=== PATIENT | female | born 1960 | race Caucasian/White ===

== ENCOUNTER 2024-07-01 14:09 | Outpatient (OUT) | payer MEDICARE, SELFPAY ==
--- NOTE | 2024-07-01 14:28 | ECG_ITS ---
[facility] Test Date: 2024-07-01 Pat Name: PRASANNA MA Department: Room: - Gender: Female Implementation Advisor: : 1960 Requested By: [id number] Order Number: [id number] Reading MD: SANJANA GONZALEZ Measurements Intervals [place] Rate: 58 P: 69 WY: 133 QRS: 62 QRSD: 90 T: 30 QT: 439 QTc: 432 Interpretive Statements SINUS BRADYCARDIA Compared to ECG 04/22/2021 14:17:21 Sinus rhythm no longer present Electronically Signed On 07-01-2024 22:31:47 EDT by SANJANA GONZALEZ
== END 2024-07-01 14:10 | disposition home or self-care (01) ==
DX: F31.0 Bipolar disorder, current episode hypomanic (principal); F41.1 Generalized anxiety disorder
CPT/HCPCS: 93005

== ENCOUNTER 2024-07-04 09:19 | Outpatient (OUT) | payer MEDICARE, SELFPAY ==
[2024-07-04 09:40] LABS: Basophils Absolute Auto 0.1 10^3/uL (0.0-0.1); Basophils Percent Auto 0.9 % (0.2-2.0); Eosinophils Absolute Auto 0.5 10^3/uL (0.0-0.7); Eosinophils Percent Auto 5.8 % (0.9-7.0); Hematocrit 37.7 % (36.0-48.0); Hemoglobin 12.7 g/dL (12.0-16.0); Immature Granulocytes Abs Auto 0.02 10^3/uL (0.00-0.03); Immature Granulocytes Pct Auto 0.3 % (0.0-0.5); Lymphocytes Absolute Auto 2.6 10^3/uL (1.2-3.8); Lymphocytes Percent Auto 32.5 % (20.5-60.0); Mean Corpuscular HGB Conc 33.7 g/dL (29.9-35.2); Mean Corpuscular Hemoglobin 30.3 pg (26.7-34.0); Mean Platelet Volume 10.8 fL (9.5-13.5); Monocytes Absolute Auto 0.7 10^3/uL (0.3-0.8); Monocytes Percent Auto 8.9 % (1.7-12.0); Neutrophils Absolute Auto 4.1 10^3/uL (1.4-6.5); Neutrophils Percent Auto 51.6 % (43.0-75.0); Platelet Count 237 10^3/uL (150-450); Red Blood Count 4.19 10^6/uL (4.20-5.40); Red Cell Distribution Width 13.1 % (11.0-15.0); White Blood Count 7.9 10^3/uL (4.0-11.0)
[2024-07-04 11:46] LABS: Alanine Aminotransferase 20 U/L (14-59); Albumin Level 3.6 g/dL (3.4-5.0); Alkaline Phosphatase 115 U/L (46-116); Aspartate Amino Transferase 17 U/L (15-37); BUN Creatinine Ratio 14.3; Bilirubin Direct 0.1 mg/dL (0.0-0.2); Bilirubin Total 0.4 mg/dL (0.2-1.0); Calcium 9.5 mg/dL (8.5-10.1); Carbon Dioxide 28.7 mmol/L (21.0-32.0); Chloride 97 mmol/L (98-107); Chol HDL Ratio 4.6; Cholesterol 165 mg/dL (<=200); Estimated GFR (African America >60 (>=60); Estimated GFR (Non-African Ame 53 (>=60); Globulin 3.5 g/dL; Glucose 124 mg/dL (74-106); HDL Cholesterol 36 mg/dL (40-60); Potassium 3.7 mmol/L (3.5-5.1); Sodium 132 mmol/L (136-145); Thyroid Stimulating Hormone 1.777 uIU/mL (0.358-3.740); Total Protein 7.1 g/dL (6.4-8.2); Triglycerides 532 mg/dL (<=150); VLDL CHOLESTEROL 106.4 mg/dL
[2024-07-04 15:29] LABS: LDL Cholesterol Direct 57 mg/dL
[2024-07-05 04:08] LABS: Prolactin 14.3 ng/mL (3.6-25.2); Triiodothyronine (T3) 116 ng/dL (71-180); Vitamin B12 411 pg/mL (232-1245)
[2024-07-10 16:11] LABS: Summary Report (Summary) FINAL (.)
== END 2024-07-04 09:20 | disposition home or self-care (01) ==
LOC: LAB 09:19
DX: F31.0 Bipolar disorder, current episode hypomanic (principal); F41.1 Generalized anxiety disorder
CPT/HCPCS: 36415; 80053; 80061; 80076; 80326; 80331; 80334; 80337; 80338; 80341; 80344; 80347; 80348; 80353; 80354; 80355; 80357; 80358; 80359; 80360; 80361; 80364; 80365; 80366; 80367; 80368; 80370; 80371; 80372; 80373; 80377; 82306; 82570; 82607; 82746; 83540; 83721; 83992; 84146; 84436; 84443; 84480; 85025

== ENCOUNTER 2025-04-30 10:54 | Outpatient (OUT) | payer MEDICARE, MEDICAID, SELFPAY ==
--- OUTSIDE RECORDS SUMMARY | 2025-04-16 11:36 | XMS_ITS ---
Author Organization [facility] in [place] Address [address] [place] [address] Care Team Providers Care Cosmetics Presser Name Role Phone Madhavi Culp Primary Care Provider [phone] REASON FOR VISIT refill Medications Medication SIG (Take, Route, Fr equency, Duration) Notes Start Date End Date Status Nitroglycerin 0.4 MG 1 tablet under the tongue and allow to dissolve as needed. Take every 5 minutes up to 3 times if chest pain persists Sublingual prn for 30 days 12/09/2024 Activ e Encounters Encounter Location Date Provider Diagnosis [facility] [address] [place] [address] 04/16/2025 Madhavi Culp Plan Of Treatment Medication Medication Name Sig Start Date Stop Date Notes Nitroglycerin 0.4 MG 1 tablet under the tongue and allow to dissolve as needed. Take every 5 minutes up to 3 times if chest pain persists Sublingual prn for 30 days 12/09/2024 Progress Notes * Susanna MADOB:1960 (64 yo F)Acc No.[id number]:04/16/2025 Patient: Susanna ENRIQUE :1960 A ge:64 Y S ex:Female Address:[facility] [place], [address] * Refills Refill Nitroglycerin Tablet Sublingual, 0.4 MG, Sublingual, 90, 1 tablet under the tongue and allow to dissolve as needed. Take every 5 minutes up to 3 times if chest pain persists, prn, 30 days, Refills=1 * true * Date: Generated for Judd valle/Tonny/Estelaitting on: 0 04/30/2025 11:01 AM EDT
--- OUTSIDE RECORDS SUMMARY | 2025-04-16 11:48 | XMS_ITS ---
Author Organization [facility] in [place] Address [address] [place] [address] Care Team Providers Care Rate Engineer Name Role Phone Madhavi Culp Primary Care Provider [phone] REASON FOR VISIT MRI pancrease Encounters Encounter Location Date Provider Diagnosis [address] [place] [address] 04/16/2025 Madhavi Culp Plan Of Treatment No Information Progress Notes * Susanna MADOB:1960 (64 yo F)Acc No.[id number]:04/16/2025 Patient: Susanna ENRIQUE :1960 A ge:64 Y S ex:Female [address] [place], [address] * true * Date: Generated for Judd valle/Tonny/eTransmitting on: 0 04/30/2025 11:01 AM EDT
--- OUTSIDE RECORDS SUMMARY | 2025-04-21 04:54 | XMS_ITS ---
Author Organization [facility] in [place] Address [address] [place] [address] Care Team Providers Care Cutter Finisher Name Role Phone Madhavi Culp Primary Care Provider Reason For Referral Diagnosis 1 Heart failure, unspe cified (I50.9) Referral Organization [facility] Referring Provider First Name Madhavi Referring Provider Last Name Robbi Referring Provider [facility] ann marie Referred Provider [facility] Referred Provider Specialty Cardiology Referral Priority Routine Diagnosis 1 Type 2 diabetes john itus with diabetic cataract (E11.36) Diagnosis 2 Hyperthyroidism (E05 .90) Referral Organization [facility] Referring Provider First Name Madhavi Referring Provider Last Name Robbi Referring Provider [facility] ann marie Referred Provider [facility] Tavarez Referred Provider Specialty Endocrinolog y Referral Priority Routine REASON FOR VISIT referrals Encounters Encounter Location Date Provider Diagnosis [facility] [address] [facility] [place] [address] 04/21/2025 Madhavi Culp Heart failure, unspecified I50.9 ; Diabetes E11.9 ; Type 2 diabetes mellitus with diabetic cataract E11.36 and Hyperthyroidism E05.90 Assessments Encounter Date Diagnosis (ICD Code) Assessment Notes Treatment Notes Treatment Clinical Notes Section Notes 04/21/2025 Heart failure, unspecified (ICD-10 - I50.9) 04/21/2025 Diabetes (ICD-10 - E11.9) 04/21/2025 Type 2 diabetes mellitus with diabetic cataract (ICD-10 - E11.36) 04/21/2025 Hyperthyroidism (ICD-10 - E05.90) Plan Of Treatment Referrals Referral Date Details 04/21/2025 04/21/2025, Specialt y Clinic [facility] Cardiology 04/21/2025 04/21/2025, Carlos Velázquez bbagh Progress Notes * Susanna MADOB:1960 (64 yo F)Acc No.[id number]:04/21/2025 Patient: Susanna ENRIQUE :1960 A ge:64 Y S ex:Female Address:[address] [place] [address] [place], [address] Subjective: * Chief Complaints: * R eferrals * Medical History: * Surgical History: * Hospitalization/Major Diagno stic Procedure: * Medications: Objective: * Vitals: * Physical Examination: Assessment: * Assessment: 1. H eart failure, unspecified - I50.9 (Primary) 2 . D iabetes - E11.9 3 . T ype 2 diabetes mellitus with diabetic cataract - E11.36 4 .�Hyperthyroidism - E05.90 Plan: * Treatment: 2. T ype 2 diabetes mellitus with diabetic cataract Referral To:[facility] Reason: 3. H yperthyroidism Referral To:[facility] Reason: * Procedure Codes: * true * Date: Generated for Judd valle/Tonny/eTransmitting on: 0 04/30/2025 11:02 AM EDT Consultation Request Notes Referral Date Referring Provider Referred Provider Not es 04/21/[address] [facility] Cardiology, Specialty Clinic 04/21/2025 Madhavi Culp Ahmad
--- OUTSIDE RECORDS SUMMARY | 2025-04-30 11:01 | XMS_ITS | Patient Health Record ---
Author Organization [facility] Address [address] [place] [address] [place] [address] Care Team Providers Care Terrazzo Worker Name Role Phone JENNIFER KD Unavailable [phone] Reason For Referral No Information Social History Sex Assigned At : Social History Observation Description Sex Assigned At Female Plan Of Treatment No Information Insurance Providers Payer Name Payer Address Payer Phone Subscriber Number Group Number Insured Name Patient Relationship to Insured Coverage Start Date Coverage End Date [employer] [address] [address] [place] [address] [id number] PRASANNA MA Self - patient is the insured 2 [employer] [address] [address] [place] [address] [id number] PRASANNA MA Self - patient is the insured 2
--- OUTSIDE RECORDS SUMMARY | 2025-04-30 11:02 | XMS_ITS | Patient Health Record ---
Author Organization [facility] in [place] Address [address] [place] [address] Care Team Providers Care Job Setter Honing Name Role Phone Madhavi Culp Primary Care Provider Allergies Allergen (clinical drug ingredient) Drug/Non Drug Allergy documented on EMR Reaction Allergy Type Onset Date Status Vaccine product containing Streptococcus pneumoniae antigen (medicinal product) pneumonia vaccine (uncoded) hives Allergy Active Vitamin B Complex hives Drug Allergy Active Reason For Referral Reason hyperthyroid on meth imazole Diagnosis 1 Hyperthyroidism (E05 .90) Referral Organization [facility] Referring Provider First Name Madhavi Referring Provider Last Name Robbi Referring Provider [facility] ann marie Referred Provider Carlos Tavarez Referred Provider Specialty Endocrinolog y Referral Priority Routine Reason HTN Diagnosis 1 HTN (hypertension) ( I10) Referral Organization [facility] Referring Provider First Name Madhavi Referring Provider Last Name Robbi Referring Provider [facility] ann marie Referred Provider Chivo Estrada Referred Provider Specialty Cardiology Referral Priority Routine Diagnosis 1 Heart failure, unspe cified (I50.9) Referral Organization [facility] Referring Provider First Name Madhavi Referring Provider Last Name Robbi Referring Provider [facility] ann marie Referred Provider [facility]erred Provider Specialty Cardiology Referral Priority Routine Diagnosis 1 Type 2 diabetes john itus with diabetic cataract (E11.36) Diagnosis 2 Hyperthyroidism (E05 .90) Referral Organization [facility] Referring Provider First Name Madhavi Referring Provider Last Name Robbi Referring Provider [facility] ann marie Referred Provider Carlos Tavarez Referred Provider Specialty Endocrinolog y Referral Priority Routine Medications Medication SIG (Take, Route, Frequency, Duration) Notes Start Date End Date Status Metoprolol Tartrate 50 MG TAKE 1 TABLET BY MOUTH TWICE A DAY Oral for 90 days Active methIMAzole 5 MG TAKE 1 TABLET SUNDAY THROUGH SUNDAY, NONE ON SUNDAYS Oral for 90 days Active metFORMIN HCl 1000 MG 1 tablet with a me al Oral twice a day for 90 days Active Isosorbide Mononitrate ER 30 MG TAKE 1 TABLET BY MOUTH EVERY DAY EVERY AFTERNOON Oral for 90 Days Active Ferrous Sulfate 325 (65 Fe) MG 1 tablet Orally daily for 90 days 12/09/2024 Not-Taking Nitroglycerin 0.4 MG 1 tablet under the tongue and allow to dissolve as needed. Take every 5 minutes up to 3 times if chest pain persists Sublingual prn for 30 days 12/09/2024 Active DULoxetine HCl 30 MG 1 capsule Orally On ce a day for 90 days 12/09/2024 Active Valsartan-hydroCHLOROthiaz rosemarie 80-12.5 MG TAKE 1 TABLET BY MOUTH EVERY DAY Oral for 90 days Active Atorvastatin Calcium 40 MG 1 tablet Oral Once a day for 90 days Active traZODone HCl 100 MG 1 tablet at bedtime Oral Once a day for 90 days Active Aspirin 81 81 MG 1 tablet Orally Once a day for 90 days 12/09/2024 Active Tradjenta 5 MG TAKE 1 TABLET BY DON TH EVERY DAY Oral for 90 days Active Albuterol Sulfate HFA 108 (90 Base) MCG/ACT 1 puff as needed Inhalation every 4 hrs for 17 days Active Desvenlafaxine Succinate ER 100 MG TAKE 1 TABLET BY MOUTH EVERY DAY FOR 30 DAYS for 90 days Active Breo Ellipta 200-25 MCG/ACT 1 puff Inhalation Once a day 12/09/2024 Not-Taking glipiZIDE 10 MG TAKE 1 TABLET BY DON TH TWICE A DAY BEFORE MEALS Oral for 90 days Active Breo Ellipta 100-25 MCG/ACT 1 puff Inhalation Once a day 04/16/2025 Active Famotidine 20 MG 1 tablet at bedtime as needed Oral Once a day for 90 days Active Amphetamine-Dextroamphetam ine 20 MG 1 tablet Oral Twice a day for 90 days Not-Taking DULoxetine HCl 60 MG 1 capsule Orally On ce a day Active ALPRAZolam 1 MG 1 tablet Oral four times a day for 30 days Not-Taking Social History Tobacco Use: Social History Observation Description Date Details (start date - stop date) Current Smoker 11/15/1970 - NA Tobacco Control (Standard) Question Answer Notes Tobacco use: Current smoker When did you start smoking? 11/15/1970 How often do you smoke cigarettes? Every day How many cigarettes a day do you smoke? 11-20 How soon after you wake up do you smoke your fir st cigarette? 31-60 minutes Are you interested in quitting? Not ready to christal t AUDIT-C (Standard) Question Answer Notes Did you have a drink containing alcohol in the p ast year? 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) Active confirmed Problem Heart failure (51255323) Heart failure, unspecified (I50.9) Active confirmed Problem Ankylosing spondylitis (0684171) Ankylosing spondylitis of unspecified sites in spine (M45.9) Active confirmed Problem Hypertension (73818992) HTN (hypertension) (I10) Active confirmed Problem Smoker (94156070) Smoker (F17.200) Active confi rmed Problem Hyperthyroidism (08350548) Hyperthyroidism (E05.90) Active confirmed Problem Mental health disorder (22334051) Mental health disorder (F99) Active confirmed Problem Type II diabetes mellitus without complication (115080630) Diabetes (E11.9) Active confirmed Vital Signs Blood pressure diastolic 62 mm Hg 04/16/2025 Height 64 in 04/16/2025 Blood pressure systolic 108 mm Hg 04/16/2025 Weight 107.6 lbs 04/16/2025 BMI 18.47 kg/m2 04/16/2025 Encounters Encounter Location Date Provider Diagnosis [address] [address] 12/09/2024 Madhavi Culp HTN (hypertension) I 10 ; Hyperthyroidism E05.90 ; Mental health disorder F99 and Pancreatic cyst K86.[address] [address] 02/24/2025 Madhavi Culp Diabetes E11.9 ; Cer umen impaction H61.20 and Bilateral impacted cerumen H61.[address] [address] 04/16/2025 Madhavi Culp Ankylosing spondylit is of unspecified sites in spine M45.9 ; Type 2 diabetes mellitus with diabetic cataract E11.36 ; Heart failure, unspecified I50.9 and Smoker F17.200 [facility] [address] [place] [facility] [place] [address] 12/11/2024 Madhavi Culp [facility] [address] [place] [address] 02/16/2025 Madhavi Culp [facility] [address] [place] [address] 03/04/2025 Madhavi Culp [facility] [address] [place] [facility] [place] [address] 03/19/2025 Madhavi Culp [facility] [address] [place] [address] 03/31/2025 Madhavi Culp HTN (hypertension) I 10 and Diabetes E11.9 [facility] [address] [place] [facility] [place] [address] 04/01/2025 Madhavi Culp [facility] [address] [place] [facility] [place] [address] 04/02/2025 Madhavi Culp [facility] [address] [place] [facility] [place] [address] 04/07/2025 Madhavi Culp [facility] [address] [place] [address] 04/16/2025 Madhavi Culp [facility] [address] [place] [facility] [place] [address] 04/16/2025 Madhavi Culp [facility] [address] [place] [facility] [place] [address] 04/21/2025 Madhavi Culp Heart failure, unspecified I50.9 ; Diabetes E11.9 ; Type 2 diabetes mellitus with diabetic cataract E11.36 and Hyperthyroidism E05.90 Assessments Encounter Date Diagnosis (ICD Code) Assessment Notes Treatment Notes Treatment Clinical Notes Section Notes 12/09/2024 HTN (hypertension) (ICD-10 - I10) requesting cardiac referral 12/09/2024 Hyperthyroidism (ICD-10 - E05.90) requesting endocrine referral on methimazole 04/16/2025 Ankylosing spondylitis of unspecified sites in spine (ICD-10 - M45.9) otc nsaids 04/16/2025 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 Reviewed Hypoglycemia / Hyperglycemia action plan: Instructed to call office if blood sugar above 350 or below 65 consecutively. Reviewed with patient the residential effects of Diabetes Mellitus on the body and organs. Instructed patient to check feet daily, wear socks daily, wear proper fitting shoes, lotion feet at night with no lotion between toes, powder between toes. Follow-up with podiatry Q6M and PRN. No toenail clipping except by Podiatry. Please bring glucase meter and record to each appointment, Please feel free to call if you have questions or concerns about management or condition. Please call 1 week before medications are depleted for refills. If you are instructed to be fasting for procedure or testing, please call for dosing instructions. 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) 03/31/2025 Diabetes (ICD-10 - E11.9) 02/24/2025 Bilateral impacted cerumen (ICD-10 - H61.23) 04/16/2025 Heart failure, unspecified (ICD-10 - I50.9) requesting nitro refill, hers is needs referral new conference organizer 12/09/2024 Mental health disorder (ICD-10 - F99) needs to fu with psych for meds, management thinks bipolar dx 12/09/2024 Pancreatic cyst (ICD-10 - K86.2) 04/16/2025 Smoker (ICD-10 - F17.200) 04/21/2025 Hyperthyroidism (ICD-10 - E05.90) Plan Of Treatment Pending Test Test Name Order Date HEMOGLOBIN A1C (GLYCO) 04/16/2025 IRON, TOTAL 04/16/2025 LIPID PANEL (CHOL/TRIG/HDL/LDL) 04/16/20 25 VITAMIN D, 25 LEVEL (TOTAL) 04/16/2025 Insulin Level 04/16/2025 MRI Pancreas w/ + w/o contrast THYROID PANEL (T4/TSH/FREE T3) CMP (COMP MET [place]) w/eGFR CKD-EPI 2024 CBC WITH DIFF 04/16/2025 Insurance Providers Payer Name Payer Address Payer Phone Subscriber Number Group Number Insured Name Patient Relationship to Insured Coverage Start Date Coverage End Date [employer] MEDICARE ADV PLAN [address] [address] [place] [address] [id number] Susanna Banerjee Self - patient is the insured MEDICAID [place] [address] [facility] [address] [facility] [address] [place], [place] [id number] Susanna Banerjee Self - patient is the insured Medical (General) History Surgical History Surgery Date(Month/Year) right foot eye surgery bilateral knee surgery Nose
[2025-04-30 11:44] LABS: Hematocrit 38.0 % (36.0-48.0); Hemoglobin 12.4 g/dL (12.0-16.0); Immature Granulocytes Abs Auto 0.02 10^3/uL (0.00-0.03); Immature Granulocytes Pct Auto 0.2 % (0.0-0.5); Lymphocytes Absolute Auto 2.7 10^3/uL (1.2-3.8); Mean Corpuscular HGB Conc 32.6 g/dL (29.9-35.2); Mean Corpuscular Hemoglobin 26.6 pg (26.7-34.0); Mean Corpuscular Volume 81.4 fL (81.0-99.0); Platelet Count 269 10^3/uL (150-450); Red Blood Count 4.67 10^6/uL (4.20-5.40); White Blood Count 8.8 10^3/uL (4.0-11.0)
[2025-04-30 12:21] LABS: Iron 66.0 ug/dL (50.0-170.0)
[2025-04-30 12:33] LABS: Alanine Aminotransferase 32 U/L (14-59); Albumin Globulin Ratio 0.8; Albumin Level 3.2 g/dL (3.4-5.0); Alkaline Phosphatase 169 U/L (46-116); Anion Gap 10.1; Aspartate Amino Transferase 21 U/L (15-37); Blood Urea Nitrogen 14.0 mg/dL (7.0-18.0); Calcium 9.8 mg/dL (8.5-10.1); Carbon Dioxide 28.5 mmol/L (21.0-32.0); Chloride 98 mmol/L (98-107); Cholesterol 139 mg/dL (<=200); Estimated GFR (African America >60 (>=60 mL/min/1.73m^2); Estimated GFR (Non-African Ame >60 (>=60 mL/min/1.73m^2); Free T3 5.21 pg/mL (2.18-3.98); Globulin 4.1 g/dL; Glucose 291 mg/dL (74-106); HDL Cholesterol 58 mg/dL (40-60); Potassium 3.6 mmol/L (3.5-5.1); Sodium 133 mmol/L (136-145); Thyroid Stimulating Hormone <0.007 uIU/mL (0.358-3.740); Total Protein 7.3 g/dL (6.4-8.2); Triglycerides 117 mg/dL (<=150); VLDL CHOLESTEROL 23.4 mg/dL
== END 2025-04-30 10:55 | disposition home or self-care (01) ==
LOC: LAB 10:59
PROVIDERS: PCP Nurse Practitioner Family; Visit Provider Nurse Practitioner Family
DX: E11.36 Type 2 diabetes mellitus with diabetic cataract (principal)
CPT/HCPCS: 36415; 80053; 80061; 82306; 83036; 83525; 83540; 84436; 84443; 84481; 85025

== ENCOUNTER 2025-07-02 10:57 | Outpatient (OUT) | payer MEDICARE, MEDICAID, SELFPAY ==
--- OUTSIDE RECORDS SUMMARY | 2017-02-12 10:45 | XMS_ITS | Continuity of Care Document ---
Author Organization [facility] Address [address] [place] [address] [place] [address] Phone Care Team Providers Care Scoop Machine Operator Name Role Phone SHY JARRETT, DENTON Unavailable Unavailable Allergies, Adverse Reactions, Alerts Substance Reaction Status Criticality pneumococcal vaccine hiveshives Active No Info rmation VITAMIN B COMPLEX NO.12 rash Active No I nformation Medications Medication Instructions Dosage Effective Dates (start - stop) Status Comments Cymbalta 20 mg capsule,delayed release take 1 capsule by oral route 2 times every day 20 MG - Active Ambien 10 mg tablet take 1 tablet by ora l route every day at bedtime 10 MG - Active aspirin 81 mg tablet,delayed release take 1 tablet by oral route every day 81 MG - Active isosorbide mononitrate ER 30 mg tablet,extended release 24 hr take 1 tablet by oral route every day in the morning 30 MG - Active Spiriva with HandiHaler 18 mcg and inhalation capsules inhale 1 capsule by inhalation route every day using 2 inhalations via handihaler - Active metoprolol tartrate 50 mg tablet take 1 tablet by oral route 2 times every day with meals 50 MG - Active diclofenac sodium 75 mg tablet,delayed release take 1 tablet by oral route 3 times every day 75 MG - Active levothyroxine 25 mcg tablet take 1 tablet by oral route every day 25 MCG - Active losartan 25 mg tablet take 1 tablet by o ral route every day 25 MG - Active citalopram 20 mg tablet take 1 tablet by oral route every day 20 MG - Active bupropion HCl SR 150 mg tablet,sustained-rele ase take 1 tablet by oral route every day 150 MG - Active glipizide 10 mg tablet take 1 tablet by oral route 2 times every day before a meal 10 MG - Active metformin ER 1,000 mg tablet,extended release 24hr take 1 tablet by oral route 2 times every day with the evening meal 1000 MG - Active Adderall 30 mg tablet take 1 tablet by o ral route 2 times every day before breakfast 30 MG - Active Plavix 75 mg tablet take 1 tablet by ora l route every day 75 MG - Active Advair Diskus 250 mcg-50 mcg/dose powder for inhalation inhale 1 puff by inhalation route 2 times every day in the morning and evening approximately 12 hours apart 1.00 puff - Active iron ER 325 mg (65 mg iron) capsule,extended release - Active pravastatin 80 mg tablet take 1 tablet by oral route every day 80 MG - Active Zantac 300 mg tablet take 1 tablet by or al route every day at bedtime - Active nitroglycerin 0.2 mg/hr transdermal 24 hour patch apply 1 patch by transdermal route every day remove at night for 10-12 hours 1.00 patch - Active Procedures Procedure Date Offic/outpt E&m [facility] 2 17 Arthrocentesis/aspir/inj; [facility] 17 Betamethasone Acetate-na Phos/ 17 Arthrocentesis/aspir/inj; Jonna 17 Euflexxa Euflexxa Arthrocentesis/aspir/inj; Jonna 17 Euflexxa Euflexxa Arthrocentesis/aspir/inj; Jonna 17 Euflexxa Euflexxa Offic[facility]outpt [facility] Offic/outpt E&m New Mod Sever 7 Rad Exam Spine Cerv; Ap & Lat 7 Offic/outpt E&m Estab Lowmod 6 Rad Exam Knee; Complt 4/more V 16 Rad Exam Knee; Complt 4/more V 16 Arthrocentesis/aspir/inj; Jonna 16 Betamethasone Acetate-na Phos/ 16 Advance Directives Directive Yes / No Effective Date File Name No Information Encounters Encounter Description Practice Location Reason(s) For Visit Diagnoses Date Provider Providers Copied on Encounter [facility], [address] [place] [address], [address] [place] [address], tel:[phone] [facility] No Information 7 SHY CHAWLA. [address] [place] [address], [address] [place] [address], . tel:[phone] Offic/outpt E&m Estab Mod-hi 2 [facility], [address] [place] [address], [address] [place] [address], tel:[phone] [facility] Pes anserine bursitis Dec- 7 ABREU SUSAN. [address] [place] [address], [address] [place] [address], [place]. tel:[phone] [facility], [address] [place] [address], [address] [place] [address], tel:[phone] [facility] Primary osteoarthritis of left kneePrimary osteoarthritis of right knee Fe- 7 ABREU SUSAN. [address] [place] [address], [address] [place] [address], [place]. tel:[phone] [facility], [address] [place] [address], [address] [place] [address], tel:[phone] [facility] Primary osteoarthritis of left kneePrimary osteoarthritis of right knee Oct- 7 ABREU SUSAN. [address] [place] [address], [address] [place] [address], . tel:[phone] [facility], [address] [place] [address], [address] [place] [address], tel:[phone] [facility] Primary osteoarthritis of left kneePrimary osteoarthritis of right knee 7 ABREU SUSAN. [address] [place] [address], [address] [place] [address], [place]. tel:[phone] Offic/outpt E&m Estab Low-mod [facility], [address] [place] [address], [address] [place] [address], [place] tel:[phone] [facility] Body mass index (BMI) 25.0-25.9, adultPrimary osteoarthritis of left kneePrimary osteoarthritis of right knee 0 7 ABREUKRYSTYNA DAVIS. [address] [place] [address], [address] [place] [address], . tel:[phone] Offic/outpt E&m [facility], [address] [place] [address], [address] [place] [address], tel:[phone] [facility] Body mass index (BMI) 25.0-25.9, adultCervical pain (neck)Degenerat kirk disc disease, cervical 7 RYAN NOREENCHANDANMICA . [address] [place] [address], [address] [place] [address], [place]. tel:[phone] Offic/outpt E&m [facility] [place] [facility], [address] [place] [address], [address] [place] [address], tel:[phone] [facility] Body mass index (BMI) 25.0-25.9, adultPrimary osteoarthritis of left kneePrimary osteoarthritis of right knee 6 ABREUKRYSTYNA DAVIS. [address] [place] [address], [address] [place] [address], . tel:[phone] Family History Family Member Type Diagnosis Age At Onset No Information Immunizations Vaccine Date Status Comments Flu (split) (3 yrs or older) administered Source: Other Provider Payers Payer name Insurance type Covered constitution party ID Authoriza tion(s) Medicare Part B [id number] Medicaid [facility] [id number] Social History Type Description Quantity Date Captured Comments Sex Female Smoking Status No Information Chief Complaint And Reason For Visit No Information Reason For Referral Reason For Referral No Information Plan Of Treatment Date Type Action Status Goal Dietary manageme nt education, guidance, and counseling completed Goal Tobacco cessation counseling completed Goal Tobacco cessation counseling completed Goal Dietary manageme nt education, guidance, and counseling completed Goal Tobacco cessation counseling completed Goal Tobacco cessation counseling completed Goal Dietary manageme nt education, guidance, and counseling completed Future Order: Lab Order C Spine 2VW ([id number]), Sent on: Sent Future Order: Lab Order Knee 4 V W Arthritis vw Left ([id number]), Sent on: Sent Future Order: Lab Order Knee 4 V W Arthritis vw Right ([id number]), Sent on: Sent History Of Present Illness Encounter Date Complaint History Of Prese nt Illness No Information Functional Status Date Functional Assessmen t No Information Instructions Date Instruction Additional Infor mation Dietary management e ducation, guidance, and counseling Related to Body mass index (BMI) 25.0-25.9, adult Dietary management e ducation, guidance, and counseling Related to Body mass index (BMI) 25.0-25.9, adult Dietary management e ducation, guidance, and counseling Related to Body mass index (BMI) 25.0-25.9, adult Assessments Type Assessment Date No Information Patient Care Teams Name Effective Dates (start - stop) Status Members No Information
--- OUTSIDE RECORDS SUMMARY | 2025-07-02 10:59 | XMS_ITS | Clinical Summary ---
Author Organization [facility] Address [address] 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
--- OUTSIDE RECORDS SUMMARY | 2025-07-02 10:59 | XMS_ITS | Clinical Summary ---
Author Organization [facility] Address [address] [place] [address] Care Team Providers Care Art Coordinator Name Role Phone Madhavi Culp NAVIN Primary Care Provider [phone] Allergies Active Allergy Reactions Criticality Noted Date Comments Cyanocobalamin (Vitamin B12) GI intolerance,Hives High 08/18/2013 Patient got dizzy, lightheaded, nauseated. Cyanocobalamin-Cobamamid e GI intolerance High 08/18/2013 Patient got dizzy, lightheaded, nauseated. Pneumococcal 23-Keshia Ps Vaccine Hives High 08/18/2013 Patient got hives, Pneumococcal Vaccine Hives,Unknown High 08/18/2013 Patient got hives, Vitamin B Complex Hives 07/02/2025 Active Problems Problem Noted Date Diagnosed Date ADHD (attention deficit hyperactivity disorder) 07/02/2025 Asthma 07/02/2025 Overview (07/02/2025): no hospitalization Coronary artery disease 07/02/2025 Overview (07/02/2025): [address] Heredia Depression 07/02/2025 Overview (07/02/2025): with anxiety Hyperlipidemia 07/02/2025 Hypertension 07/02/2025 Hyperthyroidism 07/02/2025 OA (osteoarthritis) 07/02/2025 Overview (07/02/2025): knees, hips RAY (obstructive sleep apnea) 07/02/2025 Overview (07/02/2025): not tolerating cpap Type 2 diabetes mellitus wit h hyperglycemia, without long-term current use of insulin 07/02/2025 Vitamin D deficiency 07/02/2025 Ankylosing spondylitis 07/02/2025 Mental health disorder 07/02/2025 Smoker 07/02/2025 Type 2 diabetes mellitus with diabetic cataract 07/02/2025 Type 2 diabetes mellitus without complications 0 07/02/2025 Age-related nuclear cataract of both eyes 2024 Macular dystrophy 12/23/2024 Macular scar of both eyes 12/23/2024 Osteoarthritis of spine at multiple levels 06/20 Congestive heart failure 02/13/2023 Pancreatic cyst 09/27/2022 Chronic midline low back pain 02/01/2022 Stenosis of right vertebral artery 02/01/2022 Overview (07/02/2025): Evaluated by Dr. [facility], no surgical intervention Multiple thyroid nodules 04/23/2021 Overview (07/02/2025): Thyroid ultrasound done in 03/2021 showed right thyroid nodule at 1.9 cm, TR4; left upper pole nodule at 1.1 cm, TR4. COPD (chronic obstructive pulmonary disease) Migraine 12/16/2013 Social History Tobacco Use Types Packs/Day Years Used Date Smoking Tobacco: Never Assessed Comments Unknown Sex and Gender Information Value Date Recorded Sex Assigned at Female 06/09/2025 2:23 PM EDT Legal Sex Female 3:39 PM EST Gender Identity Female 06/09/2025 2:23 PM EDT Sexual Orientation Heterosexual or Straight 05/16 2:23 PM EDT Plan of Treatment Upcoming Encounters Date Type Department Care Team (Late st Contact Info) Description 07/03/2025 3:00 PM EDT Office Visit [facility] [address] [place] [address] Jesus Pham MD [address] [place] [address] Health Maintenance Due Date Last Done Comments CT Colonography 1960 Diabetes: Hemoglobin A1C 1960 FIT-DNA 1960 FIT 1960 Medicare Annual Wellness (AWV) 1960 Sigmoidoscopy 1960 Diabetes: Retinopathy Screening 1968 Depression Screening 1970 Zoster Vaccines (1 of 2) 2008 Pneumococcal Vaccine: 50+ Years (2 of 2 - PCV) 10/12/2010 10/12/2009 FOBT 01/08/2023 01/08/2022 Fall Risk Screening 2023 Mammogram 01/13/2024 01/12/2022 Diabetes: Urine Protein Screening 07/04/2024 07/04/2023 COVID-19 Vaccine ( season) 2025 Influenza Vaccine (#1) 2025 , 06/30/2022, 07/29/2021, Additional history exists Colonoscopy 05/17/2026 05/17/2016 Colorectal Cancer Screening 05/17/2026 Adult Tetanus 07/07/2028 07/07/2018 HIB Vaccines Aged Out No longer eligi ble based on patient's age to complete this topic HPV Vaccines Aged Out No longer eligi ble based on patient's age to complete this topic IPV Vaccines Aged Out No longer eligi ble based on patient's age to complete this topic Meningococcal B Vaccine Aged Out No l onger eligible based on patient's age to complete this topic Meningococcal Vaccine Aged Out No lesa nadia eligible based on patient's age to complete this topic Rotavirus Vaccines Aged Out No longer eligible based on patient's age to complete this topic Insurance [facility] MEDICARE ADVANTAGE [place]ICAID [place] Care Teams Art Coordinator Relationship Specialty Start Date End Date Madhavi Culp CNP [address] [place] [address] [place] [address] PCP - General Family Medicine 05/12/25
--- OUTSIDE RECORDS SUMMARY | 2025-07-02 10:59 | XMS_ITS | Clinical Summary ---
Author Organization [facility] Address [address] [place] [address] Care Team Providers Care Sleep Tech Name Role Phone Unavailable Primary Care Provider Unavailabl e Allergies Active Allergy Reactions Criticality Noted Date Comments Pneumococcal Vaccine Unknown,Hives High 08/18/2013 Patient got hives, Vitamin B12 Hives,GI intolerance High 08/18/2013 Patient got dizzy, lightheaded, nauseated. Medications albuterol HFA 90 mcg/act inhaler Inhale 2 puffs every 4 (four) hours if needed 4 Active ALPRAZolam (Xanax) 1 MG tablet Take 1 mg by mouth in the morning and 1 mg at noon and 1 mg in the evening and 1 mg before bedtime. 4 Active amphetamine-dex troamphetamine (Adderall) 20 MG tablet Take 1 tablet by mouth in the morning and 1 tablet before bedtime. 4 Active aspirin 81 MG chewable tablet Chew 81 mg in the morning. Active atorvastatin (Lipitor) 40 MG tablet Take 40 mg by mouth Daily Active desvenlafaxine (Pristiq) 100 MG 24 hr tablet Take 1 tablet by mouth Daily Active DULoxetine (Cymbalta) [address] capsule Take 1 capsule by mouth Active famotidine (Pepcid) 20 MG tablet Take 20 mg by mouth every 12 (twelve) hours 5 Active ferrous sulfate 325 (65 Fe) MG tablet Take 1 tablet by mouth in the morning and 1 tablet at noon and 1 tablet in the evening. Take with meals. Active Fluticasone-James meterol 100-50 MCG/ACT aerosol powder INHALE 1 PUFF INSTRUCTED TWO TIMES A DAY. 5 Active glipiZIDE (Glucotrol) 10 MG tablet Take 1 tablet by mouth in the morning and 1 tablet in the evening. Take before meals. 5 Active isosorbide mononitrate ER (Imdur) 30 MG 24 hr tablet Take 1 tablet by mouth Daily In the afternoon 4 Active Tradjenta 5 MG tablet Take 5 mg by mouth Daily Active metFORMIN (Glucophage) 1000 MG tablet Take 1 tablet by mouth in the morning and 1 tablet in the evening. Take with meals. 4 Active metoprolol tartrate (Lopressor) 50 MG tablet Take 50 mg by mouth every 12 (twelve) hours 4 Active nitroglycerin (Nitrostat) 0.4 MG SL tablet as directed Sublingual Active traZODone (Desyrel) 100 MG tablet Take 100 mg by mouth at bedtime Active Prednisolon-Mox iflox-Bromfenac 1-0.5-0.075 % solutionIndicat ions:Age-relate d nuclear cataract of both eyes Administer 1 drop into affected eye(s) in the morning and 1 drop at noon and 1 drop in the evening and 1 drop before bedtime. 10 mL 1 5 Active Prednisolon-Mox iflox-Bromfenac 1-0.5-0.075 % solutionIndicat ions:Age-relate d nuclear cataract of both eyes Administer 1 drop into affected eye(s) in the morning and 1 drop at noon and 1 drop in the evening and 1 drop before bedtime. 10 mL 1 5 Active methIMAzole (Tapazole) 5 MG tabletIndicatio ns:Type 2 diabetes mellitus with hyperglycemia, without long-term current use of insulin (HCC) Take 1 tablet (5 mg) by mouth Daily Sunday through Sunday - NONE on Sunday tablet 1 5 12/05/19 26 Active methIMAzole (Tapazole) 5 MG tablet Take 1 tablet by mouth Daily Sunday through Sunday - NONE on Sunday06/03/20 25 Discontin ued(Reord er) methIMAzole (Tapazole) 5 MG tabletIndicatio ns:Type 2 diabetes mellitus with hyperglycemia, without long-term current use of insulin (HCC) Take 1 tablet (5 mg) by mouth Daily Sunday through Sunday - NONE on Sunday tablet 1 5 06/08/20 25 Discontin ued(Reord er) Active Problems Problem Noted Date Diagnosed Date Age-related nuclear cataract of both eyes 2024 Macular dystrophy 12/23/2024 Macular scar of both eyes 12/23/2024 Encounters Date Type Department Care Team Description 06/08/2025 Telephone [facility] [address] [place] [address] Carlos Tavarez MD Med Refill 06/03/2025 1:10 PM EDT Office Visit [facility] [place] [facility] [address] [place] [address] Carlos Tavarez MD Type 2 diabetes mellitus with hyperglycemia, without long-term current use of insulin (HCC) (Primary Dx); Primary hypertension ; Hyperlipemia, mixed ; Encounter for dietary consultation; Hyperthyroidism 06/03/2025 Bamboo flowsheet [facility] [address] [place] [address] Carlos Tavarez MD from Last 3 Months Immunizations Immunization Administration Dates Next Due Influenza Whole 10/22/2015 Influenza, injectable, MDCK, preservative free, quadrivalent 06/01/2023,07/29/2021 Influenza, injectable, quadrivalent 07/14/2020,1 10/25/2018 Influenza, injectable, quadrivalent, preservativ e free 06/30/2022,07/29/2018 Influenza, seasonal, injectable 07/17/2017 Pneumococcal Polysaccharide PPSV23 10/12/2009 Tdap 07/07/2018 Family History Medical History Relation Name Comments Diabetes Brother Relation Name Status Comments Brother Alive Father Mother Social History Tobacco Use Types Packs/Day Years Used Date Smoking Tobacco: Every Day Cigarettes Tobacco Cessation:Ready to Q uit: Not Asked; Counseling Given: Not Answered Comments Unknown Sex and Gender Information Value Date Recorded Sex Assigned at Not on file Legal Sex Female 11:15 PM EDT Gender Identity Not on file Sexual Orientation Not on file Last Filed Vital Signs Vital Sign Reading Time Taken Comments Blood Pressure 124/60 06/03/2025 1:04 PM EDT Pulse 74 06/03/2025 1:04 PM EDT Temperature - - Respiratory Rate 16 06/03/2025 1:04 PM EDT Oxygen Saturation 96% 06/03/2025 1:04 PM EDT Inhaled Oxygen Concentration - - Weight 48.5 kg (107 lb) 06/03/2025 1:04 PM EDT Height 162.6 cm (5' 4 ) 06/03/2025 1:04 PM EDT Body Mass Index 18.37 06/03/2025 1:04 PM EDT Plan of Treatment Upcoming Encounters Date Type Department Care Team (Late st Contact Info) Description 09/07/2025 2:10 PM EST Office Visit [facility] [place] [facility] [address] [place] [address] Carlos Tavarez MD [address], [address] [place] [address] Procedures Procedure Name Priority Date/Time Associated Diagnosis Comments POCT GLYCOSYLATED HEMOGLOBIN (HGB A1C) Routine 06/03/2025 1:07 PM EDT Type 2 diabetes mellitus with hyperglycemia, without long-term current use of insulin (HCC) POCT GLUCOSE Routine 06/03/2025 1:07 PM EDT Type 2 diabetes mellitus with hyperglycemia, without long-term current use of insulin (HCC) from Last 3 Months Results * POCT glycosylated hemoglobin (Hb A1C) docked device (06/03/2025 1:07 PM EDT) Hemoglobin A1C 7.2 Blood Venous blood specimen / Unknown 06/03/2025 1:07 PM EDT Carlos Tavarez MD POINT OF CARE TEST ENTER/EDIT ORDERABLES Final Result * POCT glucose manually resulted (06/03/2025 1:07 PM EDT) Glucose Blood, POC 305 mg/dL Blood Capillary blood specimen / Unknown 06/03/2025 1:07 PM EDT Carlos Tavarez MD POINT OF CARE TEST ENTER/EDIT ORDERABLES Final Result from Last 3 Months Insurance [employer] MEDICARE ADVANTAGE MEDICAID [place]
--- NOTE | 2025-07-02 11:00 | MR_ITS ---
The [address] [address] Patient Name: PRASANNA MA MRN: [id number] date: 1960 Sex: F Assigned Patient Location: MRI Current Patient Location: Accession/Order Number: [id number] Exam Date: 07/02/2025 11:15 Report Date: 07/06/2025 16:10 At the request of: NEIDA OBRIEN Procedure: MR abdomen wo/w con MRI OF THE ABDOMEN WITH AND WITHOUT CONTRAST: CLINICAL HISTORY: Pancreatic Cyst COMPARISON: None TECHNIQUE: Multisequence, multiplanar imaging of the abdomen was obtained before and after the use of IV contrast. FINDINGS: The liver appears normal in contour without evidence of steatosis or intraventricular dilatation. No enhancing liver lesion is seen. Hepatic and portal veins appear patent. Gallbladder appears unremarkable. No CBD dilatation. Spleen appears unremarkable. Adrenal glands appear unremarkable. Cystic changes involving the kidneys. Aorta appears normal in caliber. No bulky lymphadenopathy or ascites. No pleural effusion. Pancreas appears atrophic with cystic changes noted largest involving the pancreatic body measuring 12 mm. No enhancing mass is noted. MR/MR abdomen wo/w con IMPRESSION: CYSTIC CHANGES INVOLVING THE PANCREAS LARGEST MEASURING 12 MM INVOLVING THE PANCREATIC BODY. REPEAT MRI IN 2 YEARS IS SUGGESTED.. Impression dictated by: Elias Hartley Jr., D.O. 07/06/2025 4:10 PM Dictation Location: [place] [address] Electronically authenticated by: [id number] Date: 07/06/2025 16:10
--- OUTSIDE RECORDS SUMMARY | 2025-07-02 11:14 | XMS_ITS | CCD ---
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 Nevaeh Lindsay Primary Care Provider Dr. Nevaeh Lindsay Referring Provider Dr. Fredi Heredia Attending Provider Amish Worthy DO, Chivo Cajetan Unavailable KRISTOPHER BRADY Admitting Unavailable KRISTOPHER BRADY Attending Unavailable MISC, DR TRIANA Primary Care Unavailable MISC, DR TRIANA Consulting Unavailable DAVID, DR KATHY Mirza Admitting Unavailable DAVID, DR KATHY Mirza Attending Unavailable MISC, DR TRIANA Primary Care Unavailable MISC, DR TRIANA Consulting Unavailable BRINA SLAUGHTER Consulting Unavailable VINEET, DR STUART Admitting Unavailable VINEET, DR STUART Attending Unavailable STEPAKHIL, DR ALICEA Primary Care Unavailable STEPANIC, DR ALICEA Consulting Unavailable DAVID, DR KATHY Mirza Admitting Unavailable HERNANDEZ, DR KATHY Mirza Attending Unavailable MISC, DR TRIANA Primary Care Unavailable [place], DR Sorensen Consulting Unavailable DAVID, DR KATHY Mirza Consulting Unavailable Fredi Heredia Unavailable Amish Worthy, DO, Chivo Cajetan Unavailable [employer] 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.Derrick HOLDEN Primary Care Provider Fredi Heredia Unavailable Amish Worthy DO, George Cajetan Unavailable Fredi Heredia MD Unavailable Tr[employer] YEAST DISTILLER.Derrick HOLDEN Primary Care Provider Fredi Heredia MD Unavailable [phone] Amish Worthy DO, George Cajetan Unavailable Fredi Heredia MD Unavailable [phone] Fredi Heredia MD Unavailable Madhavi Obrien CNP Primary Care Provider Unavailable Primary Care Provider Unavailazul Wellington Jr., DO, George Cajemohit Unavailable DAV GAXIOLA Attending Unavailable RAUDEL NUGENT Referring Unavailable CARLOS TAVAREZ Attending Unavailable MADHAVI OBRIEN Referring Unavailable Allergies Allergy Classification Reported Allergen(s) Allergy Type Date of Onset Reaction(s) Facility Pneumococcal vaccine (1 source) Pneumococcal vaccine Drug Allergy [address] [facility] Streptococcus pneumoniae type 1 capsular polysaccharide antigen / Streptococcus pneumoniae type 10A capsular polysaccharide antigen / Streptococcus pneumoniae type 11A capsular polysaccharide antigen / Streptococcus pneumoniae type 12F capsular polysaccharide antigen / Streptococcus pneumoniae type 14 capsular polysaccharide antigen / Streptococcus pneumoniae type 15B capsular polysaccharide antigen / Streptococcus pneumoniae type 17F capsular polysaccharide antigen / Streptococcus pneumoniae type 18C capsular polysaccharide antigen / Streptococcus pneumoniae type 19A capsular polysaccharide antigen / Streptococcus pneumoniae type 19F capsular polysaccharide antigen / Streptococcus pneumoniae type 2 capsular polysaccharide antigen / Streptococcus pneumoniae type 20 capsular polysaccharide antigen / Streptococcus pneumoniae type 22F capsular polysaccharide antigen / Streptococcus pneumoniae type 23F capsular polysaccharide antigen / Streptococcus pneumoniae type 3 capsular polysaccharide antigen / Streptococcus pneumoniae type 33F capsular polysaccharide antigen / Streptococcus pneumoniae type 4 capsular polysaccharide antigen / Streptococcus pneumoniae type 5 capsular polysaccharide antigen / Streptococcus pneumoniae type 6B capsular polysaccharide antigen / Streptococcus pneumoniae type 7F capsular polysaccharide antigen / Streptococcus pneumoniae type 8 capsular polysaccharide antigen / Streptococcus pneumoniae type 9N capsular polysaccharide antigen / Streptococcus pneumoniae type 9V capsular polysaccharide antigen (1 source) Streptococcus pneumoniae type 1 capsular polysaccharide antigen / Streptococcus pneumoniae type 10A capsular polysaccharide antigen / Streptococcus pneumoniae type 11A capsular polysaccharide antigen / Streptococcus pneumoniae type 12F capsular polysaccharide antigen / Streptococcus pneumoniae type 14 capsular polysaccharide antigen / Streptococcus pneumoniae type 15B capsular polysaccharide antigen / Streptococcus pneumoniae type 17F capsular polysaccharide antigen / Streptococcus pneumoniae type 18C capsular polysaccharide antigen / Streptococcus pneumoniae type 19A capsular polysaccharide antigen / Streptococcus pneumoniae type 19F capsular polysaccharide antigen / Streptococcus pneumoniae type 2 capsular polysaccharide antigen / Streptococcus pneumoniae type 20 capsular polysaccharide antigen / Streptococcus pneumoniae type 22F capsular polysaccharide antigen / Streptococcus pneumoniae type 23F capsular polysaccharide antigen / Streptococcus pneumoniae type 3 capsular polysaccharide antigen / Streptococcus pneumoniae type 33F capsular polysaccharide antigen / Streptococcus pneumoniae type 4 capsular polysaccharide antigen / Streptococcus pneumoniae type 5 capsular polysaccharide antigen / Streptococcus pneumoniae type 6B capsular polysaccharide antigen / Streptococcus pneumoniae type 7F capsular polysaccharide antigen / Streptococcus pneumoniae type 8 capsular polysaccharide antigen / Streptococcus pneumoniae type 9N capsular polysaccharide antigen / Streptococcus pneumoniae type 9V capsular polysaccharide antigen Drug Allergy 3 [facility] (20 sources) Streptococcus pneumoniae type 1 capsular polysaccharide antigen / Streptococcus pneumoniae type 10A capsular polysaccharide antigen / Streptococcus pneumoniae type 11A capsular polysaccharide antigen / Streptococcus pneumoniae type 12F capsular polysaccharide antigen / Streptococcus pneumoniae type 14 capsular polysaccharide antigen / Streptococcus pneumoniae type 15B capsular polysaccharide antigen / Streptococcus pneumoniae type 17F capsular polysaccharide antigen / Streptococcus pneumoniae type 18C capsular polysaccharide antigen / Streptococcus pneumoniae type 19A capsular polysaccharide antigen / Streptococcus pneumoniae type 19F capsular polysaccharide antigen / Streptococcus pneumoniae type 2 capsular polysaccharide antigen / Streptococcus pneumoniae type 20 capsular polysaccharide antigen / Streptococcus pneumoniae type 22F capsular polysaccharide antigen / Streptococcus pneumoniae type 23F capsular polysaccharide antigen / Streptococcus pneumoniae type 3 capsular polysaccharide antigen / Streptococcus pneumoniae type 33F capsular polysaccharide antigen / Streptococcus pneumoniae type 4 capsular polysaccharide antigen / Streptococcus pneumoniae type 5 capsular polysaccharide antigen / Streptococcus pneumoniae type 6B capsular polysaccharide antigen / Streptococcus pneumoniae type 7F capsular polysaccharide antigen / Streptococcus pneumoniae type 8 capsular polysaccharide antigen / Streptococcus pneumoniae type 9N capsular polysaccharide antigen / Streptococcus pneumoniae type 9V capsular polysaccharide antigen Drug Allergy [address] [facility] (20 sources) Cyanocobalamin-Cob amamide Drug Allergy [address] [facility] (2 sources) Lisinopril Drug Allergy 2 cough [facility] Work Phone: (20 sources) Pneumococcal vaccine Drug Allergy 3 Unknown, [facility] (9 sources) vitamin B12 Drug Allergy 3 Hives, GI intolerance [facility] Work Phone: (1 source) Amino Acids Drug Allergy 1 [facility] (1 source) Pneumococcal vaccine Drug Allergy 1 [facility] (1 source) Vitamin B-1 Drug allergy (disorder) 1 [facility] (1 source) Lisinopril Drug Allergy 2 [facility] (1 source) Pneumococcal vaccine Drug Allergy 2 [facility] (1 source) vitamin B12 Drug Allergy 2 [facility] Medications Current Medications Medication Drug Class(es) Dates Sig (Normalized) Sig (Original) [id number] actuat albuterol 0.09 mg/actuat metered dose inhaler (20 sources) beta2-Adrenergic Agonist Start: 09-15-2024 take 2 puff(s) by inhalation every four hours as needed for wheezing albuterol HFA (VENTOLIN HFA) 90 mcg/actuation inhaler Inhale 2 Puffs as instructed every 4 hours as needed for wheezing/shortnes s of breath. 1 Each 09/15/2024 Active Start: 07-31-2024 take 2 puff(s) by in halation every four hours albuterol HFA 90 mcg/act inhaler Inhale 2 puffs every 4 (four) hours if needed 07/31/2024 Active Start: 04-18-2023 End: 07-31-2024 take 2 puff(s) by mouth every four hours as needed albuterol HFA (PROVENTIL HFA, VENTOLIN HFA) 90 mcg/actuation inhaler take 2 puffs by mouth every 4 hours as needed 8.5 Each 1 07/31/2024 Active Start: 05-25-2022 End: 04-18-2023 take 2 puff(s) by mouth every four hours as needed albuterol HFA (VENTOLIN HFA) 90 mcg/actuation inhaler TAKE 2 PUFFS BY MOUTH EVERY 4 HOURS NEEDED 18 g 2 09/11/2022 04/18/2023 Discontinued Start: 11-16-2021 End: 05-25-2022 take 2 puff(s) by mouth every four hours as needed albuterol HFA (VENTOLIN HFA) 90 mcg/actuation inhaler TAKE 2 PUFFS BY MOUTH EVERY 4 HOURS NEEDED 18 Each 2 11/16/2021 05/25/2022 Discontinued Start: 03-02-2021 take 2.5 mg by inhal ation every six hours Albuterol Sulfate Active 2.5 MG INHALATION EVERY 6 HOURS March 01, 2021 11:00pm Start: 03-02-2021 take 1 puff(s) by in halation every four hours Albuterol Sulfate (Ventolin Hfa) 90 mcg/actuation HFA aerosol inhaler Active 2 PUFF INHALATION Q4H March 01, 2021 11:00pm Start: 03-27-2019 take 2.5 mg by inhal ation every six hours as needed albuterol (PROVENTIL) 2.5 mg/0.5 mL nebulizer solution Use 0.5 mL via nebulizer every 6 hours as needed. DX J45.909 20 Vial 1 03/27/2019 Active Start: 11-21-2017 End: 03-02-2021 take 1 puff(s) by inhalation every six hours Albuterol Sulfate (Proair Hfa) 90 mcg/actuation HFA aerosol inhaler Discontinued 2 PUFF INHALATION EVERY 6 HOURS November 21, 2017 12:00am March 02, 2021 4:52pm Start: 10-27-2013 End: 11-21-2017 take 1 puff(s) by inhalation every six hours as needed Albuterol Sulfate Discontinued 2 PUFF INHALATION EVERY 6 HOURS NEEDED October 27, 2013 12:00am November 21, 2017 9:03am Start: 10-27-2013 End: 11-21-2017 take 1 puff(s) by inhalation every six hours as needed Albuterol Sulfate Discontinued 2 PUFF INHALATION EVERY 6 HOURS NEEDED October 27, 2013 1:00am November 21, 2017 10:03am Comment on above: Use 0.5 mL via nebul izer every 6 hours as needed. DX J45.909 TAKE 2 PUFFS BY MOUT H EVERY 4 HOURS NEEDED INHALE 2 PUFFS BY MO UTH EVERY 4 HOURS NEEDED ALPRAZolam 1 mg oral tablet (20 sources) Benzodiazepine Start: 2 take 1 tablet by mouth four times daily ALPRAZolam (XANAX) 1 mg tablet Take 1 mg by mouth four times daily. 01/02/2022 Active Start: 01-02-2022 take 1 tablet by don th three times daily ALPRAZolam (XANAX) 1 mg tablet Take 1 mg by mouth three times daily. 0 01/02/2022 Active Start: 06-21-2018 End: 04-27-2022 take 0.5 mg by mouth twice daily Alprazolam Discontinued 0.5 MG PO TWICE A DAY April 13, 2021 11:00pm April 27, 2022 3:22pm Start: 02-21-2018 End: 04-14-2021 take 0.25 mg by mouth twice daily Alprazolam Discontinued 0.25 MG PO TWICE A DAY February 20, 2018 11:00pm April 14, 2021 2:42pm Start: 10-27-2013 End: 02-21-2018 take 1 mg by mouth once daily Alprazolam Discontinued 1 MG PO DAILY October 27, 2013 12:00am February 21, 2018 1:09pm Comment on above: Take 0.5 mg by mouth twice daily. And two at bedtime Take 1 mg by mouth t hree times daily. Take 1 mg by mouth f our times daily. amphetamine aspartate 5 mg / amphetamine sulfate 5 mg / dextroamphetamine saccharate 5 mg / dextroamphetamine sulfate 5 mg oral tablet (20 sources) Central Nervous System Stimulant Start: 01-23-20 18 take 1 tablet by mouth in the morning amphetamine-dext roamphetamine (Adderall) 20 MG tablet Take 1 tablet by mouth in the morning and 1 tablet before bedtime. 05/15/2024 Active Comment on above: Take 1 tablet by don th twice daily for 30 days. Earliest Fill Date: 01/22/18 aspirin 81 mg delayed release oral tablet (20 sources) Platelet Aggregation Inhibitor, Nonsteroidal Anti-inflammatory Drug Start: 11-21-19 take 81 mg by mouth once daily Aspirin Active 81 MG PO daily November 21, 2017 12:00am Start: 10-27-2013 End: 11-21-2017 take 325 mg by mouth once daily Aspirin Discontinued 3 25 MG PO DAILY@0800 October 27, 2013 12:00am November 21, 2017 9:03am take 1 tablet by don th once daily aspirin 81 mg chewable tablet Take 81 mg by mouth once daily. Active Comment on above: Take 81 mg by mouth once daily. atorvastatin 40 mg oral tablet (20 sources) HMG-CoA Reductase Inhibitor Start: 3 End: 4 take 1 tablet by mouth once daily atorvastatin (LIPITOR) 40 mg tablet take 1 tablet by mouth every day 90 tablet 1 07/14/2024 Active Start: 11-21-2017 End: 05-06-2023 take 1 tablet by mouth once daily atorvastatin (LIPITOR) 40 mg tablet TAKE 1 TABLET BY MOUTH EVERY DAY 90 tablet 0 05/06/2023 Active Comment on above: TAKE 1 TABLET BY DON TH EVERY DAY Take 1 tablet by don th once daily. Blood-Glucose Meter (ONETOUCH VERIO IQ METER[place] [facility] [place] Start: 10-23-2017 Blood-Glucose Meter (ONETOUCH VERIO IQ METER[place] [facility] [place] 3 times daily DX E11.65 1 Each 10/23/2017 Active Start: 10-23-2017 Blood-Glucose Meter (ONETOUCH VERIO IQ METER) [facility] [place] tests 3 times daily DX E11.65 1 Each 0 10/23/2017 Active Comment on above: Patient tests 3 time s daily DX E11.65 Blood-Glucose Meter (TRUE METRIX AIR GLUCOSE METER) monitoring kit (1 source) Start: End: Blood-Glucose Meter (TRUE METRIX AIR GLUCOSE METER) monitoring kit 1 Each as needed for up to 1 day. 1 Kit 0 08/25/2022 08/26/2022 Active Comment on above: 1 Each as needed for up to 1 day. Blood-Glucose Meter monitoring kit (20 sources) Start: 017 Blood-Glucose Meter monitoring kit 1 Each as needed. Feel with insurance preference 1 Each 1 10/11/2017 Active Comment on above: 1 Each as needed. Fe el with insurance preference 24 hr desvenlafaxine succinate 100 mg extended release oral tablet (20 sources) Serotonin and Norepinephrine Reuptake Inhibitor Start: 020 take 1 tablet by mouth once daily, then take 1 tablet by mouth every twenty-four hours desvenlafaxine ER (PRISTIQ) 100 mg 24 hr tablet Take 100 mg by mouth once daily. 08/23/2020 Active Comment on above: Take 100 mg by mouth once daily. DULoxetine 60 mg delayed release oral capsule (20 sources) Serotonin and Norepinephrine Reuptake Inhibitor Start: 023 take 1 capsule by mouth once DULoxetine (CYMBALTA) 60 mg capsule Take 1 capsule by mouth every afternoon. 06/18/2023 Active Start: 12-31-2020 take 1 capsule by [facility] once daily DULoxetine (CYMBALTA) 30 mg capsule Take 30 mg by mouth once daily. 12/31/2020 Active Comment on above: Take 30 mg by mouth once daily. Take 1 capsule by [facility] every afternoon. famotidine 20 mg oral tablet (20 sources) Histamine-2 Receptor Antagonist Start: 10-18-2024 take 1 tablet by mouth every twelve hours famotidine (Pepcid) 20 MG tablet Take 20 mg by mouth every 12 (twelve) hours 10/18/2024 Active Start: 03-02-2021 End: 10-18-2024 take 1 tablet by mouth every twelve hours for gastroesophageal reflux disease and gastroesophageal reflux disease famotidine (PEPCID) 20 mg tablet Indications: Gastroesophageal reflux disease, unspecified whether esophagitis present TAKE 1 TABLET BY MOUTH TWICE A DAY 180 tablet 1 10/18/2024 Active Comment on above: Take 1 tablet by don twice daily. TAKE 1 TABLET BY DON TWICE A DAY ferrous sulfate 325 mg oral tablet (20 sources) Start: 03-02-2021 take 325 mg by mouth three times daily Ferrous Sulfate Active 325 MG PO THREE TIMES A DAY May 18th, 2021 11:00pm Start: 01-24-2021 End: 09-27-2022 take 1 tablet by mouth three times daily at mealtime ferrous sulfate 325 mg (65 mg iron) tablet Take 1 tablet by mouth three times daily with meals. 270 tablet 1 09/27/2022 Active Comment on above: TAKE 1 TABLET BY DON TH THREE TIMES DAILY WITH MEALS. fluticasone / salmeterol (20 sources) Corticosteroid, beta2-Adrenergic Agonist Start: take 1 puff(s) by inhalation twice daily Fluticasone-[place] rol 100-50 MCG/ACT aerosol powder INHALE 1 PUFF INSTRUCTED TWO TIMES A DAY. 11/18/2024 Active Start: 11-18-2024 take 1 puff(s) by in halation twice daily fluticasone-salmeterol (ADVAIR DISKUS) 100-50 mcg/dose inhaler INHALE 1 PUFF INSTRUCTED TWO TIMES A DAY. 60 Each 11/18/2024 Active Start: 10-18-2024 End: 11-18-2024 take 1 puff(s) by inhalation twice daily fluticasone-salmeterol (ADVAIR DISKUS) 100-50 mcg/dose inhaler INHALE 1 PUFF INSTRUCTED TWO TIMES A DAY. 60 Each 10/18/2024 11/18/2024 Discontinued Start: 10-18-2024 take 1 puff(s) by in halation twice daily fluticasone-salmeterol (ADVAIR DISKUS) 100-50 mcg/dose inhaler INHALE 1 PUFF INSTRUCTED TWO TIMES A DAY. 60 Each 10/18/2024 Active Start: 08-19-2024 End: 10-18-2024 take 1 puff(s) by inhalation twice daily fluticasone-salmeterol (WIXELA INHUB) 100-50 mcg/dose inhaler INHALE 1 PUFF INSTRUCTED TWO TIMES A DAY. 60 Each 08/19/2024 10/18/2024 Discontinued Start: 09-25-2023 End: 08-19-2024 take 1 puff(s) by inhalation twice daily fluticasone-salmeterol (ADVAIR DISKUS) 100-50 mcg/dose inhaler Inhale 1 Puff as instructed two times a day. 60 Each 09/25/2023 08/19/2024 Discontinued Start: 09-25-2023 End: 09-24-2024 take 1 puff(s) by inhalation twice daily fluticasone-salmeterol (ADVAIR DISKUS) 100-50 mcg/dose inhaler Inhale 1 Puff as instructed two times a day. 60 Each 09/25/2023 09/24/2024 Active Start: 11-21-2017 End: 02-21-2018 Fluticasone Propion-Salmeter ol (Advair Diskus) 250-50 mcg/dose blister with device Discontinued 1 INH INHALATION Q12H November 21, 2017 12:00am February 21, 2018 1:12pm Start: 11-21-2017 End: 02-21-2018 Fluticasone Propion-Salmeter ol (Advair Diskus) 250-50 mcg/dose blister with device Discontinued 1 INH INHALATION Q12H November 21, 2017 1:00am February 21, 2018 2:12pm Comment on above: Inhale 1 Puff as ins tructed two times a day. glipiZIDE 10 mg oral tablet (20 sources) Sulfonylurea Start: End: take 1 tablet by mouth twice daily before mealtime glipiZIDE (GLUCOTROL) 10 mg tablet Indications: Encounter for issue of repeat prescription TAKE 1 TABLET BY MOUTH TWICE A DAY BEFORE MEALS 180 tablet 10/18/2024 Active Start: 04-27-2022 take 10 mg by mouth twice alice y Glipizide Active 10 MG PO TWICE A DAY April 27, 2022 3:23pm Start: 12-30-2021 End: 08-06-2023 take 1 tablet by mouth twice daily before mealtime glipiZIDE (GLUCOTROL) 10 mg tablet Indications: Encounter for issue of repeat prescription take 1 tablet by mouth twice a day before meals 180 tablet 0 08/06/2023 Active Start: 02-21-2018 End: 04-27-2022 take 5 mg by mouth twice daily Glipizide Discontinued 5 MG PO TWICE A DAY February 21, 2018 1:12pm April 27, 2022 3:25pm Start: 11-10-2014 End: 02-21-2018 take 10 mg by mouth twice daily Glipizide Discontinued 10 MG PO TWICE A DAY November 10, 2014 12:00am February 21, 2018 1:13pm Comment on above: TAKE 1 TABLET BY DON TH TWICE A DAY BEFORE MEALS hydroCHLOROthiazide 12.5 mg / valsartan 80 mg oral tablet (20 sources) Thiazide Diuretic, Angiotensin 2 Receptor Sanju Start: End: take 1 tablet by mouth once daily Valsartan-hydroCHLO ROthiazide 80-12.5 mg per tablet Indications: Medication refill , Essential hypertension TAKE 1 TABLET BY MOUTH EVERY DAY 90 tablet 08/15/2024 Active Start: 01-27-2022 take 1 tablet by don th once daily Valsartan-hydroCHLOROthiazide 80-12.5 mg per tablet Indications: Medication refill , Essential hypertension TAKE 1 TABLET BY MOUTH EVERY DAY 90 tablet 0 01/27/2022 Active Start: 11-16-2021 take 1 tablet by don th once daily Valsartan-hydroCHLOROthiazide 80-12.5 mg per tablet Indications: Medication refill , Essential hypertension TAKE 1 TABLET BY MOUTH EVERY DAY 90 tablet 0 11/16/2021 Active Start: 02-21-2018 take 1 tablet by don th once daily Valsartan-Hydrochlorothiazide Active 1 T ABLET PO daily February 20, 2018 11:00pm Comment on above: TAKE 1 TABLET BY DON TH EVERY DAY 24 hr isosorbide mononitrate 30 mg extended release oral tablet (20 sources) Nitrate Vasodilator Start: End: take 1 tablet by mouth once isosorbide mononitrate ER (IMDUR) 30 mg 24 hr tablet Indications: Coronary artery disease involving [place] heart without angina pectoris, unspecified vessel or lesion type Take 1 tablet by mouth every afternoon. 90 tablet 1 05/26/2024 Active Start: 11-11-2014 End: 11-21-2017 take 60 mg by mouth once daily Isosorbide Mononitrate Discontinued 60 MG PO DAILY November 11, 2014 12:00am November 21, 2017 9:04am Comment on above: TAKE 1 TABLET BY DON TH EVERY DAY Take 1 tablet by don th once daily. iv contrast (will be provided with radiology test) (2 sources) Start: 07-27-2023 End: 07-28-2023 iv contrast (will be provided with radiology test) MRI PANC/MOHSEN Inject, intravenously, once for 1 dose. No IV access, insert saline lock prior to the beginning of sedation, infusion, injection of imaging exam. Discontinue saline lock post exam. If Pt. has a central line or IVAD, may access for administration according to line specific nursing protocol. Once exam is complete flush line and de-access according to line specific nursing protocol in the MR contrast administration guidelines link. 1 Each 0 07/27/2023 07/28/2023 Active Start: 07-05-2022 End: 07-06-2022 iv contrast (will be provide d with radiology test) Indications: Pancreas cyst MRI PANC/MOHSEN Inject, intravenously, once for 1 dose. No IV access, insert saline lock prior to the beginning of sedation, infusion, injection of imaging exam. Discontinue saline lock post exam. If Pt. has a central line or IVAD, may access for administration according to line specific nursing protocol. Once exam is complete flush line and de-access according to line specific nursing protocol in the MR contrast administration guidelines link. 1 Each 0 07/05/2022 07/06/2022 Active Comment on above: MRI PANC/MOHSEN Inject, intravenously, once for 1 dose. No IV access, insert saline lock prior to the beginning of sedation, infusion, injection of imaging exam. Discontinue saline lock post exam. If Pt. has a central line or IVAD, may access for administration according to line specific nursing protocol. Once exam is complete flush line and de-access according to line specific nursing protocol in the MR contrast administration guidelines link. lidocaine 0.04 mg/mg medicated patch (2 sources) Antiarrhythmic, Amide Local Anesthetic Start: 01-09-20 End: 01-29-20 apply 1 dose transdermal route once daily, then apply 1 dose transdermal route every twelve hours lidocaine (SALONPAS) 4 % patch Apply 1 Patch as directed once daily for 20 days. Remove patch after 12 hours 20 Patch 0 01/08/2022 01/28/2022 Active Comment on above: Apply 1 Patch as dir ected once daily for 20 days. Remove patch after 12 hours linagliptin 5 mg oral tablet (20 sources) Dipeptidyl Peptidase 4 Inhibitor Start: 05-16-20 24 End: 07-14-20 take 1 tablet by mouth once daily linaGLIPtin (TRADJENTA) 5 mg tab Indications: Medication refill take 1 tablet by mouth every day 90 tablet 1 07/14/2024 Active Start: 02-21-2018 End: 11-21-2023 take 1 tablet by mouth once daily TRADJENTA 5 mg tab Indications: Medication refill take 1 tablet by mouth every day 30 tablet 6 11/21/2023 Active Comment on above: TAKE 1 TABLET BY DON TH EVERY DAY 3 ml liraglutide 6 mg/ml pen injector (13 sources) GLP-1 Receptor Agonist Start: 11-16-2021 End: 08-12-2022 Liraglutide Active 0.6 MG SC DAILY April 27, 2022 3:24pm Start: 03-02-2021 End: 04-27-2022 Liraglutide Discontinued 1.2 MG SC DAILY March 01, 2021 11:00pm April 27, 2022 3:25pm Comment on above: Inject 0.6 mg subcut aneously once daily. metFORMIN hydrochloride 1000 mg oral tablet (20 sources) Biguanide Start: 02-22-20 18 End: 08-19-20 take 1 tablet by mouth twice daily at mealtime metFORMIN (GLUCOPHAGE) 1,000 mg tablet TAKE 1 TABLET BY MOUTH TWICE A DAY WITH FOOD 180 tablet 08/19/2024 Active Start: 10-27-2013 End: 02-21-2018 take 1000 mg by mouth twice daily Metformin Discontinued 1000 MG PO TWICE A DAY October 27, 2013 12:00am February 21, 2018 1:11pm Comment on above: TAKE 1 TABLET BY DON TH TWICE A DAY WITH MEALS Take 1 tablet by don th twice daily with meals. take 1 tablet by don th twice a day with food methIMAzole 5 mg oral tablet (20 sources) Thyroid Hormone Synthesis Inhibitor Start: 2 End: 6 methIMAzole (TAPAZOLE) 5 mg tablet Indications: Hyperthyroidism TAKE 1 TABLET SUNDAY THROUGH SUNDAY, NONE ON SUNDAYS 30 tablet 2 12/31/2023 Active Comment on above: TAKE 1 TABLET BY DON TH EVERY DAY Take 1 tablet by don th once daily. 5 mg one tablet from Sunday to Sunday and none on Sunday and Sundays. 5 mg one tablet from Sunday to Sunday and none on Sundays. TAKE 1 TABLET SUNDAY THROUGH SUNDAY, NONE ON SUNDAYS metoprolol tartrate 50 mg oral tablet (20 sources) beta-Adrenergic Sanju Start: take 1 tablet by mouth every twelve hours metoprolol tartrate (Lopressor) 50 MG tablet Take 50 mg by mouth every 12 (twelve) hours 07/09/2024 Active Start: 02-21-2018 End: 07-09-2024 take 1 tablet by mouth twice daily metoprolol tartrate, short acting, (LOPRESSOR) 50 mg tablet Indications: Coronary artery disease involving [place] coronary artery of [place] heart without angina pectoris take 1 tablet by mouth twice a day 180 tablet 07/09/2024 Active Start: 10-27-2013 End: 02-21-2018 take 25 mg by mouth twice daily Metoprolol Tartrate Di scontinued 25 MG PO TWICE A DAY October 27, 2013 12:00am February 21, 2018 1:11pm Comment on above: TAKE 1 TABLET BY DON TH TWICE A DAY Take 1 tablet by don th two times a day. nitroglycerin 0.4 mg sublingual tablet (20 sources) Nitrate Vasodilator Start: 10-27-2013 nitroglycerin sublingual (NITROQUICK) 0.4 mg SL tablet DISSOLVE 1 TABLET UNDER THE TONGUE EVERY 5 MINUTES NEEDED. 450 tablet 11/23/2021 Active nitroglycerin (N itrostat) 0.4 MG SL tablet as directed Sublingual Active Comment on above: DISSOLVE 1 TABLET UN PATRICIO THE TONGUE EVERY 5 MINUTES NEEDED. ondansetron 4 mg disintegrating oral tablet (20 sources) Serotonin-3 Receptor Antagonist Start: 07-04-20 End: 05-15-20 24 take 1 tablet by mouth every eight hours as needed ondansetron orally disintegrating (ZOFRAN ODT) 4 mg disintegrating tablet Take 1 tablet by mouth every 8 hours as needed for nausea/vomiting. 9 tablet 05/15/2024 Active Start: 09-11-2022 End: 09-14-2022 take 1 tablet by mouth every eight hours as needed ondansetron orally disintegrating (ZOFRAN ODT) 4 mg disintegrating tablet Take 1 tablet by mouth every 8 hours as needed for nausea/vomiting for up to 3 days. 9 tablet 0 09/11/2022 09/14/2022 Active Comment on above: Take 1 tablet by don th every 8 hours as needed for nausea/vomiting for up to 3 days. Take 1 tablet by don th every 8 hours as needed for nausea/vomiting. 12 hr orphenadrine citrate 100 mg extended release oral tablet (2 sources) Muscle Relaxant Start: 07-04-20 End: 07-09-20 take 1 tablet by mouth every twelve hours as needed orphenadrine ER (NORFLEX) 100 mg tablet Take 1 tablet by mouth twice daily as needed for up to 5 days. 10 tablet 0 07/04/2022 07/09/2022 Active Comment on above: Take 1 tablet by don th twice daily as needed for up to 5 days. Prednisolon-Moxiflox -Bromfenac 1-0.5-0.075 % solution (12 sources) Start: 01-08-20 Prednisolon-Moxiflox -Bromfenac 1-0.5-0.075 % solution Indications: Age-related nuclear cataract of both eyes Administer 1 drop into affected eye(s) in the morning and 1 drop at noon and 1 drop in the evening and 1 drop before bedtime. 10 mL 1 01/07/2025 Active Start: 01-05-2025 Prednisolon-Mo xiflox-Bromfenac 1-0.5-0.075 % solution Indications: Age-related nuclear cataract of both eyes Administer 1 drop into affected eye(s) in the morning and 1 drop at noon and 1 drop in the evening and 1 drop before bedtime. 10 mL 1 01/05/2025 Active Start: 12-23-2024 End: 01-07-2025 Sjzlstcpmxw-Yvdcuwyr-Cqaymhm ac 1-0.5-0.075 % solution Indications: Age-related nuclear cataract of both eyes Administer 1 drop into affected eye(s) in the morning and 1 drop at noon and 1 drop in the evening and 1 drop before bedtime. 10 mL 1 12/23/2024 01/07/2025 Discontinued (Reorder) Start: 12-23-2024 Prednisolon-Mo xiflox-Bromfenac 1-0.5-0.075 % solution Indications: Age-related nuclear cataract of both eyes Administer 1 drop into affected eye(s) in the morning and 1 drop at noon and 1 drop in the evening and 1 drop before bedtime. 10 mL 1 12/23/2024 Active tiotropium 0.018 mg inhalation powder (20 sources) Anticholinergic Start: 11-21-2017 take 1 capsule by inhalation once daily tiotropium (SPIRIVA WITH HANDIHALER) 18 mcg inhalation capsule Indications: Chronic obstructive pulmonary disease, unspecified COPD type (HCC) , Medication refill INHALE CONTENTS OF 1 CAPSULE INSTRUCTED WITH HANDIHALER ONCE DAILY. 30 capsule 10/18/2021 Active Start: 10-27-2013 End: 11-21-2017 take 1 puff(s) by inhalation once daily Tiotropium Cement Discontinued 1 PUFF INHALATION DAILY October 27, 2013 12:00am November 21, 2017 9:02am Comment on above: INHALE CONTENTS OF 1 CAPSULE INSTRUCTED WITH HANDIHALER ONCE DAILY. traZODone hydrochloride 100 mg oral tablet (20 sources) Serotonin Reuptake Inhibitor Start: take 1 tablet by mouth once daily traZODone (DESYREL) 100 mg tablet TAKE 1 TABLET BY MOUTH EVERY DAY AT NIGHT 12/31/2020 Active Comment on above: TAKE 1 TABLET BY DON TH EVERY DAY AT NIGHT Completed/Discontinued Medications Medication Drug Class(es) Dates Sig (Normalized) Sig (Original) acetaminophen 325 mg / oxyCODONE hydrochloride 10 mg oral tablet (4 sources) Opioid Agonist Start: 11-21-2017 End: 02-21-2018 take 1 tablet by mouth every six hours Oxycodone-Acetamino phen (Percocet) 10-325 mg tablet Discontinued 1 TABLET PO EVERY 6 HOURS November 21, 2017 12:00am February 21, 2018 1:13pm Start: 10-27-2013 End: 11-21-2017 take 1 tablet by mouth every six hours as needed Oxycodone-Acetaminophen Discontinued 1 TABLET PO EVERY 6 HOURS NEEDED October 27, 2013 12:00am November 21, 2017 8:59am Start: 10-27-2013 End: 11-21-2017 take 1 tablet by mouth every six hours as needed Oxycodone-Acetaminophen Discontinued 1 TABLET PO EVERY 6 HOURS NEEDED October 27, 2013 1:00am November 21, 2017 9:59am clopidogrel 75 mg oral tablet (20 sources) [id number] Platelet Inhibitor Start: 10-27-2013 End: 09-27-2022 take 1 tablet by mouth once daily clopidogrel (PLAVIX) 75 mg tablet Indications: Coronary artery disease involving [place] heart without angina pectoris, unspecified vessel or lesion type , Coronary artery disease involving [place] coronary artery of [place] heart without angina pectoris Take 1 tablet by mouth once daily. 90 tablet 1 02/01/2022 09/27/2022 Discontinued Comment on above: TAKE 1 TABLET BY DON TH EVERY DAY Take 1 tablet by don th once daily. escitalopram 20 mg oral tablet (2 sources) Serotonin Reuptake Inhibitor Start: 02-21-2018 End: 03-02-2021 take 1 tablet by mouth once daily Escitalopram Oxalate (Lexapro) 20 mg tablet Discontinued 20 MG PO daily February 20, 2018 11:00pm March 02, 2021 4:58pm 60 actuat exenatide 0.01 mg/actuat pen injector (2 sources) GLP-1 Receptor Agonist Start: 11-10-2014 End: 02-21-2018 Exenatide Discontinued 10 MCG SC TWICE DAILY BEFORE MEALS November 10, 2014 12:00am February 21, 2018 1:12pm ferrous fumarate 324 mg oral tablet (2 sources) Start: 11-10-2014 End: 02-21-2018 take 325 mg by mouth three times daily Ferrous Fumarate Discontinued 325 MG PO THREE TIMES A DAY November 10, 2014 12:00am February 21, 2018 1:12pm 30 actuat fluticasone furoate 0.2 mg/actuat / vilanterol 0.025 mg/actuat dry powder inhaler (20 sources) Corticosteroid, beta2-Adrenergic Agonist Start: 09-25-2023 End: 09-25-2023 fluticasone-vilante rol (BREO ELLIPTA) 200-25 mcg/dose inhaler Inhale 1 Inhalation as instructed once daily. 60 Each 2 09/25/2023 09/25/2023 Discontinued Start: 11-16-2021 take 1 dose by inhal ation once daily BREO ELLIPTA 200-25 mcg/dose inhaler INHALE 1 INHALATION INSTRUCTED ONCE DAILY. 60 Each 2 11/16/2021 Active Start: 02-21-2018 Fluticasone Fu roate-Vilanterol (Breo Ellipta) 200-25 mcg/dose blister with device Active 1 INH INHALATION daily February 20, 2018 11:00pm Start: 02-21-2018 Fluticasone Fu roate-Vilanterol (Breo Ellipta) 200-25 mcg/dose blister with device Active 1 INH INHALATION daily February 21, 2018 12:00am Comment on above: INHALE 1 INHALATION INSTRUCTED ONCE DAILY. folic acid 1 mg oral tablet (2 sources) Start: 5 End: 8 take 1 mg by mouth once daily Folic Acid Discontinued 1 MG PO DAILY@0800 November 10, 2014 12:00am February 21, 2018 1:13pm levothyroxine sodium 0.025 mg oral tablet (2 sources) l-Thyroxine Start: 5 End: 1 take 25 ug by mouth once daily Levothyroxine Discontinued 25 MCG PO DAILY November 11, 2014 12:00am March 02, 2021 4:59pm lisinopril 2.5 mg oral tablet (2 sources) Angiotensin Converting Enzyme Inhibitor Start: 5 End: 8 take 2.5 mg by mouth once daily Lisinopril Discontinued 2.5 MG PO DAILY November 11, 2014 12:00am November 21, 2017 8:58am losartan potassium 25 mg oral tablet (2 sources) Angiotensin 2 Receptor Sanju Start: 8 End: 8 take 25 mg by mouth once daily Losartan Discontinued 25 MG PO daily November 21, 2017 12:00am February 21, 2018 1:13pm methotrexate 2.5 mg oral tablet (4 sources) Folate Analog Metabolic Inhibitor Start: 8 End: 8 take 10 mg by mouth every week Methotrexate Sodium Discontinued 10 MG PO EVERY WEEK November 21, 2017 9:00am February 21, 2018 1:13pm Start: 11-11-2014 End: 11-21-2017 take 2.5 mg by mouth every twelve hours Methotrexate Sodium Discontinued 2.5 MG PO Q12H November 11, 2014 12:00am November 21, 2017 9:04am raNITIdine 300 mg oral capsule (2 sources) Histamine-2 Receptor Antagonist Start: 11-11-2014 End: 03-02-2021 take 300 mg by mouth twice daily Ranitidine Hcl Discontinued 300 MG PO TWICE A DAY November 11, 2014 12:00am March 02, 2021 4:54pm simvastatin 40 mg oral tablet (2 sources) HMG-CoA Reductase Inhibitor Start: 10-27-2013 End: 11-21-2017 take 40 mg by mouth at bedtime Simvastatin Discontinued 40 MG PO AT BEDTIME October 27, 2013 12:00am November 21, 2017 8:56am 24 hr venlafaxine 75 mg extended release oral capsule (2 sources) Serotonin and Norepinephrine Reuptake Inhibitor Start: 10-27-2013 End: 02-21-2018 take 75 mg by mouth three times daily Venlafaxine Discontinued 75 MG PO THREE TIMES A DAY October 27, 2013 12:00am February 21, 2018 1:13pm zolpidem tartrate 10 mg oral tablet (2 sources) gamma-Aminobutyric Acid-ergic Agonist Start: 02-21-2018 End: 03-02-2021 take 10 mg by mouth at bedtime Zolpidem Discontinued 10 MG PO AT BEDTIME February 20, 2018 11:00pm March 02, 2021 4:59pm Problems Active Problems Problem Classification Problem Date Documented Da te Episodic/Chronic Administrative/social admission (20 sources) Repeated prescription; Translations: [Encounter for issue of repeat prescription] Episodic Asthma (20 sources) Asthma; Translations: [Unspecified asthma, uncomplicated] 10-10-2021 Chronic Attention-deficit, conduct, and disruptive behavior disorders (20 sources) Attention deficit hyperactivity disorder; Translations: [Attention-deficit hyperactivity disorder, unspecified type] 10-12-2014 Chronic Cardiac dysrhythmias (2 sources) Palpitations; Translations: [Palpitations] Episodic Cataract (9 sources) Bilateral age-related nuclear cataracts; Translations: [Age-related nuclear cataract, bilateral] Onset: 5 12-23-2024 Chronic Chronic obstructive pulmonary disease and bronchiectasis (20 sources) Chronic obstructive lung disease; Translations: [Chronic obstructive pulmonary disease, unspecified] Onset: 0 07-30-2020 Chronic Congestive heart failure; nonhypertensive (20 sources) Congestive heart failure; Translations: [Heart failure, unspecified] Onset: 3 Chronic Coronary atherosclerosis and other heart disease (20 sources) Coronary arteriosclerosis; Translations: [Atherosclerotic heart disease of [place] coronary artery without angina pectoris] Onset: 2 10-10-2021 Chronic Coronary atherosclerosis and other heart disease (4 sources) Stented coronary artery; Translations: [Presence of coronary angioplasty implant and graft] Onset: 5 Episodic Deficiency and other anemia (1 source) Iron deficiency anemia; Translations: [Iron deficiency anemia, unspecified] Episodic Diabetes mellitus with complications (20 sources) Type 2 diabetes mellitus; Translations: [Type 2 diabetes mellitus with hyperglycemia] 04-06-2021 Chronic Disorders of lipid metabolism (20 sources) Hyperlipidemia; Translations: [Hyperlipidemia, unspecified] Onset: 2 10-12-2014 Chronic E Codes: Fall (1 source) Fall in home; Translations: [Unspecified fall, subsequent encounter] 07-04-2023 Episodic Esophageal disorders (5 sources) Gastroesophageal reflux disease; Translations: [Gastro-esophageal reflux disease without esophagitis] 07-07-2024 Chronic Essential hypertension (20 sources) Hypertensive disorder; Translations: [Essential (primary) hypertension] Onset: 2 10-12-2014 Chronic Fluid and electrolyte disorders (1 source) Hyponatremia; Translations: [Hypo-osmolality and hyponatremia] 07-04-2023 Episodic Headache; including migraine (20 sources) Migraine; Translations: [Migraine, unspecified, not intractable, without status migrainosus] Onset: 4 12-16-2013 Chronic Mood disorders (20 sources) Depressive disorder; Translations: [Depression] 10-10-2021 Chronic Nonspecific chest pain (2 sources) Chest pain; Translations: [Chest pain, unspecified] Episodic Occlusion or stenosis of precerebral arteries (20 sources) Stenosis of right vertebral artery; Translations: [Occlusion and stenosis of right vertebral artery] Onset: 2 02-01-2022 Chronic Osteoarthritis (20 sources) Osteoarthritis; Translations: [Unspecified osteoarthritis, unspecified site] 10-10-2021 Chronic Other aftercare (2 sources) H/O: high risk medication; Translations: [Other nursing home (current) drug therapy] Episodic Other circulatory disease (2 sources) Abdominal bruit; Translations: [Other specified symptoms and signs involving the circulatory and respiratory systems] Episodic Other circulatory disease (2 sources) Carotid bruit; Translations: [Other specified symptoms and signs involving the circulatory and respiratory systems] Episodic Other circulatory disease (2 sources) Other specified symptoms and signs involving the circulatory and respiratory systems; Translations: [Other symptoms involving cardiovascular system] Onset: 2 Episodic Other eye disorders (7 sources) Scarred macula of bilateral eyes; Translations: [Macula scars of posterior pole (postinflammatory) (post-traumatic), bilateral] Onset: 5 12-23-2024 Chronic Other gastrointestinal disorders (2 sources) Finding of pulsation of abdomen; Translations: [Other specified symptoms and signs involving the digestive system and abdomen] Episodic Other lower respiratory disease (2 sources) Dyspnea; Translations: [Dyspnea, unspecified] Episodic Other screening for suspected conditions (not mental disorders or infectious disease) (5 sources) Patient encounter status; Translations: [Encounter for screening mammogram for malignant neoplasm of breast] Episodic Residual codes; unclassified (20 sources) Obstructive sleep apnea syndrome; Translations: [Obstructive sleep apnea (adult) (pediatric)] 10-10-2021 Chronic Residual codes; unclassified (1 source) Postmenopausal state; Translations: [Asymptomatic menopausal state] 07-04-2023 Episodic Retinal detachments; defects; vascular occlusion; and retinopathy (7 sources) Hereditary macular dystrophy; Translations: [Unspecified hereditary retinal dystrophy] Onset: 5 12-23-2024 Chronic Rheumatoid arthritis and related disease (2 sources) Rheumatoid arthritis; Translations: [Ankylosing spondylitis of unspecified sites in spine] Chronic Spondylosis; intervertebral disc disorders; other back problems (20 sources) Spondylosis without myelopathy or radiculopathy, lumbar region; Translations: [Other intervertebral disc degeneration, lumbar region] Onset: 2 06-20-2023 Chronic Thyroid disorders (20 sources) Hyperthyroidism; Translations: [Thyrotoxicosis, 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 thyrotoxic crisis or storm] Onset: 1 04-06-2021 Chronic Unclassified (1 source) LOW BACK PAIN, UNSPECIFIED; Translations: [LOW BACK PAIN, UNSPECIFIED] Onset: 2 Unclassified (1 source) CONTACT W/AND (SUSP) EXPOS COVID-19; Translations: [CONTACT W/AND (SUSP) EXPOS COVID-19] Onset: 1 Past or Other Problems Problem Classification Problem Date Documented Da te Episodic/Chronic Pancreatic disorders (not diabetes) (20 sources) Cyst of pancreas; Translations: [Cyst of pancreas] Onset: 09-27-2022 Episodic Spondylosis; intervertebral disc disorders; other back problems (20 sources) Chronic low back pain; Translations: [Chronic midline low back pain] Onset: 02-01-2022 02-01-2022 Episodic Unclassified (20 sources) NO SHOW Onset: 02-26-2013 Resolved: 10-12-2014 10-12-2014 Results Test Name Value Interpretation Reference Range Facility Glucose (Bld) [Mass/Vol]Orde red By: Jesusita Kim on 06-03-2025 Glucose Blood, POC 305 mg/dL [facility] - Hematology and Cell countson 06-03-2025 HbA1c (Bld) [Mass fraction] 7.2 % [facility] No Panel InformationOrdered By: Jesusita Kim on 06-03-2025 [facility] HbA1c (Bld)on 04-30-2025 HbA1c (Bld) [Mass fraction] 7 % Abnormal 4.0 - 6.0 % [facility] Interpretation and review of laboratory results Abnormal [facility] Optical coherence tomography study reporton 12-25-2024 [facility] Panel Informationon 12-23 Radiology Study observation (narrative) [facility] US Eye+Orbit - bilateralon 0 12-23-2024 Diagnosis: Cataract both eyes (OU) Testing Indication: Performed for preop measurements in the determination of an intraocular lens (IOL) for both eyes (OU) Test Reliability: Good quality both eyes (OU) Interpretation: Good measurements for intraocular lens (IOL) calculation purposes. Calculation made for both eyes (OU). [facility] CNCOon 10-02-2024 CNCO Letter Text Normal [facility] CNPMary Jane 10-02-2024 NAVINN Telephone (AGFAMPLE) PRASANNA MA ([id number]) 1960 F Date Time Provider Department 10/02/24 RACHEL DANIELLE During your visit today, we recorded the following information about you: Gloria Boswell 10/02/2024 1:15 PM Signed No Show Documentation Prasanna Ma no showed for an appointment on 10/02/24 with Rachel Danielle APRN.BULLARD OPERATOR at 11;20 am. She was scheduled for medication refill. I called and was unable to speak with the patient regarding her missed appointment. Prasanna did not state the reason that she missed her appointment was because she did not answer phone call . Resources discussed/offered to patient: left message No show determined to be fault of patient: Yes This is the patients second no show in the last 12 months. Patient was rescheduled for NA. Letter mailed : Yes Is this the Third or Fourth No Show ? No February Anny Boswell October 02, 2024 1:11 PM Allergies As of Date: 10/02/2024 Noted Allergy Reaction B12 (CYANOCOBALAMIN-RITIKA MAMIDE) 08/18/2013 8 - GI Upset Comments: Patient got dizzy, lightheaded, nauseated. PNEUMOCOCCAL 23-ROSE PS VACCINE 08/18/2013 4 - Hives Comments: Patient got hives, PNEUMOCOCCAL VACCINE 04/27/2022 16 - Unknown Date Reviewed: 07/04/2023 Reviewed by: Derrick Thorpe APRN.BULLARD OPERATOR - Fully Assessed Reason for Visit: No Show [4108] Cmt: Pt no showed for appt on 10/02/24 Prescriptions as of 10/02/2024 - albuterol HFA (VENTOLIN HFA) 90 mcg/actuation inhaler Inhale 2 Puffs as instructed every 4 hours as needed for wheezing/shortness of breath. - fluticasone-salmeter ol (WIXELA INHUB) 100-50 mcg/dose inhaler INHALE 1 PUFF INSTRUCTED TWO TIMES A DAY. - metFORMIN (GLUCOPHAGE) 1,000 mg tablet TAKE 1 TABLET BY MOUTH TWICE A DAY WITH FOOD - Valsartan-hydroCHLOR Othiazide 80-12.5 mg per tablet TAKE 1 TABLET BY MOUTH EVERY DAY - albuterol HFA (PROVENTIL HFA, VENTOLIN HFA) 90 mcg/actuation inhaler take 2 puffs by mouth every 4 hours as needed - atorvastatin (LIPITOR) 40 mg tablet take 1 tablet by mouth every day - linaGLIPtin (TRADJENTA) 5 mg tab take 1 tablet by mouth every day - glipiZIDE (GLUCOTROL) 10 mg tablet take 1 tablet by mouth twice a day before meals - metoprolol tartrate, short acting, (LOPRESSOR) 50 mg tablet take 1 tablet by mouth twice a day - famotidine (PEPCID) 20 mg tablet take 1 tablet by mouth twice a day - isosorbide mononitrate ER (IMDUR) 30 mg 24 hr tablet Take 1 tablet by mouth every afternoon. - ondansetron orally disintegrating (ZOFRAN ODT) 4 mg disintegrating tablet Take 1 tablet by mouth every 8 hours as needed for nausea/vomiting. - methIMAzole (TAPAZOLE) 5 mg tablet TAKE 1 TABLET SUNDAY THROUGH SUNDAY, NONE ON SUNDAYS - DULoxetine (CYMBALTA) 60 mg capsule Take 1 capsule by mouth every afternoon. - ferrous sulfate 325 mg (65 mg iron) tablet Take 1 tablet by mouth three times daily with meals. - lancets (TRUEPLUS LANCETS) 30 gauge Inject 1 Each subcutaneously once daily. - ALPRAZolam (XANAX) 1 mg tablet Take 1 mg by mouth four times daily. - BD ULTRAFINE III MINI PEN 31 gauge x 3/16 USE DIRECTED WITH INSULIN - nitroglycerin sublingual (NITROQUICK) 0.4 mg SL tablet DISSOLVE 1 TABLET UNDER THE TONGUE EVERY 5 MINUTES NEEDED. - tiotropium (SPIRIVA WITH HANDIHALER) 18 mcg inhalation capsule INHALE CONTENTS OF 1 CAPSULE INSTRUCTED WITH HANDIHALER ONCE DAILY. - traZODone (DESYREL) 100 mg tablet TAKE 1 TABLET BY MOUTH EVERY DAY AT NIGHT - DULoxetine (CYMBALTA) 30 mg capsule Take 30 mg by mouth once daily. - desvenlafaxine ER (PRISTIQ) 100 mg 24 hr tablet Take 100 mg by mouth once daily. - aspirin 81 mg chewable tablet Take 81 mg by mouth once daily. - albuterol (PROVENTIL) 2.5 mg/0.5 mL nebulizer solution Use 0.5 mL via nebulizer every 6 hours as needed. DX J45.909 - ONETOUCH ULTRA BLUE TEST STRIP test strip PATIENT TESTS TWICE DAILY DX E1.65 - Lancets (IdentiaUCH ULTRASOFT LANCETS) lancets Check Blood sugar before breakfast and before dinner daily. Dx. E11.65 - dextroamphetamine-am phetamine (ADDERALL) 20 mg tablet Take 1 tablet by mouth twice daily for 30 days. Earliest Fill Date: 01/22/18 - Blood-Glucose Meter (ONETOUCH VERIO IQ METER) [facility] [place] 3 times daily DX E11.65 - Blood-Glucose Meter monitoring kit 1 Each as needed. Feel with insurance preference Problem List As Of Date 10/02/2024 Noted Resolved NO SHOW [] 02/26/2013 10/12/2014 Migraine [G43.909] 12/16/2013 Hyperlipidemia [E78.5] Hyperthyroidism [E05.90] Depression [F32.A] Type 2 diabetes mellitus with hyperglycemia, wi* Hypertension [I10] Asthma [J45.909] Coronary artery disease [I25.10] ADHD (attention deficit hyperactivity disorder)* OA (osteoarthritis) [M19.90] RAY (obstructive sleep apnea) [G47.33] COPD (chronic obstructive pulmonary disease) (H*07/30/2020 Multiple (more content not included)... Normal [facility] CNPNon 09-15-2024 NEL Telephone (AGFAMPLE) PRASANNA MA ([id number]) 1960 F Date Time Provider Department 09/15/24 DERRICK THORPE During your visit today, we recorded the following information about you: Derrick Thorpe APRN.CNP 09/15/2024 1:53 PM Signed Received notification from [facility] stating Ventolin HFA is preferred. New rx sent. Derrick Thorpe APRN.CNP Allergies As of Date: 09/15/2024 Noted Allergy Reaction B12 (CYANOCOBALAMIN-RITIKA MAMIDE) 08/18/2013 8 - GI Upset Comments: Patient got dizzy, lightheaded, nauseated. PNEUMOCOCCAL 23-ROSE PS VACCINE 08/18/2013 4 - Hives Comments: Patient got hives, PNEUMOCOCCAL VACCINE 04/27/2022 16 - Unknown Date Reviewed: 07/04/2023 Reviewed by: Trill, Derrick C, YEAST DISTILLER.BULLARD OPERATOR - Fully Assessed Order(s):albuterol HFA (VENTOLIN HFA) 90 mcg/actuation inhalerInhale 2 Puffs as instructed every 4 hours as needed for wheezing/shortness of breath.Disp: 1 EachRfl: 11 Prescriptions as of 09/15/2024 - albuterol HFA (VENTOLIN HFA) 90 mcg/actuation inhaler Inhale 2 Puffs as instructed every 4 hours as needed for wheezing/shortness of breath. - fluticasone-salmeter ol (WIXELA INHUB) 100-50 mcg/dose inhaler INHALE 1 PUFF INSTRUCTED TWO TIMES A DAY. - metFORMIN (GLUCOPHAGE) 1,000 mg tablet TAKE 1 TABLET BY MOUTH TWICE A DAY WITH FOOD - Valsartan-hydroCHLOR Othiazide 80-12.5 mg per tablet TAKE 1 TABLET BY MOUTH EVERY DAY - albuterol HFA (PROVENTIL HFA, VENTOLIN HFA) 90 mcg/actuation inhaler take 2 puffs by mouth every 4 hours as needed - atorvastatin (LIPITOR) 40 mg tablet take 1 tablet by mouth every day - linaGLIPtin (TRADJENTA) 5 mg tab take 1 tablet by mouth every day - glipiZIDE (GLUCOTROL) 10 mg tablet take 1 tablet by mouth twice a day before meals - metoprolol tartrate, short acting, (LOPRESSOR) 50 mg tablet take 1 tablet by mouth twice a day - famotidine (PEPCID) 20 mg tablet take 1 tablet by mouth twice a day - isosorbide mononitrate ER (IMDUR) 30 mg 24 hr tablet Take 1 tablet by mouth every afternoon. - ondansetron orally disintegrating (ZOFRAN ODT) 4 mg disintegrating tablet Take 1 tablet by mouth every 8 hours as needed for nausea/vomiting. - methIMAzole (TAPAZOLE) 5 mg tablet TAKE 1 TABLET SUNDAY THROUGH SUNDAY, NONE ON SUNDAYS - DULoxetine (CYMBALTA) 60 mg capsule Take 1 capsule by mouth every afternoon. - ferrous sulfate 325 mg (65 mg iron) tablet Take 1 tablet by mouth three times daily with meals. - lancets (TRUEPLUS LANCETS) 30 gauge Inject 1 Each subcutaneously once daily. - ALPRAZolam (XANAX) 1 mg tablet Take 1 mg by mouth four times daily. - BD ULTRAFINE III MINI PEN 31 gauge x 3/16 USE DIRECTED WITH INSULIN - nitroglycerin sublingual (NITROQUICK) 0.4 mg SL tablet DISSOLVE 1 TABLET UNDER THE TONGUE EVERY 5 MINUTES NEEDED. - tiotropium (SPIRIVA WITH HANDIHALER) 18 mcg inhalation capsule INHALE CONTENTS OF 1 CAPSULE INSTRUCTED WITH HANDIHALER ONCE DAILY. - traZODone (DESYREL) 100 mg tablet TAKE 1 TABLET BY MOUTH EVERY DAY AT NIGHT - DULoxetine (CYMBALTA) 30 mg capsule Take 30 mg by mouth once daily. - desvenlafaxine ER (PRISTIQ) 100 mg 24 hr tablet Take 100 mg by mouth once daily. - aspirin 81 mg chewable tablet Take 81 mg by mouth once daily. - albuterol (PROVENTIL) 2.5 mg/0.5 mL nebulizer solution Use 0.5 mL via nebulizer every 6 hours as needed. DX J45.909 - ONETOUCH ULTRA BLUE TEST STRIP test strip PATIENT TESTS TWICE DAILY DX E1.65 - Lancets (ONETOUCH ULTRASOFT LANCETS) lancets Check Blood sugar before breakfast and before dinner daily. Dx. E11.65 - dextroamphetamine-am phetamine (ADDERALL) 20 mg tablet Take 1 tablet by mouth twice daily for 30 days. Earliest Fill Date: 01/22/18 - Blood-Glucose Meter (ONETOUCH VERIO IQ METER) [facility] [place] 3 times daily DX E11.65 - Blood-Glucose Meter monitoring kit 1 Each as needed. Feel with insurance preference Problem List As Of Date 09/15/2024 Noted Resolved NO SHOW [341281] 02/26/2013 10/12/2014 Migraine [G43.909] 12/16/2013 Hyperlipidemia [E78.5] Hyperthyroidism [E05.90] Depression [F32.A] Type 2 diabetes mellitus with hyperglycemia, wi* Hypertension [I10] Asthma [J45.909] Coronary artery disease [I25.10] ADHD (attention deficit hyperactivity disorder)* OA (osteoarthritis) [M19.90] RAY (obstructive sleep apnea) [G47.33] COPD (chronic obstructive pulmonary disease) (H*07/30/2020 Multiple thyroid nodules [E04.2] 04/23/2021 Stenosis of right vertebral artery [I65.01] 02/01/2022 Chronic midline low back pain [M54.50, G89.29] 02/01/2022 Pancreatic cyst [K86.2] 09/27/2022 Congestive heart failure, unspecified HF chroni*02/13/2023 Osteoarthritis of spine at multiple levels [M47*06/20/2023 Prescriptions ordered this encounter Disp Refills Start End ALBUTEROL SULFATE HFA 90 MCG/ACTUATI* 1 Ea* 11 09/15/2024 Cmt: Generic or brand: dispense (more content not included)... Normal [facility] Nate 08-15-2024 NEL Telephone (MICHAELFAMPXIAO) PRASANNA MA ([id number]) 1960 F Date Time Provider Department 08/15/24 DERRICK THROPE During your visit today, we recorded the following information about you: Mare Ryan 08/15/2024 4:34 PM Signed No Show Documentation Prasanna Ma no showed for an appointment on 09/04/24 with Derrick Thorpe APRN.NAVIN. She was scheduled for 09/05/24. I called and spoke with the patient regarding her missed appointment. Prasanna stated the reason that she missed her appointment was because did not have a ride. Resources discussed/offered to patient: No show determined to be fault of patient: Yes This is the patients first no show in the last 12 months. Patient was rescheduled for . Letter mailed : N/A Is this the Third or Fourth No Show ? Lena Ryan August 15, 2024 4:30 PM Allergies As of Date: 08/15/2024 Noted Allergy Reaction B12 (CYANOCOBALAMIN-RITIKA MAMIDE) 08/18/2013 8 - GI Upset Comments: Patient got dizzy, lightheaded, nauseated. PNEUMOCOCCAL 23-ROSE PS VACCINE 08/18/2013 4 - Hives Comments: Patient got hives, PNEUMOCOCCAL VACCINE 04/27/2022 16 - Unknown Date Reviewed: 07/04/2023 Reviewed by: Derrick Thorpe APRN.BULLARD OPERATOR - Fully Assessed Prescriptions as of 08/15/2024 - Valsartan-hydroCHLOR Othiazide 80-12.5 mg per tablet TAKE 1 TABLET BY MOUTH EVERY DAY - albuterol HFA (PROVENTIL HFA, VENTOLIN HFA) 90 mcg/actuation inhaler take 2 puffs by mouth every 4 hours as needed - atorvastatin (LIPITOR) 40 mg tablet take 1 tablet by mouth every day - linaGLIPtin (TRADJENTA) 5 mg tab take 1 tablet by mouth every day - metFORMIN (GLUCOPHAGE) 1,000 mg tablet take 1 tablet by mouth twice a day with food - glipiZIDE (GLUCOTROL) 10 mg tablet take 1 tablet by mouth twice a day before meals - metoprolol tartrate, short acting, (LOPRESSOR) 50 mg tablet take 1 tablet by mouth twice a day - famotidine (PEPCID) 20 mg tablet take 1 tablet by mouth twice a day - isosorbide mononitrate ER (IMDUR) 30 mg 24 hr tablet Take 1 tablet by mouth every afternoon. - ondansetron orally disintegrating (ZOFRAN ODT) 4 mg disintegrating tablet Take 1 tablet by mouth every 8 hours as needed for nausea/vomiting. - methIMAzole (TAPAZOLE) 5 mg tablet TAKE 1 TABLET SUNDAY THROUGH SUNDAY, NONE ON SUNDAYS - fluticasone-salmeter ol (ADVAIR DISKUS) 100-50 mcg/dose inhaler Inhale 1 Puff as instructed two times a day. - DULoxetine (CYMBALTA) 60 mg capsule Take 1 capsule by mouth every afternoon. - ferrous sulfate 325 mg (65 mg iron) tablet Take 1 tablet by mouth three times daily with meals. - lancets (TRUEPLUS LANCETS) 30 gauge Inject 1 Each subcutaneously once daily. - ALPRAZolam (XANAX) 1 mg tablet Take 1 mg by mouth four times daily. - BD ULTRAFINE III MINI PEN 31 gauge x /16 USE DIRECTED WITH INSULIN - nitroglycerin sublingual (NITROQUICK) 0.4 mg SL tablet DISSOLVE 1 TABLET UNDER THE TONGUE EVERY 5 MINUTES NEEDED. - tiotropium (SPIRIVA WITH HANDIHALER) 18 mcg inhalation capsule INHALE CONTENTS OF 1 CAPSULE INSTRUCTED WITH HANDIHALER ONCE DAILY. - traZODone (DESYREL) 100 mg tablet TAKE 1 TABLET BY MOUTH EVERY DAY AT NIGHT - DULoxetine (CYMBALTA) 30 mg capsule Take 30 mg by mouth once daily. - desvenlafaxine ER (PRISTIQ) 100 mg 24 hr tablet Take 100 mg by mouth once daily. - aspirin 81 mg chewable tablet Take 81 mg by mouth once daily. - albuterol (PROVENTIL) 2.5 mg/0.5 mL nebulizer solution Use 0.5 mL via nebulizer every 6 hours as needed. DX J45.909 - ONETOUCH ULTRA BLUE TEST STRIP test strip PATIENT TESTS TWICE DAILY DX E1.65 - Lancets (IngogoTOUCH ULTRASOFT LANCETS) lancets Check Blood sugar before breakfast and before dinner daily. Dx. E11.65 - dextroamphetamine-am phetamine (ADDERALL) 20 mg tablet Take 1 tablet by mouth twice daily for 30 days. Earliest Fill Date: 01/22/18 - Blood-Glucose Meter (ONETOUCH VERIO IQ METER) [facility] [place] tests 3 times daily DX E11.65 - Blood-Glucose Meter monitoring kit 1 Each as needed. Feel with insurance preference Problem List As Of Date 08/15/2024 Noted Resolved NO SHOW [[id number]] 02/26/2013 10/12/2014 Migraine [G43.909] 12/16/2013 Hyperlipidemia [E78.5] Hyperthyroidism [E05.90] Depression [F32.A] Type 2 diabetes mellitus with hyperglycemia, wi* Hypertension [I10] Asthma [J45.909] Coronary artery disease [I25.10] ADHD (attention deficit hyperactivity disorder)* OA (osteoarthritis) [M19.90] RAY (obstructive sleep apnea) [G47.33] COPD (chronic obstructive pulmonary disease) (H*07/30/2020 Multiple thyroid nodules [E04.2] 04/23/2021 Stenosis of right vertebral artery [I65.01] 02/01/2022 Chronic midline low back pain [M54.50, G89.29] 02/01/2022 Pancreatic cyst [K86.2] 09/27/2022 Congestive heart failure, unspecified HF chroni*02/13/2023 Osteoarthritis of spine at multiple levels [M47 (more content not included)... Normal [facility] CNPNon 07-15-2024 NEL Telephone (AGNBAMPXIAO) PRASANNA MA ([id number]) 1960 F Date Time Provider Department 07/15/24 DERRICK THORPE During your visit today, we recorded the following information about you: CassQuinten chapmnaie 07/15/2024 12:29 PM Signed The patient has a scheduled appointment on 08/15/24 at 1:00 pm-first available pm appointment. She is in [place] taking care of her mother. She would like her medication refills sent to [facility] there for 30 days, until her appointment. Please contact the patient as she has been waiting for awhile on her thyroid medication. She can be reached at [phone]. Derrick Wilcox APRN.CNP 07/15/2024 12:52 PM Signed The thyroid medication is prescribed by the contact center rep If she schedules with the contact center rep I would be willing to send in Rx to get her to that appointment with the specialist. DUSTIN Flores Janie, MA 07/15/2024 2:00 PM Signed Patient informed and states she will call her contact center rep today but that it has been coming from Derrick and she is not sure if she will be able to get in with endo and will just stop taking it if she has to. States she has been taking care of her mother in [place] and does not drive. SHAE Mcduffie Kristin C, APRN.CNP 07/15/2024 4:04 PM Signed Thank you noted. Derrick Thorpe APRN.CNP Allergies As of Date: 07/15/2024 Noted Allergy Reaction B12 (CYANOCOBALAMIN-RITIKA MAMIDE) 08/18/2013 8 - GI Upset Comments: Patient got dizzy, lightheaded, nauseated. PNEUMOCOCCAL 23-ROSE PS VACCINE 08/18/2013 4 - Hives Comments: Patient got hives, PNEUMOCOCCAL VACCINE 04/27/2022 16 - Unknown Date Reviewed: 07/04/2023 Reviewed by: Derrick Thorpe APRN.CNP - Fully Assessed Reason for Visit: Medication Request [138] Prescriptions as of 07/15/2024 - atorvastatin (LIPITOR) 40 mg tablet take 1 tablet by mouth every day - linaGLIPtin (TRADJENTA) 5 mg tab take 1 tablet by mouth every day - metFORMIN (GLUCOPHAGE) 1,000 mg tablet take 1 tablet by mouth twice a day with food - glipiZIDE (GLUCOTROL) 10 mg tablet take 1 tablet by mouth twice a day before meals - metoprolol tartrate, short acting, (LOPRESSOR) 50 mg tablet take 1 tablet by mouth twice a day - famotidine (PEPCID) 20 mg tablet take 1 tablet by mouth twice a day - isosorbide mononitrate ER (IMDUR) 30 mg 24 hr tablet Take 1 tablet by mouth every afternoon. - ondansetron orally disintegrating (ZOFRAN ODT) 4 mg disintegrating tablet Take 1 tablet by mouth every 8 hours as needed for nausea/vomiting. - albuterol HFA (PROVENTIL HFA, VENTOLIN HFA) 90 mcg/actuation inhaler take 2 puffs by mouth every 4 hours as needed - methIMAzole (TAPAZOLE) 5 mg tablet TAKE 1 TABLET SUNDAY THROUGH SUNDAY, NONE ON SUNDAYS - fluticasone-salmeter ol (ADVAIR DISKUS) 100-50 mcg/dose inhaler Inhale 1 Puff as instructed two times a day. - Valsartan-hydroCHLOR Othiazide 80-12.5 mg per tablet take 1 tablet by mouth every day - DULoxetine (CYMBALTA) 60 mg capsule Take 1 capsule by mouth every afternoon. - ferrous sulfate 325 mg (65 mg iron) tablet Take 1 tablet by mouth three times daily with meals. - lancets (TRUEPLUS LANCETS) 30 gauge Inject 1 Each subcutaneously once daily. - ALPRAZolam (XANAX) 1 mg tablet Take 1 mg by mouth four times daily. - BD ULTRAFINE III MINI PEN 31 gauge x /16 USE DIRECTED WITH INSULIN - nitroglycerin sublingual (NITROQUICK) 0.4 mg SL tablet DISSOLVE 1 TABLET UNDER THE TONGUE EVERY 5 MINUTES NEEDED. - tiotropium (SPIRIVA WITH HANDIHALER) 18 mcg inhalation capsule INHALE CONTENTS OF 1 CAPSULE INSTRUCTED WITH HANDIHALER ONCE DAILY. - traZODone (DESYREL) 100 mg tablet TAKE 1 TABLET BY MOUTH EVERY DAY AT NIGHT - DULoxetine (CYMBALTA) 30 mg capsule Take 30 mg by mouth once daily. - desvenlafaxine ER (PRISTIQ) 100 mg 24 hr tablet Take 100 mg by mouth once daily. - aspirin 81 mg chewable tablet Take 81 mg by mouth once daily. - albuterol (PROVENTIL) 2.5 mg/0.5 mL nebulizer solution Use 0.5 mL via nebulizer every 6 hours as needed. DX J45.909 - ONETOUCH ULTRA BLUE TEST STRIP test strip PATIENT TESTS TWICE DAILY DX E1.65 - Lancets (ONETOUCH ULTRASOFT LANCETS) lancets Check Blood sugar before breakfast and before dinner daily. Dx. E11.65 - dextroamphetamine-am phetamine (ADDERALL) 20 mg tablet Take 1 tablet by mouth twice daily for 30 days. Earliest Fill Date: 01/22/18 - Blood-Glucose Meter (ONETOUCH VERIO IQ METER) [facility] [place] Patient tests 3 times daily DX E11.65 - Blood-Glucose Meter monitoring kit 1 Each as needed. Feel with insurance preference Problem List As Of Date 07/15/2024 Noted Resolved NO SHOW [] 02/26/2013 10/12/2014 Migraine [G43.909] 12/16/2013 Hyperlipidemia [E78.5] Hyperthyroidism [E05.90] Depression [F32.A] Type 2 diabetes mellitus with hyperglycemia, wi* Hyperte (more content not included)... Normal [facility] ALBUMIN/CREAT RATIO RND URon 07-05-2023 Albumin Unsp time DL <= 20 mg/L (U) [Mass/Time] [facility] Albumin/Creatinine (U) [Mass ratio] <30 mg/g [facility] Creatinine (U) [Mass/Vol] 96.3 mg/dL 42.2 - 237.9 mg/dL [facility] T4 FREE/FREE THYROXon 2022 Free T4 [Mass/Vol] 1.1 ng/dL 0.9 - 1.7 ng/dL [facility] Basic metabolic 2000 panelon 07-04-2023 Anion gap [Moles/Vol] 10 mmol/L 9 - 18 mmol/L [facility] Calcium [Mass/Vol] 9.5 mg/dL 8.5 - 10. 2 mg/dL [facility] Chloride [Moles/Vol] 102 mmol/L 97 - 10 5 mmol/L [facility] CO2 [Moles/Vol] 24 mmol/L 22 - 30 mmol/L [facility] Creatinine [Mass/Vol] 0.94 mg/dL 0.58 - 0.96 mg/dL [facility] Estimated Glomerular Filtration Rate 68 mL/min/1.73m >=60 mL/min/1.73m [facility] Glucose [Mass/Vol] 88 mg/dL 74 - 99 mg/dL [facility] Potassium [Moles/Vol] 4.4 mmol/L 3.7 - 5.1 mmol/L [facility] Sodium [Moles/Vol] 136 mmol/L 136 - 144 mmol/L [facility] Urea nitrogen [Mass/Vol] 15 mg/dL 7 - 21 mg/dL [facility] HEMOGLOBIN A1C (POC)on 07-04 HbA1c (Bld) [Mass fraction] 7.3 % Abnormal 4.2 - 5.6 % [facility] TSH BLDon 07-04-2023 TSH Qn 2.580 m[IU]/L 0.270 - 4.200 mIU/L [facility] HEMOGLOBIN A1C (POC)on 02-13 HbA1c (Bld) [Mass fraction] 7.9 % Abnormal 4.2 - 5.6 % [facility] HEMOGLOBIN A1C (POC)on 09-27 HbA1c (Bld) [Mass fraction] 7.5 % Abnormal 4.2 - 5.6 % [facility] Carotid Duplex Ultrasoundon 08-18-2022 Carotid Duplex Ultrasound [facility] [address] [place] [address] Carotid Duplex Ultrasound 08/18/22 1148 MR#: [id number] Acct: [id number] Name: PRASANNA MA Rep #: [id number] : 1960 61 From: Jcarlos Taylor MD Attending Dr: Dr. Fredi Heredia MD Status: G [facility] Ordering Dr: Fredi Heredia MD Date: 08/18/22 Location: [facility] Sex: F C Admitted: Reason For Study: Bruit Rt. Velocities/BP Lt. Velocities/BP Prox CCA 99.8/13.9 cm/sec. Prox CCA 90.6/13.9 cm/sec. Mid CCA 94.2/13.9 cm/sec. Mid CCA 77.8/15.7 cm/sec. Dist CCA 63.2/12.1 cm/sec. Dist CCA 66.8/13.9 cm/sec. Prox ICA 56.4/11.9 cm/sec. Prox ICA 168.1/38.6 cm/sec. Mid ICA 69.4/18.0 cm/sec. Mid ICA 186.3/24.6 cm/sec. Dist ICA 65.0/15.5 cm/sec. Dist ICA 127.1/19.4 cm/sec. Rt. ICA/CCA = 0.7. Lt. ICA/CCA = 2.4. Prox ECA 87.5/6.2 cm/sec. Prox ECA 135.2/18.9 cm/sec. Rt. Vert. 19.9/4.2 cm/sec. Lt. Vert. 37.4/11.9 cm/sec. Right Extracranial There is heterogeneous, smooth atherosclerotic plaque noted in the right common carotid artery. There is heterogeneous, irregular atherosclerotic plaque noted in the right internal carotid artery. There is heterogeneous, irregular atherosclerotic plaque noted in the right external carotid artery. Antegrade flow is noted in the right vertebral artery. Left Extracranial There is heterogeneous, smooth atherosclerotic plaque noted in the left common carotid artery. There is heterogeneous, irregular atherosclerotic plaque noted in the left internal carotid artery. There is heterogeneous, irregular atherosclerotic plaque noted in the left external carotid artery. Antegrade flow is noted in the left vertebral artery. Procedure Carotid Duplex [id number]. This is a Carotid Duplex examination using B-mode, color flow and specral Doppler. The exam was diagnostic. Exam performed in department. VL/Carotid Duplex Ultrasound Interpretation Summary Irregular heterogenous plaque at the proximal right internal carotid artery with less than 50% stenosis Less than 50% stenosis right external carotid artery Irregular plaque at the proximal left internal carotid artery with 50 to 69% stenosis Less than 50% stenosis left external carotid artery Patent antegrade flow bilateral vertebrals Ordering Physician: Fredi Heredia Referring Physician: Fredi Heredia Performed By: Filipe Camarillo T 08/18/22 1436 Date Jcarlos Taylor MD CC: RESIDENTIAL SUPPORT WORKER-C Derrick Thorpe; Dr. Fredi Heredia MD Date Dictated: 08/18/22 1148 Date Transcribed: 08/18/22 143 Mercerizer: [facility] 12 Lead EKG performed by [facility] on 04-27-2022 12 Lead EKG performed by [facility] [address] [place] [address] 12 Lead EKG performed by [facility] 04/27/22 1618 MR#: [id number] Acct: [id number] Name: PRASANNA MA Rep #: [id number] : 1960 61 From: Fredi Heredia MD Attending Dr: Dr. Fredi Heredia MD Status: RE G AMB Ordering Dr: Fredi Heredia MD Date: 04/27/22 Location: [facility] Sex: F C Admitted: [facility]/12 Lead EKG performed by [facility] ECG Report Interpretation ------Sinus Bradycardia Electronically signed on 04/27/2022 at 19:06 by Fredi Heredia Software Version [id number] 04/27/22 1910 Date Fredi Heredia MD CC: Dr. Nevaeh Lindsay MD Date Dictated: 04/27/221617 Date Transcribed: 04/27/221617 Mercerizer: PM Signed Normal [facility] Cardiology Visit Reporton Cardiology Visit Report [facility] [address] [place] [address] OFFICE VISIT Date of Service: 04/27/22 MR#: [id number] Acct: [id number] Name: PRASANNA MA Rep #: [id number] : 1960 Provider: Dr. Fredi bonilla MD Age/Sex: 61/F Location: [facility] Status: Signed HPI HPI History of Present Illness Details: This is a 61-year-old white female who presents today for outpatient cardiovascular follow up with a history of underlying CAD, PCI, hyperlipidemia, hypertension, in need of upcoming back injections . Her last outpatient cardiovascular visit was on 04/14/2021. The patient denies symptoms considered classic for angina pectoris, CHF / pulmonary edema (with respect to orthopnea / PND), ongoing palpitations, or near syncope / syncope. The patient denies ongoing peripheral pitting edema. The patient denies the use of sublingual nitroglycerin use. She had an ECG in the office today that demonstrated sinus rhythm. She had no acute ECG changes. She underwent a transthoracic echocardiogram on 04-26-2021. The results are noted below. She underwent a pharmacologic stress nuclear imaging study on 04-29-2021. The results are noted below. She also had an abdominal ultrasound performed on 04-26-2021 with the results noted below. The aforementioned studies have been reviewed with her. She has not required any additional invasive cardiovascular studies and/or interventions. Intake Vital Signs 04/27/22 16:18 04/27/22 16:21 Height 5 ft 4 in 5 ft 4 in Weight: 137 lb 1 oz BMI 23.5 BP 100/52 L Blood Pressure Location Lt brachial Position Sitting Respiration 16 Pulse 68 Pulse Source Auscultation Intake Visit Reasons: cardiac clearance Clinical Genetics Laboratory Chief Required: No Accompanied by: Self Allergies pneumococcal vaccine [Pneumococcal Vaccine] Allergy (Verified 07/14/22 16:22) Hives lisinopril Adverse Reaction (Severe, Verified 04/27/22 16:22) cough cyanocobalamin (vitamin B12) [cyanocobalamin] Adverse Reaction (Verified 04/27/22 16:22) Upset Stomach Medications nitroglycerin 0.4 mg sublingual tablet 0.4 mg sublingual Q5M PRN Chest Pain 10/27/13 [History Confirmed 04/27/22] aspirin 81 mg tablet,delayed release 81 mg PO QDAY 11/21/17 [History Confirmed 04/27/22] atorvastatin 40 mg tablet 40 mg PO QDAY 11/21/17 [History Confirmed 04/27/22] isosorbide mononitrate 30 mg tablet,extended release 24 hr 30 mg PO QDAY 11/21/17 [History Confirmed 04/27/22] tiotropium bromide 18 mcg capsule with inhalation device (Spiriva with HandiHaler) 18 mcg inhalation QDAY 11/21/17 [History Confirmed 04/27/22] dextroamphetamine-am phetamine 20 mg tablet (Adderall) 20 mg PO BID 02/21/18 [History Confirmed 04/27/22] fluticasone furoate 200 mcg-vilanterol 25 mcg/dose inhalation powder (Breo Ellipta) 1 inh inhalation QDAY 02/21/18 [History Confirmed 04/27/22] linagliptin 5 mg tablet (Tradjenta) 5 mg PO QDAY 02/21/18 [History Confirmed 04/27/22] metformin 1,000 mg tablet 1,000 mg PO BID 02/21/18 [History Confirmed 04/27/22] metoprolol tartrate 50 mg tablet 50 mg PO BID 02/21/18 [History Confirmed 04/27/22] valsartan 80 mg-hydrochlorothiazi de 12.5 mg tablet 1 tab PO QDAY 02/21/18 [History Confirmed 04/27/22] albuterol sulfate 2.5 mg/3 mL (0.083 %) solution for nebulization 2.5 mg inhalation Q6H PRN 03/02/21 [History Confirmed 04/27/22] albuterol sulfate 90 mcg/actuation aerosol inhaler (Ventolin HFA) 2 puff inhalation Q4H PRN 03/02/21 [History Confirmed 04/27/22] desvenlafaxine succinate 100 mg tablet,extended release 24 hr (Pristiq) 100 mg PO DAILY #1 TAB 03/02/21 [Rx Confirmed 04/27/22] duloxetine 30 mg capsule,delayed release 30 mg PO DAILY 03/02/21 [History Confirmed 04/27/22] famotidine 20 mg tablet 20 mg PO BID 03/02/21 [History Confirmed 04/27/22] ferrous sulfate 325 mg (65 mg iron) tablet 325 mg PO TID 03/02/21 [History Confirmed 04/27/22] trazodone 100 mg tablet 100 mg PO QHS PRN 03/02/21 [History Confirmed 04/27/22] alprazolam 1 mg tablet 1 mg PO TID PRN 04/27/22 [History Confirmed 04/27/22] glipizide 10 mg tablet, extended release 24 hr 10 mg PO BID 04/27/22 [History Confirmed 04/27/22] liraglutide 0.6 mg/0.1 mL (18 mg/3 mL) subcutaneous pen injector 0.6 mg subcut DAILY 04/27/22 [History Confirmed 04/27/22] methimazole 5 mg tablet 5 mg PO DAILY 04/27/22 [History Confirmed 04/27/22] [facility] Medical History Abdominal bruit Anemia Angina pectoris Anxiety Asthma Atherosclerotic heart disease of [place] coronary artery without angina pectoris Chest pain Congestive heart failure (CHF) COPD (chronic obstructive pulmonary disease) Degenerative joint disease Dyspnea Essential hypertension Family history of hypertension GERD (gastroesophageal reflux disease) Hyperlipidemia Hypothyroid (more content not included)... Normal [facility] XR CSPINE MIN 4 VIEWSon 03-16 XR CSPINE MIN 4 VIEWS EXAMINATION: XR LSPINE MIN 4 VIEWS, XR TSPINE 2 VIEWS, XR CSPINE MIN 4 VIEWS HISTORY: Spondylosis without myelopathy COMPARISON: No relevant comparison available. FINDINGS: BONES: Normal alignment of the cervical, thoracic and lumbar spine on the lateral projections. Minimal rotatory dextrocurvature of the lumbar spine centered at L3. Mild to moderate degenerative spondylosis and facet osteoarthropathy throughout the spine DISC SPACES: Multilevel disc space narrowing most significant C5-C6 and L5-S1 PARASPINOUS: Negative. No paraspinous abnormality is seen. OTHER: Diffuse atherosclerosis IMPRESSION: Moderate diffuse degenerative changes of the cervical, thoracic and lumbar spine Electronically authenticated by: EMIR RUSH Date: 2022-04-04 21:43 Normal [facility] AMY SCREENINGon 01-12-2022 [facility] Covid-19 PCR (CVDTB)on 09-14 SARS-CoV-2 (COVID-19) RNA KIKI+probe Ql (Unsp spec) Not detected Normal NOT DETECTED [facility] Comment on above: Result Comment: This test is not yet approved or cleared by the [place] FDA. When there are no FDA-approved or cleared tests available, and other criteria are met, FDA can make tests available under an emergency access mechanism called an Emergency Use Authorization (EUA). The EUA for this test is supported by the [employer] Driver of Health and Human Service's (HHS's) declaration that circumstances exist to justify the emergency use of in vitro diagnostics for the detection and/or diagnosis of the virus that causes COVID-19. This EUA will remain in effect (meaning this test can be used) for the duration of the COVID-19 declaration justifying emergency of IVDs, unless it is terminated or revoked by FDA (after which the test may no longer be used). When diagnostic testing is negative, the possibility of a false negative should be considered in the context of a patient's recent exposures and the presence of clinical signs and symptoms consistent with SARS-CoV-2. Performed By: #### C VDTBH #### [facility] [address] [address] [address] Mary Leyva T3 BLDon 07-07-2021 T3 [Mass/Vol] 111 ng/dL Normal 60-180 [facility] Comment on above: Order Comment: Speci men Type: BLOOD SPECIMEN Performed By: #### F T4, T3 #### [facility] CLIA [id number] [address] OF [facility] T4 FREE/FREE THYROXon 2020 Free T4 [Mass/Vol] 1.5 ng/dL Normal 0.9-1.7 [facility] Comment on above: Order Comment: Speci men Type: BLOOD SPECIMEN Performed By: #### F T4, T3 #### [facility] CLIA [id number] [address] [place] TSH SerPl-aCncon 07-07-2021 TSH Qn m[IU]/L Low 0.270-4.200 [facility] Comment on above: Order Comment: Speci men Type: BLOOD SPECIMEN Performed By: #### 3 016-3 #### [facility] CLIA [id number] [address] [place], [place] [id number] [facility] NM THY UPTAKE AND SCANon NM THY UPTAKE AND SCAN * * *Final Report * * * DATE OF EXAM: Jun 07 2021 11:37AM FERNANDO 0040 - NM THY UPTAKE AND SCAN / PROCEDURE REASON: multiple diagnoses * * * * Physician Interpretation * * * * I-123 THYROID UPTAKE AND SCAN CLINICAL HISTORY: Hyperthyroidism. TECHNIQUE: 208.7 uCi Iodine-123 sodium orally for thyroid uptake. Static images in the anterior and oblique view were obtained. FINDINGS: The I-123 uptake at 5 hours is 11.5%, and 24 hours uptake of 29.5%. (normal range is 5.5-25%). The thyroid scan demonstrates homogenous tracer uptake in both thyroid lobe. IMPRESSION: 1. 29.5% I-123 UPTAKE AT 24 HOURS. 2. NO SCAN EVIDENCE OF COLD OR HOT NODULE. THE FINDING IS COMPATIBLE WITH GRAVE'S DISEASE. Mercerizer: GLADIS Transcribe Date/Time: Jun 07 2021 12:08P Dictated by : MARIA TERESA CHRISTY MD This examination was interpreted and the report reviewed and electronically signed by: MARIA TERESA CHRISTY MD on Jun 07 2021 12:17PM EST [id number] Normal [facility] Nate 04-23-2021 NAVINN Telephone (SHAWNA) PRASANNA [place] ([id number]) 1960 F Date Time Provider Department 04/23/21 WERNER AMATO During your visit today, we recorded the following information about you: Werner Amato MD 04/23/2021 10:04 AM Signed ----- Message from Nevaeh Lindsay MD sent at 04/19/2021 11:44 AM EDT ----- Patient's TSH continues to worsen. Will attach Dr. Amato to this result. I know she doesn't see him until July, but will see if he wants to see her sooner. Thanks. Werner Amato MD 04/23/2021 10:11 AM Signed Please tell patient to get additional blood test done (thyroid hormone levels) and schedule thyroid scan and uptake here at [facility] (order in Epic). Thanks Will see if needs to move up July appt based on these results. Pierre Cheng Ma 04/26/2021 10:03 AM Signed Called and spoke with patient. Expressed understanding. Gave central scheduling number to get scheduled. Has an appointment in May to see Dr. Saunders. Encounter closed. Allergies As of Date: 04/23/2021 Noted Allergy Reaction B12 (CYANOCOBALAMIN-RITIKA MAMIDE) 08/18/2013 8 - GI Upset Comments: Patient got dizzy, lightheaded, nauseated. PNEUMOCOCCAL 23-ROSE PS VACCINE 08/18/2013 4 - Hives Comments: Patient got hives, Date Reviewed: 04/07/2021 Reviewed by: Nevaeh Lindsay MD - Fully Assessed Reason for Visit: Thyroid Uptake [Other] Primary Visit Diagnosis:Hyperthyro idism [E05.90] Other Visit Diagnosis:Multiple thyroid nodules [E04.2] Order(s):T4 FREE/FREE THYROX [SQFT4] Order #: [id number] FUTURE T3 FREE BLD [SQFREET3] Order #: [id number] FUTURE NM THY UPTAKE AND SCAN [[id number]] Order #: [id number]: 1 FUTURE Prescriptions as of 04/26/2021 - BD ULTRAFINE III MINI PEN 31 gauge x /16 USE DIRECTED WITH INSULIN - clopidogrel (PLAVIX) 75 mg tablet TAKE 1 TABLET BY MOUTH EVERY DAY - tiotropium (SPIRIVA WITH HANDIHALER) 18 mcg inhalation capsule INHALE CONTENTS OF 1 CAPSULE INSTRUCTED WITH HANDIHALER ONCE DAILY. - famotidine (PEPCID) 20 mg tablet TAKE 1 TABLET BY MOUTH TWICE A DAY - liraglutide (VICTOZA) 0.6 mg/ 0.1 ml subcutaneous pen injector Inject 1.2 mg subcutaneously once daily. - glipiZIDE (GLUCOTROL) 10 mg tablet Take 1 tablet by mouth twice daily before meals. - ferrous sulfate 325 mg (65 mg iron) tablet TAKE 1 TABLET BY MOUTH THREE TIMES DAILY WITH MEALS. - traZODone (DESYREL) 100 mg tablet TAKE 1 TABLET BY MOUTH EVERY DAY AT NIGHT - DULoxetine (CYMBALTA) 30 mg capsule Take 30 mg by mouth once daily. - metoprolol tartrate, short acting, (LOPRESSOR) 50 mg tablet TAKE 1 TABLET BY MOUTH TWICE A DAY - albuterol HFA (PROVENTIL HFA, VENTOLIN HFA) 90 mcg/actuation inhaler INHALE 2 PUFFS BY MOUTH EVERY 4 HOURS NEEDED - TRADJENTA 5 mg tab TAKE 1 TABLET BY MOUTH EVERY DAY - isosorbide mononitrate ER (IMDUR) 30 mg 24 hr tablet TAKE 1 TABLET BY MOUTH EVERY DAY - desvenlafaxine ER (PRISTIQ) 100 mg 24 hr tablet Take 100 mg by mouth once daily. - nitroglycerin sublingual (NITROQUICK) 0.4 mg SL tablet Dissolve 1 tablet under the tongue every 5 minutes as needed. - metFORMIN (GLUCOPHAGE) 1,000 mg tablet TAKE 1 TABLET BY MOUTH TWICE A DAY WITH MEALS - atorvastatin (LIPITOR) 40 mg tablet TAKE 1 TABLET BY MOUTH EVERY DAY - Valsartan-Hydrochlor othiazide 80-12.5 mg per tablet Take 1 tablet by mouth once daily. - aspirin 81 mg chewable tablet Take 81 mg by mouth once daily. - albuterol (PROVENTIL) 2.5 mg/0.5 mL nebulizer solution Use 0.5 mL via nebulizer every 6 hours as needed. DX J45.909 - BREO ELLIPTA 200-25 mcg/dose inhaler INHALE 1 INHALATION INSTRUCTED ONCE DAILY. - IngogoTOUCH ULTRA BLUE TEST STRIP test strip PATIENT TESTS TWICE DAILY DX E1.65 - ALPRAZolam (XANAX) 0.5 mg tablet Take 0.5 mg by mouth twice daily. And two at bedtime - Lancets (IdentiaUCH ULTRASOFT LANCETS) lancets Check Blood sugar before breakfast and before dinner daily. Dx. E11.65 - dextroamphetamine-am phetamine (ADDERALL) 20 mg tablet Take 1 tablet by mouth twice daily for 30 days. Earliest Fill Date: 01/22/18 - Blood-Glucose Meter (ONETOUCH VERIO IQ METER) [facility] [place] tests 3 times daily DX E11.65 - Blood-Glucose Meter monitoring kit 1 Each as needed. Feel with insurance preference Problem List As Of Date 04/23/2021 Noted Resolved NO SHOW [[id number]] 02/26/2013 10/12/2014 Migraine [G43.909] 12/16/2013 Hyperlipidemia [E78.5] Hyperthyroidism [E05.90] Depression [F32.9] Type 2 diabetes mellitus with hyperglycemia, wi* Hypertension [I10] Asthma [J45.909] Coronary artery disease [I25.10] ADHD (attention deficit hyperactivity disorder)* OA (osteoarthritis) [M19.90] RAY (obstructive sleep apnea) [G47.33] COPD (chronic obstructive pulmonary disease) (H*07/30/2020 Multiple thyroid nodules [E04.2] 04/23/2021 Encounter Status:Close (more content not included)... Normal [facility] SCREENINGon 11-25-2020 [facility] SCREENING Final Report DATE OF EXAM: Nov 25 2020 3:09PM LDW 0581 - [facility] SCREENING / PROCEDURE REASON: Screening for breast cancer Physician Interpretation #[id number] - [facility] SCREENING BILATERAL DIGITAL SCREENING MAMMOGRAM WITH CAD: 11/25/2020 HISTORY: / Screening Mammogram-patient reports the following symptoms: tenderness under the rt breast times 2 months. RESULT: TECHNIQUE: The study was acquired using full field digital technology and interpreted from soft copy. Current study was also evaluated with a Computer Aided Detection (CAD). Comparison is made to exams dated: 04/01/2019 mammogram and 11/27/2017 mammogram - [facility]. There are scattered fibroglandular elements in both breasts. No significant masses, calcifications, or other findings are seen in either breast. There has been no significant interval change. IMPRESSION: NEGATIVE There is no abnormality seen in the right breast to correspond with the pain, however, clinical followup is recommended. If the patient has focal or persistent pain, ultrasound could be considered. There is no mammographic evidence of malignancy. A 1 year screening mammogram is recommended. Maximino oro/gonzalo:11/26/2020 08:44:09 Card Tape Converter Operator(s): Nirali Alcantara)(Bharath), [facility] letter sent: Normal over 40 Mammogram BI-RADS: 1 Negative Multiple national specialty organizations have released breast cancer screening guidelines for women at average risk for developing breast cancer - guidelines that are based on both evidence and opinion, yet differ on when to start and how often to screen for breast cancer. With representation from Breast Imaging, Internal Medicine, Women's Health, Family Medicine, and Medical/Surgical Oncology, the [facility] has carefully reviewed the data and reached the following consensus: 1) All women should engage in shared decision-making with their providers to decide when to start and how often to screen; 2) All women should have the opportunity to start screening mammography at age 40; 3) For women ages 45-55, we recommend annual screening mammograms; 4) For women ages 55 and over, we support both the transition from an annual to a biennial interval if this aligns more with patient's values and preferences, or continuation with annual screening; 5) All women should discuss with their providers when to stop screening mammograms. Mercerizer: Gonzalo Transcribe Date/Time: Nov 25 2020 2:53P Dictated by : MAXIMINO CONTRERAS MD This examination was interpreted and the report reviewed and electronically signed by: MAXIMINO CONTRERAS MD on Nov 26 2020 8:44AM EST Normal [facility] XR FOOT 3V AP/LAT/OBL RTon 1 11-03-2019 XR FOOT 3V AP/LAT/OBL RT Final Report DATE OF EXAM: Sep 03 2020 12:50PM LDX 5337 - XR FOOT 3V AP/LAT/OBL RT / PROCEDURE REASON: Bone pain, foot Physician Interpretation EXAM TITLE: XR FOOT 3V AP/LAT/OBL RT DATE: 09/03/2020 12:58 PM INDICATION: Right foot pain secondary to a fall COMPARISON: None. FINDINGS: There is a fracture involving the neck of the fifth metatarsal with nondisplaced fragments. No additional fractures or dislocations are identified. Soft tissues appear normal. IMPRESSION: Fifth metatarsal fracture. Mercerizer: GLADIS Transcribe Date/Time: Sep 03 2020 12:58P Dictated by : MARY FUCHS MD This examination was interpreted and the report reviewed and electronically signed by: MARY FUCHS MD on Sep 03 2020 12:59PM EST Normal [facility] TSHon 07-14-2020 TSH Qn 0.020 uIU/mL Low 0.270-4.200 [facility] Comment on above: Result Comment: Preg orlin: 1st trimester:(9-12 weeks):0.180-2.900 uIU/mL 2nd trimester: 0.110-3.980 uIU/mL 3rd trimester: 0.480-4.710 uIU/mL Patients taking a biotin dose of up to 5 mg/day should refrain from taking biotin for 4 hours prior to sample collection. Patients taking a biotin dose of 5 to 10 mg/day should refrain from taking biotin for 8 hours prior to sample collection. Patients taking a biotin dose > 10 mg/day should consult with their physician or the laboratory prior to having a sample taken. Clinicians should consider biotin interference as a source of error, when clinically suspicious of the laboratory result. Performed By: #### L TSH #### [facility] [address] [address] Basic Panelon 07-09-2020 Anion gap [Moles/Vol] 11 mmol/L Normal 9-18 [facility] Comment on above: Performed By: #### M ALCR #### [address] [address] Calcium [Mass/Vol] 10.3 mg/dL High 8.5-10.2 [facility] Comment on above: Performed By: #### M ALCR #### [facility] [address] [place], [place] [address] Chloride [Moles/Vol] 102 mmol/L Normal 97-105 [facility] Comment on above: Performed By: #### M ALCR #### [facility] [address] [place], [place] [address] CO2 Blood 24 mmol/L Normal 22-30 [facility] Comment on above: Performed By: #### M ALCR #### [address] [place], [place] [address] Creatinine [Mass/Vol] 0.75 mg/dL Normal 0.58-0.96 [facility] Comment on above: Performed By: #### M ALCR #### [facility] [address] [place], [place] [address] Glucose [Mass/Vol] 265 mg/dL High 74-99 [facility] Comment on above: Result Comment: The [place] Diabetes Association (ADA) provides guidance for cutoff values for fasting glucose and random glucose. The ADA defines fasting as no caloric intake for at least 8 hours.Fasting plasma glucose results between 100 to 125 mg/dL indicate increased risk for diabetes (prediabetes). Fasting plasma glucose results greater than or equal to 126 mg/dL meet the criteria for diagnosis of diabetes. In the absence of unequivocal hyperglycemia, results should be confirmed by repeat testing. In a patient with classic symptoms of hyperglycemia or hyperglycemic crisis, random plasma glucose results greater than or equal to 200 mg/dL meet the criteria for diagnosis of diabetes. Reference: Standards of Medical Care in Diabetes 2016; [place] Diabetes Association. Diabetes Care. 2016;39(Suppl 1). Performed By: #### M ALCR #### [address] [address] Potassium [Moles/Vol] 4.2 mmol/L Normal 3.7-5.1 [facility] Comment on above: Performed By: #### M ALCR #### [address] [address] Sodium [Moles/Vol] 137 mmol/L Normal 136-144 [facility] Comment on above: Performed By: #### M ALCR #### [facility] [address] [place], [place] [address] Urea nitrogen [Mass/Vol] 15 mg/dL Normal 7-21 [facility] Comment on above: Performed By: #### M ALCR #### [facility] [address] [place], [place] [address] CT BRAIN WO IVCONon 07-09-20 CT BRAIN WO IVCON Final Report DATE OF EXAM: Jul 09 2020 3:05PM [facility] 0504 - CT BRAIN WO IVCON / PROCEDURE REASON: Headache, acute, normal neuro exam Physician Interpretation EXAMINATION: CT BRAIN WO IVCON CLINICAL HISTORY: Left sided headache, continuous for multiple days. TECHNIQUE: Serial axial images without IV contrast were obtained from the vertex to the foramen magnum. MQ: CTBWO_3 CT Dose-Length Product (DLP): 772.[address] Dose Reduction Employed: No dose reduction COMPARISON: CT brain 12/16/2012 RESULT: Sugar Trucker (topogram) images: Unremarkable. Post-operative change: None. Acute change: No evidence of an acute infarct or other acute parenchymal process. Hemorrhage: No evidence of acute intracranial hemorrhage. ECASS hemorrhagic transformation score: Not Applicable Mass Lesion / Mass Effect: There is no evidence of an intracranial mass or extraaxial fluid collection. No significant mass effect. Chronic change: Scattered patchy foci of low attenuation are present within supratentorial white matter which is a nonspecific finding but likely represents mild microvascular ischemia. Multiple hyperdense foci in bilateral cerebral hemispheres are stable from 2012, which may represent dystrophic calcifications. Parenchyma: There is mild generalized volume loss. The brain parenchyma is otherwise within normal limits for age. Ventricles: The lateral and third ventricles are enlarged but the configuration suggests central white matter volume loss. Paranasal sinuses and skull base: The visualized paranasal sinuses are grossly clear. The skull base and imaged soft tissues are unremarkable. IMPRESSION: No acute intracranial findings. Chronic changes as described. Mercerizer: [facility]ITAL[facility]adette Transcribe Date/Time: Jul 09 2020 3:10P Dictated by : TAWANA CHRISTY MD This examination was interpreted and the report reviewed and electronically signed by: TAWANA CHRISTY MD on Jul 09 2020 3:15PM EST Normal [facility] CTA HEAD W IVCONon 0 CTA HEAD W IVCON Final Report DATE OF EXAM: Jul 09 2020 3:50PM [facility] 0022 - CTA HEAD W IVCON / PROCEDURE REASON: Headache, acute, normal neuro exam Physician Interpretation EXAMINATION: CTA NECK W IVCON, CTA HEAD W IVCON CLINICAL HISTORY: Headache, normal neuro exam. Generalized hepatic for 1 weeks. Worsening. Numbness in technique. TECHNIQUE: Spiral high resolution axial images were obtained through the head, neck and superior mediastinum following bolus administration of intravenous contrast for CT angiography. 3D maximum intensity projection images were created, reviewed and archived . MQ: CTAHN_4 Contrast: 100 mL Omnipaque 350 IV Dose-Length Product (DLP): 1979.[address] Dose Reduction Employed: No dose reduction techniques were required COMPARISON: None. RESULT: BRAIN: Evaluation of the individual slices of the CTA demonstrates no evidence of an acute stroke. ASPECT Score = 10 Hemorrhage: No evidence of acute intracranial hemorrhage. ECASS hemorrhagic transformation score: Not Applicable Spot Sign Presence: Not Applicable Spot Sign Number: Not Applicable NECK: Sugar Trucker (topogram) images: No additional findings. Soft tissues: No acute soft tissue abnormalities. Ectopic thyroid tissue within the midline. Spine: Alignment is normal. Mild degenerative changes are present. Lung apices: The visualized lung apices are clear. CT ARTERIOGRAM: Extracranial Circulation: Aortic Arch: There is no significant stenosis in the proximal brachiocephalic vessels. Carotid Stenosis: Right Common: No significant stenosis. Right Internal Carotid Plaque: Mild arthrosclerotic disease. Right Internal Carotid Stenosis (% by NASCET Criteria): No significant stenosis. Left Common: No significant stenosis. Left Internal Carotid Plaque: Atherosclerotic disease at the bifurcation. Left Internal Carotid Stenosis (% by NASCET Criteria): Approximately 25% stenosis. Cervical Vertebral Arteries: Patency: The right vertebral artery is diffusely smaller compared to the left. The right vertebral artery terminates into a branch vessel. Severe stenosis at origin of right vertebral artery arising from the subclavian artery. No significant stenosis at origin of the left vertebral artery. Dominance: Left Intracranial Circulation: Anterior Circulation: Atherosclerotic disease involving intracranial segments of internal carotid arteries, without evidence of flow-limiting stenosis. Fenestrated supraclinoid segment of the right internal carotid artery. No high-grade stenosis or focal occlusion involving anterior cerebral arteries or middle cerebral arteries. No evidence of aneurysm. Vertebrobasilar Circulation: The smaller right vertebral artery terminates into branch vessel. The left vertebral artery appears unremarkable. The basilar artery and bilateral posterior cerebral arteries are unremarkable. No evidence of aneurysm. Sugar Trucker (topogram) images: No additional findings. IMPRESSION: CTA HEAD: No high-grade stenosis or focal occlusion involving the intracranial vasculature. No evidence of aneurysm. CTA NECK: Severe stenosis at origin of right vertebral artery arising from right subclavian artery. Diffusely small right vertebral artery throughout its cervical course. The right vertebral artery terminates into a branch vessel. The left vertebral artery is dominant, without significant focal stenosis. Atherosclerotic disease at bilateral carotid bifurcation, right greater than left. No flow-limiting stenosis by NASCET criteria. 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 Mercerizer: PSCBernadette Transcribe Date/Time: Jul 09 2020 3:58P Dictated by : MARCO THAKKAR MD This examination was interpreted and the report reviewed and electronically signed by: MARCO THAKKAR MD on Jul 09 2020 4:24PM EST Normal [facility] CTA NECK W IVCONon 0 CTA NECK W IVCON Final Report DATE OF EXAM: Jul 09 2020 3:50PM [facility] 0024 - CTA NECK W IVCON / PROCEDURE REASON: Aneurysm, neck vessel(s) Physician Interpretation EXAMINATION: CTA NECK W IVCON, CTA HEAD W IVCON CLINICAL HISTORY: Headache, normal neuro exam. Generalized hepatic for 1 weeks. Worsening. Numbness in technique. TECHNIQUE: Spiral high resolution axial images were obtained through the head, neck and superior mediastinum following bolus administration of intravenous contrast for CT angiography. 3D maximum intensity projection images were created, reviewed and archived . MQ: CTAHN_4 Contrast: 100 mL Omnipaque 350 IV Dose-Length Product (DLP): 1979.[address] Dose Reduction Employed: No dose reduction techniques were required COMPARISON: None. RESULT: BRAIN: Evaluation of the individual slices of the CTA demonstrates no evidence of an acute stroke. ASPECT Score = 10 Hemorrhage: No evidence of acute intracranial hemorrhage. ECASS hemorrhagic transformation score: Not Applicable Spot Sign Presence: Not Applicable Spot Sign Number: Not Applicable NECK: Sugar Trucker (topogram) images: No additional findings. Soft tissues: No acute soft tissue abnormalities. Ectopic thyroid tissue within the midline. Spine: Alignment is normal. Mild degenerative changes are present. Lung apices: The visualized lung apices are clear. CT ARTERIOGRAM: Extracranial Circulation: Aortic Arch: There is no significant stenosis in the proximal brachiocephalic vessels. Carotid Stenosis: Right Common: No significant stenosis. Right Internal Carotid Plaque: Mild arthrosclerotic disease. Right Internal Carotid Stenosis (% by NASCET Criteria): No significant stenosis. Left Common: No significant stenosis. Left Internal Carotid Plaque: Atherosclerotic disease at the bifurcation. Left Internal Carotid Stenosis (% by NASCET Criteria): Approximately 25% stenosis. Cervical Vertebral Arteries: Patency: The right vertebral artery is diffusely smaller compared to the left. The right vertebral artery terminates into a branch vessel. Severe stenosis at origin of right vertebral artery arising from the subclavian artery. No significant stenosis at origin of the left vertebral artery. Dominance: Left Intracranial Circulation: Anterior Circulation: Atherosclerotic disease involving intracranial segments of internal carotid arteries, without evidence of flow-limiting stenosis. Fenestrated supraclinoid segment of the right internal carotid artery. No high-grade stenosis or focal occlusion involving anterior cerebral arteries or middle cerebral arteries. No evidence of aneurysm. Vertebrobasilar Circulation: The smaller right vertebral artery terminates into branch vessel. The left vertebral artery appears unremarkable. The basilar artery and bilateral posterior cerebral arteries are unremarkable. No evidence of aneurysm. [employer] (topogram) images: No additional findings. IMPRESSION: CTA HEAD: No high-grade stenosis or focal occlusion involving the intracranial vasculature. No evidence of aneurysm. CTA NECK: Severe stenosis at origin of right vertebral artery arising from right subclavian artery. Diffusely small right vertebral artery throughout its cervical course. The right vertebral artery terminates into a branch vessel. The left vertebral artery is dominant, without significant focal stenosis. Atherosclerotic disease at bilateral carotid bifurcation, right greater than left. No flow-limiting stenosis by NASCET criteria. 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 Mercerizer: GLADIS Transcribe Date/Time: Jul 09 2020 3:58P Dictated by : MARCO THAKKAR MD This examination was interpreted and the report reviewed and electronically signed by: MARCO THAKKAR MD on Jul 09 2020 4:24PM EST Normal [facility] MDRD eGFRon 07-09-2020 GFR/1.73 sq M predicted among non-blacks MDRD (S/P/Bld) [Vol rate/Area] mL/min/{1.73_m2} Normal >60mL/min/1.73 m2 [facility] Comment on above: Result Comment: If t he patient is , multiply the result by 1.210. Performed By: #### M ALCR #### [place] [address] MRI ABDOMEN WO/W IVCONon MRI ABDOMEN WO/W IVCON Final Report DATE OF EXAM: May 19 2020 6:15PM LDM 0689 - MRI ABDOMEN WO/W IVCON / PROCEDURE REASON: Pancreatic lesion Physician Interpretation MRI OF THE ABDOMEN WITHOUT AND WITH CONTRAST:05/19/2020 CLINICAL HISTORY: Pancreatic lesion COMPARISON: CT of the abdomen and pelvis 04/03/2020 and prior TECHNIQUE: Multiplanar, multisequence images through the abdomen with and without contrast. MRCP images were also obtained. 3D post-processing was performed on an independent workstation and reviewed and supervised by the interpreting physician. Contrast: IV: 12 ml of Dotarem Oral Contrast: None RESULT: Pancreas: Pancreas divisum. The pancreas demonstrates homogeneous signal. Pancreatic duct is normal in size. Subcentimeter cystic lesions as follows: Several 0.2 to 0.5 cm cystic lesions in the pancreatic body and tail, some with suggestion of communication with the main pancreatic duct likely representing dilated side branches or small sidebranch IPMNs, some of these lesions were already suggested on the images of the CT of 09/2014. A 0.6 cm cystic lesion in the posterior pancreatic body corresponds to the hypoattenuating lesion seen on CT. A 0.7 cm cystic lesion in the pancreatic head demonstrates suggestion of communication with the main pancreatic duct and no suspicious nodularity or enhancement. Biliary: There is no intrahepatic biliary dilatation. Mild prominence of the pancreatic duct that measures up to 0.9 cm in transverse diameter with smooth proximal and distal tapering as noted on 09/2014.. No filling defects are identified within the common bile duct. Liver: A 0.6 cm cyst is present in the inferior segment 3, stable since 2013. The liver is normal in appearance on precontrast images, enhances homogeneously and is without solid lesion. No iron or fat deposition. Spleen: There is no splenomegaly. A 1.1 cm T2 hyperintense lesion in the inferior splenic pole demonstrates delayed filling representing a hemangioma. A 0.9 cm accessory spleen is present. Adrenals: No mass. Kidneys: A 1.2 cm cyst is present in the superior right renal pole, 1.3 cm cyst in the interpolar region and a 0.9 cm cyst in the inferior pole. A 0.4 cm parapelvic cyst is present in the left interpolar region. No significant mass. No hydronephrosis. Visualized portions of the GI tract: No dilation or wall thickening. Colonic diverticulosis without signs of acute inflammation. Lymphadenopathy: Absent. Mesentery/Peritoneum : No adenopathy. No ascites. Vasculature: The celiac axis and SMA are patent. Moderate atherosclerotic plaque of the distal aorta. The portal vein and branches, splenic vein, and SMV are patent. The hepatic veins are patent. Bones: No acute osseous abnormalities.. Visualized portions of the Lower thorax: No significant finding. IMPRESSION: 1. Pancreas divisum. 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 No suspicious nodularity or enhancement. Yearly follow-up MRI x 2 is recommended to assess for stability. 2. A 1.1 cm likely hemangioma is present in the inferior splenic pole. 3. Top normal size of the CBD that measures up to 0.9 cm smooth distal tapering, as noted on 2013. Other chronic findings, as above. Mercerizer: GLADIS Transcribe Date/Time: May 21 2020 10:54A Dictated by : BARTOLO BELL MD This examination was interpreted and the report reviewed and electronically signed by: BARTOLO BELL MD on May 21 2020 11:10AM EST Normal [facility] HIV Screenon 05-17-2020 HIV Screen Nonreactive Normal Nonreactive [facility] Comment on above: Result Comment: Khushi ents taking a biotin dose of up to 5 mg/day should refrain from taking biotin for 4 hours prior to sample collection. Patients taking a biotin dose of 5 to 10 mg/day should refrain from taking biotin for 8 hours prior to sample collection. Patients taking a biotin dose > 10 mg/day should consult with their physician or the laboratory prior to having a sample taken. Clinicians should consider biotin interference as a source of error, when clinically suspicious of the laboratory result. Performed By: #### L LA #### [place] [address] Comprehensive Panelon 2019 Albumin [Mass/Vol] 4.6 g/dL Normal 3.9-4.9 [facility] Comment on above: Performed By: #### L [id number] #### [facility] [address] [place] [address] ALP [Catalytic activity/Vol] 100 U/L Normal 34-123 [facility] Comment on above: Performed By: #### L LP14 #### [facility] [address] [place] [address] ALT-SGPT Blood 10 U/L Normal 7-38 [facility] Comment on above: Performed By: #### L LP14 #### [facility] [address] [place] [address] Anion gap [Moles/Vol] 12 mmol/L Normal 9-18 [facility] Comment on above: Performed By: #### L LP14 #### [facility] [address] [place] [address] AST-SGOT Blood 14 U/L Normal 13-35 [facility] Comment on above: Performed By: #### L LP14 #### [facility] [address] [place] [address] Bilirubin Ql (U) 0.2 mg/dL Normal 0.2-1.3 [facility] Comment on above: Performed By: #### L LP14 #### [facility] [address] [place] [address] Calcium [Mass/Vol] 9.8 mg/dL Normal 8.5-10.2 [facility] Comment on above: Performed By: #### L LP14 #### [facility] [address] [place] [address] Chloride [Moles/Vol] 107 mmol/L High 97-105 [facility] Comment on above: Performed By: #### L LP14 #### [facility] [address] [place] [address] CO2 Blood 23 mmol/L Normal 22-30 [facility] Comment on above: Performed By: #### L LP14 #### [facility] [address] [place] [address] Creatinine [Mass/Vol] 0.75 mg/dL Normal 0.58-0.96 [facility] Comment on above: Performed By: #### L LP14 #### [facility] [address] [place] [address] Glucose [Mass/Vol] 133 mg/dL High 74-99 [facility] Comment on above: Result Comment: The [place] Diabetes Association (ADA) provides guidance for cutoff values for fasting glucose and random glucose. The ADA defines fasting as no caloric intake for at least 8 hours.Fasting plasma glucose results between 100 to 125 mg/dL indicate increased risk for diabetes (prediabetes). Fasting plasma glucose results greater than or equal to 126 mg/dL meet the criteria for diagnosis of diabetes. In the absence of unequivocal hyperglycemia, results should be confirmed by repeat testing. In a patient with classic symptoms of hyperglycemia or hyperglycemic crisis, random plasma glucose results greater than or equal to 200 mg/dL meet the criteria for diagnosis of diabetes. Reference: Standards of Medical Care in Diabetes 2016; [place] Diabetes Association. Diabetes Care. 2016;39(Suppl 1). Performed By: #### L LP14 #### [facility] [address] [place], [place] [address] Potassium [Moles/Vol] 3.9 mmol/L Normal 3.7-5.1 [facility] Comment on above: Performed By: #### L LP14 #### [place] [address] Protein [Mass/Vol] 7.2 g/dL Normal 6.3-8.0 [facility] Comment on above: Performed By: #### L LP14 #### [place] [address] Sodium [Moles/Vol] 142 mmol/L Normal 136-144 [facility] Comment on above: Performed By: #### L LP14 #### [place] [address] Urea nitrogen [Mass/Vol] 14 mg/dL Normal 7-21 [facility] Comment on above: Performed By: #### L LP14 #### [place] [address] Hemogramon 05-14-2020 Erythrocyte distribution width (RBC) [Ratio] 15.0 % Normal 11.5-15.9 [facility] Comment on above: Performed By: #### L CBC #### [facility] [address] [place], [place] [address] Hematocrit (Bld) [Volume fraction] 35.9 % Low 37.0-47.0 [facility] Comment on above: Performed By: #### L CBC #### [address] [address] Hemoglobin (Bld) [Mass/Vol] 10.8 g/dL Low 12.0-16.0 [facility] Comment on above: Performed By: #### L CBC #### [facility] [address] [place], [place] [address] MCH (RBC) [Entitic mass] 24.7 pg Low 27.0-31.0 [facility] Comment on above: Performed By: #### L CBC #### [facility] [address] [place], [place] [address] MCHC (RBC) [Mass/Vol] 30.1 % Low 32.0-36.0 [facility] Comment on above: Performed By: #### L CBC #### [facility] [address] [place] [address] MCV (RBC) [Entitic vol] 82.0 fL Normal 81.0-99.0 [facility] Comment on above: Performed By: #### L CBC #### [facility] [address] [place] [address] Platelet mean volume (Bld) [Entitic vol] 12.2 fL High 7.1-10.5 [facility] Comment on above: Performed By: #### L CBC #### [address] [address] Platelets (Bld) [#/Vol] 357 thou/cmm Normal 150-400 [facility] Comment on above: Performed By: #### L CBC #### [address] [address] RBC (Bld) [#/Vol] 4.38 mil/cmm Normal 4.20-5.40 [facility] Comment on above: Performed By: #### L CBC #### [facility] [address] [place], [place] [address] WBC (Bld) [#/Vol] 7.9 thou/cmm Normal 4.8-10.5 [facility] Comment on above: Performed By: #### L CBC #### [facility] [address] [place], [place] [address] Hgb A1con 05-14-2020 HbA1c (Bld) [Mass fraction] 306 mg/dL Normal [facility] Comment on above: Performed By: #### H A1C #### [facility] [address] [place] [address] HbA1c (Bld) [Mass fraction] 12.3 % High 4.0-5.6 [facility] Comment on above: Result Comment: [facility] Diabetes Association guidelines indicate that the patients with HgA1c in the range 5.7 ? 6.4% are at increased risk for development of diabetes, and intervention by lifestyle modification may be beneficial. HgA1c greater or equal to 6.5% is considered diagnostic of diabetes. Performed By: #### H A1C #### [facility] [address] [place] [address] Lipid Profile, [facility] 05-14 FASTING TIME 10 Hrs Normal [facility] Comment on above: Performed By: #### L LA #### [place] [address] Cholesterol [Mass/Vol] 210 mg/dL High 0-199 [facility] Comment on above: Result Comment: Tota l Cholesterol < 200 mg/dL, Desirable Total Cholesterol 200 to 239 mg/dL, Borderline high Total Cholesterol > 239 mg/dL, High Performed By: #### L LA #### [place] [address] Cholesterol in HDL [Mass/Vol] 45 mg/dL Normal [facility] Comment on above: Result Comment: Refe rence Range: HDL Cholesterol 40- 59 mg/dL, Acceptable HDL Cholesterol >59 mg/dL, High; Negative risk factor for coronary heart disease HDL Cholesterol <40 mg/dL, Low; Positive risk factor for coronary heart disease Performed By: #### L LA #### [place] [address] Cholesterol in LDL [Mass/Vol] 136 mg/dL High 0-99 [facility] Comment on above: Result Comment: LDL Cholesterol < 100 mg/dL, Optimal LDL Cholesterol 100 to 129 mg/dL, Near optimal/above optimal LDL Cholesterol 130 to 159 mg/dL, Borderline high LDL Cholesterol 160 to 189 mg/dL, High LDL Cholesterol > 189 mg/dL, Very high Secondary prevention optimal LDL Cholesterol levels are recommended to be < 70 mg/dL Performed By: #### L LA #### [facility] [address] [place] [address] Cholesterol in LDL/Cholesterol in HDL [Mass ratio] 3.02 High 0.00-2.53 [facility] Comment on above: Performed By: #### L LA #### [facility] [address] [place] [address] Cholesterol.total/Chol esterol in HDL [Mass ratio] 4.67 {ratio} Normal 0.00-5.09 [facility] Comment on above: Performed By: #### L LA #### [facility] [address] [place] [address] Non-HDL Cholesterol 165 mg/dL High 0-129 [facility] Comment on above: Result Comment: Non HDL Cholesterol < 130 mg/dL, Optimal Non HDL Cholesterol 130 to 159 mg/dL, Near optimal/above optimal Non HDL Cholesterol 160 to 189 mg/dL, Borderline high Non HDL Cholesterol 190 to 219 mg/dL, High Non HDL Cholesterol > 219 mg/dL, Very high Secondary prevention optimal non HDL Cholesterol levels are recommended to be < 100 mg/dL Performed By: #### L LA #### [place] [address] Triglyceride Blood 145 mg/dL Normal 0-149 [facility] Comment on above: Result Comment: Trig lycerides < 150 mg/dL, Normal Triglycerides 150 to 199 mg/dL, Borderline high Triglycerides 200 to 499 mg/dL, High Triglycerides > 499 mg/dL, Very high Performed By: #### L LA #### [place] [address] VLDL Cholesterol 29 mg/dL Normal 0-29 [facility] Comment on above: Performed By: #### L LA #### [place] [address] MDRD eGFRon 05-14-2020 GFR/1.73 sq M predicted among non-blacks MDRD (S/P/Bld) [Vol rate/Area] mL/min/{1.73_m2} Normal >60mL/min/1.73 m2 [facility] Comment on above: Result Comment: If t he patient is , multiply the result by 1.210. Performed By: #### M ALCR #### [facility] [address] [place], [place] [address] Microalb/Creat, Randomon Albumin DL <= 20 mg/L (U) [Mass/Vol] 18.2 mg/L Normal [facility] Comment on above: Performed By: #### M ALCR #### [facility] [address] [place], [place] [address] Creatinine, Urine 212.1 mg/dL Normal 42.2-237.9 [facility] Comment on above: Performed By: #### M ALCR #### [facility] [address] [place], [place] [address] MA/Creat Ratio 8.6 mg/g Normal 0.0-29.9 [facility] Comment on above: Result Comment: Adul t male and female nephrotic criteria: <30 mg/g is considered normal to mildly increased 30-300 mg/g is considered moderately increased >300 mg/g is considered severely increased Reference: KDIGO. (2013). KDIGO 2012 Clinical Practice Guideline for Evaluation and Management of Chronic Kidney Disease. Official Journal of the International Society of Nephrology, 3 (1), 1-150). Performed By: #### M ALCR #### [facility] [address] [place], [place] [address] TSHon 05-14-2020 TSH Qn 0.236 uIU/mL Low 0.270-4.200 [facility] Comment on above: Result Comment: Preg orlin: 1st trimester:(9-12 weeks):0.180-2.900 uIU/mL 2nd trimester: 0.110-3.980 uIU/mL 3rd trimester: 0.480-4.710 uIU/mL Patients taking a biotin dose of up to 5 mg/day should refrain from taking biotin for 4 hours prior to sample collection. Patients taking a biotin dose of 5 to 10 mg/day should refrain from taking biotin for 8 hours prior to sample collection. Patients taking a biotin dose > 10 mg/day should consult with their physician or the laboratory prior to having a sample taken. Clinicians should consider biotin interference as a source of error, when clinically suspicious of the laboratory result. Performed By: #### L TSH #### [facility] [address] [place] [id number] ABD/PEL W IVCONon 020 CT ABD/PEL W IVCON * * *Final Report* * * DATE OF EXAM: Apr 03 2020 5:20PM [facility] 0530 - CT ABD/PEL W IVCON / PROCEDURE REASON: Abd pain, diverticulitis suspected * * * * Physician Interpretation * * * * EXAMINATION: CT ABDOMEN AND PELVIS WITH IV CONTRAST CLINICAL HISTORY: 59-year-old female with history of multiple chronic medical problems who presents with abdominal pain, vomiting and diarrhea. TECHNIQUE: CT of the abdomen and pelvis is performed using standard technique, scanning from just above the dome of the diaphragm to the symphysis pubis. MQ: CTAP_3 Contrast: IV: 130 ml of Omnipaque 300 Oral: None CT Radiation dose: Integrated Dose-length product (DLP) for this visit = 630.14 mGy*cm. CT Dose Reduction Employed: Automated exposure control COMPARISON: CT abdomen pelvis 09/20/2014. RESULT: No focal hepatic abnormality. Partially contracted gallbladder without radiopaque gallstones. Mild extrahepatic bile duct dilatation with the suprapancreatic common duct measuring 7-8 mm in diameter. The common bile duct mildly tapers in diameter proximal to the ampulla. 12 mm anterior subcapsular splenic hypodensity. 4-5 mm hypodensity posterior body of the pancreas. Possible pancreas divisum. No peripancreatic inflammatory changes. No adrenal mass. Bilateral renal cortical hypodensities. One of the larger cortical hypodensities on the right measures 14 mm lateral lower pole. The other hypodensities measure 10 mm and less in size. No renal calculus. No hydronephrosis. No ureteral calculus or hydroureter. Diffuse moderate atherosclerotic changes of the abdominal aorta and aortic bifurcation. Nonaneurysmal abdominal aorta. Patent celiac and superior mesenteric arteries with atherosclerotic changes at the origins of both vessels. There is moderate atherosclerotic narrowing of the proximal SMA. Patent SMV, splenic, portal branches and hepatic veins. Retroaortic left renal vein. No pathologically enlarged abdominal or pelvic lymphadenopathy. No abdominopelvic ascites. Normal caliber appendix. Diffuse colonic diverticulosis. Extensive diverticulosis of the descending colon. Under distended descending and sigmoid colon limiting evaluation for mild wall thickening. No pericolic inflammatory changes. No bladder calculus. Absent uterus. No acute osseous abnormality. Coronary artery calcification. IMPRESSION: Mild extrahepatic bile duct dilatation. Indeterminate 4-5 mm hypodensity posterior body of the pancreas. Correlate with liver enzymes. Both findings may be further evaluated with follow-up elective MR imaging as indicated. Splenic and bilateral renal cortical hypodensities, probable cysts. Colonic diverticulosis. Mercerizer: [facility] Transcribe Date/Time: Apr 03 2020 6:24P Dictated by : ANGY YU MD This examination was interpreted and the report reviewed and electronically signed by: ANGY YU MD on Apr 03 2020 6:42PM EST Normal [facility] Comprehensive Panelon 2019 Albumin [Mass/Vol] 4.6 g/dL Normal 3.9-4.9 [facility] Comment on above: Performed By: #### L LP14 #### [place] [address] ALP [Catalytic activity/Vol] 152 U/L High 34-123 [facility] Comment on above: Performed By: #### L LP14 #### [facility] [address] [place], [place] [address] ALT-SGPT Blood 20 U/L Normal 7-38 [facility] Comment on above: Performed By: #### L LP14 #### [address] [address] Anion gap [Moles/Vol] 15 mmol/L Normal 9-18 [facility] Comment on above: Performed By: #### L LP14 #### [address] [address] AST-SGOT Blood 27 U/L Normal 13-35 [facility] Comment on above: Performed By: #### L LP14 #### [facility] [address] [place], [place] [address] Bilirubin Ql (U) 0.3 mg/dL Normal 0.2-1.3 [facility] Comment on above: Performed By: #### L LP14 #### [address] [address] Calcium [Mass/Vol] 9.7 mg/dL Normal 8.5-10.2 [facility] Comment on above: Performed By: #### L LP14 #### [facility] [address] [place], [place] [address] Chloride [Moles/Vol] 93 mmol/L Low 97-105 [facility] Comment on above: Performed By: #### L LP14 #### [facility] [address] [place], [place] [address] CO2 Blood 20 mmol/L Low 22-30 [facility] Comment on above: Performed By: #### L LP14 #### [facility] [address] [place], [place] [address] Creatinine [Mass/Vol] 0.74 mg/dL Normal 0.58-0.96 [facility] Comment on above: Performed By: #### L LP14 #### [facility] [address] [place], [place] [address] Glucose [Mass/Vol] 477 mg/dL Critically high 74-99 [facility] Comment on above: Result Comment: The [place] Diabetes Association (ADA) provides guidance for cutoff values for fasting glucose and random glucose. The ADA defines fasting as no caloric intake for at least 8 hours.Fasting plasma glucose results between 100 to 125 mg/dL indicate increased risk for diabetes (prediabetes). Fasting plasma glucose results greater than or equal to 126 mg/dL meet the criteria for diagnosis of diabetes. In the absence of unequivocal hyperglycemia, results should be confirmed by repeat testing. In a patient with classic symptoms of hyperglycemia or hyperglycemic crisis, random plasma glucose results greater than or equal to 200 mg/dL meet the criteria for diagnosis of diabetes. Reference: Standards of Medical Care in Diabetes 2016; [place] Diabetes Association. Diabetes Care. 2016;39(Suppl 1). Performed By: #### L LP14 #### [facility] [address] [place], [place] [address] Potassium [Moles/Vol] 3.8 mmol/L Normal 3.7-5.1 [facility] Comment on above: Performed By: #### L LP14 #### [facility] [address] [place], [place] [address] Protein [Mass/Vol] 7.9 g/dL Normal 6.3-8.0 [facility] Comment on above: Performed By: #### L LP14 #### [facility] [address] [place] [address] Sodium [Moles/Vol] 128 mmol/L Low 136-144 [facility] Comment on above: Performed By: #### L LP14 #### [facility] [address] [place] [address] Urea nitrogen [Mass/Vol] 10 mg/dL Normal 7-21 [facility] Comment on above: Performed By: #### L LP14 #### [facility] [address] [place] [address] Hemogram/Diffon 04-03-2020 Abs. Baso 0.03 thou/cmm Normal 0.00-0.08 [facility] Comment on above: Performed By: #### L CBCD #### [place] [address] Abs. Wy[place] 0.55 thou/cmm Normal 0.20-1.00 [facility] Comment on above: Performed By: #### L CBCD #### [place] [address] Abs. Neut (ANC) 5.60 thou/cmm Normal 3.00-5.67 [facility] Comment on above: Performed By: #### L CBCD #### [address] [address] Basophils/100 WBC (Bld) 0.4 % Normal [facility] Comment on above: Performed By: #### L CBCD #### [facility] [address] [place], [place] [address] Eosinophils (Bld) [#/Vol] 0.56 thou/cmm High 0.00-0.41 [facility] Comment on above: Performed By: #### L CBCD #### [address] [address] Eosinophils/100 WBC (Bld) 6.7 % Normal [facility] Comment on above: Performed By: #### L CBCD #### [facility] [address] [place], [place] [address] Erythrocyte distribution width (RBC) [Ratio] 14.5 % Normal 11.5-15.9 [facility] Comment on above: Performed By: #### L CBCD #### [facility] [address] [place], [place] [address] Hematocrit (Bld) [Volume fraction] 39.5 % Normal 37.0-47.0 [facility] Comment on above: Performed By: #### L CBCD #### [place] [address] Hemoglobin (Bld) [Mass/Vol] 12.4 g/dL Normal 12.0-16.0 [facility] Comment on above: Performed By: #### L CBCD #### [place] [address] Lymphocytes (Bld) [#/Vol] 1.66 thou/cmm Normal 1.50-3.65 [facility] Comment on above: Performed By: #### L CBCD #### [address] [address] Lymphocytes/100 WBC (Bld) 19.8 % Normal [facility] Comment on above: Performed By: #### L CBCD #### [address] [address] MCH (RBC) [Entitic mass] 25.7 pg Low 27.0-31.0 [facility] Comment on above: Performed By: #### L CBCD #### [address] [address] [address] MCHC (RBC) [Mass/Vol] 31.4 % Low 32.0-36.0 [facility] Comment on above: Performed By: #### L CBCD #### [address] [address] MCV (RBC) [Entitic vol] 82.0 fL Normal 81.0-99.0 [facility] Comment on above: Performed By: #### L CBCD #### [address] [address] Monocytes/100 WBC (Bld) 6.6 % Normal [facility] Comment on above: Performed By: #### L CBCD #### [facility] [address] [place] [address] Platelet mean volume (Bld) [Entitic vol] 12.2 fL High 7.1-10.5 [facility] Comment on above: Performed By: #### L CBCD #### [facility] [address] [address] Platelets (Bld) [#/Vol] 348 thou/cmm Normal 150-400 [facility] Comment on above: Performed By: #### L CBCD #### [facility] [address] [address] RBC (Bld) [#/Vol] 4.82 mil/cmm Normal 4.20-5.40 [facility] Comment on above: Performed By: #### L CBCD #### [place] [address] Seg Neutrophil 66.5 % Normal [facility] Comment on above: Performed By: #### L CBCD #### [facility] [address] [place] [address] WBC (Bld) [#/Vol] 8.4 thou/cmm Normal 4.8-10.5 [facility] Comment on above: Performed By: #### L CBCD #### [place] [address] Lactic acidon 04-03-2020 Lactate [Moles/Vol] 1.1 mmol/L Normal 0.5-2.2 [facility] Comment on above: Performed By: #### L LA #### [facility] [address] [address] Lipase Bloodon 04-03-2020 Lipase Blood 31 U/L Normal 16-61 [facility] Comment on above: Performed By: #### M ALCR #### [facility] [address] [place] [address] MDRD eGFRon 04-03-2020 GFR/1.73 sq M predicted among non-blacks MDRD (S/P/Bld) [Vol rate/Area] mL/min/{1.73_m2} Normal >60mL/min/1.73 m2 [facility] Comment on above: Result Comment: If t he patient is , multiply the result by 1.210. Performed By: #### L LA #### [facility] [address] [place] [address] Macroscopic Urinalysison Appearance (U) CLEAR Normal [facility] Comment on above: Performed By: #### L MACU #### [place] [address] Bilirubin Urine Negative Normal Negative [facility] Comment on above: Performed By: #### L MACU #### [place] [address] Color (U) YELLOW Normal [facility] Comment on above: Performed By: #### L MACU #### [place] [address] Glucose Ql (U) 2+ Abnormal Negative [facility] Comment on above: Performed By: #### L MACU #### [place] [address] Hemoglobin,Urine Negative Normal Negative [facility] Comment on above: Performed By: #### L MACU #### [place] [address] Ketone Urine TRACE Abnormal Negative [facility] Comment on above: Performed By: #### L MACU #### [place] [address] Leukocytes Esterase Negative Normal Negative [facility] Comment on above: Performed By: #### L MACU #### [place] [address] Nitrites Urine Negative Normal Negative [facility] Comment on above: Performed By: #### L MACU #### [place] [address] pH (U) 6.0 [pH] Normal 5.0-8.0 [facility] Comment on above: Performed By: #### L MACU #### [facility] [address] [place], [place] [address] Protein (U) [Mass/Vol] Negative Normal Negative [facility] Comment on above: Performed By: #### L MACU #### [facility] [address] [place], [place] [address] Specific [place], Ur 1.010 Normal 1.005-1.030 [facility] Comment on above: Performed By: #### L MACU #### [facility] [address] [place], [place] [address] Urobilinogen,Ur 0.2 EU/dL Normal 0.2-1.0 [facility] Comment on above: Performed By: #### L MACU #### [facility] [address] [place], [place] [address] XR CHEST 2V FRONTAL/LATon XR CHEST 2V FRONTAL/LAT * * *Final Report* * * DATE OF EXAM: Apr 03 2020 5:09PM [id number] [id number] - XR CHEST 2V FRONTAL/LAT / PROCEDURE REASON: Abd pain, gastroenteritis or colitis suspected * * * * Physician Interpretation * * * * EXAMINATION: CHEST RADIOGRAPH (2 VIEW FRONTAL & LATERAL) CLINICAL HISTORY: Abd pain, gastroenteritis or colitis suspected MQ: [id number] EXAM DATE/TIME: 04/03/2020 5:09 PM COMPARISON: CT abdomen and pelvis study 03/26/2020 and chest radiographs 08/14/2019 and 11/15/2013. RESULT: Lines, tubes, and devices: None. Lungs and pleura: No parenchymal consolidation. No pleural effusion. Cardiomediastinal silhouette: Stable cardiomediastinal silhouette with prominent right epicardial fat pad. Right coronary artery calcification and/or possible stent. Bones and soft tissues: Unremarkable. IMPRESSION: No acute radiographic abnormality. Mercerizer: PSCB Transcribe Date/Time: Apr 03 2020 6:21P Dictated by : ANGY YU MD This examination was interpreted and the report reviewed and electronically signed by: ANGY YU MD on Apr 03 2020 6:24PM EST Normal [facility] Vital Signs Date Time Vital Sign Value Performing Clinician Facility 06-03-2025 13:04-0400 Body height 162.6 cm Carlos Tavarez MD Work Phone: [facility] 06-03-2025 13:04-0400 Body mass index (BMI) [Ratio] 18.37 kg/m2 Carlos Tavarez MD Work Phone: [facility] 06-03-2025 13:04-0400 Body weight 48.53 kg Carlos Tavarez MD Work Phone: [facility] 06-03-2025 13:04-0400 Diastolic blood pressure 60 mm[Hg] Carlos Tavarez MD Work Phone: [facility] 06-03-2025 13:04-0400 Heart rate 74 /min Carlos Tavarez MD Work Phone: [facility] 06-03-2025 13:04-0400 Respiratory rate 16 /min Carlos Tavarez MD Work Phone: [facility] 06-03-2025 13:04-0400 SaO2% (BldA) [Mass fraction] 96 % Carlos Tavarez MD Work Phone: [facility] 06-03-2025 13:04-0400 Systolic blood pressure 124 mm[Hg] Carlos Tavarez MD Work Phone: [facility] 07-04-2023 14:00-0400 Body height 162.6 cm Derrick Thorpe YEAST DISTILLER.BULLARD OPERATOR Work Phone: [facility] 07-04-2023 14:00-0400 Body temperature 98.2 [degF] Derrick Trishawanda YEAST DISTILLER.BULLARD OPERATOR Work Phone: [facility] 07-04-2023 14:00-0400 Body weight 61.69 kg Derrick Trishawanda YEAST DISTILLER.BULLARD OPERATOR Work Phone: [facility] 07-04-2023 14:00-0400 Diastolic blood pressure 74 mm[Hg] Derrick Trishawanda YEAST DISTILLER.BULLARD OPERATOR Work Phone: [facility] 07-04-2023 14:00-0400 Heart rate 78 /min Derrick Trill YEAST DISTILLER.BULLARD OPERATOR Work Phone: [facility] 07-04-2023 14:00-0400 SaO2% (BldA) [Mass fraction] 98 % Derrick Trill YEAST DISTILLER.BULLARD OPERATOR Work Phone: [facility] 07-04-2023 14:00-0400 Systolic blood pressure 122 mm[Hg] Derrick Trill YEAST DISTILLER.BULLARD OPERATOR Work Phone: [facility] 02-13-2023 13:01-0400 Body height 162.6 cm Derrick Trill YEAST DISTILLER.BULLARD OPERATOR Work Phone: [facility] 02-13-2023 13:01-0400 Body temperature 98.1 [degF] Derrick Trill YEAST DISTILLER.BULLARD OPERATOR Work Phone: [facility] 02-13-2023 13:01-0400 Body weight 64.59 kg Derrick Trill YEAST DISTILLER.BULLARD OPERATOR Work Phone: [facility] 02-13-2023 13:01-0400 Diastolic blood pressure 66 mm[Hg] Derrick Trill YEAST DISTILLER.BULLARD OPERATOR Work Phone: [facility] 02-13-2023 13:01-0400 Heart rate 71 /min Derrick Trill YEAST DISTILLER.BULLARD OPERATOR Work Phone: [facility] 02-13-2023 13:01-0400 Respiratory rate 16 /min Derrick Trill YEAST DISTILLER.BULLARD OPERATOR Work Phone: [facility] 02-13-2023 13:01-0400 SaO2% (BldA) [Mass fraction] 98 % Derrick Trill YEAST DISTILLER.BULLARD OPERATOR Work Phone: [facility] 02-13-2023 13:01-0400 Systolic blood pressure 118 mm[Hg] Derrick Trill YEAST DISTILLER.BULLARD OPERATOR Work Phone: [facility] 09-27-2022 16:41-0500 Body height 162.6 cm Derrick Trill YEAST DISTILLER.BULLARD OPERATOR Work Phone: [facility] 09-27-2022 16:41-0500 Body temperature 98.01 [degF] Derrick Ramseyll YEAST DISTILLER.BULLARD OPERATOR Work Phone: [facility] 09-27-2022 16:41-0500 Body weight 63.5 kg Derrick Ramseyll YEAST DISTILLER.BULLARD OPERATOR Work Phone: [facility] 09-27-2022 16:41-0500 Diastolic blood pressure 70 mm[Hg] Derrick Trill YEAST DISTILLER.BULLARD OPERATOR Work Phone: [facility] 09-27-2022 16:41-0500 Heart rate 68 /min Derrick Trishawanda YEAST DISTILLER.BULLARD OPERATOR Work Phone: [facility] 09-27-2022 16:41-0500 SaO2% (BldA) [Mass fraction] 98 % Derrick Ramseyll YEAST DISTILLER.BULLARD OPERATOR Work Phone: [facility] 09-27-2022 16:41-0500 Systolic blood pressure 118 mm[Hg] Derrick Trishawanda YEAST DISTILLER.BULLARD OPERATOR Work Phone: [facility] 08-24-2022 11:34-0500 Body height 162.6 cm Jenelle Rodas MD Work Phone: [facility] 08-24-2022 11:34-0500 Body weight 63.5 kg Jenelle Rodas MD Work Phone: [facility] 08-24-2022 11:34-0500 Diastolic blood pressure 68 mm[Hg] Jenelle Rodas MD Work Phone: [facility] 08-24-2022 11:34-0500 Heart rate 66 /min Jenelle Rodas MD Work Phone: [facility] 08-24-2022 11:34-0500 SaO2% (BldA) [Mass fraction] 99 % Jenelle Rodas MD Work Phone: [facility] 08-24-2022 11:34-0500 Systolic blood pressure 113 mm[Hg] Jenelle Rodas MD Work Phone: [facility] 04-27-2022 16:21-0400 Body height 162.[address] Nevaeh Lindsay Work Phone: [facility] Work Phone: 04-27-2022 16:21-0400 Body mass index (BMI) [Ratio] 23.5 kg/m2 Dr. Nevaeh Lindsay Work Phone: [facility] Work Phone: 04-27-2022 16:21-0400 Body weight 62.[address] Nevaeh Lindsay Work Phone: [facility] Work Phone: 04-27-2022 16:21-0400 Diastolic blood pressure 52 mm[Hg] Dr. Nevaeh Lindsay Work Phone: [facility] Work Phone: 04-27-2022 16:21-0400 Heart rate 68 /min Dr. Nevaeh Lindsay Work Phone: [facility] Work Phone: 04-27-2022 16:21-0400 Respiratory rate 16 /min Dr. Nevaeh Lindsay Work Phone: [facility] Work Phone: 04-27-2022 16:21-0400 Systolic blood pressure 100 mm[Hg] Dr. Nevaeh Lindsay Work Phone: [facility] Work Phone: 02-02-2022 14:54-0400 Body height 162.6 cm Jenelle Rodas MD Work Phone: [facility] 02-02-2022 14:54-0400 Body weight 60.06 kg Jenelle Rodas MD Work Phone: [facility] 02-02-2022 14:54-0400 Diastolic blood pressure 73 mm[Hg] Jenelle Rodas MD Work Phone: [facility] 02-02-2022 14:54-0400 Heart rate 64 /min Jenelle Rodas MD Work Phone: [facility] 02-02-2022 14:54-0400 SaO2% (BldA) [Mass fraction] 99 % Jenelle Rodas MD Work Phone: [facility] 02-02-2022 14:54-0400 Systolic blood pressure 129 mm[Hg] Jenelle Rodas MD Work Phone: [facility] Encounters Encounter Date Encounter Type Care Provider Facility Start: 06-27-2025 End: 06-29-2025 Refill Derrickmiguel Thorpe YEAST DISTILLER.BULLARD OPERATOR Work Phone: [facility] Comment on above: Refill Request Start: 06-26-2025 End: 06-29-2025 Refill Derrick C Trishawanda YEAST DISTILLER.BULLARD OPERATOR Work Phone: [facility] Comment on above: Refill Request Start: 06-03-2025 End: 06-03-2025 Bamboo flowsheet Carlos Tavarez MD Work Phone: [facility] Start: 06-03-2025 End: 06-03-2025 Bamboo flowsheet Carlos T[facility]arez MD [facility] Start: 06-03-2025 End: 06-03-2025 Office outpatient new 60 minutes Carlos Tavarez MD Work Phone: [facility] Comment on above: Type 2 diabetes john itus with hyperglycemia, without long-term current use of insulin (HCC) (Primary Dx); Primary hypertension ; Hyperlipemia, mixed ; Encounter for dietary consultation; Hyperthyroidism Start: 06-03-2025 End: 06-03-2025 ambulatory CARLOS TAVAREZ Not Available Start: 05-14-2025 End: 05-14-2025 ambulatory Danae RODRIGUEZ [facility] Start: 05-14-2025 End: 05-14-2025 Home visit Danae Coello [facility] Comment on above: Population Health Na vigation Outreach ([employer] Attributed Member- PCP Attribution Update Sent to [employer]/) Start: 03-30-2025 End: 03-30-2025 Refill Derrick Thorpe APRN.BULLARD OPERATOR Work Phone: [facility] Comment on above: Refill Request Start: 03-29-2025 End: 03-30-2025 Refill Derrick Thorpe YEAST DISTILLER.BULLARD OPERATOR Work Phone: [facility] Comment on above: Refill Request Start: 02-18-2025 End: 02-18-2025 ambulatory Danae Jonesbocker [facility] Comment on above: Population Health Na vigation Outreach ([employer] Attributed Member- PCP Attribution Update Sent to [employer]/) Start: 01-30-2025 End: 01-30-2025 ambulatory Rhonda Flores [facility] Comment on above: Allied Health Visit (SUPD) Start: 01-14-2025 End: 01-14-2025 ambulatory Danae Coello [facility] Start: 01-14-2025 End: 01-14-2025 Home visit Danae Coello [facility] Comment on above: Population Health Na vigation Outreach ([employer] Attributed Member- Chart Review/) Start: 01-07-2025 End: 01-07-2025 Refill Heather Knight COT [facility] Comment on above: Age-related nuclear cataract of both eyes Start: 01-05-2025 End: 01-05-2025 Refill Shalini Parrish COT Work Phone: [facility] Comment on above: Age-related nuclear cataract of both eyes (Primary Dx) Start: 12-23-2024 End: 12-23-2024 Bamboo flowsheet Dav Gaxiola DO Work Phone: [facility] Start: 12-23-2024 End: 12-23-2024 Bamboo flowsheet Dav Gaxiola DO Work Phone: [facility] Start: 12-23-2024 End: 12-23-2024 ambulatory DAV GAXIOLA Not Available Start: 12-02-2024 End: 12-02-2024 Refill Derrick C Trill YEAST DISTILLER.BULLARD OPERATOR Work Phone: [facility] Comment on above: Refill Request Start: 11-21-2024 End: 11-21-2024 ambulatory Danae Rider RN Work Phone: [facility] Start: 11-21-2024 End: 11-21-2024 Home visit Danae Rider RN Work Phone: [facility] Comment on above: Primary Care Coordin ator- Other (Care Coordination) Start: 11-15-2024 End: 11-18-2024 Refill Derrick C Trill YEAST DISTILLER.BULLARD OPERATOR Work Phone: [facility] Comment on above: Refill Request Start: 10-17-2024 End: 10-18-2024 Refill Derrick C Trill YEAST DISTILLER.BULLARD OPERATOR Work Phone: [facility] Comment on above: Refill Request Start: 10-11-2024 End: 10-13-2024 Refill Derrick C Trill YEAST DISTILLER.BULLARD OPERATOR Work Phone: [facility] Comment on above: Refill Request Start: 10-02-2024 End: 10-02-2024 Telephone encounter Rachel Danielle APRN.BULLARD OPERATOR Work Phone: [facility] Comment on above: No Show (Pt no showe d for appt on 10/02/24) Start: 09-15-2024 End: 09-15-2024 Telephone encounter Derrick Ramirez Trill YEAST DISTILLER.BULLARD OPERATOR Work Phone: [facility] Start: 09-12-2024 End: 09-12-2024 ambulatory Danae Coello [facility] Comment on above: Population Health Na vigation Outreach ([employer] Attributed Member- Chart Review/) Start: 08-19-2024 End: 08-19-2024 Refill Derrick C Trill YEAST DISTILLER.BULLARD OPERATOR Work Phone: [facility] Comment on above: Refill Request Start: 08-16-2024 End: 08-19-2024 Refill Derrick C Trill YEAST DISTILLER.BULLARD OPERATOR Work Phone: [facility] Comment on above: Refill Request Start: 08-15-2024 End: 08-15-2024 Refill Derrick C Trill YEAST DISTILLER.BULLARD OPERATOR Work Phone: [facility] Comment on above: Refill Request Start: 08-15-2024 End: 08-15-2024 Telephone encounter Derrick C Trill YEAST DISTILLER.BULLARD OPERATOR Work Phone: [facility] Start: 07-31-2024 End: 07-31-2024 Refill Derrick C Trill YEAST DISTILLER.BULLARD OPERATOR Work Phone: [facility] Comment on above: Refill Request Start: 07-15-2024 End: 07-15-2024 Telephone encounter Derrick C Trill YEAST DISTILLER.BULLARD OPERATOR Work Phone: [facility] Comment on above: Medication Request Start: 07-14-2024 End: 07-14-2024 Refill Derrick C Trill YEAST DISTILLER.BULLARD OPERATOR Work Phone: [facility] Comment on above: Refill Request Start: 07-09-2024 End: 07-09-2024 Refill Derrick C Trill YEAST DISTILLER.BULLARD OPERATOR Work Phone: [facility] Comment on above: Refill Request Start: 07-08-2024 End: 07-09-2024 Refill Derrick C Trill YEAST DISTILLER.BULLARD OPERATOR Work Phone: [facility] Comment on above: Refill Request Start: 07-05-2024 End: 07-07-2024 Refill Derrick C Trill YEAST DISTILLER.BULLARD OPERATOR Work Phone: [facility] Comment on above: Refill Request Start: 07-01-2024 End: 07-01-2024 Refill Derrick C Trill YEAST DISTILLER.BULLARD OPERATOR Work Phone: [facility] Comment on above: Refill Request Start: 06-30-2024 End: 06-30-2024 Refill Derrick C Trill YEAST DISTILLER.BULLARD OPERATOR Work Phone: [facility] Comment on above: Refill Request Start: 06-25-2024 End: 06-25-2024 Refill Derrick C Trill YEAST DISTILLER.BULLARD OPERATOR Work Phone: [facility] Comment on above: Refill Request Start: 06-04-2024 End: 06-04-2024 ambulatory Mariel Grady RN [facility] Start: 06-04-2024 End: 06-04-2024 Home visit Mariel Grady RN [facility] Comment on above: Population Health Na vigation Outreach ([employer] Attributed Member- Chart Review ) Start: 05-26-2024 Refill Derrick C Tril l YEAST DISTILLER.BULLARD OPERATOR Work Phone: [facility] Comment on above: Refill Request Start: 05-15-2024 Refill Derrick C Tril l YEAST DISTILLER.BULLARD OPERATOR Work Phone: [facility] Comment on above: Refill Request Start: 05-13-2024 Refill Derrick C Tril l YEAST DISTILLER.BULLARD OPERATOR Work Phone: [facility] Comment on above: Refill Request Start: 05-05-2024 Refill Derrick C Tril l YEAST DISTILLER.BULLARD OPERATOR Work Phone: [facility] Comment on above: Refill Request Start: 04-29-2024 Refill Derrick C Tril l YEAST DISTILLER.BULLARD OPERATOR Work Phone: [facility] Comment on above: Refill Request Start: 04-02-2024 Refill Derrick C Tril l YEAST DISTILLER.BULLARD OPERATOR Work Phone: [facility] Comment on above: Refill Request Start: 03-26-2024 Refill Derrick C Tril l YEAST DISTILLER.BULLARD OPERATOR Work Phone: [facility] Comment on above: Refill Request Start: 03-24-2024 Refill Derrick C Tril l YEAST DISTILLER.BULLARD OPERATOR Work Phone: [facility] Comment on above: Refill Request Start: 02-28-2024 Refill Derrick C Tril l YEAST DISTILLER.[facility] Work Phone: [facility] Comment on above: Refill Request Start: 02-04-2024 Refill Derrick C Tril l YEAST DISTILLER.BULLARD OPERATOR Work Phone: [facility] Comment on above: Refill Request Start: 01-21-2024 Refill Derrick C Tril l YEAST DISTILLER.[facility] Work Phone: [facility] Comment on above: Refill Request Start: 01-15-2024 Refill Derrick C Tril l YEAST DISTILLER.[facility] Work Phone: [facility] Comment on above: Refill Request Start: 01-02-2024 Refill Derrick C Tril l YEAST DISTILLER.[facility] Work Phone: [facility] Comment on above: Refill Request Start: 12-18-2023 Refill Derrick C Tril l YEAST DISTILLER.BULLARD OPERATOR Work Phone: [facility] Comment on above: Refill Request Start: 11-28-2023 Refill Derrick C Tril l YEAST DISTILLER.BULLARD OPERATOR Work Phone: [facility] Start: 11-26-2023 Refill Derrick C Tril l YEAST DISTILLER.BULLARD OPERATOR Work Phone: [facility] Comment on above: Refill Request Start: 11-23-2023 Refill Jenelle Rodas MD Work Phone: endocrinology Comment on above: Refill Request Start: 11-23-2023 Refill Derrick C Tril l YEAST DISTILLER.BULLARD OPERATOR Work Phone: [facility] Comment on above: Refill Request Start: 11-20-2023 Refill Derrick C Tril l YEAST DISTILLER.BULLARD OPERATOR Work Phone: [facility] Comment on above: Refill Request Start: 11-19-2023 Refill Derrick C Tril l YEAST DISTILLER.BULLARD OPERATOR Work Phone: [facility] Comment on above: Refill Request Start: 09-25-2023 Refill Derrick C Tril l YEAST DISTILLER.BULLARD OPERATOR Work Phone: [facility] Comment on above: Med Change Request Start: 08-27-2023 Refill Derrick C Tril l YEAST DISTILLER.BULLARD OPERATOR Work Phone: [facility] Comment on above: Refill Request Start: 08-08-2023 Refill Derrick C Tril l YEAST DISTILLER.BULLARD OPERATOR Work Phone: [facility] Comment on above: Refill Request Start: 08-06-2023 Refill Derrick C Tril l YEAST DISTILLER.BULLARD OPERATOR Work Phone: [facility] Comment on above: Refill Request Start: 07-28-2023 Refill Derrick C Tril l YEAST DISTILLER.BULLARD OPERATOR Work Phone: [facility] Comment on above: Refill Request Start: 07-27-2023 Telephone encounter Derrick Ramirez Trill YEAST DISTILLER.BULLARD OPERATOR Work Phone: [facility] Comment on above: Orders Start: 07-15-2023 Refill Derrick C Tril l YEAST DISTILLER.BULLARD OPERATOR Work Phone: [facility] Comment on above: Refill Request Start: 07-12-2023 Refill Derrick C Tril l YEAST DISTILLER.BULLARD OPERATOR Work Phone: [facility] Comment on above: Refill Request Start: 07-06-2023 Telephone encounter Derrick Ramirez Trill YEAST DISTILLER.BULLARD OPERATOR Work Phone: [facility] Comment on above: Results Start: 07-04-2023 End: 07-04-2023 Patient encounter procedure Derrick C Trill YEAST DISTILLER.BULLARD OPERATOR Work Phone: [facility] Comment on above: Fall in home, subseq uent encounter (Primary Dx); Hyponatremia; Rheumatoid arthritis involving vertebra, unspecified whether rheumatoid factor present (HCC); Type 2 diabetes mellitus with hyperglycemia, without long-term current use of insulin (HCC); Screening for osteoporosis; Post-menopausal; Pure hypercholesterolemia Start: 06-26-2023 ambulatory Derrick C Tril l YEAST DISTILLER.BULLARD OPERATOR Work Phone: [facility] Comment on above: ED Outreach ([facility] 06/20/23) Start: 06-23-2023 Refill Derrick C Tril l YEAST DISTILLER.BULLARD OPERATOR Work Phone: [facility] Comment on above: Refill Request Start: 06-04-2023 Telephone encounter Amie Otto APRN.BULLARD OPERATOR Work Phone: [facility] Comment on above: Missed Appointment ( 3rd no show in 365 days (3rd letter sent)) Start: 05-28-2023 Refill Derrick C Tril l YEAST DISTILLER.BULLARD OPERATOR Work Phone: [facility] Comment on above: Refill Request Start: 05-04-2023 Refill Derrick C Tril l YEAST DISTILLER.BULLARD OPERATOR Work Phone: [facility] Comment on above: Refill Request Start: 04-27-2023 Refill Jenelle Rodas MD Work Phone: Endocrinology Comment on above: Refill Request Start: 04-20-2023 Refill Derrick C Tril l YEAST DISTILLER.BULLARD OPERATOR Work Phone: [facility] Comment on above: Refill Request Start: 04-19-2023 Refill Derrick C Tril l YEAST DISTILLER.BULLARD OPERATOR Work Phone: [facility] Comment on above: Refill Request Start: 04-18-2023 Refill Derrick C Tril l YEAST DISTILLER.BULLARD OPERATOR Work Phone: [facility] Comment on above: Refill Request Start: 02-13-2023 End: 02-13-2023 Patient encounter procedure Derrick Ramirez Trill YEAST DISTILLER.BULLARD OPERATOR Work Phone: [facility] Comment on above: Type 2 diabetes john itus with hyperglycemia, without long-term current use of insulin (HCC) (Primary Dx); Congestive heart failure, unspecified HF chronicity, unspecified heart failure type (HCC); Chronic obstructive pulmonary disease, unspecified COPD type (HCC); Hyperthyroidism; Rheumatoid arthritis involving vertebra, unspecified whether rheumatoid factor present ([facility]) Start: 02-12-2023 Telephone encounter Derrick Ramseyll YEAST DISTILLER.BULLARD OPERATOR Work Phone: [facility] Comment on above: Orders Start: 02-04-2023 Refill Derrick C Tril l YEAST DISTILLER.BULLARD OPERATOR Work Phone: [facility] Comment on above: Refill Request Start: 01-26-2023 Refill Derrick C Tril l YEAST DISTILLER.BULLARD OPERATOR Work Phone: [facility] Comment on above: Refill Request Start: 01-22-2023 Telephone encounter Derrick Thorpe YEAST DISTILLER.BULLARD OPERATOR Work Phone: [facility] Comment on above: No Show (Pt no showe d for appt on 01/22/23) Start: 12-25-2022 Refill Derrick C Tril l YEAST DISTILLER.BULLARD OPERATOR Work Phone: [facility] Comment on above: Refill Request Start: 12-24-2022 Refill Derrick C Tril l YEAST DISTILLER.BULLARD OPERATOR Work Phone: [facility] Comment on above: Refill Request Start: 12-08-2022 Refill Derrick C Tril l YEAST DISTILLER.BULLARD OPERATOR Work Phone: [facility] Comment on above: Refill Request Start: 10-25-2022 Refill Rachelynes Nevarezd en YEAST DISTILLER.BULLARD OPERATOR Work Phone: [facility] Comment on above: Refill Request Start: 10-10-2022 Telephone encounter Jenelle Rodas MD Work Phone: Endocrinology Comment on above: Results Start: 10-05-2022 Refill Derrick C Tril l YEAST DISTILLER.BULLARD OPERATOR Work Phone: [facility] Comment on above: Refill Request Start: 10-02-2022 End: 10-02-2022 Subsequent hospital visit by physician [facility] Comment on above: Multiple thyroid nod ules [E04.2] Start: 09-27-2022 End: 09-27-2022 Patient encounter procedure Derrick C Trill YEAST DISTILLER.BULLARD OPERATOR Work Phone: [facility] Comment on above: Type 2 diabetes john itus with hyperglycemia, without long-term current use of insulin (HCC) (Primary Dx); Hyperthyroidism; Multiple thyroid nodules; Chronic obstructive pulmonary disease, unspecified COPD type (HCC); Pure hypercholesterolemia; Primary hypertension; Coronary artery disease involving peoria heart without angina pectoris, unspecified vessel or lesion type; RAY (obstructive sleep apnea); Pancreatic cyst; Iron deficiency anemia, unspecified iron deficiency anemia type Start: 09-22-2022 Refill Derrick C Tril l YEAST DISTILLER.BULLARD OPERATOR Work Phone: [facility] Comment on above: Refill Request Start: 09-19-2022 Refill Rachel A Qued en YEAST DISTILLER.BULLARD OPERATOR Work Phone: [facility] Comment on above: Refill Request Start: 09-11-2022 Refill Derrick C Tril l YEAST DISTILLER.BULLARD OPERATOR Work Phone: [facility] Comment on above: Refill Request Start: 09-08-2022 Refill Rachel A Qued en YEAST DISTILLER.BULLARD OPERATOR Work Phone: [facility] Comment on above: Refill Request Start: 08-31-2022 Telephone encounter Jenelle Rodas MD Work Phone: Endocrinology Comment on above: Results Start: 08-24-2022 End: 08-24-2022 Patient encounter procedure Jenelle Rodas MD Work Phone: Endocrinology Comment on above: Hyperthyroidism (Purnima zoya Dx); Multiple thyroid nodules Rx Refills Start: 08-18-2022 End: 08-18-2022 ambulatory RESIDENTIAL SUPPORT WORKER-C Derrick Thorpe RESIDENTIAL SUPPORT WORKER Work Phone: [facility] Work Phone: Start: 08-18-2022 End: 08-18-2022 Patient encounter procedure RESIDENTIAL SUPPORT WORKER-C Derrick Thorpe RESIDENTIAL SUPPORT WORKER Work Phone: [facility] Start: 08-18-2022 Non-patient / Non-visit RESIDENTIAL SUPPORT WORKER-C Juan Thorpe RESIDENTIAL SUPPORT WORKER Work Phone: [facility] Start: 08-01-2022 ambulatory Derrick C Tril l YEAST DISTILLER.BULLARD OPERATOR Work Phone: [facility] Start: 07-27-2022 Telephone encounter Derrick C Trill YEAST DISTILLER.BULLARD OPERATOR Work Phone: [facility] Comment on above: Results Start: 07-05-2022 Refill Derrick C Tril l YEAST DISTILLER.BULLARD OPERATOR Work Phone: [facility] Comment on above: Refill Request Orders Start: 06-09-2022 Encounter for prepro cedural cardiovascular examination Fredi Heredia [facility] Start: 06-08-2022 ambulatory KRISTOPHER BRADY Facility:[facility] 1 Start: 05-26-2022 Telephone encounter Derrick C Trill YEAST DISTILLER.BULLARD OPERATOR Work Phone: [facility] Comment on above: No Show (2nd no show ) Start: 05-25-2022 Refill Derrick C Tril l YEAST DISTILLER.BULLARD OPERATOR Work Phone: [facility] Comment on above: Refill Request Start: 05-23-[address] KATHY Ritchie ty:[facility] Start: 05-08-2022 Telephone encounter Derrick C Trill YEAST DISTILLER.BULLARD OPERATOR Work Phone: [facility] Comment on above: No Show (1st no show ) Start: 04-27-2022 End: 04-28-2022 ambulatory Nevaeh Angélica Facility:[facility] Start: 04-27-[address] Chris Lindsay Work Phone: [facility] Work Phone: Start: 04-27-2022 End: 04-27-2022 Admission to same day surgery center Dr. Nevaeh Lindsay Work Phone: [facility] Start: 04-27-2022 End: 04-27-[address] Nevaeh Lindsay Work Phone: [facility] Start: 04-25-2022 Refill Jenelle Rodas MD Work Phone: Endocrinology Comment on above: Refill Request Start: 04-25-2022 Telephone encounter Jenelle Rodas MD Work Phone: Endocrinology Comment on above: Results Start: 04-13-2022 End: 04-13-2022 Subsequent hospital visit by physician [facility] Comment on above: Hyperthyroidism [E05 .90] Start: 04-04-2022 End: 04-05-[address] KATHY HERNANDEZ Facility: Start: 02-22-2022 Telephone encounter Derrick Thorpe APRN.BULLARD OPERATOR Work Phone: [facility] Comment on above: Results Start: 02-14-2022 Telephone encounter Derrick Thorpe APRN.BULLARD OPERATOR Work Phone: [facility] Comment on above: Orders (Labs) Start: 02-13-2022 Refill Nevaeh encarnacion MD Work Phone: [facility] Comment on above: Refill Request Start: 02-02-2022 End: 02-02-2022 Patient encounter procedure Jenelle Rodas MD Work Phone: Endocrinology Comment on above: Hyperthyroidism (Purnima zoya Dx); Multiple thyroid nodules Start: 01-30-2022 Refill Derrick steen APRN.BULLARD OPERATOR Work Phone: [facility] Comment on above: Refill Request Start: 01-16-2022 Telephone encounter Nevaeh parra MD Work Phone: [facility] Comment on above: Results Start: 01-12-2022 End: 01-12-2022 Subsequent hospital visit by physician Mammo/Bone Density [facility] Comment on above: Encounter for screen ing mammogram for malignant neoplasm of breast [Z12.31] Start: 01-12-2022 Documentation procedure Mammog jayne Coordinator [facility] Start: 01-12-2022 Letter encounter Mammography Coordinator [facility]ARTIN ANCILLARY AREA NOT LISTED Start: 09-30-2021 Encounter for prepro cedural laboratory examination DR NARCISO MANLEY [facility] Start: 09-26-2021 ambulatory Nevaeh Lindsay Facility :[facility] Start: 09-24-2021 End: 09-24-[address] NARCISO MANLEY Facility:[facility] Start: 09-24-2021 End: 09-24-2021 Encounter for preprocedural laboratory examination DR NARCISO MANLEY Facility:[facility] Procedures Date Procedure Procedure Detail Performing Clinician Start: 06-03-2025 Gluc bld gluc mntr d ev cleared fda spec home use Carlos Tavarez MD Work Phone: Start: 04-30-2025 Hemoglobin A1c/Hemoglobin.total in Blood Madhavi Obrien BULLARD OPERATOR Work Phone: Start: 12-23-2024 End: 12-23-2024 Oph bmtry prtl coher intrfrmtry io lens pwr chau Dav Gaxiola DO Work Phone: Start: 12-23-2024 End: 12-23-2024 Ophth medical xm&eval compre new pt 1/> vst Age-related nuclear cataract of both eyes Dav Gaxiola DO Work Phone: Comment on above: Age-related nuclear cataract of both eyes (Primary Dx); Macular dystrophy; Macular scar of both eyes Start: 07-04-2023 Urine albumin quantitative Derrick Thorpe APRN.BULLARD OPERATOR Work Phone: Start: 07-04-2023 Hemoglobin A1c/Hemoglobin.total in Blood Derrick Thorpe YEAST DISTILLER.BULLARD OPERATOR Work Phone: Start: 02-13-2023 Hemoglobin A1c/Hemoglobin.total in Blood Derrick Thorpe YEAST DISTILLER.BULLARD OPERATOR Work Phone: Start: 09-27-2022 Hemoglobin A1c/Hemoglobin.total in Blood Derrick Thorpe YEAST DISTILLER.BULLARD OPERATOR Work Phone: Start: 04-13-2022 Us soft tissue head & neck real time imge docm Jenelle Rodas MD Work Phone: Start: 01-12-2022 End: 01-12-2022 Screening mammography bi 2-view breast inc cad Nevaeh [place] MD Work Phone: Start: 05-17-2016 Colonoscopy Danae vaughan Plan of Treatment Date Care Activity Detail Author Start: 07-07-[address] [facility] Start: 10-31-2025 Hemoglobin A1c measurement HbA1C [facility] Start: 09-07-2025 End: 09-07-2025 Patient encounter procedure 09/07/2025 2:10 PM EST Office Visit [facility] [place] [facility] [address] [place] [address] Carlos Tavarez MD [address] [place] [address] [facility] Start: 06-15-[address] [facility] Start: 06-03-2025 End: 06-03-2026 25-hydroxyvitamin D3 [Mass/volume] in Serum or Plasma Vitamin D 25 hydroxy Total Lab Routine Type 2 diabetes mellitus with hyperglycemia, without long-term current use of insulin (HCC) Expected: 06/03/2025 (Approximate), Expires: 06/03/2026 [facility] Comment on above: Expected: 06/03/2025 (Approximate), Expi res: 06/03/2026 Start: 06-03-2025 End: 06-03-2026 C-peptide C-peptide Lab Routine Type 2 diabetes mellitus with hyperglycemia, without long-term current use of insulin (HCC) Expected: 06/03/2025 (Approximate), Expires: 06/03/2026 [facility] Work Phone: Comment on above: Expected: 06/03/2025 (Approximate), Expi res: 06/03/2026 Start: 06-03-2025 End: 06-03-2026 Lipid 1996 panel - Serum or Plasma Lipid panel Lab Routine Type 2 diabetes mellitus with hyperglycemia, without long-term current use of insulin (HCC) Expected: 06/03/2025 (Approximate), Expires: 06/03/2026 [facility] Comment on above: Expected: 06/03/2025 (Approximate), Expi res: 06/03/2026 Start: 06-03-2025 End: 06-03-2026 Microalbumin/Creatinine panel in random Urine Microalbumin / creatinine urine ratio Lab Routine Type 2 diabetes mellitus with hyperglycemia, without long-term current use of insulin (HCC) Expected: 06/03/2025 (Approximate), Expires: 06/03/2026 [facility] Comment on above: Expected: 06/03/2025 (Approximate), Expi res: 06/03/2026 Start: 06-03-2025 End: 06-03-2026 Renal function panel Renal function panel Lab Routine Type 2 diabetes mellitus with hyperglycemia, without long-term current use of insulin (HCC) Expected: 06/03/2025 (Approximate), Expires: 06/03/2026 [facility] Comment on above: Expected: 06/03/2025 (Approximate), Expi res: 06/03/2026 Start: 06-03-2025 End: 06-03-2026 Thyroglobulin Antibody Thyroglobulin Antibody Lab Routine Hyperthyroidism Expected: 06/03/2025 (Approximate), Expires: 06/03/2026 [facility] Comment on above: Expected: 06/03/2025 (Approximate), Expi res: 06/03/2026 Start: 06-03-2025 End: 06-03-2026 Thyroid peroxidase antibody Thyroid peroxidase antibody Lab Routine Hyperthyroidism Expected: 06/03/2025 (Approximate), Expires: 06/03/2026 [facility] Comment on above: Expected: 06/03/2025 (Approximate), Expi res: 06/03/2026 Start: 06-03-2025 End: 06-03-2026 Thyrotropin [Units/volume] in Serum or Plasma TSH Lab Routine Hyperthyroidism Expected: 06/03/2025 (Approximate), Expires: 06/03/2026 [facility] Comment on above: Expected: 06/03/2025 (Approximate), Expi res: 06/03/2026 Start: 06-03-2025 End: 06-03-2026 Thyrotropin receptor antibody Thyrotropin receptor antibody Lab Routine Hyperthyroidism Expected: 06/03/2025 (Approximate), Expires: 06/03/2026 [facility] Comment on above: Expected: 06/03/2025 (Approximate), Expi res: 06/03/2026 Start: 06-03-2025 End: 06-03-2026 Thyroxine (T4) free [Mass/volume] in Serum or Plasma T4, free Lab Routine Hyperthyroidism Expected: 06/03/2025 (Approximate), Expires: 06/03/2026 [facility] Comment on above: Expected: 06/03/2025 (Approximate), Expi res: 06/03/2026 Start: 06-03-2025 End: 06-03-2026 Triiodothyronine (T3) Free [Mass/volume] in Serum or Plasma T3, free Lab Routine Hyperthyroidism Expected: 06/03/2025 (Approximate), Expires: 06/03/2026 [facility] Comment on above: Expected: 06/03/2025 (Approximate), Expi res: 06/03/2026 Start: 06-03-2025 End: 06-03-2026 US Thyroid gland US thyroid Imaging Routine Hyperthyroidism Expected: 06/03/2025, Expires: 06/03/2026 [facility] Comment on above: Expected: 06/03/2025, Expires: Start: 06-03-2025 End: 06-03-2025 Patient encounter procedure 06/03/2025 1:10 PM EDT [facility] [address] [place] [address] Carlos Tavarez MD [address] [place] [address] Type 2 diabetes mellitus with hyperglycemia, without long-term current use of insulin (HCC) [facility] Comment on above: Type 2 diabetes mellitus with hyperglyce mat, without long-term current use of insulin (HCC) Start: 04-22-2025 Diabetic foot examination Diabetic Foot Exam [facility] Start: 04-22-2025 Glaucoma screening Dilated Retinal Exam [facility] Start: 01-26-2025 End: 01-26-2025 Patient encounter procedure 01/26/2025 1:20 PM EDT Office Visit [facility] [address] [place] [address] Carlos Tavarez MD [address] [place] [address] [facility]ATED [facility] Start: 12-23-2024 End: 12-23-2024 Patient encounter procedure 12/23/2024 2:00 PM EDT Office Visit [facility] [address] [place] [id number] Dav Gaxoila, [address] [place] [address] Arrived [facility] Comment on above: Arrived Start: 11-11-2024 End: 11-11-2024 Patient encounter procedure 11/11/2024 3:00 PM EST Office Visit [facility] [address] [place] [address] Derrick Thorpe, YEAST DISTILLER.BULLARD OPERATOR [address], [place] [id number] Medicare Wellness [facility] Comment on above: Medicare Wellness Start: 10-15-2024 Advance Directive Discussion Advance Directive Discussion [facility] Start: 10-15-2024 Medicare Advantage Annual Wellness Visit Medicare Advantage Annual Wellness Visit [facility] Start: 10-02-2024 End: 10-02-2024 Patient encounter procedure 10/02/2024 11:20 AM EST Office Visit [facility] [address] [place] [address] Rachel Danielle APRN.BULLARD OPERATOR [address] [place] [address] med refills, Care Gap- Mamm, Colon, a1c [facility] Comment on above: med refills, Care Gap- Mamm, Colon, a1c Start: 09-05-2024 End: 09-05-2024 Patient encounter procedure 09/05/2024 4:00 PM EST Office Visit [facility] [address] [place] [address] Derrick Thorpe APRN.BULLARD OPERATOR [address] [place] [address] med refills [facility] Comment on above: med refills Start: 08-15-2024 End: 08-15-2024 Patient encounter procedure 08/15/2024 1:00 PM EDT Office Visit [facility] [address] [place] [address] Derrick Thorpe APRN.BULLARD OPERATOR [address] [place] [address] rev medications for refills [facility] Comment on above: rev medications for refills Start: 07-04-2024 Annual PCP Team Chronic Disease Visit Annual PCP Team Chronic Disease Visit [facility] Start: 07-04-2024 BP Controlled (<130/80) BP Controlled (<130/80) [facility] Start: 07-04-2024 Hepatitis B screening Urine Albumin:Creatinine Ratio [facility] Start: 06-15-2024 Covid-19 Vaccine ( season) Covid-19 Vaccine ( season) [facility] Start: 06-15-2024 Covid-19 Vaccine ( season) Covid-19 Vaccine ( season) [facility] Start: 06-15-2024 Influenza vaccination Influenza Vaccine (#1) [facility] Start: 02-14-2024 ANNUAL PCP TEAM CHRONIC DISEASE VISIT ANNUAL PCP TEAM CHRONIC DISEASE VISIT [facility] Start: 02-14-2024 BP CONTROLLED (<130/80) BP CONTROLLED (<130/80) [facility] Start: 01-02-2024 Hemoglobin A1c measurement HbA1C [facility] Start: 01-02-2024 Hemoglobin A1c/Hemoglobin.total in Blood HbA1C [facility] Start: 2023 Advance Directive Discussion Advance Directive Discussion [facility] Start: 2023 Screening for osteoporosis Bone Density Screening [facility] Start: 09-27-2023 ANNUAL PCP TEAM CHRONIC DISEASE VISIT ANNUAL PCP TEAM CHRONIC DISEASE VISIT [facility] Start: 09-27-2023 BP CONTROLLED (<130/80) BP CONTROLLED (<130/80) [facility] Start: 09-27-2023 COVID-19 VACCINE (#1) COVID-19 VACCINE (#1) [facility] Comment on above: Postponed from 05/22/1961 (Declined at t his time) Start: 09-27-2023 PNEUMOCOCCAL (2 - PCV) PNEUMOCOCCAL (2 - PCV) [facility] Comment on above: Postponed from 10/12/2010 (Declined at t his time) Start: 09-27-2023 Pneumococcal vaccination Pneumococcal Vaccine (2 - PCV) [facility] Comment on above: Postponed from 10/12/2010 (Declined at t his time) Start: 08-24-2023 BP CONTROLLED (<130/80) BP CONTROLLED (<130/80) [facility] Start: 08-16-2023 Hemoglobin A1c/Hemoglobin.total in Blood HBA1C [facility] Start: 07-05-2023 End: 01-31-2024 Lipid 1996 panel - Serum or Plasma LIPID PANEL BASIC Lab Routine Pure hypercholesterolemia Expected: 07/05/2023, Expires: 01/31/2024 [facility] Work Phone: Comment on above: Expected: 07/05/2023, Expires: Start: 06-15-2023 Covid-19 Vaccine () Covid-[address] Vaccine () [facility] Start: 06-15-2023 Influenza vaccination INFLUENZA (#1) [facility] Start: 05-05-2023 Hepatitis B surface antibody level LDL CHOLESTEROL [facility] Start: 03-28-2023 Hemoglobin A1c/Hemoglobin.total in Blood HBA1C [facility] Start: 02-20-2023 Hepatitis B surface antibody level LDL CHOLESTEROL [facility] Start: 02-02-2023 BP CONTROLLED (<130/80) BP CONTROLLED (<130/80) [facility] Start: 02-01-2023 3 comp foot exam completed DIABETIC FOOT EXAM [facility] Start: 02-01-2023 ANNUAL PCP TEAM CHRONIC DISEASE VISIT ANNUAL PCP TEAM CHRONIC DISEASE VISIT [facility] Start: 02-01-2023 Diabetic foot examination Diabetic Foot Exam [facility] Start: 01-16-2023 Glaucoma screening Dilated Retinal Exam [facility] Start: 01-16-2023 Hepatitis C antibody, confirmatory test DILATED RETINAL EXAM [facility] Start: 01-12-[address] [facility] Start: 01-12-2023 Screening for malignant neoplasm of breast Mammogram Screening [facility] Start: 01-08-2023 COLORECTAL CANCER SCREENING COLORECTAL CANCER SCREENING [facility] Start: 01-08-2023 FECAL OCCULT BLOOD FECAL OCCULT BLOOD [facility] Start: 01-08-2023 Screening for malignant neoplasm of colon [facility] Start: 11-16-2022 ANNUAL PCP TEAM CHRONIC DISEASE VISIT ANNUAL PCP TEAM CHRONIC DISEASE VISIT [facility] Start: 11-16-2022 BP CONTROLLED (<130/80) BP CONTROLLED (<130/80) [facility] Start: 11-16-2022 Influenza vaccination LUNG CANCER SCREENING [facility] Comment on above: Postponed from 2013 (Declined at t his time) Postponed from 11/22 (Declined at this time) Start: 11-16-[address] [facility] Comment on above: Postponed from 1976 (Declined at t his time) Start: 10-12-2022 End: 12-12-2022 Hepatic function 2000 panel - Serum or Plasma HEPATIC FUNCTION PNL Lab Routine Hyperthyroidism Expected: 10/12/2022, Expires: 12/12/2022 [facility] Work Phone: Comment on above: Expected: 10/12/2022, Expires: Start: 10-12-2022 End: 12-12-2022 Thyrotropin [Units/volume] in Serum or Plasma TSH BLD Lab Routine Hyperthyroidism Expected: 10/12/2022, Expires: 12/12/2022 [facility] Work Phone: Comment on above: Expected: 10/12/2022, Expires: 3 Start: 10-12-2022 End: 12-12-2022 Thyroxine (T4) free [Mass/volume] in Serum or Plasma T4 FREE/FREE THYROX Lab Routine Hyperthyroidism Expected: 10/12/2022, Expires: 12/12/2022 [facility] Work Phone: Comment on above: Expected: 10/12/2022, Expires: 3 Start: 10-12-2022 End: 12-12-2022 Triiodothyronine (T3) [Mass/volume] in Serum or Plasma T3 BLD Lab Routine Hyperthyroidism Expected: 10/12/2022, Expires: 12/12/2022 [facility] Work Phone: Comment on above: Expected: 10/12/2022, Expires: 3 Start: 09-27-2022 End: 11-27-2022 CBC panel - Blood by Automated count CBC Lab Routine Pure hypercholesterolemia Iron deficiency anemia, unspecified iron deficiency anemia type Expected: 09/27/2022, Expires: 11/27/2022 [facility] Work Phone: Comment on above: Expected: 09/27/2022, Expires: 3 Start: 09-27-2022 End: 11-27-2022 Comprehensive metabolic 2000 panel - Serum or Plasma COMP METABOLIC PANEL Lab Routine Pure hypercholesterolemia Expected: 09/27/2022, Expires: 11/27/2022 [facility] Work Phone: Comment on above: Expected: 09/27/2022, Expires: 3 Start: 09-27-2022 End: 11-27-2022 Iron and Iron binding capacity panel - Serum or Plasma IRON + TIBC Lab Routine Pure hypercholesterolemia Iron deficiency anemia, unspecified iron deficiency anemia type Expected: 09/27/2022, Expires: 11/27/2022 [facility] Work Phone: Comment on above: Expected: 09/27/2022, Expires: 3 Start: 09-27-2022 End: 11-27-2022 Lipid 1996 panel - Serum or Plasma LIPID PANEL BASIC Lab Routine Pure hypercholesterolemia Expected: 09/27/2022, Expires: 11/27/2022 [facility] Work Phone: Comment on above: Expected: 09/27/2022, Expires: 3 Start: 08-24-2022 End: 10-24-2022 Hepatic function 2000 panel - Serum or Plasma HEPATIC FUNCTION PNL Lab Routine Hyperthyroidism Multiple thyroid nodules Expected: 08/24/2022, Expires: 10/24/2022 [facility] Work Phone: Comment on above: Expected: 08/24/2022, Expires: 3 Start: 08-24-2022 End: 10-24-2022 Thyrotropin [Units/volume] in Serum or Plasma TSH BLD Lab Routine Hyperthyroidism Multiple thyroid nodules Expected: 08/24/2022, Expires: 10/24/2022 [facility] Work Phone: Comment on above: Expected: 08/24/2022, Expires: 3 Start: 08-24-2022 End: 10-24-2022 Thyroxine (T4) free [Mass/volume] in Serum or Plasma T4 FREE/FREE THYROX Lab Routine Hyperthyroidism Multiple thyroid nodules Expected: 08/24/2022, Expires: 10/24/2022 [facility] Work Phone: Comment on above: Expected: 08/24/2022, Expires: 3 Start: 08-24-2022 End: 10-24-2022 Triiodothyronine (T3) [Mass/volume] in Serum or Plasma T3 BLD Lab Routine Hyperthyroidism Multiple thyroid nodules Expected: 08/24/2022, Expires: 10/24/2022 [facility] Work Phone: Comment on above: Expected: 08/24/2022, Expires: 3 Start: 08-23-2022 Hemoglobin A1c/Hemoglobin.total in Blood HBA1C [facility] Start: 08-01-2022 End: 10-01-2022 ALBUMIN/CREAT RATIO RND UR ALBUMIN/CREAT RATIO RND UR Lab Routine Type 2 diabetes mellitus with hyperglycemia, without long-term current use of insulin (HCC) Expected: 08/01/2022, Expires: 10/01/2022 [facility] Work Phone: Comment on above: Expected: 08/01/2022, Expires: 2 Start: 08-01-2022 End: 10-01-2022 Hemoglobin A1c in Blood HGB A1C Lab Routine Type 2 diabetes mellitus with hyperglycemia, without long-term current use of insulin (HCC) Expected: 08/01/2022, Expires: 10/01/2022 [facility] Work Phone: Comment on above: Expected: 08/01/2022, Expires: 2 Start: 08-01-2022 End: 10-01-2022 SCHEDULE LAB TESTING SCHEDULE LAB TESTING Lab Routine Expected: 08/01/2022, Expires: 10/01/2022 [facility] Work Phone: Comment on above: Expected: 08/01/2022, Expires: 2 Start: 07-03-2022 End: 09-02-2022 Hepatic function 2000 panel - Serum or Plasma HEPATIC FUNCTION PNL Lab Routine Hyperthyroidism Expected: 07/03/2022, Expires: 09/02/2022 [facility] Work Phone: Comment on above: Expected: 07/03/2022, Expires: 2 Start: 07-03-2022 End: 09-02-2022 Thyrotropin [Units/volume] in Serum or Plasma TSH BLD Lab Routine Hyperthyroidism Expected: 07/03/2022, Expires: 09/02/2022 [facility] Work Phone: Comment on above: Expected: 07/03/2022, Expires: 2 Start: 07-03-2022 End: 09-02-2022 Thyroxine (T4) free [Mass/volume] in Serum or Plasma T4 FREE/FREE THYROX Lab Routine Hyperthyroidism Expected: 07/03/2022, Expires: 09/02/2022 [facility] Work Phone: Comment on above: Expected: 07/03/2022, Expires: 2 Start: 07-03-2022 End: 09-02-2022 Triiodothyronine (T3) [Mass/volume] in Serum or Plasma T3 BLD Lab Routine Hyperthyroidism Expected: 07/03/2022, Expires: 09/02/2022 [facility] Work Phone: Comment on above: Expected: 07/03/2022, Expires: 2 Start: 07-03-2022 End: 06-03-2023 Us soft tissue head & neck real time imge docm US THYROID/PARATHYROID Radiology Routine Hyperthyroidism Expected: 07/03/2022, Expires: 06/03/2023 [facility] Work Phone: Comment on above: Expected: 07/03/2022, Expires: 3 Start: 06-15-2022 Influenza vaccination INFLUENZA (#1) [facility] Start: 05-16-2022 Hemoglobin A1c/Hemoglobin.total in Blood HBA1C [facility] Start: 04-25-2022 End: 06-25-2022 CBC W Auto Differential panel - Blood CBC + DIFF Lab Routine Hyperthyroidism Expected: 04/25/2022, Expires: 06/25/2022 [facility] Work Phone: Comment on above: Expected: 04/25/2022, Expires: 2 Start: 04-25-2022 End: 06-25-2022 Comprehensive metabolic 2000 panel - Serum or Plasma COMP METABOLIC PANEL Lab Routine Hyperthyroidism Expected: 04/25/2022, Expires: 06/25/2022 [facility] Work Phone: Comment on above: Expected: 04/25/2022, Expires: 2 Start: 04-25-2022 End: 06-25-2022 Thyrotropin [Units/volume] in Serum or Plasma TSH BLD Lab Routine Hyperthyroidism Expected: 04/25/2022, Expires: 06/25/2022 [facility] Work Phone: Comment on above: Expected: 04/25/2022, Expires: 2 Start: 04-25-2022 End: 06-25-2022 Thyroxine (T4) free [Mass/volume] in Serum or Plasma T4 FREE/FREE THYROX Lab Routine Hyperthyroidism Expected: 04/25/2022, Expires: 06/25/2022 [facility] Work Phone: Comment on above: Expected: 04/25/2022, Expires: 2 Start: 04-25-2022 End: 06-25-2022 Triiodothyronine (T3) [Mass/volume] in Serum or Plasma T3 BLD Lab Routine Hyperthyroidism Expected: 04/25/2022, Expires: 06/25/2022 [facility] Work Phone: Comment on above: Expected: 04/25/2022, Expires: 2 Start: 04-13-2022 Hepatitis B screening URINE ALBUMIN:CREATININE RATIO [facility] Start: 04-13-2022 Hepatitis B surface antibody level LDL CHOLESTEROL [facility] Start: 04-07-2022 COVID-19 VACCINE (#1) COVID-19 VACCINE (#1) [facility] Comment on above: Postponed from 1963 (Declined at t his time) Start: 04-07-2022 COVID-19 VACCINE (1) COVID-19 VACCINE (1) [facility] Comment on above: Postponed from 1963 (Declined at t his time) Start: 02-14-2022 End: 04-16-2022 CBC panel - Blood by Automated count CBC Lab Routine Type 2 diabetes mellitus with hyperglycemia, without long-term current use of insulin (HCC) Expected: 02/14/2022, Expires: 04/16/2022 [facility] Work Phone: Comment on above: Expected: 02/14/2022, Expires: 2 Start: 02-14-2022 End: 04-16-2022 Comprehensive metabolic 2000 panel - Serum or Plasma COMP METABOLIC PANEL Lab Routine Type 2 diabetes mellitus with hyperglycemia, without long-term current use of insulin (HCC) Pure hypercholesterolemia Expected: 02/14/2022, Expires: 04/16/2022 [facility] Work Phone: Comment on above: Expected: 02/14/2022, Expires: 2 Start: 02-14-2022 End: 04-16-2022 Hemoglobin A1c/Hemoglobin.total in Blood HGB A1C Lab Routine Type 2 diabetes mellitus with hyperglycemia, without long-term current use of insulin (HCC) Expected: 02/14/2022, Expires: 04/16/2022 [facility] Work Phone: Comment on above: Expected: 02/14/2022, Expires: 2 Start: 02-14-2022 End: 04-16-2022 LIPID PANEL BASIC LIPID PANEL BASIC Lab Routine Type 2 diabetes mellitus with hyperglycemia, without long-term current use of insulin (HCC) Pure hypercholesterolemia Expected: 02/14/2022, Expires: 04/16/2022 [facility] Work Phone: Comment on above: Expected: 02/14/2022, Expires: 2 Start: 02-02-2022 End: 04-04-2022 CBC W Auto Differential panel - Blood CBC + DIFF Lab Routine Hyperthyroidism Multiple thyroid nodules Expected: 02/02/2022, Expires: 04/04/2022 [facility] Work Phone: Comment on above: Expected: 02/02/2022, Expires: 2 Start: 02-02-2022 End: 04-04-2022 Comprehensive metabolic 2000 panel - Serum or Plasma COMP METABOLIC PANEL Lab Routine Hyperthyroidism Multiple thyroid nodules Expected: 02/02/2022, Expires: 04/04/2022 [facility] Work Phone: Comment on above: Expected: 02/02/2022, Expires: 2 Start: 02-02-2022 End: 04-04-2022 T3 BLD T3 BLD Lab Routine Hyperthyroidism Multiple thyroid nodules Expected: 02/02/2022, Expires: 04/04/2022 [facility] Work Phone: Comment on above: Expected: 02/02/2022, Expires: 2 Start: 02-02-2022 End: 04-04-2022 T4 FREE/FREE THYROX T4 FREE/FREE THYROX Lab Routine Hyperthyroidism Multiple thyroid nodules Expected: 02/02/2022, Expires: 04/04/2022 [facility] Work Phone: Comment on above: Expected: 02/02/2022, Expires: 2 Start: 02-02-2022 End: 04-04-2022 Thyrotropin [Units/volume] in Serum or Plasma TSH BLD Lab Routine Hyperthyroidism Multiple thyroid nodules Expected: 02/02/2022, Expires: 04/04/2022 [facility] Work Phone: Comment on above: Expected: 02/02/2022, Expires: 2 Start: 02-01-2022 3 comp foot exam completed DIABETIC FOOT EXAM [facility] Start: 05-03-2021 BP Controlled (<130/80) BP Controlled (<130/80) [facility] Start: 12-08-2020 Hepatitis C antibody, confirmatory test DILATED RETINAL EXAM [facility] Start: 2018 Hepatitis B Vaccine (1 of 3 - Risk 3-dose series) Hepatitis B Vaccine (1 of 3 - Risk 3-dose series) [facility] Start: 2018 RSV Vaccine (1 - 1-dose 60+ series) RSV Vaccine (1 - 1-dose 60+ series) [facility] Start: 2018 RSV Vaccine (1 - Risk 60-74 years 1-dose series) RSV Vaccine (1 - Risk 60-74 years 1-dose series) [facility] Start: 05-17-2017 Screening for malignant neoplasm of colon Colonoscopy [facility] Start: 10-12-2010 PNEUMOCOCCAL (2 - PCV) PNEUMOCOCCAL (2 - PCV) [facility] Start: 10-12-2010 Pneumococcal vaccination Pneumococcal Vaccine (2 of 2 - PCV) [facility] Start: 10-12-2010 Pneumococcal Vaccine: 50+ (2 of 2 - PCV) Pneumococcal Vaccine: 50+ (2 of 2 - PCV) [facility] Start: 10-12-2010 Pneumococcal Vaccine: 65+ (2 of 2 - PCV) Pneumococcal Vaccine: 65+ (2 of 2 - PCV) [facility] Start: 2008 Influenza vaccination LUNG CANCER SCREENING [facility] Start: 2008 Screening for malignant neoplasm of lung Lung Cancer Screening [facility] Start: 2008 SHINGRIX VACCINE (1 of 2) SHINGRIX VACCINE (1 of 2) [facility] Start: 2003 COLOGUARD (FIT-DNA) COLOGUARD (FIT-DNA) [facility] Start: [address] [facility] Start: [address] [facility] Start: 2003 Screening for malignant neoplasm of colon [facility] Start: [address] [facility] Start: 1988 Zoledronic acid therapy ALPHA-1 ANTITRYPSIN DEFICIENCY SCREENING [facility] Start: 1976 Anxiety Screening Anxiety Screening [facility] Start: [address] [facility] Start: 05-22-1959 COVID-19 VACCINE (#1) COVID-19 VACCINE (#1) [facility] End: 08-02-2024 DXA-AXIAL SKELETON DXA-AXIAL SKELETON Radiology Routine Screening for osteoporosis Post-menopausal 1 Occurrences starting 07/04/2023 until 08/02/2024 [facility] Work Phone: Comment on above: 1 Occurrences starting 07/04/2023 until 08/02/2024 Hemoglobin A1c/Hemoglobin.total in Blood HEMOGLOBIN A1C (POC) Lab Routine Type 2 diabetes mellitus with hyperglycemia, without long-term current use of insulin (HCC) Ordered: 09/27/2022 [facility] Work Phone: Comment on above: Ordered: 09/27/2022 Hemoglobin A1c/Hemoglobin.total in Blood HEMOGLOBIN A1C (POC) Lab Routine Type 2 diabetes mellitus with hyperglycemia, without long-term current use of insulin (HCC) Ordered: 02/13/2023 [facility] Work Phone: Comment on above: Ordered: 02/13/2023 Hemoglobin A1c/Hemoglobin.total in Blood HEMOGLOBIN A1C (POC) Lab Routine Type 2 diabetes mellitus with hyperglycemia, without long-term current use of insulin (HCC) Ordered: 07/04/2023 [facility] Work Phone: Comment on above: Ordered: 07/04/2023 End: 03-13-2024 AMY SCREENING AMY SCREENING Radiology Routine Encounter for screening mammogram for breast cancer 1 Occurrences starting 02/12/2023 until 03/13/2024 [facility] Work Phone: Comment on above: 1 Occurrences starting 02/12/2023 until 03/13/2024 End: 08-25-2024 MRI 3D POST PROCESSING MRI 3D POST PROCESSING Radiology Routine Cyst of pancreas 1 Occurrences starting 07/27/2023 until 08/25/2024 [facility] Work Phone: Comment on above: 1 Occurrences starting 07/27/2023 until 08/25/2024 End: 08-04-2023 Mri abdomen w/o & w/contrast material MRI PANC/MOHSEN WO/W IVCON Radiology Routine Pancreas cyst 1 Occurrences starting 07/05/2022 until 08/04/2023 [facility] Work Phone: Comment on above: 1 Occurrences starting 07/05/2022 until 08/04/2023 End: 08-25-2024 Mri abdomen w/o & w/contrast material MRI PANC/MOHSEN WO/W IVCON Radiology Routine Cyst of pancreas 1 Occurrences starting 07/27/2023 until 08/25/2024 [facility] Work Phone: Comment on above: 1 Occurrences starting 07/27/2023 until 08/25/2024 End: 03-04-2023 Us soft tissue head & neck real time imge docm US THYROID/PARATHYROID Radiology Routine Hyperthyroidism Multiple thyroid nodules 1 Occurrences starting 02/02/2022 until 03/04/2023 [facility] Work Phone: Comment on above: 1 Occurrences starting 02/02/2022 until 03/04/2023 Us soft tissue head & neck real time imge docm US THYROID/PARATHYROID Radiology Routine Hyperthyroidism Nontoxic single thyroid nodule 04/13/2022 3:20 PM EDT [facility] Work Phone: End: 09-23-2023 Us soft tissue head & neck real time imge docm US THYROID/PARATHYROID Radiology Routine Multiple thyroid nodules 1 Occurrences starting 08/24/2022 until 09/23/2023 [facility] Work Phone: Comment on above: 1 Occurrences starting 08/24/2022 until 09/23/2023 End: 10-02-2022 Us soft tissue head & neck real time imge docm [facility] Work Phone: Comment on above: 1 Occurrences starting 10/02/2022 until 10/02/2022 [facility] Immunizations Immunization Date Immunization Notes Care Provider [facility] 06-01-2023 Influenza, injectabl e, Madin Nory Canine Kidney, preservative free, quadrivalent Dav Gaxiola DO Work Phone: [facility] 06-01-2023 influenza virus vacc ine, unspecified formulation Derrick Trill YEAST DIST[employer]ER.BULLARD OPERATOR Work Phone: [facility] 06-30-2022 influenza, injectabl e, quadrivalent, preservative free Derrick Trill YEAST DISTILLER.BULLARD OPERATOR Work Phone: [facility] 06-30-2022 influenza virus vacc ine, unspecified formulation Rachel Danielle YEAST DISTILLER.BULLARD OPERATOR Work Phone: [facility] 07-29-2021 Influenza, injectabl e, Madin Nory Canine Kidney, preservative free, quadrivalent [facility] 07-29-2021 influenza, seasonal, injectable Mammo[facility] 07-14-2020 influenza, injectabl e, quadrivalent, contains preservative [facility] 08-25-2019 influenza, injectabl e, quadrivalent, contains preservative [facility] Work Phone: 07-29-2018 influenza, injectabl e, quadrivalent, preservative free [facility] 07-07-2018 tetanus toxoid, redu kris diphtheria toxoid, and acellular pertussis vaccine, adsorbed [facility] 07-17-2017 influenza, seasonal, injectable Mamm[facility] 10-22-2015 influenza virus vacc ine, unspecified formulation Mammo/Bone [facility] 10-22-2015 influenza virus vacc ine, whole virus [facility] 10-12-2009 pneumococcal polysaccharide vaccine, 23 valent [facility] Payers Date Payer Category Payer Medicare HUMANA MEDICARE HUMANA GOLD PLUS [id number] 2021-Present [phone] [address] [address] [place] [address] [facility] [id number] 2021 Medicare HUMANA MEDICARE HUMANA GOLD PLUS [id number] 2021-Present [phone] [address] [address] [place] [address] [facility] [id number] 2021 Medicare (Managed Care) [id number]. [id number] 2021 Self-pay [id number] 2020 Medicaid [place] [id number] 2020-Present [phone] [address] [place] [id number] Medicaid [id number] 2017 Medicaid [id number] 1959 Medicaid [id number] 1959 Medicare [id number] 1959 Private Health Insurance [id number] 1958 Unknown [id number] 1958 Unknown [id number] 93 1958 Unknown [id number] 93 1958 Unknown [id number] 93 1958 Unknown [id number] 1958 Unknown [id number] 259 Unknown [id number] 62 Unknown [id number] 62 Unknown [id number] 62 Unknown [id number] 62 Social History Date Type Detail Facility Start: 12-16-2012 End: 08-24-2022 Tobacco smoking status NHIS Smokes tobacco daily [facility] History of tobacco use Cigarette Smoker [facility] Start: 12-16-2012 End: 09-19-2020 Cigarettes smoked current (pack per day) - Reported 1 [facility] Start: 12-16-2012 End: 08-24-2022 Tobacco use and exposure Smokeless tobacco non-user [facility] Start: 01-08-2022 End: 07-04-2023 Alcohol intake Current non-drinker of alcohol (finding) [facility] Start: 1960 Sex Assigned At Not on file [facility] Start: 01-02-2022 End: 08-30-2022 Exposure to SARS-CoV-2 (event) Not sure [facility] Start: 01-24-2022 End: 02-03-2022 Exposure to SARS-CoV-2 (event) Unable to assess [facility] Start: 04-27-2022 End: 04-27-2022 Tobacco smoking status WIIS Unknown if ever smoked [facility] Work Phone: Start: 1960 Sex Assigned At Female [facility] Work Phone: Start: 09-19-2020 End: 02-13-[address] [facility] Start: 09-15-2012 Adult Depression Screening Assessment 1 [facility] Medical Equipment Procedure Code Equipment Code Equipment Original Text Equipment Identifier Dates [id number], [id number], [id number] Start: 04-16-2018 End: 08-25-2023 Comment on above: USE DIRECTED WITH INSULIN Check Blood sugar be fore breakfast and before dinner daily. Dx. E11.65 PATIENT TESTS TWICE DAILY DX E1.65 1 Strip once daily. Use as instructed Inject 1 Each subcut aneously once daily. Functional Status Date Assessment Result Facility 12-19-2017 Are you deaf, or do you have serious difficulty hearing No 12/19/2017 1:47 PM Stacy Hanson PA-C No [facility] Work Phone: 12-19-2017 Are you blind, or do you have serious difficulty seeing, even when wearing glasses No 12/19/2017 1:47 PM Stacy Hanson PA-C No [facility] 12-19-2017 Do you have serious difficulty walking or climbing stairs No 12/19/2017 1:47 PM Stacy Hanson PA-C No [facility] 12-19-2017 Do you have difficul ty dressing or bathing No 12/19/2017 1:47 PM Stacy Hanson PA-C No [facility] 12-19-2017 Because of a physica l, mental, or emotional condition, do you have difficulty doing errands alone such as visiting a physician's office or shopping No 12/19/2017 1:47 PM Stacy Hanson PA-C No [facility] Mental Status Date Assessment Result Facility 12-19-2017 Because of a physica l, mental, or emotional condition, do you have serious difficulty concentrating, remembering, or making decisions No 12/19/2017 1:47 PM Stacy Hanson PA-C No [facility] Clinical Notes 02-26-2013 to 06-03-2025 Carlos Tavarez MD - 06/03/2025 1:10 PM Danae Tello - 05/14/2025 10:02 AM Danae Tello - 02/18/2025 1:20 PM Rhonda Tejeda [facility] - 01/30/2025 3:21 PM EDT Note Date & Type Note Facility 06-03-2025 History of Present illness Narrative Prasanna Ma is a 64 y.o. female Madhavi Obrien MD presents with chief complaint of Diabetes Mellitus and Thyroid Problem (REF/LAB) HPI: 05/2025 History of Present Illness The patient is a new patient referred by Madhavi Obrien for evaluation of type 2 diabetes and thyroid issues. Her A1c level in our office is 7.2, indicating high blood sugar levels. She is currently on glipizide 5 mg twice a day, metformin 1000 mg twice a day, and Tradjenta 5 mg once a day. She is uncertain about her methimazole intake but believes she takes 5 mg six days a week. She has been informed of the presence of some nodules but is unsure about Graves' disease. No biopsy or surgery has been performed to date. Results Laboratory Studies A1c is 7.2. Blood sugar is 305. SUBJECTIVE: MEDICATIONS: Current Outpatient Medications Medication Instructions albuterol HFA 90 mcg/act inhaler 2 puffs, Every 4 hours PRN ALPRAZolam (XANAX) 1 mg, 4 times daily amphetamine-dextroamphetamine (Adderall) 20 MG tablet 1 tablet, 2 times daily aspirin 81 mg, Oral, Daily RT atorvastatin (LIPITOR) 40 mg, Oral, Daily desvenlafaxine (Pristiq) 100 MG 24 hr tablet 1 tablet, Oral, Daily DULoxetine (Cymbalta) [address] capsule 1 capsule, Oral famotidine (PEPCID) 20 mg, Every 12 hours ferrous sulfate 325 (65 Fe) MG tablet 1 tablet, Oral, 3 times daily with meals Fluticasone-Salmeterol 100-50 MCG/ACT aerosol powder INHALE 1 PUFF INSTRUCTED TWO TIMES A DAY. glipiZIDE (Glucotrol) 10 MG tablet 1 tablet, 2 times daily before meals isosorbide mononitrate ER (Imdur) 30 MG 24 hr tablet 1 tablet, Daily metFORMIN (Glucophage) 1000 MG tablet 1 tablet, 2 times daily with meals methIMAzole (Tapazole) 5 MG tablet 1 tablet, Oral, Daily, Sunday through Sunday - NONE on Sunday metoprolol tartrate (LOPRESSOR) 50 mg, Every 12 hours nitroglycerin (Nitrostat) 0.4 MG SL tablet as directed Sublingual Sxhrdaheqvo-Croxcgoa-Sexsqejmm 1-0.5-0.075 % solution 1 drop, Ophthalmic, 4 times daily Eueqghycbpx-Lokpgkuo-Tueqsvjrz 1-0.5-0.075 % solution 1 drop, Ophthalmic, 4 times daily Tradjenta 5 mg, Oral, Daily traZODone (DESYREL) 100 mg, Oral, Nightly ALLERGIES: Allergies Allergen Reactions Pneumococcal Vaccine Unknown and Hives Patient got hives, Vitamin B12 Hives and GI intolerance Patient got dizzy, lightheaded, nauseated. Past Medical History: Diagnosis Date Amblyopia of eye, right Cataract Diabetes mellitus (HCC) Dry eyes H/O heart artery stent Heart attack (HCC) HTN (hypertension) Hypercholesteremia Hyperthyroidism Mental health disorder Pancreatic cyst (HCC) Past Surgical History: Procedure Laterality Date CT ANGIO HEAD 07/09/2020 CT ANGIO HEAD 07/09/2020 CT ANGIOGRAM NECK 07/09/2020 CT ANGIOGRAM NECK 07/09/2020 FOOT SURGERY Right KNEE ARTHROSCOPY W/ MENISCECTOMY Right 09/26/2021 DR [place] NOSE SURGERY STRABISMUS SURGERY Right REVIEW OF SYMPTOMS: 14 POINT OF SYSTEM REVIEWED AND NEGATIVE OBJECTIVE: Constitutional: Afebrile @ home; no weakness or night sweats SKIN: No change in skin color; no itching, rash or lesions; no hair loss; HEENT: No HAs or injury; no dizziness; No difficulty with vision; no eye pain, discharge or lesions; no hearing loss or difficulty; no nasal discharge, NECK: No pain, limitation of motion, lumps or swollen glands RESP: No cough, wheezing or difficulty breathing. No CP with breathing; CARDIO: No CP , SOB or fatigue, No edema, palpitations or dyspnea with exertion GI: No N/V/D or abd. pain; good appetite with no recent change. No heart burn, liver or gallbladder disease; no rectal bleeding or pain : No urinary pain , frequency or odor. MUSCULOSKELETAL: No muscle pain or cramps; no extremity weakness.No joint pain, stiffness, swelling or limitation of movement NEUROLOGY: No H/O seizures, stroke or fainting. No weakness, tremors. Hematology: No bleeding problems or excessive bruising ENDOCRINE: No increase in hunger, thirst or urination; admits compliance to medical management plan Feet: numbness tingling , ulcers or skin break Lab Results Component Value Date HGBA1C 7.2 06/03/2025 HGBA1C 7.3 (A) 07/04/2023 HGBA1C 7.9 (A) 02/13/2023 Lab Results Component Value Date GLU 305 06/03/2025 GLU 88 07/04/2023 GLU 103 (H) 06/20/2023 Visit Vitals BP 124/60 Pulse 74 Resp 16 Ht 5' 4 Wt 107 lb SpO2 96% BMI 18.37 kg/m Smoking Status Every Day BSA 1.48 m ASSESSMENT AND PLAN: Assessment/Plan Diagnoses and all orders for this visit: Type 2 diabetes mellitus with hyperglycemia, without long-term current use of insulin (HCC) - POCT glucose manually resulted - POCT glycosylated hemoglobin (Hb A1C) docked device - C-peptide; Future - Vitamin D 25 hydroxy Total; Future - Microalbumin / creatinine urine ratio; Future - Lipid panel; Future - Renal function panel; Future - methIMAzole (Tapazole) 5 MG tablet; Take 1 tablet (5 mg) by mouth Daily Sunday through Sunday - NONE on Sunday Primary hypertension Hyperlipemia, mixed Encounter for dietary consultation Hyperthyroidism - Thyroglobulin Antibody; Future - Thyrotropin receptor antibody; Future - Thyroid peroxidase antibody; Future - T3, free; Future - T4, free; Future - TSH; Future - US thyroid; Future Assessment & Plan 1. Type 2 diabetes, uncontrolled: - A1c is 7.2, blood sugar is high. - Glipizide 5 mg twice a day, metformin 1000 mg twice a day, and Tradjenta 5 mg once a day. 2. Hypothyroidism: - Uncertain if patient is taking methimazole; has nodules but no biopsy or surgery history. - Methimazole 5 mg six days a week if currently taking; otherwise, medication initiation deferred until lab results are available. - Thyroid ultrasound and antibody tests to differentiate the cause. Follow-up: Follow up in 3 months. documented in this encounter [facility] 05-14-2025 Note HNO ID: [id number] Author: DANAE COELLO, ? Service: ? Author Type: ? Type: Progress Notes Filed: 05/14/2025 10:07 Note Text: [facility] POPULATION HEALTH NAVIGATION OUTREACH Action/FYI A1C 04-30-25 abstracted from Care Everywhere into [employer]. Uploaded to payor portal. Added to payor attribution list. Patient Identified by Name and : Yes, via EPIC - no outreach needed Reason for Outreach Care Gap or Scheduling Wellness Visits Care Gap Reviewed:: Annual Wellness visit Breast Cancer screening Colorectal Cancer Screening HBA1C/GMI COA Outreach Outcome/Action Population Health Navigation Workflow Attribution Chart Review Cute PDF and Portal Submission Payer: Freddy Aguirre Signature: Danae Coello May 14, 2025 10:02 AM [facility] 05-14-2025 History of Present illness Narrative [facility] POPULATION HEALTH NAVIGATION OUTREACH Action/FYI A1C 04-30-25 abstracted from Care Everywhere into [employer]. Uploaded to payor portal. Added to payor attribution list. Patient Identified by Name and : Yes, via EPIC - no outreach needed Reason for Outreach Care Gap or Scheduling Wellness Visits Care Gap Reviewed:: Annual Wellness visit Breast Cancer screening Colorectal Cancer Screening HBA1C/GMI COA Outreach Outcome/Action Population Health Navigation Workflow Attribution Chart Review Cute PDF and Portal Submission Payer: Awareness Card Signature: Danae Coello May 14, 2025 10:02 AM documented in this encounter [facility] 05-14-2025 Note Patient Outreach (AG ACM) PRASANNA MA ([id number]) 1960 F Date Time Provider Department 05/14/25 DANAE COELLO [facility] During your visit today, we recorded the following information about you: Danae Coello 05/14/2025 10:[address] [facility] POPULATION HEALTH NAVIGATION OUTREACH Action/ A1C 04-30-25 abstracted from Care Everywhere into [employer]. Uploaded to payor portal. Added to payor attribution list. Patient Identified by Name and : Yes, via EPIC - no outreach needed Reason for Outreach Care Gap or Scheduling Wellness Visits Care Gap Reviewed:: Annual Wellness visit Breast Cancer screening Colorectal Cancer Screening HBA1C/GMI COA Outreach Outcome/Action Population Health Navigation Workflow Attribution Chart Review Cute PDF and Portal Submission Payer: Awareness Card Signature: Danae Coello May 14, 2025 10:02 AM Allergies As of Date: 05/14/2025 Noted Allergy Reaction B12 (CYANOCOBALAMIN-COBAMAMIDE) 08/18/2013 8 - GI Upset Comments: Patient got dizzy, lightheaded, nauseated. PNEUMOCOCCAL 23-ROSE PS VACCINE 08/18/2013 4 - Hives Comments: Patient got hives, PNEUMOCOCCAL VACCINE 04/27/2022 16 - Unknown Date Reviewed: 07/04/2023 Reviewed by: Derrick Thorpe APRN.BULLARD OPERATOR - Fully Assessed Reason for Visit: Population Health Navigation Outreach [3910] Cmt: [employer] Attributed Member- PCP Attribution Update Sent to Payor Order(s):HEMOGLOBIN A1C [ESQGD7A] Order #: [id number] Prescriptions as of 05/14/2025 - fluticasone-salmeterol (ADVAIR DISKUS) 100-50 mcg/dose inhaler INHALE 1 PUFF INSTRUCTED TWO TIMES A DAY. - famotidine (PEPCID) 20 mg tablet TAKE 1 TABLET BY MOUTH TWICE A DAY - glipiZIDE (GLUCOTROL) 10 mg tablet TAKE 1 TABLET BY MOUTH TWICE A DAY BEFORE MEALS - albuterol HFA (VENTOLIN HFA) 90 mcg/actuation inhaler Inhale 2 Puffs as instructed every 4 hours as needed for wheezing/shortness of breath. - metFORMIN (GLUCOPHAGE) 1,000 mg tablet TAKE 1 TABLET BY MOUTH TWICE A DAY WITH FOOD - Valsartan-hydroCHLOROthiazide 80-12.5 mg per tablet TAKE 1 TABLET BY MOUTH EVERY DAY - albuterol HFA (PROVENTIL HFA, VENTOLIN HFA) 90 mcg/actuation inhaler take 2 puffs by mouth every 4 hours as needed - atorvastatin (LIPITOR) 40 mg tablet take 1 tablet by mouth every day - linaGLIPtin (TRADJENTA) 5 mg tab take 1 tablet by mouth every day - metoprolol tartrate, short acting, (LOPRESSOR) 50 mg tablet take 1 tablet by mouth twice a day - isosorbide mononitrate ER (IMDUR) 30 mg 24 hr tablet Take 1 tablet by mouth every afternoon. - ondansetron orally disintegrating (ZOFRAN ODT) 4 mg disintegrating tablet Take 1 tablet by mouth every 8 hours as needed for nausea/vomiting. - methIMAzole (TAPAZOLE) 5 mg tablet TAKE 1 TABLET SUNDAY THROUGH SUNDAY, NONE ON SUNDAYS - DULoxetine (CYMBALTA) 60 mg capsule Take 1 capsule by mouth every afternoon. - ferrous sulfate 325 mg (65 mg iron) tablet Take 1 tablet by mouth three times daily with meals. - lancets (TRUEPLUS LANCETS) 30 gauge Inject 1 Each subcutaneously once daily. - ALPRAZolam (XANAX) 1 mg tablet Take 1 mg by mouth four times daily. - BD ULTRAFINE III MINI PEN 31 gauge x 3/16 USE DIRECTED WITH INSULIN - nitroglycerin sublingual (NITROQUICK) 0.4 mg SL tablet DISSOLVE 1 TABLET UNDER THE TONGUE EVERY 5 MINUTES NEEDED. - tiotropium (SPIRIVA WITH HANDIHALER) 18 mcg inhalation capsule INHALE CONTENTS OF 1 CAPSULE INSTRUCTED WITH HANDIHALER ONCE DAILY. - traZODone (DESYREL) 100 mg tablet TAKE 1 TABLET BY MOUTH EVERY DAY AT NIGHT - DULoxetine (CYMBALTA) 30 mg capsule Take 30 mg by mouth once daily. - desvenlafaxine ER (PRISTIQ) 100 mg 24 hr tablet Take 100 mg by mouth once daily. - aspirin 81 mg chewable tablet Take 81 mg by mouth once daily. - albuterol (PROVENTIL) 2.5 mg/0.5 mL nebulizer solution Use 0.5 mL via nebulizer every 6 hours as needed. DX J45.909 - ONETOUCH ULTRA BLUE TEST STRIP test strip PATIENT TESTS TWICE DAILY DX E1.65 - Lancets (ONETOUCH ULTRASOFT LANCETS) lancets Check Blood sugar before breakfast and before dinner daily. Dx. E11.65 - dextroamphetamine-amphetamine (ADDERALL) 20 mg tablet Take 1 tablet by mouth twice daily for 30 days. Earliest Fill Date: 01/22/18 - Blood-Glucose Meter ([place]ETOUCH VERIO [place] METER[place] [facility] [place] 3 times daily DX E11.65 - Blood-Glucose Meter monitoring kit 1 Each as needed. Feel with insurance preference Problem List As Of Date 05/14/2025 Noted Resolved NO SHOW [] 02/26/2013 10/12/2014 Migraine [G43.909] 12/16/2013 Hyperlipidemia [E78.5] Hyperthyroidism [E05.90] Depression [F32.A] Type 2 diabetes mellitus with hyperglycemia, wi* Hypertension [I10] Asthma [J45.909] Coronary artery disease [I25.10] ADHD (attention deficit hyperactivity disorder)* OA (osteoarthritis) [M19.90] RAY (obstruc (more content not included)... [facility] 02-18-2025 Note HNO ID: [id number] Author: DANAE COELLO, ? Service: ? Author Type: ? Type: Progress Notes Filed: 02/18/2025 13:30 Note Text: [facility] POPULATION HEALTH NAVIGATION OUTREACH Action/FYI Patient verified PCP is Madhavi Obrien CNP. Encouraged to update with [employer]. Patient Identified by Name and : Yes, via phone Reason for Outreach Attribution: Attribution review/confirmation Care Gap or Scheduling Wellness Visits Care Gap Reviewed:: Annual Wellness visit Breast Cancer screening Colorectal Cancer Screening Outreach Outcome/Action Spoke to patient / parent / legal guardian: PCP confirmed / updated No action required (information or reminder only) PCP field updated Population Health Navigation Workflow Attribution Chart Review Payer: [employer] Navigation Signature: Danae Coello February 18, 2025 1:24 PM [facility] 02-18-2025 History of Present illness Narrative [facility] POPULATION HEALTH NAVIGATION OUTREACH Action/FYI Patient verified PCP is Madhavi Obrien CNP. Encouraged to update with [employer]. Patient Identified by Name and : Yes, via phone Reason for Outreach Attribution: Attribution review/confirmation Care Gap or Scheduling Wellness Visits Care Gap Reviewed:: Annual Wellness visit Breast Cancer screening Colorectal Cancer Screening Outreach Outcome/Action Spoke to patient / parent / legal guardian: PCP confirmed / updated No action required (information or reminder only) PCP field updated Population Health Navigation Workflow Attribution Chart Review Payer: [employer] Navigation Signature: Danae Coello February 18, 2025 1:24 PM documented in this encounter [facility] 02-18-2025 Note HNO ID: [id number] Author: CELIA SIMS CPhT Service: ? Author Type: Pediatric Acute Care Unit Nurse Type: Progress Notes Filed: 02/18/2025 13:20 Note Text: Follow-up: Rx picked up from [facility] on 01/01/25. Confirmed Rx billed through payer: Yes VBO Outcomes: Confirmed pickup by pharmacy Celia Sims CPhT Value Based Care Pharmacy Team [facility] 02-18-2025 Note Patient Outreach (AG FAMPLE) PRASANNA MA ([id number]) 1960 F Date Time Provider Department 02/18/25 MODE DANAEVIDYA TONY During your visit today, we recorded the following information about you: Danae Coello 02/18/2025 1:30 PM Signed [facility] POPULATION HEALTH NAVIGATION OUTREACH Action/FYI Patient verified PCP is Madhavi Obrien CNP. Encouraged to update with [facility]. Patient Identified by Name and : Yes, via phone Reason for Outreach Attribution: Attribution review/confirmation Care Gap or Scheduling Wellness Visits Care Gap Reviewed:: Annual Wellness visit Breast Cancer screening Colorectal Cancer Screening Outreach Outcome/Action Spoke to patient / parent / legal guardian: PCP confirmed / updated No action required (information or reminder only) PCP field updated Population Health Navigation Workflow Attribution Chart Review Payer: Freddy Navigation Signature: Danae Mode February 18, 2025 1:24 PM Allergies As of Date: 02/18/2025 Noted Allergy Reaction B12 (CYANOCOBALAMIN-COBAMAMIDE) 08/18/2013 8 - GI Upset Comments: Patient got dizzy, lightheaded, nauseated. PNEUMOCOCCAL 23-ROSE PS VACCINE 08/18/2013 4 - Hives Comments: Patient got hives, PNEUMOCOCCAL VACCINE 04/27/2022 16 - Unknown Date Reviewed: 07/04/2023 Reviewed by: Derrick Thorpe APRN.BULLARD OPERATOR - Fully Assessed Reason for Visit: Population Health Navigation Outreach [3910] Cmt: [employer] Attributed Member- PCP Attribution Update Sent to Payor Prescriptions as of 02/18/2025 - fluticasone-salmeterol (ADVAIR DISKUS) 100-50 mcg/dose inhaler INHALE 1 PUFF INSTRUCTED TWO TIMES A DAY. - famotidine (PEPCID) 20 mg tablet TAKE 1 TABLET BY MOUTH TWICE A DAY - glipiZIDE (GLUCOTROL) 10 mg tablet TAKE 1 TABLET BY MOUTH TWICE A DAY BEFORE MEALS - albuterol HFA (VENTOLIN HFA) 90 mcg/actuation inhaler Inhale 2 Puffs as instructed every 4 hours as needed for wheezing/shortness of breath. - metFORMIN (GLUCOPHAGE) 1,000 mg tablet TAKE 1 TABLET BY MOUTH TWICE A DAY WITH FOOD - Valsartan-hydroCHLOROthiazide 80-12.5 mg per tablet TAKE 1 TABLET BY MOUTH EVERY DAY - albuterol HFA (PROVENTIL HFA, VENTOLIN HFA) 90 mcg/actuation inhaler take 2 puffs by mouth every 4 hours as needed - atorvastatin (LIPITOR) 40 mg tablet take 1 tablet by mouth every day - linaGLIPtin (TRADJENTA) 5 mg tab take 1 tablet by mouth every day - metoprolol tartrate, short acting, (LOPRESSOR) 50 mg tablet take 1 tablet by mouth twice a day - isosorbide mononitrate ER (IMDUR) 30 mg 24 hr tablet Take 1 tablet by mouth every afternoon. - ondansetron orally disintegrating (ZOFRAN ODT) 4 mg disintegrating tablet Take 1 tablet by mouth every 8 hours as needed for nausea/vomiting. - methIMAzole (TAPAZOLE) 5 mg tablet TAKE 1 TABLET SUNDAY THROUGH SUNDAY, NONE ON SUNDAYS - DULoxetine (CYMBALTA) 60 mg capsule Take 1 capsule by mouth every afternoon. - ferrous sulfate 325 mg (65 mg iron) tablet Take 1 tablet by mouth three times daily with meals. - lancets (TRUEPLUS LANCETS) 30 gauge Inject 1 Each subcutaneously once daily. - ALPRAZolam (XANAX) 1 mg tablet Take 1 mg by mouth four times daily. - BD ULTRAFINE III MINI PEN 31 gauge x 3/16 USE DIRECTED WITH INSULIN - nitroglycerin sublingual (NITROQUICK) 0.4 mg SL tablet DISSOLVE 1 TABLET UNDER THE TONGUE EVERY 5 MINUTES NEEDED. - tiotropium (SPIRIVA WITH HANDIHALER) 18 mcg inhalation capsule INHALE CONTENTS OF 1 CAPSULE INSTRUCTED WITH HANDIHALER ONCE DAILY. - traZODone (DESYREL) 100 mg tablet TAKE 1 TABLET BY MOUTH EVERY DAY AT NIGHT - DULoxetine (CYMBALTA) 30 mg capsule Take 30 mg by mouth once daily. - desvenlafaxine ER (PRISTIQ) 100 mg 24 hr tablet Take 100 mg by mouth once daily. - aspirin 81 mg chewable tablet Take 81 mg by mouth once daily. - albuterol (PROVENTIL) 2.5 mg/0.5 mL nebulizer solution Use 0.5 mL via nebulizer every 6 hours as needed. DX J45.909 - ONETOUCH ULTRA BLUE TEST STRIP test strip PATIENT TESTS TWICE DAILY DX E1.65 - Lancets (ONETOUCH ULTRASOFT LANCETS) lancets Check Blood sugar before breakfast and before dinner daily. Dx. E11.65 - dextroamphetamine-amphetamine (ADDERALL) 20 mg tablet Take 1 tablet by mouth twice daily for 30 days. Earliest Fill Date: 01/22/18 - Blood-Glucose Meter (ONETOUCH VERIO IQ METER) [facility] [place] Patient tests 3 times daily DX E11.65 - Blood-Glucose Meter monitoring kit 1 Each as needed. Feel with insurance preference Problem List As Of Date 02/18/2025 Noted Resolved NO SHOW [] 02/26/2013 10/12/2014 Migraine [G43.909] 12/16/2013 Hyperlipidemia [E78.5] Hyperthyroidism [E05.90] Depression [F32.A] Type 2 diabetes mellitus with hyperglycemia, wi* Hypertension [I10] Asthma [J45.909] Coronary artery disease [I25.10] ADHD (attention deficit hyperactivity disorder)* OA (osteoarthritis) (more content not included)... [facility] 02-05-2025 Note HNO ID: [id number] Author: ALONSO SPRINGER RN Service: ? Author Type: Registered Nurse Type: Progress Notes Filed: 02/05/2025 15:18 Note Text: Value Based Care Coordination Chart Review Provider Action / FYI: Upon review of patient chart, the patient is excluded from Chronic Disease Management Patient is not a candidate for CDM at this time and placed in the following status: Deferred-OON Action taken: No action needed . Alonso Springer RN February 05, 2025 3:18 PM [facility] 02-05-2025 Note Patient Outreach (AM BC) PRASANNA [id number]) 1960 F Date Time Provider Department 02/05/25 ALONSO SPRINGER [facility] During your visit today, we recorded the following information about you: Alonso Springer RN 02/05/2025 3:18 PM Signed Value Based Care Coordination Chart Review Provider Action / FYI: Upon review of patient chart, the patient is excluded from Chronic Disease Management Patient is not a candidate for CDM at this time and placed in the following status: Deferred-OON Action taken: No action needed . Alonso Springer RN February 05, 2025 3:18 PM Allergies As of Date: 02/05/2025 Noted Allergy Reaction B12 (CYANOCOBALAMIN-COBAMAMIDE) 08/18/2013 8 - GI Upset Comments: Patient got dizzy, lightheaded, nauseated. PNEUMOCOCCAL 23-ROSE PS VACCINE 08/18/2013 4 - Hives Comments: Patient got hives, PNEUMOCOCCAL VACCINE 04/27/2022 16 - Unknown Date Reviewed: 07/04/2023 Reviewed by: Derrick Thorpe APRN.BULLARD OPERATOR - Fully Assessed Reason for Visit: Care Coordination [3491] Prescriptions as of 02/05/2025 - fluticasone-salmeterol (ADVAIR DISKUS) 100-50 mcg/dose inhaler INHALE 1 PUFF INSTRUCTED TWO TIMES A DAY. - famotidine (PEPCID) 20 mg tablet TAKE 1 TABLET BY MOUTH TWICE A DAY - glipiZIDE (GLUCOTROL) 10 mg tablet TAKE 1 TABLET BY MOUTH TWICE A DAY BEFORE MEALS - albuterol HFA (VENTOLIN HFA) 90 mcg/actuation inhaler Inhale 2 Puffs as instructed every 4 hours as needed for wheezing/shortness of breath. - metFORMIN (GLUCOPHAGE) 1,000 mg tablet TAKE 1 TABLET BY MOUTH TWICE A DAY WITH FOOD - Valsartan-hydroCHLOROthiazide 80-12.5 mg per tablet TAKE 1 TABLET BY MOUTH EVERY DAY - albuterol HFA (PROVENTIL HFA, VENTOLIN HFA) 90 mcg/actuation inhaler take 2 puffs by mouth every 4 hours as needed - atorvastatin (LIPITOR) 40 mg tablet take 1 tablet by mouth every day - linaGLIPtin (TRADJENTA) 5 mg tab take 1 tablet by mouth every day - metoprolol tartrate, short acting, (LOPRESSOR) 50 mg tablet take 1 tablet by mouth twice a day - isosorbide mononitrate ER (IMDUR) 30 mg 24 hr tablet Take 1 tablet by mouth every afternoon. - ondansetron orally disintegrating (ZOFRAN ODT) 4 mg disintegrating tablet Take 1 tablet by mouth every 8 hours as needed for nausea/vomiting. - methIMAzole (TAPAZOLE) 5 mg tablet TAKE 1 TABLET SUNDAY THROUGH SUNDAY, NONE ON SUNDAYS - DULoxetine (CYMBALTA) 60 mg capsule Take 1 capsule by mouth every afternoon. - ferrous sulfate 325 mg (65 mg iron) tablet Take 1 tablet by mouth three times daily with meals. - lancets (TRUEPLUS LANCETS) 30 gauge Inject 1 Each subcutaneously once daily. - ALPRAZolam (XANAX) 1 mg tablet Take 1 mg by mouth four times daily. - BD ULTRAFINE III MINI PEN 31 gauge x 3/16 USE DIRECTED WITH INSULIN - nitroglycerin sublingual (NITROQUICK) 0.4 mg SL tablet DISSOLVE 1 TABLET UNDER THE TONGUE EVERY 5 MINUTES NEEDED. - tiotropium (SPIRIVA WITH HANDIHALER) 18 mcg inhalation capsule INHALE CONTENTS OF 1 CAPSULE INSTRUCTED WITH HANDIHALER ONCE DAILY. - traZODone (DESYREL) 100 mg tablet TAKE 1 TABLET BY MOUTH EVERY DAY AT NIGHT - DULoxetine (CYMBALTA) 30 mg capsule Take 30 mg by mouth once daily. - desvenlafaxine ER (PRISTIQ) 100 mg 24 hr tablet Take 100 mg by mouth once daily. - aspirin 81 mg chewable tablet Take 81 mg by mouth once daily. - albuterol (PROVENTIL) 2.5 mg/0.5 mL nebulizer solution Use 0.5 mL via nebulizer every 6 hours as needed. DX J45.909 - ONETOUCH ULTRA BLUE TEST STRIP test strip PATIENT TESTS TWICE DAILY DX E1.65 - Lancets (IdentiaUCH ULTRASOFT LANCETS) lancets Check Blood sugar before breakfast and before dinner daily. Dx. E11.65 - dextroamphetamine-amphetamine (ADDERALL) 20 mg tablet Take 1 tablet by mouth twice daily for 30 days. Earliest Fill Date: 01/22/18 - Blood-Glucose Meter (IdentiaUCH VERIO IQ METER) [facility] [place] 3 times daily DX E11.65 - Blood-Glucose Meter monitoring kit 1 Each as needed. Feel with insurance preference Problem List As Of Date 02/05/2025 Noted Resolved NO SHOW [533314] 02/26/2013 10/12/2014 Migraine [G43.909] 12/16/2013 Hyperlipidemia [E78.5] Hyperthyroidism [E05.90] Depression [F32.A] Type 2 diabetes mellitus with hyperglycemia, wi* Hypertension [I10] Asthma [J45.909] Coronary artery disease [I25.10] ADHD (attention deficit hyperactivity disorder)* OA (osteoarthritis) [M19.90] RAY (obstructive sleep apnea) [G47.33] COPD (chronic obstructive pulmonary disease) (H*07/30/2020 Multiple thyroid nodules [E04.2] 04/23/2021 Stenosis of right vertebral artery [I65.01] 02/01/2022 Chronic midline low back pain [M54.50, G89.29] 02/01/2022 Pancreatic cyst [K86.2] 09/27/2022 Congestive heart failure, unspecified HF chroni*02/13/2023 Osteoarthritis of spine at multiple levels [M47*06/20/2023 Encounter Statu (more content not included)... [facility] 01-30-2025 History of Present illness Narrative Prasanna Ma is identified & reviewed as part of population health initiative focused on STAR measures care gaps through data from [employer] (insurer) as a potential candidate for statin therapy with no prescription claims processes for a statin medication in this calendar year. Patient has: PCP at [facility] Patient has: diabetes and ASCVD diagnosis (CAD) Status: Prescribed statin: Atorvastatin 40 mg Follow-up: Routed to pharmacy retail support specialist to confirm case picker VBO Outcomes: Pending Rx pickup Rhonda Flores RPh [facility] Based Care Pharmacy Team documented in this encounter [facility] 01-30-2025 Note HNO ID: [id number] Author: RHONDA FLORES RPh Service: ? Author Type: Pharmacist Type: Progress Notes Filed: 01/30/2025 15:22 Note Text: Prasanna Ma is identified AND reviewed as part of population health initiative focused on STAR measures care gaps through data from [employer] (insurer) as a potential candidate for statin therapy with no prescription claims processes for a statin medication in this calendar year. Patient has: PCP at [facility] Patient has: diabetes and ASCVD diagnosis (CAD) Status: Prescribed statin: Atorvastatin 40 mg Follow-up: Routed to pharmacy retail support specialist to confirm case picker VBO Outcomes: Pending Rx pickup Rhonda Flores RPh Value Based Care Pharmacy Team [facility] 01-30-2025 Note Patient Outreach ([facility]) PRASANNA MA ([id number]) 1960 F Date Time Provider Department 01/30/25 [facility] During your visit today, we recorded the following information about you: Rhonda Flores RPh 01/30/2025 3:22 PM Signed Prasanna Ma is identified AND reviewed as part of population health initiative focused on STAR measures care gaps through data from [employer] (insurer) as a potential candidate for statin therapy with no prescription claims processes for a statin medication in this calendar year. Patient has: PCP at [facility] Patient has: diabetes and ASCVD diagnosis (CAD) Status: Prescribed statin: Atorvastatin 40 mg Follow-up: Routed to pharmacy retail support specialist to confirm case picker VBO Outcomes: Pending Rx pickup Rhonda Flores RPh Value Based Care Pharmacy Team Celia Sims CPhT 02/18/2025 1:20 PM Signed Follow-up: Rx picked up from [facility] Pharm[facility] on 01/01/25. Confirmed Rx billed through payer: Yes VBO Outcomes: Confirmed pickup by pharmacy Celia Sims CPhT Value Based Care Pharmacy Team Allergies As of Date: 01/30/2025 Noted Allergy Reaction B12 (CYANOCOBALAMIN-COBAMAMIDE) 08/18/2013 8 - GI Upset Comments: Patient got dizzy, lightheaded, nauseated. PNEUMOCOCCAL 23-ROSE PS VACCINE 08/18/2013 4 - Hives Comments: Patient got hives, PNEUMOCOCCAL VACCINE 04/27/2022 16 - Unknown Date Reviewed: 07/04/2023 Reviewed by: Derrick Thorpe APRN.BULLARD OPERATOR - Fully Assessed Reason for Visit: Allied Health Visit [5] Cmt: SUPD Prescriptions as of 02/18/2025 - fluticasone-salmeterol (ADVAIR DISKUS) 100-50 mcg/dose inhaler INHALE 1 PUFF INSTRUCTED TWO TIMES A DAY. - famotidine (PEPCID) 20 mg tablet TAKE 1 TABLET BY MOUTH TWICE A DAY - glipiZIDE (GLUCOTROL) 10 mg tablet TAKE 1 TABLET BY MOUTH TWICE A DAY BEFORE MEALS - albuterol HFA (VENTOLIN HFA) 90 mcg/actuation inhaler Inhale 2 Puffs as instructed every 4 hours as needed for wheezing/shortness of breath. - metFORMIN (GLUCOPHAGE) 1,000 mg tablet TAKE 1 TABLET BY MOUTH TWICE A DAY WITH FOOD - Valsartan-hydroCHLOROthiazide 80-12.5 mg per tablet TAKE 1 TABLET BY MOUTH EVERY DAY - albuterol HFA (PROVENTIL HFA, VENTOLIN HFA) 90 mcg/actuation inhaler take 2 puffs by mouth every 4 hours as needed - atorvastatin (LIPITOR) 40 mg tablet take 1 tablet by mouth every day - linaGLIPtin (TRADJENTA) 5 mg tab take 1 tablet by mouth every day - metoprolol tartrate, short acting, (LOPRESSOR) 50 mg tablet take 1 tablet by mouth twice a day - isosorbide mononitrate ER (IMDUR) 30 mg 24 hr tablet Take 1 tablet by mouth every afternoon. - ondansetron orally disintegrating (ZOFRAN ODT) 4 mg disintegrating tablet Take 1 tablet by mouth every 8 hours as needed for nausea/vomiting. - methIMAzole (TAPAZOLE) 5 mg tablet TAKE 1 TABLET SUNDAY THROUGH SUNDAY, NONE ON SUNDAYS - DULoxetine (CYMBALTA) 60 mg capsule Take 1 capsule by mouth every afternoon. - ferrous sulfate 325 mg (65 mg iron) tablet Take 1 tablet by mouth three times daily with meals. - lancets (TRUEPLUS LANCETS) 30 gauge Inject 1 Each subcutaneously once daily. - ALPRAZolam (XANAX) 1 mg tablet Take 1 mg by mouth four times daily. - BD ULTRAFINE III MINI PEN 31 gauge x /16 USE DIRECTED WITH INSULIN - nitroglycerin sublingual (NITROQUICK) 0.4 mg SL tablet DISSOLVE 1 TABLET UNDER THE TONGUE EVERY 5 MINUTES NEEDED. - tiotropium (SPIRIVA WITH HANDIHALER) 18 mcg inhalation capsule INHALE CONTENTS OF 1 CAPSULE INSTRUCTED WITH HANDIHALER ONCE DAILY. - traZODone (DESYREL) 100 mg tablet TAKE 1 TABLET BY MOUTH EVERY DAY AT NIGHT - DULoxetine (CYMBALTA) 30 mg capsule Take 30 mg by mouth once daily. - desvenlafaxine ER (PRISTIQ) 100 mg 24 hr tablet Take 100 mg by mouth once daily. - aspirin 81 mg chewable tablet Take 81 mg by mouth once daily. - albuterol (PROVENTIL) 2.5 mg/0.5 mL nebulizer solution Use 0.5 mL via nebulizer every 6 hours as needed. DX J45.909 - ONETOUCH ULTRA BLUE TEST STRIP test strip PATIENT TESTS TWICE DAILY DX E1.65 - Lancets (ONETOUCH ULTRASOFT LANCETS) lancets Check Blood sugar before breakfast and before dinner daily. Dx. E11.65 - dextroamphetamine-amphetamine (ADDERALL) 20 mg tablet Take 1 tablet by mouth twice daily for 30 days. Earliest Fill Date: 01/22/18 - Blood-Glucose Meter (ONETOUCH VERIO IQ METER[place] [facility] [place] 3 times daily DX E11.65 - Blood-Glucose Meter monitoring kit 1 Each as needed. Feel with insurance preference Problem List As Of Date 01/30/2025 Noted Resolved NO SHOW [[id number]] 02/26/2013 10/12/2014 Migraine [G43.909] 12/16/2013 Hyperlipidemia [E78.5] Hyperthyroidism [E05.90] Depression [F32.A] Type 2 diabetes mellitus with hyperglycemia, wi* Hypertension [I10] Asthma [J45.909] Coronary artery disease [I25.10] ADHD (attention deficit hyperactivity disorder)* OA (osteoarthriti (more content not included)... [facility] 01-14-2025 Note HNO ID: [id number] Author: DANAE COELLO, ? Service: ? Author Type: ? Type: Progress Notes Filed: 01/14/2025 11:24 Note Text: [facility] POPULATION HEALTH NAVIGATION OUTREACH Action/FYI Patient needs encouraged to contact insurance to update PCP on file. Patient Identified by Name and : Yes, via phone Reason for Outreach Attribution: Attribution review/confirmation Care Gap or Scheduling Wellness Visits Care Gap Reviewed:: Annual Wellness visit Breast Cancer screening Colorectal Cancer Screening HBA1C/GMI Outreach Outcome/Action Unable to reach patient: Left message Population Health Navigation Workflow Attribution Chart Review Payer: [employer] Navigation Signature: Danae Coello January 14, 2025 11:18 AM [facility] 01-14-2025 History of Present illness Narrative [facility] POPULATION HEALTH NAVIGATION OUTREACH Action/FYI Patient needs encouraged to contact insurance to update PCP on file. Patient Identified by Name and : Yes, via phone Reason for Outreach Attribution: Attribution review/confirmation Care Gap or Scheduling Wellness Visits Care Gap Reviewed:: Annual Wellness visit Breast Cancer screening Colorectal Cancer Screening HBA1C/GMI Outreach Outcome/Action Unable to reach patient: Left message Population Health Navigation Workflow Attribution Chart Review Payer: Awareness Card Signature: Danae Coello January 14, 2025 11:18 AM documented in this encounter [facility] 01-14-2025 Note Patient Outreach ( AC) PRASANNA MA ([id number]) 1960 F Date Time Provider Department 01/14/25 DANAE COELLO [facility] During your visit today, we recorded the following information about you: Danae Coello 01/14/2025 11:[address] [facility] POPULATION HEALTH NAVIGATION OUTREACH Action/FYI Patient needs encouraged to contact insurance to update PCP on file. Patient Identified by Name and : Yes, via phone Reason for Outreach Attribution: Attribution review/confirmation Care Gap or Scheduling Wellness Visits Care Gap Reviewed:: Annual Wellness visit Breast Cancer screening Colorectal Cancer Screening HBA1C/GMI Outreach Outcome/Action Unable to reach patient: Left message Population Health Navigation Workflow Attribution Chart Review Payer: Freddy Aguirre Signature: Danae Coello January 14, 2025 11:18 AM Allergies As of Date: 01/14/2025 Noted Allergy Reaction B12 (CYANOCOBALAMIN-COBAMAMIDE) 08/18/2013 8 - GI Upset Comments: Patient got dizzy, lightheaded, nauseated. PNEUMOCOCCAL 23-ROSE PS VACCINE 08/18/2013 4 - Hives Comments: Patient got hives, PNEUMOCOCCAL VACCINE 04/27/2022 16 - Unknown Date Reviewed: 07/04/2023 Reviewed by: Derrick Thorpe APRN.BULLARD OPERATOR - Fully Assessed Reason for Visit: Population Health Navigation Outreach [3910] Cmt: [employer] Attributed Member- Chart Review Prescriptions as of 01/14/2025 - fluticasone-salmeterol (ADVAIR DISKUS) 100-50 mcg/dose inhaler INHALE 1 PUFF INSTRUCTED TWO TIMES A DAY. - famotidine (PEPCID) 20 mg tablet TAKE 1 TABLET BY MOUTH TWICE A DAY - glipiZIDE (GLUCOTROL) 10 mg tablet TAKE 1 TABLET BY MOUTH TWICE A DAY BEFORE MEALS - albuterol HFA (VENTOLIN HFA) 90 mcg/actuation inhaler Inhale 2 Puffs as instructed every 4 hours as needed for wheezing/shortness of breath. - metFORMIN (GLUCOPHAGE) 1,000 mg tablet TAKE 1 TABLET BY MOUTH TWICE A DAY WITH FOOD - Valsartan-hydroCHLOROthiazide 80-12.5 mg per tablet TAKE 1 TABLET BY MOUTH EVERY DAY - albuterol HFA (PROVENTIL HFA, VENTOLIN HFA) 90 mcg/actuation inhaler take 2 puffs by mouth every 4 hours as needed - atorvastatin (LIPITOR) 40 mg tablet take 1 tablet by mouth every day - linaGLIPtin (TRADJENTA) 5 mg tab take 1 tablet by mouth every day - metoprolol tartrate, short acting, (LOPRESSOR) 50 mg tablet take 1 tablet by mouth twice a day - isosorbide mononitrate ER (IMDUR) 30 mg 24 hr tablet Take 1 tablet by mouth every afternoon. - ondansetron orally disintegrating (ZOFRAN ODT) 4 mg disintegrating tablet Take 1 tablet by mouth every 8 hours as needed for nausea/vomiting. - methIMAzole (TAPAZOLE) 5 mg tablet TAKE 1 TABLET SUNDAY THROUGH SUNDAY, NONE ON SUNDAYS - DULoxetine (CYMBALTA) 60 mg capsule Take 1 capsule by mouth every afternoon. - ferrous sulfate 325 mg (65 mg iron) tablet Take 1 tablet by mouth three times daily with meals. - lancets (TRUEPLUS LANCETS) 30 gauge Inject 1 Each subcutaneously once daily. - ALPRAZolam (XANAX) 1 mg tablet Take 1 mg by mouth four times daily. - BD ULTRAFINE III MINI PEN 31 gauge x /16 USE DIRECTED WITH INSULIN - nitroglycerin sublingual (NITROQUICK) 0.4 mg SL tablet DISSOLVE 1 TABLET UNDER THE TONGUE EVERY 5 MINUTES NEEDED. - tiotropium (SPIRIVA WITH HANDIHALER) 18 mcg inhalation capsule INHALE CONTENTS OF 1 CAPSULE INSTRUCTED WITH HANDIHALER ONCE DAILY. - traZODone (DESYREL) 100 mg tablet TAKE 1 TABLET BY MOUTH EVERY DAY AT NIGHT - DULoxetine (CYMBALTA) 30 mg capsule Take 30 mg by mouth once daily. - desvenlafaxine ER (PRISTIQ) 100 mg 24 hr tablet Take 100 mg by mouth once daily. - aspirin 81 mg chewable tablet Take 81 mg by mouth once daily. - albuterol (PROVENTIL) 2.5 mg/0.5 mL nebulizer solution Use 0.5 mL via nebulizer every 6 hours as needed. DX J45.909 - ONETOUCH ULTRA BLUE TEST STRIP test strip PATIENT TESTS TWICE DAILY DX E1.65 - Lancets (ONETOUCH ULTRASOFT LANCETS) lancets Check Blood sugar before breakfast and before dinner daily. Dx. E11.65 - dextroamphetamine-amphetamine (ADDERALL) 20 mg tablet Take 1 tablet by mouth twice daily for 30 days. Earliest Fill Date: 01/22/18 - Blood-Glucose Meter (ONETOUCH VERIO IQ METER) [facility] [place] tests 3 times daily DX E11.65 - Blood-Glucose Meter monitoring kit 1 Each as needed. Feel with insurance preference Problem List As Of Date 01/14/2025 Noted Resolved NO SHOW [[id number]] 02/26/2013 10/12/2014 Migraine [G43.909] 12/16/2013 Hyperlipidemia [E78.5] Hyperthyroidism [E05.90] Depression [F32.A] Type 2 diabetes mellitus with hyperglycemia, wi* Hypertension [I10] Asthma [J45.909] Coronary artery disease [I25.10] ADHD (attention deficit hyperactivity disorder)* OA (osteoarthritis) [M19.90] RAY (obstructive sleep apnea) [G47.33] COPD (chronic obstructive pulmonary disease) (H*07/30/2020 Multiple thyroi (more content not included)... [facility] 12-25-2024 Note Right Eye Quality was poor. Scan locations included subfoveal. Progression has been stable. Findings include abnormal foveal contour. Left Eye Quality was poor. Scan locations included subfoveal. Progression has been stable. Findings include abnormal foveal contour. 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 Assessment/Plan Diagnoses and all orders for this visit: Subjective Patient ID: Prasanna Ma is a 64 y.o. female. Chief Complaint Cataract HPI Cataract In both eyes. Associated symptoms include blurred vision, glare, haloes and a need for brighter lights. Severity is moderate. Onset was unknown. Duration of years. Frequency is constant. Context: distance vision, mid-range vision, near vision, reading, watching TV, driving, night driving and dim lighting. Since onset it is rapidly worsening. Affected activities include reading, working on the computer, driving, night driving, watching TV and daily activities. Treatments tried include glasses. Response to treatment was no improvement. Comments Cataract extraction (CE) eval for pt referred by Dr Nugent. Pt states vision has declined significantly, glasses no longer helping vision. Failed vision test for driving exam. Not using any drops. History of strabismus surgery right eye (OD). Retinal scar left eye (OS). No PM or defib No latex allergy No flomax Last edited by MELODY POPE on 12/23/2024 2:32 PM. Current Outpatient Medications (Ophthalmic Agents) Medication Sig Dispense Refill Eqbncopoppw-Zlqjfyjz-Xykhdmrrf 1-0.5-0.075 % solution Administer 1 drop into affected eye(s) in the morning and 1 drop at noon and 1 drop in the evening and 1 drop before bedtime. 10 mL 1 No current facility-administered medications for this visit. (Ophthalmic Agents) Current Outpatient Medications (Other) Medication Sig Dispense Refill albuterol HFA 90 mcg/act inhaler Inhale 2 puffs every 4 (four) hours if needed ALPRAZolam (Xanax) 1 MG tablet Take 1 mg by mouth in the morning and 1 mg at noon and 1 mg in the evening and 1 mg before bedtime. amphetamine-dextroamphetamine (Adderall) 20 MG tablet Take 1 tablet by mouth in the morning and 1 tablet before bedtime. aspirin 81 MG chewable tablet Chew 81 mg in the morning. atorvastatin (Lipitor) 40 MG tablet Take 40 mg by mouth Daily desvenlafaxine (Pristiq) 100 MG 24 hr tablet Take 1 tablet by mouth Daily DULoxetine (Cymbalta) [address] capsule Take 1 capsule by mouth famotidine (Pepcid) 20 MG tablet Take 20 mg by mouth every 12 (twelve) hours ferrous sulfate 325 (65 Fe) MG tablet Take 1 tablet by mouth in the morning and 1 tablet at noon and 1 tablet in the evening. Take with meals. Fluticasone-Salmeterol 100-50 MCG/ACT aerosol powder INHALE 1 PUFF INSTRUCTED TWO TIMES A DAY. glipiZIDE (Glucotrol) 10 MG tablet Take 1 tablet by mouth in the morning and 1 tablet in the evening. Take before meals. isosorbide mononitrate ER (Imdur) 30 MG 24 hr tablet Take 1 tablet by mouth Daily In the afternoon metFORMIN (Glucophage) 1000 MG tablet Take 1 tablet by mouth in the morning and 1 tablet in the evening. Take with meals. methIMAzole (Tapazole) 5 MG tablet Take 1 tablet by mouth Daily Sunday through Sunday - NONE on Sunday metoprolol tartrate (Lopressor) 50 MG tablet Take 50 mg by mouth every 12 (twelve) hours nitroglycerin (Nitrostat) 0.4 MG SL tablet as directed Sublingual Tradjenta 5 MG tablet Take 5 mg by mouth Daily traZODone (Desyrel) 100 MG tablet Take 100 mg by mouth at bedtime No current facility-administered medications for this visit. (Other) Past Medical History: Diagnosis Date Amblyopia of eye, right Cataract Diabetes mellitus ([facility]) Dry eyes H/O heart artery stent Heart attack ([facility]) HTN (hypertension) ([facility]) Hypercholesteremia ([facility]) Hyperthyroidism ([facility]) Mental health disorder Pancreatic cyst ([facility]) Allergies Allergen Reactions Pneumococcal Vaccine Unknown and Hives Patient got hives, Vitamin B12 Hives and GI intolerance Patient got dizzy, lightheaded, nauseated. Review of Systems Constitutional: Negative. HENT: Negative. Eyes: Negative. Respiratory: Negative. Cardiovascular: Negative. Gastrointestinal: Negative. Genitourinary: Negative. Musculoskeletal: Negative. Skin: Negative. Neurological: Negative. Psychiatric/Behavioral: Negative. Hematological: Negative. Endocrine: Negative. Allergic/Immunologic: Negative. Objective Base Eye Exam Visual Acuity (Snellen - Linear) Right Left Dist cc 20/200 20/200 Correction: Glasses Tonometry (Applanation, 3:01 PM) Right Left Pressure 16 16 Pupils Pupils Right PERRL Left PERRL Visual Aguila Left Right Full Full Extraocular Movement Right Left Full Full Neuro/Psych Oriented x3: Yes Dilation Both eyes: 1.0% Mydriacyl @ 2:33 PM Additional Tests Keratometry K1 Cameron K2 Cameron Right 45.75 177 46 87 Left 46.25 180 46.25 90 Slit Lamp and Fundus Exam External Exam Right Left External Brow ptosis Brow ptosis Slit Lamp Exam Right Left Lids/Lashes Blepharitis Blepharitis Conjunctiva/Sclera White and quiet White and quiet Cornea Decreased tear film Decreased tear film Anterior Chamber Deep and quiet Deep and quiet Iris Round and reactive Round and reactive Lens 3+ Nuclear sclerosis, 1+ Cortical cataract, Vacuoles 3+ Nuclear sclerosis, 1+ Cortical cataract, Vacuoles Anterior Vitreous Normal Normal Fundus Exam Right Left Disc Normal Normal Macula 2 DD Macular Scar - staphyloma w/ atrophy and splitting of the retinal layers within 2 DD Macular Scar - staphyloma w/ atrophy and splitting of the retinal layers within Vessels Normal Normal Periphery Normal Normal Refraction Wearing Rx Sphere Cylinder Cameron Right -0.75 -0.50 090 Left -0.50 -1.25 092 Manifest Refraction Sphere Cylinder Cameron Right -1.25 -2.75 090 Left -2.75 -1.50 107 Final Rx Sphere Cylinder Cameron Dist VA Right -1.75 -0.50 090 20/200 Left -2.00 -1.25 100 20/200 Expiration Date: 12/23/2025 Assessment/Plan Age-related nuclear cataract of both eyes - Visually Significant Cataract, OU: I discussed the risks, benefits, alternatives, and expectations of cataract surgery. A complete ophthalmic exam was performed and it was determined that the cataracts were a primary source of vision decline, affecting activities of daily living, necessitating removal. Limited vision post-surgery may occur with pre-existing conditions affecting other areas of the eye or the brain was explained and the patient displayed an understanding. The overall objective is to improve ADLs, not eliminate glasses or restore vision to 20/20. Tests were reviewed - the different lens options were explained including the [id number] fees for any upgrades. Intraocular lens (IOL) selection may be altered either prior to or during the procedure based on the doctor's discretion including reverting to a traditional intraocular lens (IOL). They understood that there will exist the potential of glasses prescription need post surgery for near, distance or possibly both. The patient stated a full understanding and a desire to proceed with the procedure. The patient received cataract measurements and had any additional questions answered. - A complete exam was performed including a physical exam: General: AAOx3 and NAD, Lungs: Clear, Heart: RRR, Abdomen: S/NT/ND, Extremities: no pitting edema. - Coordination of care will be shared with Dr. Nugent. Cataract Surgery for OS will take place - 01/19 and OD - 02/02. Macular dystrophy - I shared with Ms. Ma the presence of an atypical macular scar in both eyes (OU) with an almost staphylomatous appearance and splitting of retinal layers with underlying atrophy. I expressed the guarded nature to her vision post cataract extraction (CE). It is felt that the cataracts are significant enough that their removal is warranted and should improve vision. documented in this encounter [facility] 12-02-2024 Telephone encounter Note Needs appointment [facility] 12-02-2024 Miscellaneous Notes Needs appointment documented in this encounter [facility] 11-21-2024 Note HNO ID: [id number] Author: DANAE RIDER RN Service: ? Author Type: Registered Nurse Type: Progress Notes Filed: 11/21/2024 13:46 Note Text: PRIMARY CARE COORDINATION QUICK NOTE Patient identified by name and date . PCC called pt to reschedule her PCP appointment and introduce Care Coordination services. Pt states that she already has a new family doctor at a local doctor office. She sees a RESIDENTIAL SUPPORT WORKER named Nurse Hendrickson. Pt is now living in [place], [place]. Address updated in Demographics. Pt is no longer eligible for Care Coordination through Jose Thorpe NP since she is seeing a Non-CC PCP. Danae Rider RN [facility] 11-21-2024 History of Present illness Narrative PRIMARY CARE COORDINATION QUICK NOTE Patient identified by name and date . PCC called pt to reschedule her PCP appointment and introduce Care Coordination services. Pt states that she already has a new family doctor at a local doctor office. She sees a RESIDENTIAL SUPPORT WORKER named Nurse Hendrickson. Pt is now living in [place], [place]. Address updated in Demographics. Pt is no longer eligible for Care Coordination through Jose Thorpe NP since she is seeing a Non-CC PCP. Danae Rider RN documented in this encounter [facility] 11-21-2024 Note Patient Outreach (AG ACM) PRASANNA MA ([id number]) 1960 F Date Time Provider Department 11/21/24 DANAE RIDER [facility] During your visit today, we recorded the following information about you: Danae Rider RN 11/21/2024 1:46 PM Signed PRIMARY CARE COORDINATION QUICK NOTE Patient identified by name and date . PCC called pt to reschedule her PCP appointment and introduce Care Coordination services. Pt states that she already has a new family doctor at a local doctor office. She sees a RESIDENTIAL SUPPORT WORKER named Nurse Madhavi. Pt is now living in [place], [place]. Address updated in Demographics. Pt is no longer eligible for Care Coordination through Jose Thorpe NP since she is seeing a Non-CC PCP. Danae Rider RN Allergies As of Date: 11/21/2024 Noted Allergy Reaction B12 (CYANOCOBALAMIN-COBAMAMIDE) 08/18/2013 8 - GI Upset Comments: Patient got dizzy, lightheaded, nauseated. 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 - famotidine (PEPCID) 20 mg tablet TAKE 1 TABLET BY MOUTH TWICE A DAY - glipiZIDE (GLUCOTROL) 10 mg tablet TAKE 1 TABLET BY MOUTH TWICE A DAY BEFORE MEALS - albuterol HFA (VENTOLIN HFA) 90 mcg/actuation inhaler Inhale 2 Puffs as instructed every 4 hours as needed for wheezing/shortness of breath. - metFORMIN (GLUCOPHAGE) 1,000 mg tablet TAKE 1 TABLET BY MOUTH TWICE A DAY WITH FOOD - Valsartan-hydroCHLOROthiazide 80-12.5 mg per tablet TAKE 1 TABLET BY MOUTH EVERY DAY - albuterol HFA (PROVENTIL HFA, VENTOLIN HFA) 90 mcg/actuation inhaler take 2 puffs by mouth every 4 hours as needed - atorvastatin (LIPITOR) 40 mg tablet take 1 tablet by mouth every day - linaGLIPtin (TRADJENTA) 5 mg tab take 1 tablet by mouth every day - metoprolol tartrate, short acting, (LOPRESSOR) 50 mg tablet take 1 tablet by mouth twice a day - isosorbide mononitrate ER (IMDUR) 30 mg 24 hr tablet Take 1 tablet by mouth every afternoon. - ondansetron orally disintegrating (ZOFRAN ODT) 4 mg disintegrating tablet Take 1 tablet by mouth every 8 hours as needed for nausea/vomiting. - methIMAzole (TAPAZOLE) 5 mg tablet TAKE 1 TABLET SUNDAY THROUGH SUNDAY, NONE ON SUNDAYS - DULoxetine (CYMBALTA) 60 mg capsule Take 1 capsule by mouth every afternoon. - ferrous sulfate 325 mg (65 mg iron) tablet Take 1 tablet by mouth three times daily with meals. - lancets (TRUEPLUS LANCETS) 30 gauge Inject 1 Each subcutaneously once daily. - ALPRAZolam (XANAX) 1 mg tablet Take 1 mg by mouth four times daily. - BD ULTRAFINE III MINI PEN 31 gauge x 3/16 USE DIRECTED WITH INSULIN - nitroglycerin sublingual (NITROQUICK) 0.4 mg SL tablet DISSOLVE 1 TABLET UNDER THE TONGUE EVERY 5 MINUTES NEEDED. - tiotropium (SPIRIVA WITH HANDIHALER) 18 mcg inhalation capsule INHALE CONTENTS OF 1 CAPSULE INSTRUCTED WITH HANDIHALER ONCE DAILY. - traZODone (DESYREL) 100 mg tablet TAKE 1 TABLET BY MOUTH EVERY DAY AT NIGHT - DULoxetine (CYMBALTA) 30 mg capsule Take 30 mg by mouth once daily. - desvenlafaxine ER (PRISTIQ) 100 mg 24 hr tablet Take 100 mg by mouth once daily. - aspirin 81 mg chewable tablet Take 81 mg by mouth once daily. - albuterol (PROVENTIL) 2.5 mg/0.5 mL nebulizer solution Use 0.5 mL via nebulizer every 6 hours as needed. DX J45.909 - ONETOUCH ULTRA BLUE TEST STRIP test strip PATIENT TESTS TWICE DAILY DX E1.65 - Lancets (IngogoTOUCH ULTRASOFT LANCETS) lancets Check Blood sugar before breakfast and before dinner daily. Dx. E11.65 - dextroamphetamine-amphetamine (ADDERALL) 20 mg tablet Take 1 tablet by mouth twice daily for 30 days. Earliest Fill Date: 01/22/18 - Blood-Glucose Meter (IdentiaUCH VERIO IQ METER) [facility] [place] tests 3 times daily DX E11.65 - Blood-Glucose Meter monitoring kit 1 Each as needed. Feel with insurance preference Problem List As Of Date 11/21/2024 Noted Resolved NO SHOW [[id number]] 02/26/2013 10/12/2014 Migraine [G43.909] 12/16/2013 Hyperlipidemia [E78.5] Hyperthyroidism [E05.90] Depression [F32.A] Type 2 diabetes mellitus with hyperglycemia, wi* Hypertension [I10] Asthma [J45.909] Coronary artery disease [I25.10] ADHD (attention deficit hyperactivity disorder)* OA (osteoarthritis) [M19.90] RAY (obstructive sleep apnea) [G47.33] COPD (chronic obstructive pulmonary disease) (H*07/30/2020 Multiple thyroid nodules [E04.2] 04/23/2021 Stenosis of right vertebral artery [I65.01] 02/01/2022 Chronic midline low back pain [M54.50, G89.29] 02/01/2022 Pancreatic cyst [K86.2] 09/27/2022 (more content not included)... [facility] 11-17-2024 Telephone encounter Note pharm requesting refills: Last office visit 07/04/2023. Last refill 10/18/2024 .pt cn last apt. On 11/11/2024 Requested Prescriptions Pending Prescriptions Disp Refills fluticasone-salmeterol (ADVAIR DISKUS) 100-50 mcg/dose inhaler [Pharmacy Med Name: FLUTICASONE-SALMETEROL 100-50] 60 Each 0 Sig: INHALE 1 PUFF INSTRUCTED TWO TIMES A DAY. Please review and advise. Zoya Barahona MA [facility] 11-17-2024 Miscellaneous Notes pharm requesting refills: Last office visit 07/04/2023. Last refill 10/18/2024 .pt cn last apt. On 11/11/2024 Requested Prescriptions Pending Prescriptions Disp Refills fluticasone-salmeterol (ADVAIR DISKUS) 100-50 mcg/dose inhaler [Pharmacy Med Name: FLUTICASONE-SALMETEROL 100-50] 60 Each 0 Sig: INHALE 1 PUFF INSTRUCTED TWO TIMES A DAY. Please review and advise. Zoya Barahona MA documented in this encounter [facility] 10-17-2024 Telephone encounter Note pharm requesting refills: Last office visit 07/04/2023. Last refill 07/07/2024 Pt. Was contacted and transferred to the front to schedule appointment. . Requested Prescriptions Pending Prescriptions Disp Refills famotidine (PEPCID) 20 mg tablet [Pharmacy Med Name: FAMOTIDINE 20 MG TABLET] 180 tablet 1 Sig: TAKE 1 TABLET BY MOUTH TWICE A DAY fluticasone-salmeterol (ADVAIR DISKUS) 100-50 mcg/dose inhaler [Pharmacy Med Name: FLUTICASONE-SALMETEROL 100-50] 60 Each 0 Sig: INHALE 1 PUFF INSTRUCTED TWO TIMES A DAY. glipiZIDE (GLUCOTROL) 10 mg tablet [Pharmacy Med Name: GLIPIZIDE 10 MG TABLET] 180 tablet 0 Sig: TAKE 1 TABLET BY MOUTH TWICE A DAY BEFORE MEALS Please review and advise. Zoya Barahona MA [facility] 10-17-2024 Miscellaneous Notes pharm requesting refills: Last office visit 07/04/2023. Last refill 07/07/2024 Pt. Was contacted and transferred to the front to schedule appointment. . Requested Prescriptions Pending Prescriptions Disp Refills famotidine (PEPCID) 20 mg tablet [Pharmacy Med Name: FAMOTIDINE 20 MG TABLET] 180 tablet 1 Sig: TAKE 1 TABLET BY MOUTH TWICE A DAY fluticasone-salmeterol (ADVAIR DISKUS) 100-50 mcg/dose inhaler [Pharmacy Med Name: FLUTICASONE-SALMETEROL 100-50] 60 Each 0 Sig: INHALE 1 PUFF INSTRUCTED TWO TIMES A DAY. glipiZIDE (GLUCOTROL) 10 mg tablet [Pharmacy Med Name: GLIPIZIDE 10 MG TABLET] 180 tablet 0 Sig: TAKE 1 TABLET BY MOUTH TWICE A DAY BEFORE MEALS Please review and advise. Zoya Barahona MA documented in this encounter [facility] 10-13-2024 Telephone encounter Note Lm on vm apt. Needed [facility] 10-13-2024 Miscellaneous Notes Lm on vm apt. Needed pharm requesting refills: Last office visit 07/04/2023. Last refill 08/19/2024 pt. Needs apt. . Requested Prescriptions Pending Prescriptions Disp Refills fluticasone-salmeterol (ADVAIR DISKUS) 100-50 mcg/dose inhaler [Pharmacy Med Name: FLUTICASONE-SALMETEROL 100-50] 60 Each 0 Sig: INHALE 1 PUFF INSTRUCTED TWO TIMES A DAY. Please review and advise. Zoya Barahona MA documented in this encounter [facility] 10-13-2024 Telephone encounter Note pharm requesting refills: Last office visit 07/04/2023. Last refill 08/19/2024 pt. Needs apt. . Requested Prescriptions Pending Prescriptions Disp Refills fluticasone-salmeterol (ADVAIR DISKUS) 100-50 mcg/dose inhaler [Pharmacy Med Name: FLUTICASONE-SALMETEROL 100-50] 60 Each 0 Sig: INHALE 1 PUFF INSTRUCTED TWO TIMES A DAY. Please review and advise. Zoya Barahona MA [facility] 10-02-2024 Telephone encounter Note No Show Documentation Prasanna Ma no showed for an appointment on 10/02/24 with Rachel Danielle APRN.CNP at 11;20 am. She was scheduled for medication refill. I called and was unable to speak with the patient regarding her missed appointment. Prasanna did not state the reason that she missed her appointment was because she did not answer phone call . Resources discussed/offered to patient: left message No show determined to be fault of patient: Yes This is the patients second no show in the last 12 months. Patient was rescheduled for NA. Letter mailed : Yes Is this the Third or Fourth No Show ? No February Anny Boswell October 02, 2024 1:[address] [facility] 10-02-2024 Miscellaneous Notes No Show Documentation Prasanna Ma no showed for an appointment on 10/02/24 with Rachel Danielle APRN.CNP at 11;20 am. She was scheduled for medication refill. I called and was unable to speak with the patient regarding her missed appointment. Prasanna did not state the reason that she missed her appointment was because she did not answer phone call . Resources discussed/offered to patient: left message No show determined to be fault of patient: Yes This is the patients second no show in the last 12 months. Patient was rescheduled for NA. Letter mailed : Yes Is this the Third or Fourth No Show ? No Gloria Boswell October 02, 2024 1:11 PM documented in this encounter [facility] 09-15-2024 Telephone encounter Note Received notification from [employer] stating Ventolin HFA is preferred. New rx sent. Derrick Thorpe APRN.CNP [facility] 09-15-2024 Miscellaneous Notes Received notification from [employer] stating Ventolin HFA is preferred. New rx sent. Derrick Thorpe APRN.CNP documented in this encounter [facility] 09-12-2024 History of Present illness Narrative [facility] POPULATION HEALTH NAVIGATION OUTREACH Action/FYI Patient Identified by Name and : Yes, via EPIC - no outreach needed Reason for Outreach Care Gap or Scheduling Wellness Visits Care Gap Reviewed:: Breast Cancer screening Colorectal Cancer Screening HBA1C/GMI Outreach Outcome/Action Population Health Navigation Workflow Pre-Visit Planning Payer: [employer] Navigation Signature: Danae Coello September 12, 2024 11:08 AM documented in this encounter [facility] 09-12-2024 Note HNO ID: [id number] Author: DANAE COELLO, ? Service: ? Author Type: ? Type: Progress Notes Filed: 09/12/2024 11:09 Note Text: [facility] POPULATION HEALTH NAVIGATION OUTREACH Action/FYI Patient Identified by Name and : Yes, via EPIC - no outreach needed Reason for Outreach Care Gap or Scheduling Wellness Visits Care Gap Reviewed:: Breast Cancer screening Colorectal Cancer Screening HBA1C/GMI Outreach Outcome/Action Population Health Navigation Workflow Pre-Visit Planning Payer: [employer] Navigation Signature: Danae Coello September 12, 2024 11:08 AM [facility] 09-12-2024 Note Patient Outreach (AG FAMMORENO) PRASANNA MA ([id number]) 1960 F Date Time Provider Department 09/12/24 DANAE COELLO During your visit today, we recorded the following information about you: Danae Coello 09/12/2024 11:09 AM Addendum [facility] POPULATION HEALTH NAVIGATION OUTREACH Action/FYI Patient Identified by Name and : Yes, via EPIC - no outreach needed Reason for Outreach Care Gap or Scheduling Wellness Visits Care Gap Reviewed:: Breast Cancer screening Colorectal Cancer Screening HBA1C/GMI Outreach Outcome/Action Population Health Navigation Workflow Pre-Visit Planning Payer: Freddy Aguirre Signature: Danae Coello September 12, 2024 11:08 AM Allergies As of Date: 09/12/2024 Noted Allergy Reaction B12 (CYANOCOBALAMIN-COBAMAMIDE) 08/18/2013 8 - GI Upset Comments: Patient got dizzy, lightheaded, nauseated. PNEUMOCOCCAL 23-ROSE PS VACCINE 08/18/2013 4 - Hives Comments: Patient got hives, PNEUMOCOCCAL VACCINE 04/27/2022 16 - Unknown Date Reviewed: 07/04/2023 Reviewed by: Derrick Thorpe APRN.BULLARD OPERATOR - Fully Assessed Reason for Visit: Population Health Navigation Outreach [3910] Cmt: Freddy Attributed Member- Chart Review Prescriptions as of 09/12/2024 - fluticasone-salmeterol (WIXELA INHUB) 100-50 mcg/dose inhaler INHALE 1 PUFF INSTRUCTED TWO TIMES A DAY. - metFORMIN (GLUCOPHAGE) 1,000 mg tablet TAKE 1 TABLET BY MOUTH TWICE A DAY WITH FOOD - Valsartan-hydroCHLOROthiazide 80-12.5 mg per tablet TAKE 1 TABLET BY MOUTH EVERY DAY - albuterol HFA (PROVENTIL HFA, VENTOLIN HFA) 90 mcg/actuation inhaler take 2 puffs by mouth every 4 hours as needed - atorvastatin (LIPITOR) 40 mg tablet take 1 tablet by mouth every day - linaGLIPtin (TRADJENTA) 5 mg tab take 1 tablet by mouth every day - glipiZIDE (GLUCOTROL) 10 mg tablet take 1 tablet by mouth twice a day before meals - metoprolol tartrate, short acting, (LOPRESSOR) 50 mg tablet take 1 tablet by mouth twice a day - famotidine (PEPCID) 20 mg tablet take 1 tablet by mouth twice a day - isosorbide mononitrate ER (IMDUR) 30 mg 24 hr tablet Take 1 tablet by mouth every afternoon. - ondansetron orally disintegrating (ZOFRAN ODT) 4 mg disintegrating tablet Take 1 tablet by mouth every 8 hours as needed for nausea/vomiting. - methIMAzole (TAPAZOLE) 5 mg tablet TAKE 1 TABLET SUNDAY THROUGH SUNDAY, NONE ON SUNDAYS - DULoxetine (CYMBALTA) 60 mg capsule Take 1 capsule by mouth every afternoon. - ferrous sulfate 325 mg (65 mg iron) tablet Take 1 tablet by mouth three times daily with meals. - lancets (TRUEPLUS LANCETS) 30 gauge Inject 1 Each subcutaneously once daily. - ALPRAZolam (XANAX) 1 mg tablet Take 1 mg by mouth four times daily. - BD ULTRAFINE III MINI PEN 31 gauge x 3/16 USE DIRECTED WITH INSULIN - nitroglycerin sublingual (NITROQUICK) 0.4 mg SL tablet DISSOLVE 1 TABLET UNDER THE TONGUE EVERY 5 MINUTES NEEDED. - tiotropium (SPIRIVA WITH HANDIHALER) 18 mcg inhalation capsule INHALE CONTENTS OF 1 CAPSULE INSTRUCTED WITH HANDIHALER ONCE DAILY. - traZODone (DESYREL) 100 mg tablet TAKE 1 TABLET BY MOUTH EVERY DAY AT NIGHT - DULoxetine (CYMBALTA) 30 mg capsule Take 30 mg by mouth once daily. - desvenlafaxine ER (PRISTIQ) 100 mg 24 hr tablet Take 100 mg by mouth once daily. - aspirin 81 mg chewable tablet Take 81 mg by mouth once daily. - albuterol (PROVENTIL) 2.5 mg/0.5 mL nebulizer solution Use 0.5 mL via nebulizer every 6 hours as needed. DX J45.909 - ONETOUCH ULTRA BLUE TEST STRIP test strip PATIENT TESTS TWICE DAILY DX E1.65 - Lancets (ONETOUCH ULTRASOFT LANCETS) lancets Check Blood sugar before breakfast and before dinner daily. Dx. E11.65 - dextroamphetamine-amphetamine (ADDERALL) 20 mg tablet Take 1 tablet by mouth twice daily for 30 days. Earliest Fill Date: 01/22/18 - Blood-Glucose Meter (ONETOUCH VERIO IQ METER) [facility] [place] 3 times daily DX E11.65 - Blood-Glucose Meter monitoring kit 1 Each as needed. Feel with insurance preference Problem List As Of Date 09/12/2024 Noted Resolved NO SHOW [] 02/26/2013 10/12/2014 Migraine [G43.909] 12/16/2013 Hyperlipidemia [E78.5] Hyperthyroidism [E05.90] Depression [F32.A] Type 2 diabetes mellitus with hyperglycemia, wi* Hypertension [I10] Asthma [J45.909] Coronary artery disease [I25.10] ADHD (attention deficit hyperactivity disorder)* OA (osteoarthritis) [M19.90] RAY (obstructive sleep apnea) [G47.33] COPD (chronic obstructive pulmonary disease) (H*07/30/2020 Multiple thyroid nodules [E04.2] 04/23/2021 Stenosis of right vertebral artery [I65.01] 02/01/2022 Chronic midline low back pain [M54.50, G89.29] 02/01/2022 Pancreatic cyst [K86.2] 09/27/2022 Congestive heart failure, unspecified HF chroni*02/13/2023 Osteoarthritis of spine at multiple levels [M47* (more content not included)... [facility] 08-19-2024 Telephone encounter Note Patient notified . Zoya Barahona MA [facility] 08-19-2024 Miscellaneous Notes Patient notified . Zoya Barahona MA This medication must come from an contact center rep. I do not feel comfortable prescribing it. She needs to see her contact center rep. I prescribed it once because her contact center rep was out of town. Derrick Thorpe APRN.NAVIN pharmacy electronically requesting refills as follows: Last seen 07/04/23 . Last refill 12/31/23 . Next office visit 09/05/24 Requested Prescriptions Pending Prescriptions Disp Refills methIMAzole (TAPAZOLE) 5 mg tablet [Pharmacy Med Name: METHIMAZOLE 5 MG TABLET] 30 tablet 0 Sig: TAKE 1 TABLET SUNDAY THROUGH SUNDAY, NONE ON SUNDAYS Please review and advise. Jane Munoz MA documented in this encounter [facility] 08-19-2024 Telephone encounter Note pharm requesting refills: Last office visit 07/04/2023. Last refill 07/09/2024 .09/05/2024 Requested Prescriptions Pending Prescriptions Disp Refills WIXELA INHUB 100-50 mcg/dose inhaler [Pharmacy Med Name: WIXELA 100-50 INHUB] 60 Each 5 Sig: INHALE 1 PUFF INSTRUCTED TWO TIMES A DAY. metFORMIN (GLUCOPHAGE) 1,000 mg tablet [Pharmacy Med Name: METFORMIN HCL 1,000 MG TABLET] 180 tablet 0 Sig: TAKE 1 TABLET BY MOUTH TWICE A DAY WITH FOOD Please review and advise. Zoya Barahona MA [facility] 08-19-2024 Miscellaneous Notes pharm requesting refills: Last office visit 07/04/2023. Last refill 07/09/2024 .09/05/2024 Requested Prescriptions Pending Prescriptions Disp Refills WIXELA INHUB 100-50 mcg/dose inhaler [Pharmacy Med Name: WIXELA 100-50 INHUB] 60 Each 5 Sig: INHALE 1 PUFF INSTRUCTED TWO TIMES A DAY. metFORMIN (GLUCOPHAGE) 1,000 mg tablet [Pharmacy Med Name: METFORMIN HCL 1,000 MG TABLET] 180 tablet 0 Sig: TAKE 1 TABLET BY MOUTH TWICE A DAY WITH FOOD Please review and advise. Zoya Barahona MA documented in this encounter [facility] 08-18-2024 Telephone encounter Note This medication must come from an contact center rep. I do not feel comfortable prescribing it. She needs to see her contact center rep. I prescribed it once because her contact center rep was out of town. Derrick Thorpe APRN.NAVIN [facility] 08-18-2024 Telephone encounter Note pharmacy electronically requesting refills as follows: Last seen 07/04/23 . Last refill 12/31/23 . Next office visit 09/05/24 Requested Prescriptions Pending Prescriptions Disp Refills methIMAzole (TAPAZOLE) 5 mg tablet [Pharmacy Med Name: METHIMAZOLE 5 MG TABLET] 30 tablet 0 Sig: TAKE 1 TABLET SUNDAY THROUGH SUNDAY, NONE ON SUNDAYS Please review and advise. Jane Munoz MA [facility] 08-15-2024 Telephone encounter Note No Show Documentation Prasanna Ma no showed for an appointment on 09/04/24 with Derrick Thorpe APRN.CNP. She was scheduled for 09/05/24. I called and spoke with the patient regarding her missed appointment. Prasanna stated the reason that she missed her appointment was because did not have a ride. Resources discussed/offered to patient: No show determined to be fault of patient: Yes This is the patients first no show in the last 12 months. Patient was rescheduled for . Letter mailed : N/A Is this the Third or Fourth No Show ? Lena Ryan August 15, 2024 4:[address] [facility] 08-15-2024 Miscellaneous Notes No Show Documentation Prasanna Ma no showed for an appointment on 09/04/24 with Derrick Thorpe APRN.CNP. She was scheduled for 09/05/24. I called and spoke with the patient regarding her missed appointment. Prasanna stated the reason that she missed her appointment was because did not have a ride. Resources discussed/offered to patient: No show determined to be fault of patient: Yes This is the patients first no show in the last 12 months. Patient was rescheduled for . Letter mailed : N/A Is this the Third or Fourth No Show ? Lena Ryan August 15, 2024 4:30 PM documented in this encounter [facility] 08-15-2024 Telephone encounter Note Pharmacy requesting refills as follows: Last Office Visit 07/04/23 08/15/24. Last Refill 08/10/23. Requested Prescriptions Pending Prescriptions Disp Refills Valsartan-hydroCHLOROthiazide 80-12.5 mg per tablet [Pharmacy Med Name: VALSARTAN-HCTZ 80-12.5 MG TAB] 90 tablet 3 Sig: TAKE 1 TABLET BY MOUTH EVERY DAY Please review and advise. Marilou Cole MA [facility] 08-15-2024 Miscellaneous Notes Pharmacy requesting refills as follows: Last Office Visit 07/04/23 08/15/24. Last Refill 08/10/23. Requested Prescriptions Pending Prescriptions Disp Refills Valsartan-hydroCHLOROthiazide 80-12.5 mg per tablet [Pharmacy Med Name: VALSARTAN-HCTZ 80-12.5 MG TAB] 90 tablet 3 Sig: TAKE 1 TABLET BY MOUTH EVERY DAY Please review and advise. Marilou Cole MA documented in this encounter [facility] 07-31-2024 Telephone encounter Note Pharmacy requesting refills as follows: Last Office Visit 07/04/23 08/15/24. Last Refill 05/05/24. Requested Prescriptions Pending Prescriptions Disp Refills albuterol HFA (PROVENTIL HFA, VENTOLIN HFA) 90 mcg/actuation inhaler [Pharmacy Med Name: ALBUTEROL HFA (PROAIR) INHALER] 8.5 Each 1 Sig: take 2 puffs by mouth every 4 hours as needed Please review and advise. Marilou Cole MA [facility] 07-31-2024 Miscellaneous Notes Pharmacy requesting refills as follows: Last Office Visit 07/04/23 08/15/24. Last Refill 05/05/24. Requested Prescriptions Pending Prescriptions Disp Refills albuterol HFA (PROVENTIL HFA, VENTOLIN HFA) 90 mcg/actuation inhaler [Pharmacy Med Name: ALBUTEROL HFA (PROAIR) INHALER] 8.5 Each 1 Sig: take 2 puffs by mouth every 4 hours as needed Please review and advise. Marilou Cole MA documented in this encounter [facility] 07-15-2024 Telephone encounter Note Thank you noted. Derrick Thorpe APRN.NAVIN [facility] 07-15-2024 Miscellaneous Notes Thank you noted. Derrick Thorpe APRN.CNP Patient informed and states she will call her contact center rep today but that it has been coming from Derrick and she is not sure if she will be able to get in with endo and will just stop taking it if she has to. States she has been taking care of her mother in [place] and does not drive. Jane Munoz MA The thyroid medication is prescribed by the contact center rep If she schedules with the contact center rep I would be willing to send in Rx to get her to that appointment with the specialist. Derrick Thorpe APRN.CNP The patient has a scheduled appointment on 08/15/24 at 1:00 pm-first available pm appointment. She is in [place] taking care of her mother. She would like her medication refills sent to [facility] there for 30 days, until her appointment. Please contact the patient as she has been waiting for awhile on her thyroid medication. She can be reached at [phone]. Delilah Krishnan documented in this encounter [facility] 07-15-2024 Telephone encounter Note Patient informed and states she will call her contact center rep today but that it has been coming from Derrick and she is not sure if she will be able to get in with endo and will just stop taking it if she has to. States she has been taking care of her mother in [place] and does not drive. Jane Munoz MA [facility] 07-15-2024 Telephone encounter Note The thyroid medication is prescribed by the contact center rep If she schedules with the contact center rep I would be willing to send in Rx to get her to that appointment with the specialist. Derrick Thorpe APRN.NAVIN [facility] 07-15-2024 Telephone encounter Note The patient has a scheduled appointment on 08/15/24 at 1:00 pm-first available pm appointment. She is in [place] taking care of her mother. She would like her medication refills sent to [facility] there for 30 days, until her appointment. Please contact the patient as she has been waiting for awhile on her thyroid medication. She can be reached at [phone]. Delilah Krishnan [facility] 07-14-2024 Telephone encounter Note Pharmacy requesting refills as follows: Last office visit: 07/13/23 Last refill: atorvastatin 07/07/29 tradjenta 07/12/24 Requested Prescriptions Pending Prescriptions Disp Refills atorvastatin (LIPITOR) 40 mg tablet [Pharmacy Med Name: ATORVASTATIN 40 MG TABLET] 90 tablet 1 Sig: take 1 tablet by mouth every day TRADJENTA 5 mg tab [Pharmacy Med Name: TRADJENTA 5 MG TABLET] 30 tablet 0 Sig: take 1 tablet by mouth every day Please review and advise. Reji Rivers [facility] 07-14-2024 Miscellaneous Notes Pharmacy requesting refills as follows: Last office visit: 07/13/23 Last refill: atorvastatin 07/07/29 tradjenta 07/12/24 Requested Prescriptions Pending Prescriptions Disp Refills atorvastatin (LIPITOR) 40 mg tablet [Pharmacy Med Name: ATORVASTATIN 40 MG TABLET] 90 tablet 1 Sig: take 1 tablet by mouth every day TRADJENTA 5 mg tab [Pharmacy Med Name: TRADJENTA 5 MG TABLET] 30 tablet 0 Sig: take 1 tablet by mouth every day Please review and advise. Reji Rivers documented in this encounter [facility] 07-09-2024 Telephone encounter Note Pharmacy requesting refills as follows: Last office visit: 07/04/23 Last refill: metformin 11/19/2023 glipizide 04/29/24 metoprolol tartrate 02/29/24 Requested Prescriptions Pending Prescriptions Disp Refills metFORMIN (GLUCOPHAGE) 1,000 mg tablet [Pharmacy Med Name: METFORMIN HCL 1,000 MG TABLET] 180 tablet 1 Sig: take 1 tablet by mouth twice a day with food glipiZIDE (GLUCOTROL) 10 mg tablet [Pharmacy Med Name: GLIPIZIDE 10 MG TABLET] 180 tablet 0 Sig: take 1 tablet by mouth twice a day before meals metoprolol tartrate, short acting, (LOPRESSOR) 50 mg tablet [Pharmacy Med Name: METOPROLOL TARTRATE 50 MG TAB] 180 tablet 0 Sig: take 1 tablet by mouth twice a day Please review and advise. Reji Rivers [facility] 07-09-2024 Miscellaneous Notes Pharmacy requesting refills as follows: Last office visit: 07/04/23 Last refill: metformin 11/19/2023 glipizide 04/29/24 metoprolol tartrate 02/29/24 Requested Prescriptions Pending Prescriptions Disp Refills metFORMIN (GLUCOPHAGE) 1,000 mg tablet [Pharmacy Med Name: METFORMIN HCL 1,000 MG TABLET] 180 tablet 1 Sig: take 1 tablet by mouth twice a day with food glipiZIDE (GLUCOTROL) 10 mg tablet [Pharmacy Med Name: GLIPIZIDE 10 MG TABLET] 180 tablet 0 Sig: take 1 tablet by mouth twice a day before meals metoprolol tartrate, short acting, (LOPRESSOR) 50 mg tablet [Pharmacy Med Name: METOPROLOL TARTRATE 50 MG TAB] 180 tablet 0 Sig: take 1 tablet by mouth twice a day Please review and advise. Reji Rivers documented in this encounter [facility] 07-09-2024 Telephone encounter Note Pharmacy requesting refills as follows: Last office visit: 07/04/24 Last refill: 05/16/24 Requested Prescriptions Pending Prescriptions Disp Refills TRADJENTA 5 mg tab [Pharmacy Med Name: TRADJENTA 5 MG TABLET] 30 tablet 0 Sig: take 1 tablet by mouth every day Please review and advise. Reji Rivers [facility] 07-09-2024 Miscellaneous Notes Pharmacy requesting refills as follows: Last office visit: 07/04/24 Last refill: 05/16/24 Requested Prescriptions Pending Prescriptions Disp Refills TRADJENTA 5 mg tab [Pharmacy Med Name: TRADJENTA 5 MG TABLET] 30 tablet 0 Sig: take 1 tablet by mouth every day Please review and advise. Reji Rivers documented in this encounter [facility] 07-09-2024 Telephone encounter Note This medication is prescribed by an contact center rep - She needs to schedule with endocrinology. Once she has that appt scheduled I will send in the refill for her. Then the contact center rep will prescribe it for her. Derrick [facility] 07-09-2024 Miscellaneous Notes This medication is prescribed by an contact center rep - She needs to schedule with endocrinology. Once she has that appt scheduled I will send in the refill for her. Then the contact center rep will prescribe it for her. Derrick Pt promises she will make apt. I transferred her to the front to schedule. She is taking care of her mother in [facility] . She has dementia Last filled 12/31/2023 Last office visit 07/04/2023 documented in this encounter [facility] 07-08-2024 Telephone encounter Note Pt promises she will make apt. I transferred her to the front to schedule. She is taking care of her mother in [facility] . She has dementia Last filled 12/31/2023 Last office visit 07/04/2023 [facility] 07-07-2024 Telephone encounter Note pharm requesting refills: Last office visit 07/04/2023. Last refill 01/02/2024 nov none Requested Prescriptions Pending Prescriptions Disp Refills famotidine (PEPCID) 20 mg tablet [Pharmacy Med Name: FAMOTIDINE 20 MG TABLET] 180 tablet 1 Sig: take 1 tablet by mouth twice a day Please review and advise. Zoya Barahona MA [facility] 07-07-2024 Miscellaneous Notes pharm requesting refills: Last office visit 07/04/2023. Last refill 01/02/2024 nov none Requested Prescriptions Pending Prescriptions Disp Refills famotidine (PEPCID) 20 mg tablet [Pharmacy Med Name: FAMOTIDINE 20 MG TABLET] 180 tablet 1 Sig: take 1 tablet by mouth twice a day Please review and advise. Zoya Barahona MA documented in this encounter [facility] 07-01-2024 Telephone encounter Note pharm requesting refills: Last office visit 07/04/23. Last refil denied rx sent message on the fax that patient needs apt. Requested Prescriptions Pending Prescriptions Disp Refills methIMAzole (TAPAZOLE) 5 mg tablet 30 tablet 2 Sig: TAKE 1 TABLET SUNDAY THROUGH SUNDAY, NONE ON SUNDAYS Please review and advise. Zoya Barahona MA [facility] 07-01-2024 Miscellaneous Notes pharm requesting refills: Last office visit 07/04/23. Last refil denied rx sent message on the fax that patient needs apt. Requested Prescriptions Pending Prescriptions Disp Refills methIMAzole (TAPAZOLE) 5 mg tablet 30 tablet 2 Sig: TAKE 1 TABLET SUNDAY THROUGH SUNDAY, NONE ON SUNDAYS Please review and advise. Zoya Barahona MA documented in this encounter [facility] 06-30-2024 Telephone encounter Note Patient requesting refills as follows: Last Office Visit 07/04/23 NOV none. Last Refill 12/31/23. Requested Prescriptions Pending Prescriptions Disp Refills methIMAzole (TAPAZOLE) 5 mg tablet 30 tablet 2 Sig: TAKE 1 TABLET SUNDAY THROUGH SUNDAY, NONE ON SUNDAYS Please review and advise. Marilou Cole MA [facility] 06-30-2024 Miscellaneous Notes Patient requesting refills as follows: Last Office Visit 07/04/23 NOV none. Last Refill 12/31/23. Requested Prescriptions Pending Prescriptions Disp Refills methIMAzole (TAPAZOLE) 5 mg tablet 30 tablet 2 Sig: TAKE 1 TABLET SUNDAY THROUGH SUNDAY, NONE ON SUNDAYS Please review and advise. Marilou Cole MA documented in this encounter [facility] 06-25-2024 Telephone encounter Note patient phones requesting refills as follows: Last seen 07/04/23 . Last refill 12/31/23. Patient states she is still in [place] taking care of her mother and needs script sent to [facility] in [place]. Requested Prescriptions Pending Prescriptions Disp Refills methIMAzole (TAPAZOLE) 5 mg tablet 30 tablet 2 Sig: TAKE 1 TABLET SUNDAY THROUGH SUNDAY, NONE ON SUNDAYS Please review and advise. Jane Munoz MA [facility] 06-25-2024 Miscellaneous Notes patient phones requesting refills as follows: Last seen 07/04/23 . Last refill 12/31/23. Patient states she is still in [place] taking care of her mother and needs script sent to [facility] in [place]. Requested Prescriptions Pending Prescriptions Disp Refills methIMAzole (TAPAZOLE) 5 mg tablet 30 tablet 2 Sig: TAKE 1 TABLET SUNDAY THROUGH SUNDAY, NONE ON SUNDAYS Please review and advise. Jane Munoz MA documented in this encounter [facility] 06-04-2024 Note HNO ID: [id number] Author: MARIEL GRADY RN Service: ? Author Type: Registered Nurse Type: Progress Notes Filed: 06/04/2024 12:54 Note Text: [facility] POPULATION HEALTH NAVIGATION OUTREACH Action/FYI Patient declines to schedule for care gaps at this time. Will call back when ready to schedule Patient Identified by Name and : Yes, via phone Reason for Outreach Care Gap or Scheduling Wellness Visits Care Gap Reviewed:: Annual Wellness visit Breast Cancer screening Colorectal Cancer Screening HBA1C/GMI KED (UACR/eGFR) Outreach Outcome/Action Spoke to patient / parent / legal guardian: Patient declined to schedule Population Health Navigation Workflow Chart Review Payer: [employer] Navigation Signature: Mariel Grady RN June 04, 2024 12:49 PM [facility] 06-04-2024 History of Present illness Narrative [facility] POPULATION HEALTH NAVIGATION OUTREACH Action/FYI Patient declines to schedule for care gaps at this time. Will call back when ready to schedule Patient Identified by Name and : Yes, via phone Reason for Outreach Care Gap or Scheduling Wellness Visits Care Gap Reviewed:: Annual Wellness visit Breast Cancer screening Colorectal Cancer Screening HBA1C/GMI KED (UACR/eGFR) Outreach Outcome/Action Spoke to patient / parent / legal guardian: Patient declined to schedule Population Health Navigation Workflow Chart Review Payer: [employer] Navigation Signature: Mariel Grady RN June 04, 2024 12:49 PM documented in this encounter [facility] 06-04-2024 Note Patient Outreach ([facility] PRASANNA MA ([id number]) 1960 F Date Time Provider Department 06/04/24 MARIEL GRADY [facility] During your visit today, we recorded the following information about you: Mariel Grady RN 06/04/2024 12:[address] [facility] POPULATION HEALTH NAVIGATION OUTREACH Action/FYI Patient declines to schedule for care gaps at this time. Will call back when ready to schedule Patient Identified by Name and : Yes, via phone Reason for Outreach Care Gap or Scheduling Wellness Visits Care Gap Reviewed:: Annual Wellness visit Breast Cancer screening Colorectal Cancer Screening HBA1C/GMI KED (UACR/eGFR) Outreach Outcome/Action Spoke to patient / parent / legal guardian: Patient declined to schedule Population Health Navigation Workflow Chart Review Payer: Freddy Aguirre Signature: Mariel Grady RN June 04, 2024 12:49 PM Allergies As of Date: 06/04/2024 Noted Allergy Reaction B12 (CYANOCOBALAMIN-COBAMAMIDE) 08/18/2013 8 - GI Upset Comments: Patient got dizzy, lightheaded, nauseated. PNEUMOCOCCAL 23-ROSE PS VACCINE 08/18/2013 4 - Hives Comments: Patient got hives, PNEUMOCOCCAL VACCINE 04/27/2022 16 - Unknown Date Reviewed: 07/04/2023 Reviewed by: Derrick Thorpe APRN.BULLARD OPERATOR - Fully Assessed Reason for Visit: Population Health Navigation Outreach [3910] Cmt: Freddy Attributed Member- Chart Review Prescriptions as of 06/04/2024 - isosorbide mononitrate ER (IMDUR) 30 mg 24 hr tablet Take 1 tablet by mouth every afternoon. - linaGLIPtin (TRADJENTA) 5 mg tab take 1 tablet by mouth every day - ondansetron orally disintegrating (ZOFRAN ODT) 4 mg disintegrating tablet Take 1 tablet by mouth every 8 hours as needed for nausea/vomiting. - albuterol HFA (PROVENTIL HFA, VENTOLIN HFA) 90 mcg/actuation inhaler take 2 puffs by mouth every 4 hours as needed - glipiZIDE (GLUCOTROL) 10 mg tablet take 1 tablet by mouth twice a day before meals - metoprolol tartrate, short acting, (LOPRESSOR) 50 mg tablet take 1 tablet by mouth twice a day - famotidine (PEPCID) 20 mg tablet take 1 tablet by mouth twice a day - methIMAzole (TAPAZOLE) 5 mg tablet TAKE 1 TABLET SUNDAY THROUGH SUNDAY, NONE ON SUNDAYS - metFORMIN (GLUCOPHAGE) 1,000 mg tablet take 1 tablet by mouth twice a day with food - fluticasone-salmeterol (ADVAIR DISKUS) 100-50 mcg/dose inhaler Inhale 1 Puff as instructed two times a day. - Valsartan-hydroCHLOROthiazide 80-12.5 mg per tablet take 1 tablet by mouth every day - atorvastatin (LIPITOR) 40 mg tablet take 1 tablet by mouth every day - DULoxetine (CYMBALTA) 60 mg capsule Take 1 capsule by mouth every afternoon. - ferrous sulfate 325 mg (65 mg iron) tablet Take 1 tablet by mouth three times daily with meals. - lancets (TRUEPLUS LANCETS) 30 gauge Inject 1 Each subcutaneously once daily. - ALPRAZolam (XANAX) 1 mg tablet Take 1 mg by mouth four times daily. - BD ULTRAFINE III MINI PEN 31 gauge x 3/16 USE DIRECTED WITH INSULIN - nitroglycerin sublingual (NITROQUICK) 0.4 mg SL tablet DISSOLVE 1 TABLET UNDER THE TONGUE EVERY 5 MINUTES NEEDED. - tiotropium (SPIRIVA WITH HANDIHALER) 18 mcg inhalation capsule INHALE CONTENTS OF 1 CAPSULE INSTRUCTED WITH HANDIHALER ONCE DAILY. - traZODone (DESYREL) 100 mg tablet TAKE 1 TABLET BY MOUTH EVERY DAY AT NIGHT - DULoxetine (CYMBALTA) 30 mg capsule Take 30 mg by mouth once daily. - desvenlafaxine ER (PRISTIQ) 100 mg 24 hr tablet Take 100 mg by mouth once daily. - aspirin 81 mg chewable tablet Take 81 mg by mouth once daily. - albuterol (PROVENTIL) 2.5 mg/0.5 mL nebulizer solution Use 0.5 mL via nebulizer every 6 hours as needed. DX J45.909 - ONETOUCH ULTRA BLUE TEST STRIP test strip PATIENT TESTS TWICE DAILY DX E1.65 - Lancets (ONETOUCH ULTRASOFT LANCETS) lancets Check Blood sugar before breakfast and before dinner daily. Dx. E11.65 - dextroamphetamine-amphetamine (ADDERALL) 20 mg tablet Take 1 tablet by mouth twice daily for 30 days. Earliest Fill Date: 01/22/18 - Blood-Glucose Meter (ONETOUCH VERIO IQ METER[place] [facility] [place] 3 times daily DX E11.65 - Blood-Glucose Meter monitoring kit 1 Each as needed. Feel with insurance preference Problem List As Of Date 06/04/2024 Noted Resolved NO SHOW [] 02/26/2013 10/12/2014 Migraine [G43.909] 12/16/2013 Hyperlipidemia [E78.5] Hyperthyroidism [E05.90] Depression [F32.A] Type 2 diabetes mellitus with hyperglycemia, wi* Hypertension [I10] Asthma [J45.909] Coronary artery disease [I25.10] ADHD (attention deficit hyperactivity disorder)* OA (osteoarthritis) [M19.90] RAY (obstructive sleep apnea) [G47.33] COPD (chronic obstructive pulmonary disease) (H*07/30/2020 Multiple thyroid nodules [E04.2] 04/23/2021 Stenosis of right vertebral artery [I65.01] 02/01/2022 Chronic midline low back pain [M54.50, G89.29] (more content not included)... [facility] 05-26-2024 Telephone encounter Note Pharmacy has been changed Marilou Cole MA [facility] 05-26-2024 Miscellaneous Notes Pharmacy has been changed Marilou Cole MA documented in this encounter [facility] 05-15-2024 Miscellaneous Notes patient phones requesting refills as follows: Last seen 07/04/23 . Last refill went to [facility] [place] and per patient's message she needs it sent to [facility] in [place]. Tried to call patient back to inform her she is past due for office visit but no answer and not able to leave message. Requested Prescriptions Pending Prescriptions Disp Refills ondansetron orally disintegrating (ZOFRAN ODT) 4 mg disintegrating tablet 9 tablet 0 Sig: Take 1 tablet by mouth every 8 hours as needed for nausea/vomiting. Please review and advise. Jane Munoz MA documented in this encounter [facility] 05-15-2024 Telephone encounter Note patient phones requesting refills as follows: Last seen 07/04/23 . Last refill went to [facility] [place] and per patient's message she needs it sent to [facility] in [place]. Tried to call patient back to inform her she is past due for office visit but no answer and not able to leave message. Requested Prescriptions Pending Prescriptions Disp Refills ondansetron orally disintegrating (ZOFRAN ODT) 4 mg disintegrating tablet 9 tablet 0 Sig: Take 1 tablet by mouth every 8 hours as needed for nausea/vomiting. Please review and advise. Jane Munoz MA [facility] 05-13-2024 Telephone encounter Note Pharm requesting refills: Last office visit 07/04/2023. Last refill 12/31/2023 none none Requested Prescriptions Pending Prescriptions Disp Refills methIMAzole (TAPAZOLE) 5 mg tablet [Pharmacy Med Name: METHIMAZOLE 5 MG TABLET] 90 tablet Sig: TAKE 1 TABLET SUNDAY THROUGH SUNDAY, NONE ON SUNDAYS Please review and advise. Zoya Barahona MA [facility] 05-13-2024 Miscellaneous Notes Pharm requesting refills: Last office visit 07/04/2023. Last refill 12/31/2023 none none Requested Prescriptions Pending Prescriptions Disp Refills methIMAzole (TAPAZOLE) 5 mg tablet [Pharmacy Med Name: METHIMAZOLE 5 MG TABLET] 90 tablet Sig: TAKE 1 TABLET SUNDAY THROUGH SUNDAY, NONE ON SUNDAYS Please review and advise. Zoya Barahona MA documented in this encounter [facility] 05-13-2024 Telephone encounter Note pharmacy requesting refills as follows: Last Office Visit 07/04/23 NOV none. Last Refill 07/04/23. Requested Prescriptions Pending Prescriptions Disp Refills ondansetron orally disintegrating (ZOFRAN ODT) 4 mg disintegrating tablet [Pharmacy Med Name: ONDANSETRON ODT 4 MG TABLET] 9 tablet 5 Sig: take 1 tablet by mouth every 8 hours as needed for nausea and vomiting Please review and advise. Marilou Cole MA [facility] 05-13-2024 Miscellaneous Notes pharmacy requesting refills as follows: Last Office Visit 07/04/23 NOV none. Last Refill 07/04/23. Requested Prescriptions Pending Prescriptions Disp Refills ondansetron orally disintegrating (ZOFRAN ODT) 4 mg disintegrating tablet [Pharmacy Med Name: ONDANSETRON ODT 4 MG TABLET] 9 tablet 5 Sig: take 1 tablet by mouth every 8 hours as needed for nausea and vomiting Please review and advise. Marilou Cole MA documented in this encounter [facility] 05-05-2024 Telephone encounter Note pharmacy electronically requesting refills as follows: Last seen 07/04/23 . Last refill albuterol 02/29/24, methimazole 12/31/23 . No future appointments. Requested Prescriptions Pending Prescriptions Disp Refills albuterol HFA (PROVENTIL HFA, VENTOLIN HFA) 90 mcg/actuation inhaler [Pharmacy Med Name: ALBUTEROL HFA (PROAIR) INHALER] 8.5 Each 2 Sig: take 2 puffs by mouth every 4 hours as needed methIMAzole (TAPAZOLE) 5 mg tablet [Pharmacy Med Name: METHIMAZOLE 5 MG TABLET] 90 tablet Sig: TAKE 1 TABLET SUNDAY THROUGH SUNDAY, NONE ON SUNDAYS Please review and advise. Jane Munoz MA [facility] 05-05-2024 Miscellaneous Notes pharmacy electronically requesting refills as follows: Last seen 07/04/23 . Last refill albuterol 02/29/24, methimazole 12/31/23 . No future appointments. Requested Prescriptions Pending Prescriptions Disp Refills albuterol HFA (PROVENTIL HFA, VENTOLIN HFA) 90 mcg/actuation inhaler [Pharmacy Med Name: ALBUTEROL HFA (PROAIR) INHALER] 8.5 Each 2 Sig: take 2 puffs by mouth every 4 hours as needed methIMAzole (TAPAZOLE) 5 mg tablet [Pharmacy Med Name: METHIMAZOLE 5 MG TABLET] 90 tablet Sig: TAKE 1 TABLET SUNDAY THROUGH SUNDAY, NONE ON SUNDAYS Please review and advise. Jane Munoz MA documented in this encounter [facility] 04-29-2024 Telephone encounter Note pharm requesting refills: Last office visit 07/04/2023. Last refill 01/15/2024 nov .none Requested Prescriptions Pending Prescriptions Disp Refills glipiZIDE (GLUCOTROL) 10 mg tablet [Pharmacy Med Name: GLIPIZIDE 10 MG TABLET] 180 tablet 0 Sig: take 1 tablet by mouth twice a day before meals Please review and advise. Zoya Barahona MA [facility] 04-29-2024 Miscellaneous Notes pharm requesting refills: Last office visit 07/04/2023. Last refill 01/15/2024 nov .none Requested Prescriptions Pending Prescriptions Disp Refills glipiZIDE (GLUCOTROL) 10 mg tablet [Pharmacy Med Name: GLIPIZIDE 10 MG TABLET] 180 tablet 0 Sig: take 1 tablet by mouth twice a day before meals Please review and advise. Zoya Barahona MA documented in this encounter [facility] 04-02-2024 Telephone encounter Note pharm requesting refills: Last office visit 07/04/2023. Last refill 12/31/2023 nov none Requested Prescriptions Pending Prescriptions Disp Refills methIMAzole (TAPAZOLE) 5 mg tablet [Pharmacy Med Name: METHIMAZOLE 5 MG TABLET] 90 tablet Sig: TAKE 1 TABLET SUNDAY THROUGH SUNDAY, NONE ON SUNDAYS Please review and advise. Zoya Barahona MA [facility] 04-02-2024 Miscellaneous Notes pharm requesting refills: Last office visit 07/04/2023. Last refill 12/31/2023 nov none Requested Prescriptions Pending Prescriptions Disp Refills methIMAzole (TAPAZOLE) 5 mg tablet [Pharmacy Med Name: METHIMAZOLE 5 MG TABLET] 90 tablet Sig: TAKE 1 TABLET SUNDAY THROUGH SUNDAY, NONE ON SUNDAYS Please review and advise. Zoya Barahona MA documented in this encounter [facility] 03-27-2024 Telephone encounter Note pharmacy faxes requesting refills as follows: Last seen 07/04/23 . Last refill 12/28/23 . No future appointments Requested Prescriptions Pending Prescriptions Disp Refills methIMAzole (TAPAZOLE) 5 mg tablet [Pharmacy Med Name: METHIMAZOLE 5 MG TABLET] 90 tablet Sig: TAKE 1 TABLET SUNDAY THROUGH SUNDAY, NONE ON SUNDAYS Please review and advise. Jane Munoz MA [facility] 03-27-2024 Miscellaneous Notes pharmacy faxes requesting refills as follows: Last seen 07/04/23 . Last refill 12/28/23 . No future appointments Requested Prescriptions Pending Prescriptions Disp Refills methIMAzole (TAPAZOLE) 5 mg tablet [Pharmacy Med Name: METHIMAZOLE 5 MG TABLET] 90 tablet Sig: TAKE 1 TABLET SUNDAY THROUGH SUNDAY, NONE ON SUNDAYS Please review and advise. Jane Munoz MA documented in this encounter [facility] 03-24-2024 Telephone encounter Note harm requesting refills: Last office visit 07/04/2023. Last refill 12/31/2023 nov none Requested Prescriptions Pending Prescriptions Disp Refills methIMAzole (TAPAZOLE) 5 mg tablet [Pharmacy Med Name: METHIMAZOLE 5 MG TABLET] 90 tablet Sig: TAKE 1 TABLET SUNDAY THROUGH SUNDAY, NONE ON SUNDAYS Please review and advise. Zoya Barahona MA [facility] 03-24-2024 Miscellaneous Notes harm requesting refills: Last office visit 07/04/2023. Last refill 12/31/2023 nov none Requested Prescriptions Pending Prescriptions Disp Refills methIMAzole (TAPAZOLE) 5 mg tablet [Pharmacy Med Name: METHIMAZOLE 5 MG TABLET] 90 tablet Sig: TAKE 1 TABLET SUNDAY THROUGH SUNDAY, NONE ON SUNDAYS Please review and advise. Zoya Barahona MA documented in this encounter [facility] 02-29-2024 Telephone encounter Note Pharmacy requesting refills as follows: Last Office Visit 07/04/23Aug none. Last Refill 01/15/24. Requested Prescriptions Pending Prescriptions Disp Refills albuterol HFA (PROVENTIL HFA, VENTOLIN HFA) 90 mcg/actuation inhaler [Pharmacy Med Name: ALBUTEROL HFA (PROAIR) INHALER] 8.5 Each 2 Sig: inhale 2 puffs by mouth every 4 hours as needed methIMAzole (TAPAZOLE) 5 mg tablet [Pharmacy Med Name: METHIMAZOLE 5 MG TABLET] 90 tablet Sig: TAKE 1 TABLET SUNDAY THROUGH SUNDAY, NONE ON SUNDAYS metoprolol tartrate, short acting, (LOPRESSOR) 50 mg tablet [Pharmacy Med Name: METOPROLOL TARTRATE 50 MG TAB] 180 tablet 0 Sig: take 1 tablet by mouth twice a day Please review and advise. Marilou Cole MA [facility] 02-29-2024 Miscellaneous Notes Pharmacy requesting refills as follows: Last Office Visit 07/04/23Aug none. Last Refill 01/15/24. Requested Prescriptions Pending Prescriptions Disp Refills albuterol HFA (PROVENTIL HFA, VENTOLIN HFA) 90 mcg/actuation inhaler [Pharmacy Med Name: ALBUTEROL HFA (PROAIR) INHALER] 8.5 Each 2 Sig: inhale 2 puffs by mouth every 4 hours as needed methIMAzole (TAPAZOLE) 5 mg tablet [Pharmacy Med Name: METHIMAZOLE 5 MG TABLET] 90 tablet Sig: TAKE 1 TABLET SUNDAY THROUGH SUNDAY, NONE ON SUNDAYS metoprolol tartrate, short acting, (LOPRESSOR) 50 mg tablet [Pharmacy Med Name: METOPROLOL TARTRATE 50 MG TAB] 180 tablet 0 Sig: take 1 tablet by mouth twice a day Please review and advise. Marilou Cole MA documented in this encounter [facility] 02-05-2024 Telephone encounter Note Needs to see contact center rep. Derrick Thorpe APRN.NAVIN [facility] 02-05-2024 Miscellaneous Notes Needs to see contact center rep. Derrick Thorpe APRN.CNP pharm requesting refills: Last office visit 07/04/2023. Last refill 12/31/2023 nov none Requested Prescriptions Pending Prescriptions Disp Refills methIMAzole (TAPAZOLE) 5 mg tablet [Pharmacy Med Name: METHIMAZOLE 5 MG TABLET] 90 tablet Sig: TAKE 1 TABLET SUNDAY THROUGH SUNDAY, NONE ON SUNDAYS Please review and advise. Zoya Barahona MA documented in this encounter [facility] 02-05-2024 Telephone encounter Note pharm requesting refills: Last office visit 07/04/2023. Last refill 12/31/2023 nov none Requested Prescriptions Pending Prescriptions Disp Refills methIMAzole (TAPAZOLE) 5 mg tablet [Pharmacy Med Name: METHIMAZOLE 5 MG TABLET] 90 tablet Sig: TAKE 1 TABLET SUNDAY THROUGH SUNDAY, NONE ON SUNDAYS Please review and advise. Zoya Barahona MA [facility] 01-22-2024 Miscellaneous Notes pharmacy electronically requesting refills as follows: Last seen 07/04/23 . Last refill 07/30/23 . Requested Prescriptions Pending Prescriptions Disp Refills isosorbide mononitrate ER (IMDUR) 30 mg 24 hr tablet [Pharmacy Med Name: ISOSORBIDE MONONIT ER 30 MG TB] 90 tablet 1 Sig: take 1 tablet by mouth every day Please review and advise. Jane Munoz MA documented in this encounter [facility] 01-15-2024 Miscellaneous Notes pharm requesting refills: Last office visit 07/04/2023. Last refill glipizide last filled 10/09/2023 albuterol HFA last filled 03/27/2019 Requested Prescriptions Pending Prescriptions Disp Refills glipiZIDE (GLUCOTROL) 10 mg tablet [Pharmacy Med Name: GLIPIZIDE 10 MG TABLET] 180 tablet 0 Sig: take 1 tablet by mouth twice a day before meals albuterol HFA (PROVENTIL HFA, VENTOLIN HFA) 90 mcg/actuation inhaler [Pharmacy Med Name: ALBUTEROL HFA (PROAIR) INHALER] 8.5 Each 2 Sig: take 2 puffs by mouth every 4 hours as needed Please review and advise. Zoya Barahona MA documented in this encounter [facility] 01-02-2024 Miscellaneous Notes pharm requesting refills: Last office visit 07/04/2023. Last refill 06/25/2023 nov none Requested Prescriptions Pending Prescriptions Disp Refills famotidine (PEPCID) 20 mg tablet [Pharmacy Med Name: FAMOTIDINE 20 MG TABLET] 180 tablet 1 Sig: take 1 tablet by mouth twice a day Please review and advise. Zoya Barahona MA documented in this encounter [facility] 12-18-2023 Miscellaneous Notes pharm requesting refills: Last office visit 07/04/2023. Last refill 11/23/2023 nov none Requested Prescriptions Pending Prescriptions Disp Refills metoprolol tartrate, short acting, (LOPRESSOR) 50 mg tablet [Pharmacy Med Name: METOPROLOL TARTRATE 50 MG TAB] 180 tablet 0 Sig: take 1 tablet by mouth twice a day Please review and advise. Zoya Barahona MA documented in this encounter [facility] 11-28-2023 Miscellaneous Notes Addended by: DERRICK THORPE on: 11/28/2023 12:04 PM Modules accepted: Orders 30 day supply sent to [facility]. Derrick Thorpe APRN.BULLARD OPERATOR Patient states he is out of town , she was wondering if you can send it in this one time. Please advise. Zoya Barahona MA pharm requesting refills: Last office visit 07/04/2023. Last refill 08/24/2023 nov na. Going out of town needs today Requested Prescriptions Pending Prescriptions Disp Refills methIMAzole (TAPAZOLE) 5 mg tablet 30 tablet 0 Sig: TAKE 1 TABLET SUNDAY THROUGH SUNDAY, NONE ON SUNDAYS Please review and advise. Zoya Barahona MA documented in this encounter [facility] 11-26-2023 Miscellaneous Notes Patient phones requesting refills as follows: Last seen 07/04/23 . Last refill 08/24/23 by endo. Patient left message stating her contact center rep told her that her pcp could prescribe this medication. States she is going out of town to her mothers for the next 3-4 weeks because she just got out of the hospital and has dementia and she needs a refill before she leaves. Requested Prescriptions Pending Prescriptions Disp Refills methIMAzole (TAPAZOLE) 5 mg tablet 30 tablet 0 Sig: TAKE 1 TABLET SUNDAY THROUGH SUNDAY, NONE ON SUNDAYS Please review and advise. Jane Munoz MA documented in this encounter [facility] 11-23-2023 Miscellaneous Notes Pharmacy requesting refills as follows: Last Office Visit 07/04/23. Last Refill 07/08/21. Requested Prescriptions Pending Prescriptions Disp Refills metoprolol tartrate, short acting, (LOPRESSOR) 50 mg tablet 180 tablet 0 Sig: Take 1 tablet by mouth two times a day. Please review and advise. Marilou Cole MA documented in this encounter [facility] 11-21-2023 Miscellaneous Notes pharmacy electronically requesting refills as follows: Last seen 07/04/23 . Last refill 04/20/23 . Requested Prescriptions Pending Prescriptions Disp Refills TRADJENTA 5 mg tab [Pharmacy Med Name: TRADJENTA 5 MG TABLET] 30 tablet 6 Sig: take 1 tablet by mouth every day Please review and advise. Jane Munoz MA documented in this encounter [facility] 11-19-2023 Miscellaneous Notes pharm requesting refills: Last office visit 07/04/2023. Last refill albuterol last filled 08/28/2023 metformin last filled 07/12/2023 nov none Requested Prescriptions Pending Prescriptions Disp Refills metFORMIN (GLUCOPHAGE) 1,000 mg tablet [Pharmacy Med Name: METFORMIN HCL 1,000 MG TABLET] 180 tablet 1 Sig: take 1 tablet by mouth twice a day with food albuterol HFA (PROVENTIL HFA, VENTOLIN HFA) 90 mcg/actuation inhaler [Pharmacy Med Name: ALBUTEROL HFA (VENTOLIN) INH] 18 Each 2 Sig: inhale 2 puffs by mouth every 4 hours as needed Please review and advise. Zoya Barahona MA documented in this encounter [facility] 09-25-2023 Miscellaneous Notes Pharmacy comment: Alternative Requested:NOT ON FORMULARY. documented in this encounter [facility] 08-27-2023 Miscellaneous Notes pharmacy electronically requesting refills as follows: Last seen 07/04/23 . Last refill 07/12/23 . Requested Prescriptions Pending Prescriptions Disp Refills albuterol HFA (PROVENTIL HFA, VENTOLIN HFA) 90 mcg/actuation inhaler [Pharmacy Med Name: ALBUTEROL HFA (VENTOLIN) INH] 18 Each 2 Sig: take 2 puffs by mouth every 4 hours as needed Please review and advise. Jane Munoz MA documented in this encounter [facility] 08-09-2023 Miscellaneous Notes Pharmacy requesting refills as follows: Last Office Visit 07/04/23. Last Refill 10/06/22. Requested Prescriptions Pending Prescriptions Disp Refills Valsartan-hydroCHLOROthiazide 80-12.5 mg per tablet [Pharmacy Med Name: VALSARTAN-HCTZ 80-12.5 MG TAB] 90 tablet 3 Sig: take 1 tablet by mouth every day Please review and advise. Marilou Cole MA documented in this encounter [facility] 08-06-2023 Miscellaneous Notes phar requesting refills: Last office visit 07/04/23. Last refill 07/16/23 nov na Requested Prescriptions Pending Prescriptions Disp Refills glipiZIDE (GLUCOTROL) 10 mg tablet [Pharmacy Med Name: GLIPIZIDE 10 MG TABLET] 180 tablet 0 Sig: take 1 tablet by mouth twice a day before meals Please review and advise. Zoya Barahona MA documented in this encounter [facility] 07-30-2023 Miscellaneous Notes pharm requesting refills: Last office visit 07/04/2023. Last refill 02/05/23 nov none Requested Prescriptions Pending Prescriptions Disp Refills isosorbide mononitrate ER (IMDUR) 30 mg 24 hr tablet [Pharmacy Med Name: ISOSORBIDE MONONIT ER 30 MG TB] 90 tablet 1 Sig: take 1 tablet by mouth every day Please review and advise. Zoya Barahona MA documented in this encounter [facility] 07-27-2023 Miscellaneous Notes Patient notified. Zoya Barahona MA Lm on pt. Vm to get MRI done. Also advised to call back letting us know she go the message and understands. Zoya Barahona MA Thank you. Please see orders. Derrick Thorpe APRN.BULLARD OPERATOR ----- Message from Zoya Barahona MA sent at 07/27/2022 1:28 PM EDT ----- Remind pt. Time to recheck MRI (pancreatic cyst). Zoya Barahona MA documented in this encounter [facility] 07-16-2023 Miscellaneous Notes Pharmacy requesting refills: Last office visit 07/04/23. Last refill 04/19/23 nov . Requested Prescriptions Pending Prescriptions Disp Refills glipiZIDE (GLUCOTROL) 10 mg tablet [Pharmacy Med Name: GLIPIZIDE 10 MG TABLET] 180 tablet 0 Sig: take 1 tablet by mouth twice a day before meals Please review and advise. Zoya Barahona MA p documented in this encounter [facility] 07-12-2023 Miscellaneous Notes pharmacy electronically requesting refills as follows: Last seen 07/04/23 . Last refill albuterol 05/30/23, metformin 12/25/22 . Requested Prescriptions Pending Prescriptions Disp Refills metFORMIN (GLUCOPHAGE) 1,000 mg tablet [Pharmacy Med Name: METFORMIN HCL 1,000 MG TABLET] 180 tablet 1 Sig: take 1 tablet by mouth twice a day with meals albuterol HFA (PROVENTIL HFA, VENTOLIN HFA) 90 mcg/actuation inhaler [Pharmacy Med Name: ALBUTEROL HFA (VENTOLIN) INH] 18 Each 2 Sig: inhale 2 puffs by mouth every 4 hours as needed Please review and advise. Jane Munoz MA documented in this encounter [facility] 07-06-2023 Miscellaneous Notes Left message on patients vm with lab results. Zoya Barahona MA ----- Message from Derrick Thorpe APRN.BULLARD OPERATOR sent at 07/05/2023 10:13 PM EDT ----- Please notify patient results are normal. Thank you. Derrick Thorpe APRN.BULLARD OPERATOR documented in this encounter [facility] 07-04-2023 History of Present illness Narrative This note was created using Kairos[employer]. Subjective Prasanna Ma is a 62 year old female here today for ER follow-up fall. I reviewed past medical, surgical, social, and family histories today and updated chart. Allergies, chronic medications, and supplements were also reviewed. Patient went to [facility] on 06/20/23 for fall. Went to take her trash out, concrete patio, went to throw the bag and lost her balance Back of head was injured and sore It is feeling better now She felt like she had concussion - headache, fatigue Labs, EKG, CXR, and CT brain, cervical, thoracic, lumbar spine done Low sodium Eats a lot of salt - uses sea salt Has not drank alcohol for 15 years PAST MEDICAL HISTORY Diagnosis Date ADHD (attention deficit hyperactivity disorder) Jaswinder Morfin NP Asthma no hospitalization Congestive heart failure, unspecified HF chronicity, unspecified heart failure type ([facility]) 02/13/2023 COPD (chronic obstructive pulmonary disease) ([facility]) 07/30/2020 Coronary artery disease [address] Heredia Depression Jaswinder Morfin NP Diabetes ([facility]) 2004 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 Cortez, vascular PAST SURGICAL HISTORY Procedure Laterality Date HYSTERECTOMY HX 2000 ovaries gone 2007 KNEE SURGERY HX Right 2020 ORTHOPEDICS SURGERY HX bilateral arthroscopic knees PAST SURGICAL HISTORY OF cardiac stents PAST SURGICAL HISTORY OF 1980 nose surgery- bone fragments PAST SURGICAL HISTORY OF 1974 eye surgery- strabimus. early 20's PAST SURGICAL HISTORY OF Right 09/26/2021 knee STENT PLACEMENT 2014 RCA 11/2014 STENT PLACEMENT 2006 STENT PLACEMENT 2007 STENT PLACEMENT 2013 ALLERGIES B12 [Cyanocobalamin-Cobamamide], Pneumococcal 23-Rose Ps Vaccine, and Pneumococcal Vaccine MEDICATIONS DULoxetine (CYMBALTA) 60 mg capsule Take 1 capsule by mouth every afternoon. famotidine (PEPCID) 20 mg tablet TAKE 1 TABLET BY MOUTH TWICE A DAY albuterol HFA (PROVENTIL HFA, VENTOLIN HFA) 90 mcg/actuation inhaler TAKE 2 PUFFS BY MOUTH EVERY 4 HOURS NEEDED atorvastatin (LIPITOR) 40 mg tablet TAKE 1 TABLET BY MOUTH EVERY DAY methIMAzole (TAPAZOLE) 5 mg tablet TAKE 1 TABLET SUNDAY THROUGH SUNDAY, NONE ON SUNDAYS TRADJENTA 5 mg tab TAKE 1 TABLET BY MOUTH EVERY DAY glipiZIDE (GLUCOTROL) 10 mg tablet TAKE 1 TABLET BY MOUTH TWICE A DAY BEFORE MEALS isosorbide mononitrate ER (IMDUR) 30 mg 24 hr tablet TAKE 1 TABLET BY MOUTH EVERY DAY metFORMIN (GLUCOPHAGE) 1,000 mg tablet TAKE 1 TABLET BY MOUTH TWICE A DAY WITH MEALS Valsartan-hydroCHLOROthiazide 80-12.5 mg per tablet TAKE 1 TABLET BY MOUTH EVERY DAY ferrous sulfate 325 mg (65 mg iron) tablet Take 1 tablet by mouth three times daily with meals. blood sugar diagnostic (TRUE METRIX GLUCOSE TEST STRIP) test strip 1 Strip once daily. Use as instructed lancets (TRUEPLUS LANCETS) 30 gauge Inject 1 Each subcutaneously once daily. ALPRAZolam (XANAX) 1 mg tablet Take 1 mg by mouth four times daily. BD ULTRAFINE III MINI PEN 31 gauge x /16 USE DIRECTED WITH INSULIN nitroglycerin sublingual (NITROQUICK) 0.4 mg SL tablet DISSOLVE 1 TABLET UNDER THE TONGUE EVERY 5 MINUTES NEEDED. BREO ELLIPTA 200-25 mcg/dose inhaler INHALE 1 INHALATION INSTRUCTED ONCE DAILY. tiotropium (SPIRIVA WITH HANDIHALER) 18 mcg inhalation capsule INHALE CONTENTS OF 1 CAPSULE INSTRUCTED WITH HANDIHALER ONCE DAILY. metoprolol tartrate, short acting, (LOPRESSOR) 50 mg tablet TAKE 1 TABLET BY MOUTH TWICE A DAY traZODone (DESYREL) 100 mg tablet TAKE 1 TABLET BY MOUTH EVERY DAY AT NIGHT DULoxetine (CYMBALTA) 30 mg capsule Take 30 mg by mouth once daily. desvenlafaxine ER (PRISTIQ) 100 mg 24 hr tablet Take 100 mg by mouth once daily. aspirin 81 mg chewable tablet Take 81 mg by mouth once daily. albuterol (PROVENTIL) 2.5 mg/0.5 mL nebulizer solution Use 0.5 mL via nebulizer every 6 hours as needed. DX J45.909 ONETOUCH ULTRA BLUE TEST STRIP test strip PATIENT TESTS TWICE DAILY DX E1.65 Lancets (IngogoTOUCH ULTRASOFT LANCETS) lancets Check Blood sugar before breakfast and before dinner daily. Dx. E11.65 dextroamphetamine-amphetamine (ADDERALL) 20 mg tablet Take 1 tablet by mouth twice daily for 30 days. Earliest Fill Date: 01/22/18 (Patient taking differently: Take 20 mg by mouth three times daily.) Blood-Glucose Meter (IngogoTOUCH VERIO IQ METER[place] [facility] [place] 3 times daily DX E11.65 Blood-Glucose Meter monitoring kit 1 Each as needed. Feel with insurance preference FAMILY HISTORY Problem Relation Age of Onset Heart disease Mother Hypertension Mother Hyperlipidemia Mother Cancer Father 21 ? type other (Tuberculosis) Father Cancer Maternal Grandmother throat, nonsmoker other (no diabetes) Other Kidney Disease Sister 25 age 24 other (no colon cancer) Other other (no breast cancer) Other Ischemic Heart Disease Other m uncles Social History Tobacco Use Smoking status: Every Day Packs/day: 1.00 Years: 30.00 Additional pack years: 0.00 Total pack years: 30.00 Types: Cigarettes Smokeless tobacco: Never Vaping Use Vaping Use: Never used Substance Use Topics Alcohol use: No Drug use: No Review of Systems Constitutional: Negative for appetite change, chills, fatigue, fever and unexpected weight change. HENT: Negative for congestion, ear pain, rhinorrhea and sore throat. Eyes: Negative for pain, discharge, itching and visual disturbance. Respiratory: Negative for cough, shortness of breath and wheezing. Cardiovascular: Negative for chest pain, palpitations and leg swelling. Gastrointestinal: Negative for abdominal pain, constipation, diarrhea, nausea and vomiting. Genitourinary: Negative for difficulty urinating. Musculoskeletal: Positive for arthralgias and back pain. Skin: Negative for rash. Neurological: Positive for headaches. Negative for dizziness, tremors and weakness. Psychiatric/Behavioral: Negative for dysphoric mood and sleep disturbance. The patient is not nervous/anxious. Objective BP 122/74 Pulse 78 Temp 36.8 C (98.2 F) Ht 162.6 cm (5' 4 ) Wt 61.7 kg (136 lb) SpO2 98% BMI 23.34 kg/m Physical Exam Constitutional: Appearance: She is not toxic-appearing or diaphoretic. HENT: Head: Normocephalic and atraumatic. Right Ear: Hearing, tympanic membrane, ear canal and external ear normal. Left Ear: Hearing, tympanic membrane, ear canal and external ear normal. Nose: Nose normal. No mucosal edema or rhinorrhea. Right Sinus: No frontal sinus tenderness. Left Sinus: No frontal sinus tenderness. Mouth/Throat: Lips: Mckay. Mouth: Mucous membranes are moist. Pharynx: Oropharynx is clear. Eyes: General: Lids are normal. Extraocular Movements: Extraocular movements intact. Conjunctiva/sclera: Conjunctivae normal. Pupils: Pupils are equal, round, and reactive to light. Neck: Vascular: No carotid bruit. Cardiovascular: Rate and Rhythm: Normal rate and regular rhythm. Heart sounds: Normal heart sounds. Pulmonary: Effort: Pulmonary effort is normal. Breath sounds: Normal breath sounds. Musculoskeletal: General: Normal range of motion. Cervical back: Normal range of motion and neck supple. Lymphadenopathy: Cervical: No cervical adenopathy. Skin: General: Skin is warm and dry. Findings: No rash. Neurological: General: No focal deficit present. Mental Status: She is alert and oriented to person, place, and time. Cranial Nerves: No cranial nerve deficit. Sensory: Sensation is intact. Motor: Motor function is intact. Coordination: Coordination is intact. Gait: Gait is intact. Gait normal. Psychiatric: Attention and Perception: Attention and perception normal. Mood and Affect: Mood and affect normal. Speech: Speech normal. Behavior: Behavior normal. Behavior is cooperative. Thought Content: Thought content normal. Cognition and Memory: Cognition and memory normal. Judgment: Judgment normal. Component Latest Ref Rng & Units 02/20/2022 09/27/2022 02/13/2023 07/04/2023 Hemoglobin A1C 4.3 - 5.6 % 7.1 (H) Estimated Average Glucose mg/dL 157 Hemoglobin A1C (POCT) 4.2 - 5.6 % 7.5 (A) 7.9 (A) 7.3 (A) ASSESSMENT/PLAN: 1. Fall in home, subsequent encounter - ICD9: V58.89, E888.9, ICD10: W19.XXXD, Y92.009 (primary diagnosis) ER evaluation was normal besides low sodium Rechecking labs Patient is feeling better 2. Hyponatremia - ICD9: 276.1, ICD10: E87.1 Recheck labs - BASIC METABOLIC PNL - T4 FREE/FREE THYROX - TSH BLD 3. Rheumatoid arthritis involving vertebra, unspecified whether rheumatoid factor present (HCC) - ICD9: 714.0, ICD10: M45.9 DXA scan ordered for OP screening 4. Type 2 diabetes mellitus with hyperglycemia, without long-term current use of insulin (HCC) - ICD9: 250.00, 790.29, ICD10: E11.65 - Controlled - Continue current medications - Follow up in 3 months, sooner should any other issues arise. - HEMOGLOBIN A1C (POC) - ALBUMIN/CREAT RATIO RND UR 5. Screening for osteoporosis - ICD9: V82.81, ICD10: Z13.820 - DXA-AXIAL SKELETON 6. Post-menopausal - ICD9: V49.81, ICD10: Z78.0 - DXA-AXIAL SKELETON 7. Pure hypercholesterolemia - ICD9: 272.0, ICD10: E78.00 Continue atorvastatin 40 mg daily - LIPID PANEL BASIC Derrick Thorpe APRN.BULLARD OPERATOR documented in this encounter [facility] 06-26-2023 History of Present illness Narrative ED Follow Up: Patient discharged from [facility] ED on 06/20/23. 1. How are you feeling since your ED visit? Still a little sore Have your symptoms improved or resolved? Yes 2. Were you prescribed any medications while in the ED or advised to stop any medication? No - If yes, were you able to fill your prescriptions? Not applicable -if stopped medication, what was the medication? N/A 3. Were you advised to schedule a follow up appointment with your provider? Yes - If no, Do you feel like you need an appointment scheduled? Yes - If yes, Do you need this scheduled now or has this already been scheduled? Yes 4. Were you able to contact the office or director of solutions architecture provider prior to your ED visit? No 5. Is there anything else I can do for you today? No Marilou Cole MA documented in this encounter [facility] 06-25-2023 Miscellaneous Notes Pharmacy requesting refills as follows: Last Office Visit 02/13/23. Last Refill 01/26/23. Requested Prescriptions Pending Prescriptions Disp Refills famotidine (PEPCID) 20 mg tablet [Pharmacy Med Name: FAMOTIDINE 20 MG TABLET] 180 tablet 1 Sig: TAKE 1 TABLET BY MOUTH TWICE A DAY Please review and advise. Marilou Cole MA documented in this encounter [facility] 06-04-2023 Miscellaneous Notes No Show Documentation Prasanna Ma no showed for an appointment on 06/04/2023 with Amie Otto APRN.NAVIN at 11:00 pm. She was scheduled for back pain. I called and left a message for the patient regarding her missed appointment, told her to call the office if she would like to reschedule. Resources discussed/offered to patient: na No show determined to be fault of patient: Yes This is the patients third no show in the last 12 months. Patient was rescheduled for na. Letter mailed : Yes Is this the Third or Fourth No Show ? No Teresa Crespo June 04, 2023 11:44 AM documented in this encounter [facility] 05-29-2023 Miscellaneous Notes Pharmacy requesting refills as follows: Last Office Visit 02/13/23. Last Refill 04/18/23. Requested Prescriptions Pending Prescriptions Disp Refills albuterol HFA (PROVENTIL HFA, VENTOLIN HFA) 90 mcg/actuation inhaler [Pharmacy Med Name: ALBUTEROL HFA (VENTOLIN) INH] 18 Each 2 Sig: TAKE 2 PUFFS BY MOUTH EVERY 4 HOURS NEEDED Please review and advise. Marilou Cole MA documented in this encounter [facility] 05-04-2023 Miscellaneous Notes Pharmacy requesting refills as follows: Last Office Visit 02/13/23. Last Refill 02/05/23. Requested Prescriptions Pending Prescriptions Disp Refills atorvastatin (LIPITOR) 40 mg tablet [Pharmacy Med Name: ATORVASTATIN 40 MG TABLET] 90 tablet 0 Sig: TAKE 1 TABLET BY MOUTH EVERY DAY Please review and advise. Marilou Cole MA documented in this encounter [facility] 04-30-2023 Miscellaneous Notes Requester: Pharmacy Last Visit in Endocrinology: Provider name: Jenelle Rodas MD , Date 08/24/2022 Next Scheduled Appt in Endo: 08/09/2023 Last Refill: 08/31/22 Number of Refills given: 1 PSS NOTE: Patient has scheduled appointment 08/09/2023. Requested Prescriptions Pending Prescriptions Disp Refills methIMAzole (TAPAZOLE) 5 mg tablet [Pharmacy Med Name: METHIMAZOLE 5 MG TABLET] 90 tablet 1 Sig: TAKE 1 TABLET SUNDAY THROUGH SUNDAY, NONE ON SUNDAYS Please review and advise. Armida Valle MA documented in this encounter [facility] 04-20-2023 Miscellaneous Notes pharmacy electronically requesting refills as follows: Last seen 02/13/23 . Last refill 09/11/22 . Requested Prescriptions Pending Prescriptions Disp Refills TRADJENTA 5 mg tab [Pharmacy Med Name: TRADJENTA 5 MG TABLET] 30 tablet 6 Sig: TAKE 1 TABLET BY MOUTH EVERY DAY Please review and advise. Jane Munoz MA documented in this encounter [facility] 04-19-2023 Miscellaneous Notes Pharmacy requesting refills: Last office visit 02/13/23. Last refill 12/25/2022 05/21/2023 Requested Prescriptions Pending Prescriptions Disp Refills glipiZIDE (GLUCOTROL) 10 mg tablet [Pharmacy Med Name: GLIPIZIDE 10 MG TABLET] 180 tablet 0 Sig: TAKE 1 TABLET BY MOUTH TWICE A DAY BEFORE MEALS Please review and advise. Zoya Barahona MA documented in this encounter [facility] 04-18-2023 Miscellaneous Notes pharm requesting refills: Last office visit 02/13/2023. Last refill 09/11/22 05/21/23 Requested Prescriptions Pending Prescriptions Disp Refills albuterol HFA (PROVENTIL HFA, VENTOLIN HFA) 90 mcg/actuation inhaler [Pharmacy Med Name: ALBUTEROL HFA (VENTOLIN) INH] 18 Each 2 Sig: INHALE 2 PUFFS BY MOUTH EVERY 4 HOURS NEEDED Please review and advise. Zoya Barahona MA documented in this encounter [facility] 02-13-2023 History of Present illness Narrative This note was created using [employer]. Subjective Prasanna Ma is a 62 year old female here today for diabetes follow-up visit. I reviewed past medical, surgical, social, and family histories today and updated chart. Allergies, chronic medications, and supplements were also reviewed. Patient has type 2 diabetes. She gets stressed out Back pain has worsened - it is constant She saw a pain doctor in [place] once, had imaging done and told back was riddled with rheumatoid arthritis. Was told she needed back surgery when she lived in [place] but was afraid to do it. The pain doctor advised ultram but she can't take them because they make her sick to her stomach. She has tolerated norco in the past. She was scheduled for back injections but never went because she was very tired and they called the night before the procedure and was too tired. Was told that she couldn't have norco because she was on alprazolam. She never returned to that doctor. Home Blood Sugars: they are normal Medication Compliance: she never forgets to take her pills Low Blood Sugars: none Diet: drinking more soda than usual Exercise: difficult to exercise due to pain Eye Exam: Has appointment coming up Podiatry: No problems Tobacco use - smokes 1 PPD Alcohol use - none Copied from [facility] 09/27/22 and updated as appropriate: Endocrinology, Dr. Nicky Rodas - hyperthyroidism/thyroid nodules On methimazole 5 mg -Sun Dr. Barnes, orthopedics Cardiology, Dr. Heredia - HTN, CAD, cardiac stents, prior LA She is currently taking valsartan/HCTZ, atorvastatin, plavix, metoprolol, imdur, asa Psychiatry, Jaswinder Morfin RESIDENTIAL SUPPORT WORKER - depression and anxiety, ADHD Currently taking Adderall, alprazolam, desvenlafaxine, duloxetine, trazodone COPD/asthma - Defers PFTs and lung cancer screening. Taking Breo and Spiriva daily. Albuterol as needed not using it very often RAY - Unable to tolerate CPAP, this was a long time ago. She does not want to get a sleep study. She states she actually never did the sleep study, never showed up for it. Snores occasionally. 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 Cortez, vascular PAST SURGICAL HISTORY Procedure Laterality Date HYSTERECTOMY HX 2000 ovaries gone 2007 KNEE SURGERY HX Right 2020 ORTHOPEDICS SURGERY HX bilateral arthroscopic knees PAST SURGICAL HISTORY OF cardiac stents PAST SURGICAL HISTORY OF 1980 nose surgery- bone fragments PAST SURGICAL HISTORY OF 1974 eye surgery- strabimus. early 20' PAST SURGICAL HISTORY OF Right 09/26/2021 knee STENT PLACEMENT 2014 RCA 11/2014 STENT PLACEMENT 2006 STENT PLACEMENT 2007 STENT PLACEMENT 2013 ALLERGIES B12 [Cyanocobalamin-Cobamamide], Pneumococcal 23-Rose Ps Vaccine, and Pneumococcal Vaccine MEDICATIONS isosorbide mononitrate ER (IMDUR) 30 mg 24 hr tablet TAKE 1 TABLET BY MOUTH EVERY DAY atorvastatin (LIPITOR) 40 mg tablet TAKE 1 TABLET BY MOUTH EVERY DAY famotidine (PEPCID) 20 mg tablet TAKE 1 TABLET BY MOUTH TWICE A DAY glipiZIDE (GLUCOTROL) 10 mg tablet TAKE 1 TABLET BY MOUTH TWICE A DAY BEFORE MEALS metFORMIN (GLUCOPHAGE) 1,000 mg tablet TAKE 1 TABLET BY MOUTH TWICE A DAY WITH MEALS Valsartan-hydroCHLOROthiazide 80-12.5 mg per tablet TAKE 1 TABLET BY MOUTH EVERY DAY ferrous sulfate 325 mg (65 mg iron) tablet Take 1 tablet by mouth three times daily with meals. TRADJENTA 5 mg tab TAKE 1 TABLET BY MOUTH EVERY DAY albuterol HFA (VENTOLIN HFA) 90 mcg/actuation inhaler TAKE 2 PUFFS BY MOUTH EVERY 4 HOURS NEEDED methIMAzole (TAPAZOLE) 5 mg tablet 5 mg one tablet from Sunday to Sunday and none on Sundays. blood sugar diagnostic (TRUE METRIX GLUCOSE TEST STRIP) test strip 1 Strip once daily. Use as instructed lancets (TRUEPLUS LANCETS) 30 gauge Inject 1 Each subcutaneously once daily. ALPRAZolam (XANAX) 1 mg tablet Take 1 mg by mouth four times daily. BD ULTRAFINE III MINI PEN 31 gauge x 3/16 USE DIRECTED WITH INSULIN nitroglycerin sublingual (NITROQUICK) 0.4 mg SL tablet DISSOLVE 1 TABLET UNDER THE TONGUE EVERY 5 MINUTES NEEDED. BREO ELLIPTA 200-25 mcg/dose inhaler INHALE 1 INHALATION INSTRUCTED ONCE DAILY. tiotropium (SPIRIVA WITH HANDIHALER) 18 mcg inhalation capsule INHALE CONTENTS OF 1 CAPSULE INSTRUCTED WITH HANDIHALER ONCE DAILY. metoprolol tartrate, short acting, (LOPRESSOR) 50 mg tablet TAKE 1 TABLET BY MOUTH TWICE A DAY traZODone (DESYREL) 100 mg tablet TAKE 1 TABLET BY MOUTH EVERY DAY AT NIGHT DULoxetine (CYMBALTA) 30 mg capsule Take 30 mg by mouth once daily. desvenlafaxine ER (PRISTIQ) 100 mg 24 hr tablet Take 100 mg by mouth once daily. aspirin 81 mg chewable tablet Take 81 mg by mouth once daily. albuterol (PROVENTIL) 2.5 mg/0.5 mL nebulizer solution Use 0.5 mL via nebulizer every 6 hours as needed. DX J45.909 ONETOUCH ULTRA BLUE TEST STRIP test strip PATIENT TESTS TWICE DAILY DX E1.65 Lancets (IngogoTOUCH ULTRASOFT LANCETS) lancets Check Blood sugar before breakfast and before dinner daily. Dx. E11.65 dextroamphetamine-amphetamine (ADDERALL) 20 mg tablet Take 1 tablet by mouth twice daily for 30 days. Earliest Fill Date: 01/22/18 (Patient taking differently: Take 20 mg by mouth three times daily.) Blood-Glucose Meter (IdentiaUCH VERIO IQ METER) [facility] [place] tests 3 times daily DX E11.65 Blood-Glucose Meter monitoring kit 1 Each as needed. Feel with insurance preference FAMILY HISTORY Problem Relation Age of Onset Heart disease Mother Hypertension Mother Hyperlipidemia Mother Cancer Father 21 ? type other (Tuberculosis) Father Cancer Maternal Grandmother throat, nonsmoker other (no diabetes) Other Kidney Disease Sister 25 age 24 other (no colon cancer) Other other (no breast cancer) Other Ischemic Heart Disease Other m uncles Social History Tobacco Use Smoking status: Every Day Packs/day: 1.00 Years: 30.00 Pack years: 30.00 Types: Cigarettes Smokeless tobacco: Never Vaping Use Vaping Use: Never used Substance Use Topics Alcohol use: No Drug use: No Review of Systems Constitutional: Negative for appetite change, chills, fatigue, fever and unexpected weight change. HENT: Negative for congestion, ear pain, rhinorrhea and sore throat. Eyes: Negative for pain, discharge, itching and visual disturbance. Respiratory: Negative for cough, shortness of breath and wheezing. Cardiovascular: Negative for chest pain, palpitations and leg swelling. Gastrointestinal: Negative for abdominal pain, constipation, diarrhea, nausea and vomiting. Genitourinary: Negative for difficulty urinating. Musculoskeletal: Positive for arthralgias and back pain. Skin: Negative for rash. Neurological: Negative for dizziness, tremors, weakness and headaches. Psychiatric/Behavioral: Positive for dysphoric mood. Negative for sleep disturbance. The patient is nervous/anxious. Objective BP 118/66 Pulse 71 Temp 36.7 C (98.1 F) Resp 16 Ht 162.6 cm (5' 4 ) Wt 64.6 kg (142 lb 6.4 oz) SpO2 98% BMI 24.44 kg/m Physical Exam Constitutional: Appearance: Normal appearance. She is well-developed. She is not diaphoretic. HENT: Head: Normocephalic and atraumatic. Right Ear: Hearing, tympanic membrane, ear canal and external ear normal. Left Ear: Hearing, tympanic membrane, ear canal and external ear normal. Nose: Nose normal. Mouth/Throat: Lips: Mckay. Mouth: Mucous membranes are moist. Pharynx: Oropharynx is clear. Eyes: General: Lids are normal. Extraocular Movements: Extraocular movements intact. Conjunctiva/sclera: Conjunctivae normal. Pupils: Pupils are equal, round, and reactive to light. Neck: Thyroid: No thyroid mass or thyromegaly. Vascular: Normal carotid pulses. No carotid bruit. Cardiovascular: Rate and Rhythm: Normal rate and regular rhythm. Pulses: Radial pulses are 2+ on the right side and 2+ on the left side. Dorsalis pedis pulses are 2+ on the right side and 2+ on the left side. Posterior tibial pulses are 2+ on the right side and 2+ on the left side. Heart sounds: Normal heart sounds. No murmur heard. Pulmonary: Effort: Pulmonary effort is normal. Breath sounds: Normal breath sounds. No wheezing, rhonchi or rales. Abdominal: General: Bowel sounds are normal. Palpations: Abdomen is soft. Tenderness: There is no abdominal tenderness. Musculoskeletal: Cervical back: Normal range of motion. Lumbar back: Tenderness present. Decreased range of motion. Lymphadenopathy: Cervical: No cervical adenopathy. Upper Body: Right upper body: No supraclavicular adenopathy. Left upper body: No supraclavicular adenopathy. Skin: General: Skin is warm and dry. Findings: No lesion or rash. Neurological: General: No focal deficit present. Mental Status: She is alert and oriented to person, place, and time. Cranial Nerves: No cranial nerve deficit. Sensory: Sensation is intact. Motor: Motor function is intact. Coordination: Coordination is intact. Gait: Gait normal. Psychiatric: Attention and Perception: Attention and perception normal. Mood and Affect: Affect normal. Mood is anxious. Speech: Speech normal. Behavior: Behavior normal. Behavior is cooperative. Cognition and Memory: Cognition and memory normal. Judgment: Judgment normal. Component Latest Ref Rng & Units 05/02/2022 05/05/2022 08/30/2022 WBC 3.70 - 11.00 k/uL 7.95 RBC 3.90 - 5.20 m/uL 4.29 Hemoglobin 11.5 - 15.5 g/dL 12.4 Hematocrit 36.0 - 46.0 % 38.2 MCV 80.0 - 100.0 fL 89.0 MCH 26.0 - 34.0 pg 28.9 MCHC 30.5 - 36.0 g/dL 32.5 RDW-CV 11.5 - 15.0 % 13.5 Platelet Count 150 - 400 k/uL 293 MPV 9.0 - 12.7 fL 10.8 Neut% % 62.3 Abs Neut (ANC) 1.45 - 7.50 k/uL 4.96 Lymph% % 21.9 Abs Lymph 1.00 - 4.00 k/uL 1.74 Wythe% % 5.9 Abs Wythe <0.87 k/uL 0.47 Eosin% % 9.6 Abs Eosin <0.46 k/uL 0.76 (H) Baso% % 0.3 Abs Baso <0.11 k/uL <0.03 DTYPE Auto Protein, Total 6.3 - 8.0 g/dL 7.5 7.1 Albumin 3.9 - 4.9 g/dL 4.6 4.5 Calcium 8.5 - 10.2 mg/dL 9.9 Bilirubin, Total 0.2 - 1.3 mg/dL 0.2 0.2 Alkaline Phosphatase 34 - 123 U/L 119 108 AST 13 - 35 U/L 18 18 ALT 7 - 38 U/L 21 15 Glucose 74 - 99 mg/dL 270 (H) BUN 7 - 21 mg/dL 16 Creatinine 0.58 - 0.96 mg/dL 1.01 (H) Sodium 136 - 144 mmol/L 134 (L) Potassium 3.7 - 5.1 mmol/L 4.5 Chloride 97 - 105 mmol/L 97 CO2 22 - 30 mmol/L 25 Anion Gap 9 - 18 mmol/L 12 eGFR >=60 mL/min/1.73m 63 Cholesterol, Total <200 mg/dL 177 Triglyceride <150 mg/dL 436 (H) HDL Cholesterol >39 mg/dL 36 (L) Non HDL Cholesterol <130 mg/dL 141 (H) Fasting Time hrs 12 VLDL Cholesterol TC:HDL Ratio <5.10 4.92 LDL Cholesterol LDL:HDL Ratio Bilirubin, Conjug <0.2 mg/dL <0.2 TSH 0.270 - 4.200 mIU/L 0.148 (L) Free T4 0.9 - 1.7 ng/dL 1.2 T3 60 - 180 ng/dL 121 Component Latest Ref Rng & Units 02/20/2022 09/27/2022 02/13/2023 Hemoglobin A1C 4.3 - 5.6 % 7.1 (H) Estimated Average Glucose mg/dL 157 Hemoglobin A1C (POCT) 4.2 - 5.6 % 7.5 (A) 7.9 (A) ASSESSMENT/PLAN: 1. Type 2 diabetes mellitus with hyperglycemia, without long-term current use of insulin (HCC) - ICD9: 250.00, 790.29, ICD10: E11.65 (primary diagnosis) - Controlled - Continue current medications - Counseled on healthy diet and regular exercise - Smoking cessation encouraged; discussed risks to health and quitting strategies. Patient is not ready to quit - Follow up in 3 months, sooner should any other issues arise. - HEMOGLOBIN A1C (POC) - ALBUMIN/CREAT RATIO RND UR 2. Congestive heart failure, unspecified HF chronicity, unspecified heart failure type (HCC) - ICD9: 428.0, ICD10: I50.9 Stable on current medications 3. Chronic obstructive pulmonary disease, unspecified COPD type (HCC) - ICD9: 496, ICD10: J44.9 Stable on current medications 4. Hyperthyroidism - ICD9: 242.90, ICD10: E05.90 Stable on current medications 5. Rheumatoid arthritis involving vertebra, unspecified whether rheumatoid factor present (HCC) - ICD9: 714.0, ICD10: M45.9 Referral placed to rheumatology for further evaluation and treatment options - CONSULT TO RHEUM/IMMUN DISEASE Derrick Thorpe APRN.BULLARD OPERATOR documented in this encounter [facility] 02-12-2023 Miscellaneous Notes Lm on vm order placed. Zoya Barahona MA Thank you. Please see orders. Derrick Thorpe APRN.NAVIN Last office visit 09/27/22, last mammogram 01/12/22. Please advise. Jane Munoz MA Patient called and is requesting a mammogram order. Please place order. Thank you, documented in this encounter [facility] 02-05-2023 Miscellaneous Notes Pharmacy requesting refills as follows: Last Office Visit 09/27/22. Last Refill 09/12/22 for isorbide and 12/08/22 for atorvastatin. Requested Prescriptions Pending Prescriptions Disp Refills isosorbide mononitrate ER (IMDUR) 30 mg 24 hr tablet [Pharmacy Med Name: ISOSORBIDE MONONIT ER 30 MG TB] 90 tablet 1 Sig: TAKE 1 TABLET BY MOUTH EVERY DAY atorvastatin (LIPITOR) 40 mg tablet [Pharmacy Med Name: ATORVASTATIN 40 MG TABLET] 90 tablet 0 Sig: TAKE 1 TABLET BY MOUTH EVERY DAY Please review and advise. Marilou Cole MA documented in this encounter [facility] 01-26-2023 Miscellaneous Notes Pharmacy requesting refills: Last office visit 09/27/2022. Last refill 09/22/2022 nov 02/13/2023 Requested Prescriptions Pending Prescriptions Disp Refills famotidine (PEPCID) 20 mg tablet [Pharmacy Med Name: FAMOTIDINE 20 MG TABLET] 180 tablet 1 Sig: TAKE 1 TABLET BY MOUTH TWICE A DAY Please review and advise. Zoya Barahona MA documented in this encounter [facility] 01-22-2023 Miscellaneous Notes No Show Documentation Prasanna Ma no showed for an appointment on 01/22/23 with Derrick Thorpe APRN.CNP at 11:00 am. She was scheduled for back/knee pain. I called and was unable to speak with the patient regarding her missed appointment. Prasanna did not stated the reason that she missed her appointment was because NA . Resources discussed/offered to patient: left message and number for pt to call to reschedule. No show determined to be fault of patient: Yes This is the patients third no show in the last 12 months. Patient was rescheduled for NA. Letter mailed : Yes Is this the Third or Fourth No Show ? No Gloria Boswell January 22, 2023 11:43 AM documented in this encounter [facility] 12-25-2022 Miscellaneous Notes pharmacy electronically requesting refills as follows: Last seen 09/27/22 . Last refill 07/05/22 . Requested Prescriptions Pending Prescriptions Disp Refills metFORMIN (GLUCOPHAGE) 1,000 mg tablet [Pharmacy Med Name: METFORMIN HCL 1,000 MG TABLET] 180 tablet 1 Sig: TAKE 1 TABLET BY MOUTH TWICE A DAY WITH MEALS Please review and advise. Jane Munoz MA documented in this encounter [facility] 12-25-2022 Miscellaneous Notes Pharmacy requesting refills as follows: Last Office Visit 09/27/22. Last Refill 10/25/22. Requested Prescriptions Pending Prescriptions Disp Refills glipiZIDE (GLUCOTROL) 10 mg tablet [Pharmacy Med Name: GLIPIZIDE 10 MG TABLET] 180 tablet 0 Sig: TAKE 1 TABLET BY MOUTH TWICE A DAY BEFORE MEALS Please review and advise. Marilou Cole MA documented in this encounter [facility] 12-08-2022 Miscellaneous Notes pharmacy electronically requesting refills as follows: Last seen 09/27/22 . Last refill 09/19/22 . Requested Prescriptions Pending Prescriptions Disp Refills atorvastatin (LIPITOR) 40 mg tablet [Pharmacy Med Name: ATORVASTATIN 40 MG TABLET] 90 tablet 0 Sig: TAKE 1 TABLET BY MOUTH EVERY DAY Please review and advise. Jane Munoz MA documented in this encounter [facility] 10-25-2022 Miscellaneous Notes Pharmacy requesting refills: Last office visit 09/27/2022. Last refill 05/25/2022 nov 04/03/2023 Requested Prescriptions Pending Prescriptions Disp Refills glipiZIDE (GLUCOTROL) 10 mg tablet [Pharmacy Med Name: GLIPIZIDE 10 MG TABLET] 180 tablet 0 Sig: TAKE 1 TABLET BY MOUTH TWICE A DAY BEFORE MEALS Please review and advise. Zoya Barahona MA documented in this encounter [facility] 10-11-2022 Miscellaneous Notes Called and spoke with PT, expressed understanding Encounter closed ----- Message from Jenelle Rodas MD sent at 10/10/2022 7:22 AM EST ----- Please call patient and let her know that the thyroid ultrasound showed stable thyroid nodules. I recommend to repeat thyroid ultrasound in 6-[address] Saunders documented in this encounter [facility] 10-05-2022 Miscellaneous Notes Pharmacy requesting refills as follows: Last Office Visit 09/27/22. Last Refill 08/14/22. Requested Prescriptions Pending Prescriptions Disp Refills Valsartan-hydroCHLOROthiazide 80-12.5 mg per tablet [Pharmacy Med Name: VALSARTAN-HCTZ 80-12.5 MG TAB] 90 tablet 0 Sig: TAKE 1 TABLET BY MOUTH EVERY DAY Please review and advise. Marilou Cole MA documented in this encounter [facility] 10-02-2022 History of Present illness Narrative Radiology Service Progress Note PATIENT NAME: Prasanna Ma DATE OF SERVICE: October 02, 2022 TIME: 2:38 PM PATIENT IDENTITY VERIFICATION COMPLETED USING TWO (2) IDENTIFIERS: Name and Date of confirmed by patient verbally. FALL SCREENING: Has the patient had 2 falls in the last year or 1 fall with injury or currently using an Ambulatory Assistive Device (Walker, Cane, Wheelchair, Crutches, etc.)? No PATIENT GENDER DATA: Female. status: : No status: NO. PATIENT RELEVANT IMPLANT DATA REVIEWED: Not Applicable RADIOLOGY DEPARTMENT: Ultrasound PERIPHERAL IV DATA: Not applicable SIGNED BY: Celia Russell RDMS, RVT October 02, 2022 2:38 PM documented in this encounter [facility] 09-27-2022 History of Present illness Narrative This note was created using [employer]. Subjective Prasanna Ma is a 61 year old female here today for diabetes follow-up visit. I reviewed past medical, surgical, social, and family histories today and updated chart. Allergies, chronic medications, and supplements were also reviewed. Patient has type 2 diabetes. Stressed about her mom, she has dementia and has been dealing with that Denies dizziness, chest pain, shortness of breath, changes in vision, fatigue, foot pain. Denies numbness and tingling in extremities. Denies polydipsia, polyphagia, polyuria. Home Blood Sugars: Decent readings Medication Compliance: She takes her medications every day Tradjenta 5 mg daily, glipizide 10 mg BID, metformin 1000 BID Low Blood Sugars: none Diet: mostly diabetic diet Exercise: no routine Eye Exam: January 2022 Podiatry: no problems Tobacco use - smokes 1 PPD Alcohol use - none Anemia - takes iron here and there. Not 3 x day anymore because it causes constipation Patient continues care with endocrinology for hyperthyroidism/thyroid nodules - Dr. Nicky Rodas in [place]. On methimazole [address] Barnes, orthopedics Cardiology, Dr. Heredia - HTN, CAD, cardiac stents, prior LA She is currently taking valsartan/HCTZ, atorvastatin, plavix, metoprolol, imdur, asa Psychiatry, Jaswinder Morfin RESIDENTIAL SUPPORT WORKER - depression and anxiety, ADHD Currently taking Adderall, alprazolam, desvenlafaxine, duloxetine, trazodone COPD/asthma - Defers PFTs and lung cancer screening. Taking Breo and Spiriva daily. Albuterol as needed not using it very often RAY - Unable to tolerate CPAP, this was a long time ago. She does not want to get a sleep study. She states she actually never did the sleep study, never showed up for it. Snores occasionally. 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 Cortez, vascular PAST SURGICAL HISTORY Procedure Laterality Date HYSTERECTOMY HX 2000 ovaries gone 2007 KNEE SURGERY HX Right 2020 ORTHOPEDICS SURGERY HX bilateral arthroscopic knees PAST SURGICAL HISTORY OF cardiac stents PAST SURGICAL HISTORY OF 1980 nose surgery- bone fragments PAST SURGICAL HISTORY OF 1974 eye surgery- strabimus. early 20's PAST SURGICAL HISTORY OF Right 09/26/2021 knee STENT PLACEMENT 2014 RCA 11/2014 STENT PLACEMENT 2006 STENT PLACEMENT 2007 STENT PLACEMENT 2013 ALLERGIES B12 [Cyanocobalamin-Cobamamide], Lisinopril, Pneumococcal 23-Rose Ps Vaccine, and Pneumococcal Vaccine MEDICATIONS famotidine (PEPCID) 20 mg tablet Take 1 tablet by mouth twice daily. atorvastatin (LIPITOR) 40 mg tablet TAKE 1 TABLET BY MOUTH EVERY DAY TRADJENTA 5 mg tab TAKE 1 TABLET BY MOUTH EVERY DAY isosorbide mononitrate ER (IMDUR) 30 mg 24 hr tablet TAKE 1 TABLET BY MOUTH EVERY DAY albuterol HFA (VENTOLIN HFA) 90 mcg/actuation inhaler TAKE 2 PUFFS BY MOUTH EVERY 4 HOURS NEEDED methIMAzole (TAPAZOLE) 5 mg tablet 5 mg one tablet from Sunday to Sunday and none on Sundays. blood sugar diagnostic (TRUE METRIX GLUCOSE TEST STRIP) test strip 1 Strip once daily. Use as instructed lancets (TRUEPLUS LANCETS) 30 gauge Inject 1 Each subcutaneously once daily. Valsartan-hydroCHLOROthiazide 80-12.5 mg per tablet TAKE 1 TABLET BY MOUTH EVERY DAY metFORMIN (GLUCOPHAGE) 1,000 mg tablet Take 1 tablet by mouth twice daily with meals. glipiZIDE (GLUCOTROL) 10 mg tablet TAKE 1 TABLET BY MOUTH TWICE A DAY BEFORE MEALS ALPRAZolam (XANAX) 1 mg tablet Take 1 mg by mouth three times daily. BD ULTRAFINE III MINI PEN 31 gauge x 3/16 USE DIRECTED WITH INSULIN nitroglycerin sublingual (NITROQUICK) 0.4 mg SL tablet DISSOLVE 1 TABLET UNDER THE TONGUE EVERY 5 MINUTES NEEDED. BREO ELLIPTA 200-25 mcg/dose inhaler INHALE 1 INHALATION INSTRUCTED ONCE DAILY. tiotropium (SPIRIVA WITH HANDIHALER) 18 mcg inhalation capsule INHALE CONTENTS OF 1 CAPSULE INSTRUCTED WITH HANDIHALER ONCE DAILY. metoprolol tartrate, short acting, (LOPRESSOR) 50 mg tablet TAKE 1 TABLET BY MOUTH TWICE A DAY traZODone (DESYREL) 100 mg tablet TAKE 1 TABLET BY MOUTH EVERY DAY AT NIGHT DULoxetine (CYMBALTA) 30 mg capsule Take 30 mg by mouth once daily. desvenlafaxine ER (PRISTIQ) 100 mg 24 hr tablet Take 100 mg by mouth once daily. aspirin 81 mg chewable tablet Take 81 mg by mouth once daily. albuterol (PROVENTIL) 2.5 mg/0.5 mL nebulizer solution Use 0.5 mL via nebulizer every 6 hours as needed. DX J45.909 ONETOUCH ULTRA BLUE TEST STRIP test strip PATIENT TESTS TWICE DAILY DX E1.65 Lancets (ONETOUCH ULTRASOFT LANCETS) lancets Check Blood sugar before breakfast and before dinner daily. Dx. E11.65 dextroamphetamine-amphetamine (ADDERALL) 20 mg tablet Take 1 tablet by mouth twice daily for 30 days. Earliest Fill Date: 01/22/18 Blood-Glucose Meter (ONETOUCH VERIO IQ METER) [facility] [place] tests 3 times daily DX E11.65 Blood-Glucose Meter monitoring kit 1 Each as needed. Feel with insurance preference clopidogrel (PLAVIX) 75 mg tablet Take 1 tablet by mouth once daily. (Patient not taking: Reported on 08/24/2022) ferrous sulfate 325 mg (65 mg iron) tablet TAKE 1 TABLET BY MOUTH THREE TIMES DAILY WITH MEALS. (Patient not taking: Reported on 08/24/2022) FAMILY HISTORY Problem Relation Age of Onset Heart disease Mother Hypertension Mother Hyperlipidemia Mother Cancer Father 21 ? type other (Tuberculosis) Father Cancer Maternal Grandmother throat, nonsmoker other (no diabetes) Other Kidney Disease Sister 25 age 24 other (no colon cancer) Other other (no breast cancer) Other Ischemic Heart Disease Other m uncles Social History Tobacco Use Smoking status: Every Day Packs/day: 1.00 Years: 30.00 Pack years: 30.00 Types: Cigarettes Smokeless tobacco: Never Vaping Use Vaping Use: Never used Substance Use Topics Alcohol use: No Drug use: No Review of Systems Constitutional: Negative for appetite change, chills, fatigue, fever and unexpected weight change. HENT: Negative for congestion, ear pain, rhinorrhea and sore throat. Eyes: Negative for pain, discharge, itching and visual disturbance. Respiratory: Negative for cough, shortness of breath and wheezing. Cardiovascular: Negative for chest pain, palpitations and leg swelling. Gastrointestinal: Negative for abdominal pain, constipation, diarrhea, nausea and vomiting. Genitourinary: Negative for difficulty urinating. Musculoskeletal: Positive for arthralgias and back pain. Skin: Negative for rash. Neurological: Negative for dizziness, tremors, weakness and headaches. Psychiatric/Behavioral: Negative for dysphoric mood and sleep disturbance. The patient is not nervous/anxious. Objective BP 118/70 Pulse 68 Temp 36.7 C (98 F) Ht 162.6 cm (5' 4 ) Wt 63.5 kg (140 lb) SpO2 98% BMI 24.03 kg/m Physical Exam Constitutional: Appearance: Normal appearance. She is well-developed. She is not diaphoretic. HENT: Head: Normocephalic and atraumatic. Right Ear: Hearing, tympanic membrane, ear canal and external ear normal. Left Ear: Hearing, tympanic membrane, ear canal and external ear normal. Nose: Nose normal. Mouth/Throat: Lips: Mckay. Mouth: Mucous membranes are moist. Pharynx: Oropharynx is clear. Eyes: General: Lids are normal. Extraocular Movements: Extraocular movements intact. Conjunctiva/sclera: Conjunctivae normal. Pupils: Pupils are equal, round, and reactive to light. Neck: Thyroid: No thyroid mass or thyromegaly. Vascular: Normal carotid pulses. No carotid bruit. Cardiovascular: Rate and Rhythm: Normal rate and regular rhythm. Pulses: Radial pulses are 2+ on the right side and 2+ on the left side. Dorsalis pedis pulses are 2+ on the right side and 2+ on the left side. Posterior tibial pulses are 2+ on the right side and 2+ on the left side. Heart sounds: Normal heart sounds. No murmur heard. Pulmonary: Effort: Pulmonary effort is normal. Breath sounds: Normal breath sounds. No wheezing, rhonchi or rales. Abdominal: General: Bowel sounds are normal. Palpations: Abdomen is soft. Tenderness: There is no abdominal tenderness. Musculoskeletal: General: Normal range of motion. Cervical back: Normal range of motion. Lymphadenopathy: Cervical: No cervical adenopathy. Upper Body: Right upper body: No supraclavicular adenopathy. Left upper body: No supraclavicular adenopathy. Skin: General: Skin is warm and dry. Findings: No lesion or rash. Neurological: General: No focal deficit present. Mental Status: She is alert and oriented to person, place, and time. Cranial Nerves: No cranial nerve deficit. Sensory: Sensation is intact. Motor: Motor function is intact. Coordination: Coordination is intact. Gait: Gait normal. Psychiatric: Attention and Perception: Attention and perception normal. Mood and Affect: Mood and affect normal. Speech: Speech normal. Behavior: Behavior normal. Behavior is cooperative. Cognition and Memory: Cognition and memory normal. Judgment: Judgment normal. Component Latest Ref Rng & Units 05/02/2022 05/05/2022 05/05/2022 08/30/2022 11:20 AM 11:20 AM WBC 3.70 - 11.00 k/uL 7.95 RBC 3.90 - 5.20 m/uL 4.29 Hemoglobin 11.5 - 15.5 g/dL 12.4 Hematocrit 36.0 - 46.0 % 38.2 MCV 80.0 - 100.0 fL 89.0 MCH 26.0 - 34.0 pg 28.9 MCHC 30.5 - 36.0 g/dL 32.5 RDW-CV 11.5 - 15.0 % 13.5 Platelet Count 150 - 400 k/uL 293 MPV 9.0 - 12.7 fL 10.8 Neut% % 62.3 Abs Neut (ANC) 1.45 - 7.50 k/uL 4.96 Lymph% % 21.9 Abs Lymph 1.00 - 4.00 k/uL 1.74 Wythe% % 5.9 Abs Wythe <0.87 k/uL 0.47 Eosin% % 9.6 Abs Eosin <0.46 k/uL 0.76 (H) Baso% % 0.3 Abs Baso <0.11 k/uL <0.03 DTYPE Auto Protein, Total 6.3 - 8.0 g/dL 7.5 7.1 Albumin 3.9 - 4.9 g/dL 4.6 4.5 Calcium 8.5 - 10.2 mg/dL 9.9 Bilirubin, Total 0.2 - 1.3 mg/dL 0.2 0.2 Alkaline Phosphatase 34 - 123 U/L 119 108 AST 13 - 35 U/L 18 18 ALT 7 - 38 U/L 21 15 Glucose 74 - 99 mg/dL 270 (H) BUN 7 - 21 mg/dL 16 Creatinine 0.58 - 0.96 mg/dL 1.01 (H) Sodium 136 - 144 mmol/L 134 (L) Potassium 3.7 - 5.1 mmol/L 4.5 Chloride 97 - 105 mmol/L 97 CO2 22 - 30 mmol/L 25 Anion Gap 9 - 18 mmol/L 12 eGFR >=60 mL/min/1.73m 63 Cholesterol, Total <200 mg/dL 177 Triglyceride <150 mg/dL 436 (H) HDL Cholesterol >39 mg/dL 36 (L) Non HDL Cholesterol <130 mg/dL 141 (H) Fasting Time hrs 12 VLDL Cholesterol 72 (H) TC:HDL Ratio <5.10 4.92 LDL Cholesterol LDL:HDL Ratio Bilirubin, Conjug <0.2 mg/dL <0.2 LDL Cholesterol, Direct <100 mg/dL 69 TSH 0.270 - 4.200 mIU/L 0.148 (L) Free T4 0.9 - 1.7 ng/dL 1.2 T3 60 - 180 ng/dL 121 Component Latest Ref Rng & Units 02/20/2022 09/27/2022 Hemoglobin A1C 4.3 - 5.6 % 7.1 (H) Estimated Average Glucose mg/dL 157 Hemoglobin A1C (POCT) 4.2 - 5.6 % 7.5 (A) ASSESSMENT/PLAN: 1. Type 2 diabetes mellitus with hyperglycemia, without long-term current use of insulin (HCC) - ICD9: 250.00, 790.29, ICD10: E11.65 (primary diagnosis) Controlled. - Continue current medications = tradjenta 5 mg daily, metformin 1000 mg BID, glipizide 10 mg BID - Follow up in 3 months, sooner should any other issues arise. - Discussed diabetic education issues of diet and medications- side effects and need for compliance with patient. - BP goal of <130/80 - LDL goal of <100 2. Hyperthyroidism - ICD9: 242.90, ICD10: E05.90 Continue care with endocrinology ON methimazole 3. Multiple thyroid nodules - ICD9: 241.1, ICD10: E04.2 Continue care with endocrinology 4. Chronic obstructive pulmonary disease, unspecified COPD type (HCC) - ICD9: 496, ICD10: J44.9 Stable on Breo Ellipta, Spiriva and albuterol 5. Pure hypercholesterolemia - ICD9: 272.0, ICD10: E78.00 Continue Lipitor 40 mg daily 6. Primary hypertension - ICD9: 401.9, ICD10: I10 - good control - Continue current medication(s) - Recommended regular aerobic exercise. - Recommend home blood pressure monitoring, to bring results in on next visit - Goal of BP <130/80 7. Coronary artery disease involving [place] heart without angina pectoris, unspecified vessel or lesion type - ICD9: 414.01, ICD10: I25.10 Continue care with cardiology 8. RAY (obstructive sleep apnea) - ICD9: 327.23, ICD10: G47.33 Defers further testing and treatment 9. Pancreatic cyst - ICD9: 577.2, ICD10: K86.2 Stable on MRI 07/2022, monitor yearly Derrick Thorpe APRN.BULLARD OPERATOR Some elements copied from my note dated 02/01/22, which have been updated where appropriate, and all reflect current medical decision making from today, September 27, 2022. documented in this encounter [facility] 09-22-2022 Miscellaneous Notes Pharm requesting refills: Last office visit 02/01/2022. Last refill 01/08/2022 nov 09/27/2022 Requested Prescriptions Pending Prescriptions Disp Refills famotidine (PEPCID) 20 mg tablet 180 tablet 1 Sig: Take 1 tablet by mouth twice daily. Please review and advise. Zoya Barahona MA documented in this encounter [facility] 09-19-2022 Miscellaneous Notes Pharmacy requesting refills as follows: Last Office Visit 02/01/22. Last Refill 05/25/22. Requested Prescriptions Pending Prescriptions Disp Refills atorvastatin (LIPITOR) 40 mg tablet [Pharmacy Med Name: ATORVASTATIN 40 MG TABLET] 90 tablet 0 Sig: TAKE 1 TABLET BY MOUTH EVERY DAY Please review and advise. Marilou Cole MA documented in this encounter [facility] 09-11-2022 Miscellaneous Notes PAtient requesting refills as follows: Last Office Visit 02/01/22. Last Refill 01/22/21. Requested Prescriptions Pending Prescriptions Disp Refills ondansetron orally disintegrating (ZOFRAN ODT) 4 mg disintegrating tablet 9 tablet 0 Sig: Take 1 tablet by mouth every 8 hours as needed for nausea/vomiting for up to 3 days. Please review and advise. Marilou Cole MA documented in this encounter [facility] 09-11-2022 Miscellaneous Notes Pharmacy requesting refills as follows: Last Office Visit 02/01/22. Last Refill 05/25/22 for albuterol, 01/30/22 for tradjenta and 02/01/22 imudr Requested Prescriptions Pending Prescriptions Disp Refills TRADJENTA 5 mg tab [Pharmacy Med Name: TRADJENTA 5 MG TABLET] 30 tablet 6 Sig: TAKE 1 TABLET BY MOUTH EVERY DAY isosorbide mononitrate ER (IMDUR) 30 mg 24 hr tablet [Pharmacy Med Name: ISOSORBIDE MONONIT ER 30 MG TB] 90 tablet 1 Sig: TAKE 1 TABLET BY MOUTH EVERY DAY albuterol HFA (VENTOLIN HFA) 90 mcg/actuation inhaler 18 g 2 Sig: TAKE 2 PUFFS BY MOUTH EVERY 4 HOURS NEEDED Please review and advise. Marilou Cole MA documented in this encounter [facility] 09-05-2022 Miscellaneous Notes Patient notified of Nicky's message. Stated understanding and all questions were answered. Encounter closed. Please let the patient know that after reviewing the blood work I recommend to increase methimazole to 5 mg one tablet from Sunday to Sunday and none on Sundays. Repeat labs in 6-8 weeks. Jenelle Rodas MD documented in this encounter [facility] 08-24-2022 Instructions Jenelle Rodas MD - 08/24/2022 11:52 AM EST Have thyroid labs Schedule thyroid ultrasound documented in this encounter [facility] 08-24-2022 History of Present illness Narrative Endocrinology Follow Up Assessment Date: August 24, 2022 MIL: 02/02/22 History of Present Illness Prasanna Ma is a 61 year old female with PMH of ADHD, stroke, CAD s/p 5 stents,Type 2 DM, COPD, HTN and HLD who presents today for evaluation of low TSH and multiple thyroid nodules. Patient was diagnosed with thyroid disease ~10 years ago. She says she can't recall a lot of things due to stroke. She says she was taking levothyroxine for a long period of time and then, her PCP stopped the medication ~6 months ago because her levels showed she had too much thyroid hormones. Patient is waiting to have approval for surgery on her right knee. She was going to have a NM thyroid uptake and scan, however, this was canceled as patient had IV contrast April 2021 and the NM thyroid uptake and scan was discontinued. Patient had a thyroid ultrasound 04/14/2021 revealing a bilateral heterogenous hypervascular thyroid gland with bilateral thyroid nodules: a 1.9-cm right hypoechoic nodule, with internal vascularity (TI-RADS 4) and a 1.1-cm left upper nodule, hypoechoic with internal vascularity. FH of thyroid disease: none Hx of amiodarone, lithium? no Taking Biotin? yes, for the last two months History of CT scan with intravenous contrast within the last 4 months? yes, CT scan of the abdomen 04/2021 History of ionizing radiation to the head, neck or chest? no INTERVAL HISTORY: 02/02/2022 Patient had blood work after holding biotin for >5 days consistent with subclinical hyperthyroidism with undetectable TSH and normal thyroid hormone levels. TPO antibodies were markedly elevated >4,400. The patient had a NM thyroid uptake and scan suggesting graves disease as the cause of hyperthyroidism. NM THYROID UPTAKE AND SCAN: 06/07/2021 The I-123 uptake at 5 hours is 11.5%, and 24 hours uptake of 29.5%. (normal range is 5.5-25%). The thyroid scan demonstrates homogenous tracer uptake in both thyroid lobe. Since she was going to have knee surgery, she was started on treatment with methimazole 5 mg every day. Thyroid labs normalized on methimazole. She is currently taking methimazole 5 mg every day. INTERVAL HISTORY: 08/24/22 She is currently taking methimazole 5 mg one tablet from Sunday to Sunday and none on the weekends. Has gained 6 pounds since last visit. Has no complains today. Medications, Allergies Current Outpatient Medications Medication Sig Dispense Refill Valsartan-hydroCHLOROthiazide 80-12.5 mg per tablet TAKE 1 TABLET BY MOUTH EVERY DAY 90 tablet 0 metFORMIN (GLUCOPHAGE) 1,000 mg tablet Take 1 tablet by mouth twice daily with meals. 180 tablet 1 atorvastatin (LIPITOR) 40 mg tablet Take 1 tablet by mouth once daily. 90 tablet 0 albuterol HFA (VENTOLIN HFA) 90 mcg/actuation inhaler TAKE 2 PUFFS BY MOUTH EVERY 4 HOURS NEEDED 18 g 2 glipiZIDE (GLUCOTROL) 10 mg tablet TAKE 1 TABLET BY MOUTH TWICE A DAY BEFORE MEALS 180 tablet 0 methIMAzole (TAPAZOLE) 5 mg tablet 5 mg one tablet from Sunday to Sunday and none on Sunday and Sundays. 90 tablet 1 ALPRAZolam (XANAX) 1 mg tablet Take 1 mg by mouth three times daily. isosorbide mononitrate ER (IMDUR) 30 mg 24 hr tablet Take 1 tablet by mouth once daily. 90 tablet 1 TRADJENTA 5 mg tab TAKE 1 TABLET BY MOUTH EVERY DAY 30 tablet 5 famotidine (PEPCID) 20 mg tablet Take 1 tablet by mouth twice daily. 180 tablet 1 BD ULTRAFINE III MINI PEN 31 gauge x 3/16 USE DIRECTED WITH INSULIN 100 Each 1 nitroglycerin sublingual (NITROQUICK) 0.4 mg SL tablet DISSOLVE 1 TABLET UNDER THE TONGUE EVERY 5 MINUTES NEEDED. 450 tablet 0 BREO ELLIPTA 200-25 mcg/dose inhaler INHALE 1 INHALATION INSTRUCTED ONCE DAILY. 60 Each 2 tiotropium (SPIRIVA WITH HANDIHALER) 18 mcg inhalation capsule INHALE CONTENTS OF 1 CAPSULE INSTRUCTED WITH HANDIHALER ONCE DAILY. 30 capsule 0 metoprolol tartrate, short acting, (LOPRESSOR) 50 mg tablet TAKE 1 TABLET BY MOUTH TWICE A DAY 180 tablet 0 traZODone (DESYREL) 100 mg tablet TAKE 1 TABLET BY MOUTH EVERY DAY AT NIGHT DULoxetine (CYMBALTA) 30 mg capsule Take 30 mg by mouth once daily. desvenlafaxine ER (PRISTIQ) 100 mg 24 hr tablet Take 100 mg by mouth once daily. aspirin 81 mg chewable tablet Take 81 mg by mouth once daily. albuterol (PROVENTIL) 2.5 mg/0.5 mL nebulizer solution Use 0.5 mL via nebulizer every 6 hours as needed. DX J45.909 20 Vial 1 ONETOUCH ULTRA BLUE TEST STRIP test strip PATIENT TESTS TWICE DAILY DX E1.65 50 Strip 3 Lancets (IngogoTOUCH ULTRASOFT LANCETS) lancets Check Blood sugar before breakfast and before dinner daily. Dx. E11.65 100 Each 1 dextroamphetamine-amphetamine (ADDERALL) 20 mg tablet Take 1 tablet by mouth twice daily for 30 days. Earliest Fill Date: 01/22/18 60 tablet 0 Blood-Glucose Meter (IngogoTOUCH VERIO IQ METER) [facility] [place] tests 3 times daily DX E11.65 1 Each 0 Blood-Glucose Meter monitoring kit 1 Each as needed. Feel with insurance preference 1 Each 1 clopidogrel (PLAVIX) 75 mg tablet Take 1 tablet by mouth once daily. (Patient not taking: Reported on 08/24/2022) 90 tablet 1 ferrous sulfate 325 mg (65 mg iron) tablet TAKE 1 TABLET BY MOUTH THREE TIMES DAILY WITH MEALS. (Patient not taking: Reported on 08/24/2022) 270 tablet 1 No current facility-administered medications for this visit. ALLERGIES Allergen Reactions B12 [Cyanocobalamin* GI Upset Patient got dizzy, lightheaded, nauseated. Pneumococcal 23-Rose* Hives Patient got hives, Review of Systems GENERAL: No weight loss, malaise or fevers HEENT: Negative for frequent or significant headaches, No changes in hearing or vision, no nose bleeds or other nasal problems NECK: Negative for lumps, goiter, pain and significant neck swelling RESPIRATORY: Negative for cough, hemoptysis, wheezing, COPD, dyspnea or shortness of breath CARDIOVASCULAR: Negative for chest pain, leg swelling, hypertension, CHF or palpitations GI: No nausea, vomiting, or diarrhea : No history of dysuria, frequency or incontinence MUSCULOSKELETAL: Negative for joint pain or swelling, back pain or muscle pain SKIN: Negative for lesions, rash, and itching HEMATOLOGY/LYMPHOLOGY: Negative for prolonged bleeding, bruising easily or swollen nodes ENDOCRINE: Negative for cold or heat intolerance, polyuria, polydipsia and goiter NEURO: No history of headaches, syncope, paralysis, seizures or tremors Physical examination BP 113/68 Pulse 66 Ht 162.6 cm (5' 4 ) Wt 63.5 kg (140 lb) SpO2 99% BMI 24.03 kg/m GENERAL: Well nourished, well hydrated, in no distress, and oriented x 3 COMMUNICATION: Hearing: normal; VOICE: normal EYES: no thyroid eye signs and normal conjunctiva NECK: no visible nodules or goiter, no bruit, no tenderness, and no adenopathies THYROID: smooth, non-tender, 15 gram, firm, and No palpable nodules EXTREMITIES: No clubbing, no edema, no cyanosis, and normal nails NEURO: normal strength, no tremor, and normal reflexes Previous Laboratory Results Component Latest Ref Rng & Units 02/20/2022 05/02/2022 05/05/2022 05/05/2022 11:20 AM 11:20 AM Protein, Total 6.3 - 8.0 g/dL 6.6 7.5 7.0 Albumin 3.9 - 4.9 g/dL 4.2 4.6 4.3 Calcium 8.5 - 10.2 mg/dL 9.5 9.9 Bilirubin, Total 0.2 - 1.3 mg/dL 0.2 0.2 0.2 Alkaline Phosphatase 34 - 123 U/L 104 119 121 AST 13 - 35 U/L 15 18 16 ALT 7 - 38 U/L 12 21 15 Glucose 74 - 99 mg/dL 117 (H) 270 (H) BUN 7 - 21 mg/dL 11 16 Creatinine 0.58 - 0.96 mg/dL 1.04 (H) 1.01 (H) Sodium 136 - 144 mmol/L 136 134 (L) Potassium 3.7 - 5.1 mmol/L 4.2 4.5 Chloride 97 - 105 mmol/L 101 97 CO2 22 - 30 mmol/L 26 25 Anion Gap 9 - 18 mmol/L 9 12 eGFR >=60 mL/min/1.73m 61 63 Cholesterol, Total <200 mg/dL 181 177 Triglyceride <150 mg/dL 381 (H) 436 (H) HDL Cholesterol >39 mg/dL 37 (L) 36 (L) Non HDL Cholesterol <130 mg/dL 144 (H) 141 (H) Fasting Time hrs 12 12 VLDL Cholesterol 76 (H) 72 (H) TC:HDL Ratio <5.10 4.89 4.92 LDL Cholesterol 68 LDL:HDL Ratio 1.84 Bilirubin, Conjug <0.2 mg/dL <0.2 Hemoglobin A1C 4.3 - 5.6 % 7.1 (H) Estimated Average Glucose mg/dL 157 LDL Cholesterol, Direct <100 mg/dL 69 TSH 0.270 - 4.200 mIU/L 4.580 (H) T3 79 - 165 ng/dL 106 Free T4 0.9 - 1.7 ng/dL 0.9 Imaging * * *Final Report* * * DATE OF EXAM: Apr 13 2022 3:20PM LDU 1048 - US THYROID/PARATHYROID / PROCEDURE REASON: multiple diagnoses * * * * Physician Interpretation * * * * EXAMINATION: THYROID ULTRASOUND CLINICAL HISTORY: Hyperthyroidism Nontoxic single thyroid nodule TECHNIQUE: Sonography and Doppler imaging of the thyroid was performed. Images were obtained and stored in a permanent archive. MQ: UST_1 COMPARISON: Ultrasound of the thyroid 04/12/2021 and prior RESULT: Right Lobe: 5.4 x 1.7 x 1.5 cm; heterogeneous with ill-defined hypoechoic numerous nodules, significantly increased vascular flow on color Doppler imaging. Left Lobe: 5.2 x 1.7 x 1.6 cm; heterogeneous with numerous nodules, expected vascular flow. Isthmus: 0.4 cm The most suspicious thyroid nodule(s) (up to four) as below: NODULE 1: Location: Right mid Size: 1.8 x 0.6 x 1.1 cm Characteristics: Composition: Solid or almost completely solid, 2 points Echogenicity: Hypoechoic, 2 points Shape: Kgyxa-ehqv-atdy, 0 points Margin: Smooth, 0 points Echogenic foci (add points for all that apply): None, 0 points Internal vascularity: present Interval growth: Stable TI-RADS Category: TR4 ACR Recommendation: TI-RADS 4 nodule. FNA is recommended. NODULE 2: Location: Left upper pole Size: 1.6 x 1.5 x 1.2 cm Characteristics: Composition: Solid or almost completely solid, 2 points Echogenicity: Isoechoic, 1 point Shape: Gwidd-uven-ztat, 0 points Margin: Smooth, 0 points Echogenic foci (add points for all that apply): None, 0 points Internal vascularity: present Interval growth: Significant interval growth (20% increase in at least two nodule dimensions and a minimal increase of 2 mm, or a 50% or greater increase in volume). TI-RADS Category: TR3 ACR Recommendation: TI-RADS 3 nodule. Follow-up imaging at 1, 3 and 5 years is recommended. Impression/Recommendations 61 year old female is currently evaluated for: ASSESSMENT/PLAN: 1. Hyperthyroidism - ICD9: 242.90, ICD10: E05.90 (primary diagnosis) Obtain thyroid labs and adjust methimazole as needed - TSH BLD - HEPATIC FUNCTION PNL - T4 FREE/FREE THYROX - T3 BLD 2. Multiple thyroid nodules - ICD9: 241.1, ICD10: E04.2 Update thyroid ultrasound - US THYROID/PARATHYROID Jenelle Rodas MD documented in this encounter [facility] 08-24-2022 Miscellaneous Notes Patient requesting refills as follows: Last Office Visit 02/01/22 Requested Prescriptions Pending Prescriptions Disp Refills Blood-Glucose Meter (TRUE METRIX AIR GLUCOSE METER) monitoring kit Si Each as needed for up to 1 day. blood sugar diagnostic (TRUE METRIX GLUCOSE TEST STRIP) test strip Sig: Use as instructed Please review and advise. Marilou Cole MA documented in this encounter [facility] 07-27-2022 Miscellaneous Notes Left message on patients voicemail to contact office and let us know if we can leave results on her vm. Zoya Barahona MA Reminder placed. ----- Message from Derrick Thorpe APRN.BULLARD OPERATOR sent at 07/27/2022 11:25 AM EDT ----- Pancreatic cysts are stable. Repeat MRI in 1 year. Recommend yearly scans until 2024. Derrick Thorpe APRN.NAVIN documented in this encounter [facility] 07-27-2022 Miscellaneous Notes Called left message for patient to contact office and let us know if we can leave results on her Vm. Reminder placed. Zoya Barahona MA ----- Message from Derrick Thorpe APRN.CNP sent at 07/27/2022 11:25 AM EDT ----- Pancreatic cysts are stable. Repeat MRI in 1 year. Recommend yearly scans until 2024. Derrick Thorpe APRN.CNP documented in this encounter [facility] 07-06-2022 Miscellaneous Notes Patient is informed. Marilou Cole MA VM full. Zoya Barahona MA Thank you. Please see orders. Derrick Thorpe APRN.BULLARD OPERATOR ----- Message from Tran Rogers LPN sent at 07/05/2021 10:29 AM EDT ----- Regarding: AF pt Stable findings. Repeat MRI in 1 year for continued monitoring documented in this encounter [facility] 07-05-2022 Miscellaneous Notes Last OV 02/01/22 Apt 08/04/22 Labs 05/02/22 Pharmacy calls in requesting the following refill(s): Requested Prescriptions Pending Prescriptions Disp Refills metFORMIN (GLUCOPHAGE) 1,000 mg tablet 180 tablet 1 Sig: Take 1 tablet by mouth twice daily with meals. Keyanna Elena MA documented in this encounter [facility] 05-26-2022 Miscellaneous Notes No Show Documentation Prasanna Ma no showed for an appointment on 05/19/2022 with Rachel Danielle APRN.BULLARD OPERATOR at 2:00. She was scheduled for body pain. I called but no answer. Letter sent to call and reschedule appointment. Resources discussed/offered to patient: No show determined to be fault of patient: N/A This is the patients second no show in the last 12 months. Patient was rescheduled for . Letter mailed : Yes Is this the Third or Fourth No Show ? No Mare Ryan May 26, 2022 3:44 PM documented in this encounter [facility] 05-25-2022 Miscellaneous Notes Pharmacy requesting refills as follows: Last Office Visit 02/01/22 nov 08/04/22. Last Refill 12/30/21. Requested Prescriptions Pending Prescriptions Disp Refills glipiZIDE (GLUCOTROL) 10 mg tablet 180 tablet 0 Please review and advise. Marilou Cole MA documented in this encounter [facility] 05-25-2022 Miscellaneous Notes pharmacy requesting refills as follows: Last Office Visit 02/02/22 nov 08/04/22. Last Refill 11/16/21 for albuterol inhaler and 12/30/21 for atorvastatin. Requested Prescriptions Pending Prescriptions Disp Refills atorvastatin (LIPITOR) 40 mg tablet 90 tablet 0 Sig: Take 1 tablet by mouth once daily. albuterol HFA (VENTOLIN HFA) 90 mcg/actuation inhaler 18 Each 2 Sig: TAKE 2 PUFFS BY MOUTH EVERY 4 HOURS NEEDED Please review and advise. Marilou Cole MA documented in this encounter [facility] 05-08-2022 Miscellaneous Notes No Show Documentation Prasanna Ma no showed for an appointment on 05/08/22 with Derrick Thorpe APRN.BULLARD OPERATOR at 8:00. She was scheduled for general health concerns. I called but left a message to call and reschedule missed appointment. Resources discussed/offered to patient: No show determined to be fault of patient: N/A This is the patients first no show in the last 12 months. Patient was rescheduled for . Letter mailed : Yes Is this the Third or Fourth No Show ? No Mare Ryan May 08, 2022 9:04 AM documented in this encounter [facility] 05-04-2022 Miscellaneous Notes Patient returned call. Patient notified of Nicky's message. Stated understanding and all questions were answered. Encounter closed. Called patients home and left VM to call back office at [phone]. Please give message below. Please call patient and let her know that thyroid labs showed we should decrease the dose of methimazole. I recommend to take methimazole 5 mg one tablet from Sunday to Sunday and none on Sunday and Sundays. To repeat blood work in 2 months. Thyroid ultrasound with thyroid gland some thyroid lesions that require follow up. No need for biopsy at this time. Recommend to repeat the thyroid ultrasound in 6 months Jenelle Rodas MD Patient scheduled for next available in office visit, 08/01/2022. Patient previously declined MyChart. Patient states she is going to have labs drawn today and would like a call back with results of US and Labs before July. Please advise patient. Reshma Yang Pss Patient canceled her appt. Recommend to schedule appt and to obtain blood work and we will discuss in office visit Jenelle Rodas MD Patient called for Thyroid Ultrasound Results completed 04/13/2022. Please review and advise. documented in this encounter [facility] 04-25-2022 Miscellaneous Notes Patient was already scheduled for 08/01/22. Patient aware to get labs done Requester: Pharmacy Last Visit in Endocrinology: Provider name: Jenelle Rodas MD , Date 02/02/2022 Next Scheduled Appt in Endo: 08/01/2022 Last Refill: 02/02/22 Number of Refills given: 0 Pending Prescriptions Disp Refills METHIMAZOLE 5 MG TABLET 90 tablet 0 Sig: TAKE 1 TABLET BY MOUTH EVERY DAY JANIS: Yes Please review and advise. Kailyn Chapa LPN documented in this encounter [facility] 04-04-2022 Note CONSULTATION CONSULTATION DATE: 04/04/2022 CHIEF COMPLAINT: Cervical pain, thoracic pain, low back/gluteal pain. HISTORY OF PRESENT ILLNESS: This is a very pleasant, 61-year-old female who was referred to us by Derrick Thorpe, nurse practitioner. The patient has had chronic pain, 20+ years. The patient states it is degenerative. She sought chronic pain treatment in the past, however, without overt success. The patient also complains of bilateral hip pain. She rates it as a 9/10. It is a constant throbbing sensation. Twisting, walking, physical function, activities, housework, bending, activities aggravate the patient's pain. ADLs aggravate her. Ice, heat make the pain better as does sitting and lying down. The patient has a relatively sedentary lifestyle secondary to her pain. The patient has been seen in the past by Dr. Wellington with regards to her knee pathology. The patient states she takes ibuprofen, is on Plavix for a previous MRI, status post five stents. The patient takes Adderall 20 mg one tablet daily, trazodone 100 mg q.p.m., lopressor and a diuretic and valsartan/hydrochloride along with glyburide, metformin. The patient does not have any recent diagnostics. Her last studies were performed in 2005 in [place]. The patient's PAST MEDICAL HISTORY / SURGICAL HISTORY / REVIEW OF SYSTEMS are noted, to the best of her abilities on the chart, along with the MEDICATION LIST / ALLERGIES and no RADIOLOGICAL IMAGES. PHYSICAL EXAMINATION: GENERAL: Upon physical examination, this is an under nourished, 60-year-old female who looks older than stated age. VITAL SIGNS: 149/68 with a heart rate of 71. At a height of 5'4 , the patient weighs 61 kg. FOCUSED EVALUATION: The patient has global deconditioning of her muscles. Atrophic changes are noted of her left lower extremity compared to her right. Global muscle bulk and muscle density is decreased. BACK: With regards to evaluation of her back, the patient has loss of lumbar lordosis. Thoracic kyphosis is prominent and cervicothoracic guarding is present. Trapezius muscle spasmodic component is present. The patient also has significant spasming along the thoracolumbar and lumbosacral junction. ABDOMEN: Soft, non-distended. EXTREMITIES: Tender to palpation. The patient has laxity along the ligaments noted along her wrist and also her knee. MUSCULOSKELETAL: 4+/5 bilaterally; however, the quality of the musculature is poor. NEUROLOGICALLY: No clear cut radicular symptomatology is noted. Reflexes sluggish intact. PSYCHIATRICALLY: Affect is appropriate. IMPRESSION: Cervicothoracic pain, low back pain, lumbar degenerative disc disease, lumbar spondylosis, lumbar paravertebral spasm, atrophic changes of the musculature, deconditioning of muscles. PLAN: We will get an x-ray of the cervical, thoracic and lumbar spine to get a baseline on the patient. The patient will start baclofen 10 mg h.s. A multivitamin regimen has been given to the patient. Importance has been stressed for this and education has been done. The patient will be scheduled for a diagnostic lumbar medial branch block at the level of L2, L3 and L4, L5. Post procedurally, the patient will receive testosterone cypionate 50 mg for her generalized deconditioning of the muscles and muscle atrophy. The patient understands and would like to proceed. CC: LYSSA Main [facility] Signed and Approved by: DR KATHY HERNANDEZ . 04/11/2022 09:22:00 [facility] 02-22-2022 Miscellaneous Notes Patient notified and voiced understanding. Reminders placed. Zoya Barahona MA Left message for patient Marilou Cole MA Addended by: DERRICK THORPE on: 02/22/2022 01:44 PM Modules accepted: Orders CBC is normal Kidney function is slightly elevated Glucose is 117 Hgb A1C is 7.1 - this is right where we want it. I would like her to stop Victoza. Recheck the A1C in 3 months. Triglycerides are elevated, recommend low fat diet and increase activity. Continue lipitor. Recheck kidney function in 3 months too Derrick Thorpe APRN.BULLARD OPERATOR Patient lm on requesting lab results. Please advise. Zoya Barahona MA documented in this encounter [facility] 02-15-2022 Miscellaneous Notes Patient notified. Zoya Barahona MA Called left message for patient to contact office and let us know if it is ok to leave message on her voicemail. Zoya Barahona MA ----- Message from Derrick Thorpe APRN.BULLARD OPERATOR sent at 02/01/2022 4:09 PM EDT ----- Due for labs - A1C, lipid, CMP, CBC. Derrick Thorpe APRN.BULLARD OPERATOR documented in this encounter [facility] 02-13-2022 Miscellaneous Notes Pharmacy requesting refills as follows: Last Office Visit 02/01/22 nov 08/04/22. Last Refill 11/16/21. Pending Prescriptions Disp Refills VICTOZA 2-ADDIE 0.6 MG/0.1 ML (18 MG/3 ML) SUBCUTANEOUS PEN INJECTOR 1 Sig: INJECT 0.6 MG UNDER THE SKIN ONCE DAILY JANIS: Yes Please review and advise. Marilou Cole MA documented in this encounter [facility] 02-02-2022 Instructions Jenelle Rodas MD - 02/02/2022 3:06 PM EDT Thyroid labs and thyroid ultrasound before our next visit in 3 months documented in this encounter [facility] 02-02-2022 History of Present illness Narrative Endocrinology Follow Up Assessment Date: February 02, 2022 MIL: 05/25/2021 History of Present Illness Prasanna Ma is a 61 year old female with PMH of ADHD, stroke, CAD s/p 5 stents,Type 2 DM, COPD, HTN and HLD who presents today for evaluation of low TSH and multiple thyroid nodules. Patient was diagnosed with thyroid disease ~10 years ago. She says she can't recall a lot of things due to stroke. She says she was taking levothyroxine for a long period of time and then, her PCP stopped the medication ~6 months ago because her levels showed she had too much thyroid hormones. Patient is waiting to have approval for surgery on her right knee. She was going to have a NM thyroid uptake and scan, however, this was canceled as patient had IV contrast April 2021 and the NM thyroid uptake and scan was discontinued. Patient had a thyroid ultrasound 04/14/2021 revealing a bilateral heterogenous hypervascular thyroid gland with bilateral thyroid nodules: a 1.9-cm right hypoechoic nodule, with internal vascularity (TI-RADS 4) and a 1.1-cm left upper nodule, hypoechoic with internal vascularity. FH of thyroid disease: none Hx of amiodarone, lithium? no Taking Biotin? yes, for the last two months History of CT scan with intravenous contrast within the last 4 months? yes, CT scan of the abdomen 04/2021 History of ionizing radiation to the head, neck or chest? no INTERVAL HISTORY: 02/02/2022 Patient had blood work after holding biotin for >5 days consistent with subclinical hyperthyroidism with undetectable TSH and normal thyroid hormone levels. TPO antibodies were markedly elevated >4,400. The patient had a NM thyroid uptake and scan suggesting graves disease as the cause of hyperthyroidism. NM THYROID UPTAKE AND SCAN: 06/07/2021 The I-123 uptake at 5 hours is 11.5%, and 24 hours uptake of 29.5%. (normal range is 5.5-25%). The thyroid scan demonstrates homogenous tracer uptake in both thyroid lobe. Since she was going to have knee surgery, she was started on treatment with methimazole 5 mg every day. Thyroid labs normalized on methimazole. She is currently taking methimazole 5 mg every day. Medications, Allergies Current Outpatient Medications Medication Sig Dispense Refill ALPRAZolam (XANAX) 1 mg tablet Take 1 mg by mouth three times daily. isosorbide mononitrate ER (IMDUR) 30 mg 24 hr tablet Take 1 tablet by mouth once daily. 90 tablet 1 clopidogrel (PLAVIX) 75 mg tablet Take 1 tablet by mouth once daily. 90 tablet 1 TRADJENTA 5 mg tab TAKE 1 TABLET BY MOUTH EVERY DAY 30 tablet 5 Valsartan-hydroCHLOROthiazide 80-12.5 mg per tablet TAKE 1 TABLET BY MOUTH EVERY DAY 90 tablet 0 famotidine (PEPCID) 20 mg tablet Take 1 tablet by mouth twice daily. 180 tablet 1 glipiZIDE (GLUCOTROL) 10 mg tablet TAKE 1 TABLET BY MOUTH TWICE A DAY BEFORE MEALS 180 tablet 0 atorvastatin (LIPITOR) 40 mg tablet TAKE 1 TABLET BY MOUTH EVERY DAY 90 tablet 0 methIMAzole (TAPAZOLE) 5 mg tablet TAKE 1 TABLET BY MOUTH EVERY DAY 90 tablet 0 BD ULTRAFINE III MINI PEN 31 gauge x 3/16 USE DIRECTED WITH INSULIN 100 Each 1 nitroglycerin sublingual (NITROQUICK) 0.4 mg SL tablet DISSOLVE 1 TABLET UNDER THE TONGUE EVERY 5 MINUTES NEEDED. 450 tablet 0 BREO ELLIPTA 200-25 mcg/dose inhaler INHALE 1 INHALATION INSTRUCTED ONCE DAILY. 60 Each 2 liraglutide (VICTOZA) 0.6 mg/ 0.1 ml subcutaneous pen injector Inject 0.6 mg subcutaneously once daily. 3 mL 1 albuterol HFA (VENTOLIN HFA) 90 mcg/actuation inhaler TAKE 2 PUFFS BY MOUTH EVERY 4 HOURS NEEDED 18 Each 2 tiotropium (SPIRIVA WITH HANDIHALER) 18 mcg inhalation capsule INHALE CONTENTS OF 1 CAPSULE INSTRUCTED WITH HANDIHALER ONCE DAILY. 30 capsule 0 metoprolol tartrate, short acting, (LOPRESSOR) 50 mg tablet TAKE 1 TABLET BY MOUTH TWICE A DAY 180 tablet 0 ferrous sulfate 325 mg (65 mg iron) tablet TAKE 1 TABLET BY MOUTH THREE TIMES DAILY WITH MEALS. 270 tablet 1 traZODone (DESYREL) 100 mg tablet TAKE 1 TABLET BY MOUTH EVERY DAY AT NIGHT DULoxetine (CYMBALTA) 30 mg capsule Take 30 mg by mouth once daily. desvenlafaxine ER (PRISTIQ) 100 mg 24 hr tablet Take 100 mg by mouth once daily. metFORMIN (GLUCOPHAGE) 1,000 mg tablet TAKE 1 TABLET BY MOUTH TWICE A DAY WITH MEALS 180 tablet 1 aspirin 81 mg chewable tablet Take 81 mg by mouth once daily. albuterol (PROVENTIL) 2.5 mg/0.5 mL nebulizer solution Use 0.5 mL via nebulizer every 6 hours as needed. DX J45.909 20 Vial 1 ONETOUCH ULTRA BLUE TEST STRIP test strip PATIENT TESTS TWICE DAILY DX E1.65 50 Strip 3 Lancets (IngogoTOUCH ULTRASOFT LANCETS) lancets Check Blood sugar before breakfast and before dinner daily. Dx. E11.65 100 Each 1 dextroamphetamine-amphetamine (ADDERALL) 20 mg tablet Take 1 tablet by mouth twice daily for 30 days. Earliest Fill Date: 01/22/18 60 tablet 0 Blood-Glucose Meter (IngogoTOUCH VERIO IQ METER) [facility] [place] tests 3 times daily DX E11.65 1 Each 0 Blood-Glucose Meter monitoring kit 1 Each as needed. Feel with insurance preference 1 Each 1 No current facility-administered medications for this visit. ALLERGIES Allergen Reactions B12 [Cyanocobalamin* GI Upset Patient got dizzy, lightheaded, nauseated. Pneumococcal 23-Rose* Hives Patient got hives, Review of Systems GENERAL: No weight loss, malaise or fevers HEENT: Negative for frequent or significant headaches, No changes in hearing or vision, no nose bleeds or other nasal problems NECK: Negative for lumps, goiter, pain and significant neck swelling RESPIRATORY: Negative for cough, hemoptysis, wheezing, COPD, dyspnea or shortness of breath CARDIOVASCULAR: Negative for chest pain, leg swelling, hypertension, CHF or palpitations GI: No nausea, vomiting, or diarrhea : No history of dysuria, frequency or incontinence MUSCULOSKELETAL: joint pain SKIN: Negative for lesions, rash, and itching HEMATOLOGY/LYMPHOLOGY: Negative for prolonged bleeding, bruising easily or swollen nodes ENDOCRINE: Negative for cold or heat intolerance, polyuria, polydipsia and goiter NEURO: No history of headaches, syncope, paralysis, seizures or tremors Physical examination BP 129/73 (BP Site: Right Arm, BP Position: Sitting, BP Cuff Size: Regular Adult) Pulse 64 Ht 162.6 cm (5' 4 ) Wt 60.1 kg (132 lb 6.4 oz) SpO2 99% BMI 22.73 kg/m GENERAL: Well nourished, well hydrated, in no distress and oriented x 3 COMMUNICATION: Hearing: normal; VOICE: normal EYES: no thyroid eye signs and normal conjunctiva NECK: no visible nodules or goiter, no bruit, no tenderness and no adenopathies THYROID: smooth, non-tender, 15 gram, firm and No palpable nodules EXTREMITIES: No clubbing, no edema, no cyanosis and normal nails NEURO: normal strength and no tremor Previous Laboratory Results Component Latest Ref Rng & Units 08/05/2021 09/20/2021 11/16/2021 01/08/2022 WBC 3.70 - 11.00 k/uL 8.87 7.76 RBC 3.90 - 5.20 m/uL 4.22 4.07 Hemoglobin 11.5 - 15.5 g/dL 12.4 12.1 Hematocrit 36.0 - 46.0 % 39.1 36.7 MCV 80.0 - 100.0 fL 92.7 90.2 MCH 26.0 - 34.0 pg 29.4 29.7 MCHC 30.5 - 36.0 g/dL 31.7 33.0 RDW-CV 11.5 - 15.0 % 13.1 13.6 Platelet Count 150 - 400 k/uL 279 274 MPV 9.0 - 12.7 fL 10.5 10.5 Neut% % 51.5 56.8 Abs Neut (ANC) 1.45 - 7.50 k/uL 4.57 4.41 Lymph% % 30.3 25.4 Abs Lymph 1.00 - 4.00 k/uL 2.69 1.97 Wythe% % 5.9 7.3 Abs Wythe <0.87 k/uL 0.52 0.57 Eosin% % 12.0 10.1 Abs Eosin <0.46 k/uL 1.06 (H) 0.78 (H) Baso% % 0.3 0.4 Abs Baso <0.11 k/uL 0.03 0.03 DTYPE Auto Auto Protein, Total 6.3 - 8.0 g/dL 7.1 7.2 7.5 7.3 Albumin 3.9 - 4.9 g/dL 4.4 4.5 4.7 4.7 Calcium 8.5 - 10.2 mg/dL 9.7 9.9 9.9 9.8 Bilirubin, Total 0.2 - 1.3 mg/dL 0.2 0.2 0.3 0.3 Alkaline Phosphatase 34 - 123 U/L 99 107 107 98 AST 13 - 35 U/L 18 17 16 18 ALT 7 - 38 U/L 17 16 14 13 Glucose 74 - 99 mg/dL 126 (H) 187 (H) 170 (H) 151 (H) BUN 7 - 21 mg/dL 14 12 15 14 Creatinine 0.58 - 0.96 mg/dL 1.04 (H) 0.93 0.99 (H) 0.98 (H) Sodium 136 - 144 mmol/L 135 (L) 139 139 134 (L) Potassium 3.7 - 5.1 mmol/L 4.5 4.8 4.0 4.2 Chloride 97 - 105 mmol/L 101 103 103 98 CO2 22 - 30 mmol/L 25 24 25 24 Anion Gap 9 - 18 mmol/L 9 12 11 12 eGFR- >60 >60 >60 eGFR-All Other Races 54 >60 57 eGFR >=60 mL/min/1.73m 65 TSH 0.270 - 4.200 uU/mL 0.310 1.930 3.650 Free T4 0.9 - 1.7 ng/dL 0.7 (L) 0.9 1.0 T3 60 - 180 ng/dL 80 99 82 Thyroglobulin Ab Date Value Ref Range Status 05/31/2021 77.6 (H) 0.0 - 60.0 IU/mL Final Impression/Recommendations 61 year old female is currently evaluated for: ASSESSMENT/PLAN: 1. Hyperthyroidism - ICD9: 242.90, ICD10: E05.90 (primary diagnosis) Due to graves disease based on findings on NM thyroid uptake Thyroid labs normalized on methimazole 5 mg every day I reviewed the risks of anti-thyroid drugs including, but not limited to, agranulocytosis, hepatotoxicity, joint pains and rash. Recheck thyroid labs - TSH BLD - T3 BLD - T4 FREE/FREE THYROX - COMP METABOLIC PANEL - CBC + DIFF - METHIMAZOLE 5 MG TABLET 2. Multiple thyroid nodules - ICD9: 241.1, ICD10: E04.2 Update thyroid ultrasound and reassess need for FNAB - US THYROID/PARATHYROID Jenelle Rodas MD documented in this encounter [facility] 01-30-2022 Miscellaneous Notes Pharmacy requesting refills: Last office visit 11/16/2021 Last refill 11/11/2020 .nov 02/01/2022 Pending Prescriptions Disp Refills TRADJENTA 5 MG TABLET 30 tablet 5 Sig: TAKE 1 TABLET BY MOUTH EVERY DAY JANIS: Yes Please review and advise. Zoya Barahona MA documented in this encounter [facility] 01-16-2022 Miscellaneous Notes Left message informing patient. Marilou Cole MA ----- Message from Nevaeh Lindsay MD sent at 01/14/2022 10:08 AM EDT ----- Negative mammogram documented in this encounter [facility] 01-12-2022 Miscellaneous Notes [facility] [address] [place] [address] January 12, 2022 PID: [id number] Prasanna Ma [address] [facility] [address] [place] [address] Dear Ms. Ma, We are pleased to inform you that the results of your recent breast imaging exam on 01/12/2022 are normal. Early detection of cancer is very important. We also understand recommendations regarding breast cancer screening are controversial. Please discuss with your primary care provider which strategy is best for you and whether a mammogram is right for you. Your imaging studies and report will be kept on file at [facility] as part of your permanent medical record and are available for your continuing care. Thank you for allowing us to help in meeting your health care needs. Sincerely, Dr. Contreras Interpreting Radiologist [facility] (Normal over 40) documented in this encounter [facility] 01-12-2022 History of Present illness Narrative Radiology Service Progress Note PATIENT NAME: Prasanna Ma DATE OF SERVICE: January 12, 2022 TIME: 3:01 PM PATIENT IDENTITY VERIFICATION COMPLETED USING TWO (2) IDENTIFIERS: Name and Date of confirmed by patient verbally. FALL SCREENING: Has the patient had 2 falls in the last year or 1 fall with injury or currently using an Ambulatory Assistive Device (Walker, Cane, Wheelchair, Crutches, etc.)? No PATIENT GENDER DATA: Female. status: : No status: N/A PATIENT RELEVANT IMPLANT DATA REVIEWED: Not Applicable RADIOLOGY DEPARTMENT: Mammography PERIPHERAL IV DATA: Not applicable SIGNED BY: MAXINE Alcantara) January 12, 2022 3:01 PM documented in this encounter [facility] 06-07-2021 Note HNO ID: [id number] Author: JULY Wolff Service: Nuclear Medicine Author Type: Clinical Trailer Chief Type: Progress Notes Filed: 06/07/2021 12:05 PM Note Text: RADIOLOGY SERVICE PROGRESS NOTE SERVICE DATE: 06/07/2021 SERVICE TIME: 12:05 PM PATIENT IDENTITY VERIFICATION COMPLETED USING TWO (2) STANDARD IDENTIFIERS: Name and Date of confirmed by patient verbally and Name and Date of confirmed by identification band FALL SCREENING: Has the patient had 2 falls in the last year or 1 fall with injury or currently using an Ambulatory Assistive Device (Walker, Cane, Wheelchair, Crutches, etc.)? No PATIENT GENDER DATA: .female : No ALLERGIES: Reviewed and unchanged MEDICATIONS REVIEWED: Not applicable PATIENT RELEVANT IMPLANT DATA REVIEWED: Not Applicable CREATININE: Creatinine Date Value Ref Range Status 05/31/2021 0.84 0.58 - 0.96 mg/dL Final 04/13/2021 0.77 0.58 - 0.96 mg/dL Final 01/22/2021 0.66 0.58 - 0.96 mg/dL Final 07/09/2020 0.75 0.58 - 0.96 mg/dL Final 05/14/2020 0.75 0.58 - 0.96 mg/dL Final 04/03/2020 0.74 0.58 - 0.96 mg/dL Final eGFR-All Other Races Date Value Ref Range Status 05/31/2021 >60 Final Comment: eGFR (Estimated GFR) Units of measure: mL/min/1.73 meters squared eGFR is derived from the reexpressed MDRD Study equation using the following parameters: serum creatinine, age, gender and race. The creatinine assay has been calibrated to be traceable to IDMS. An eGFR <60 mL/min/1.73m2 for >3 months is consistent with chronic kidney disease. Refer to KDOQI guidelines for clinical interpretation. In patients with unstable renal function, e.g. those with acute kidney injury, the eGFR may not accurately reflect actual GFR. 02/15/2015 >60 . Final Comment: eGFR (Estimated GFR) Units of measure: mL/min/1.73 meters squared eGFR is derived from the reexpressed MDRD Study equation using the following parameters: serum creatinine, age, gender and race. The creatinine assay has been calibrated to be traceable to IDMS. An eGFR <60 mL/min/1.73m2 for >3 months is consistent with chronic kidney disease. Refer to KDOQI guidelines for clinical interpretation. In patients with unstable renal function, e.g. those with acute kidney injury, the eGFR may not accurately reflect actual GFR. eGFR- Date Value Ref Range Status 05/31/2021 >60 Final 02/15/2015 >60 Final P.O.C.T. RESULTS: N/A June 07, [address] PERFORMED: No IV SITE: NM only - not applicable, oral or physician administered agents given to patient POST EXAM PIV STATUS: Not applicable PROCEDURE TYPE: NM INJECT: THYROID W UPTAKE. 208.7 microcuries Nal-123 Capsules. No other medications given.. ADMINISTRATION TIME: 11:25 PATIENT DISCHARGED TO: Ambulatory patient, left [place] department area. A Diagnostic radioactive procedure has taken place, with no further precautions necessary other than routine body substance precautions. More information regarding radiation safety can be found using this link: [email or web address]%[email or web address] [email or web address] SIGNATURE: JULY Wolff PATIENT NAME: Prasanna Ma DATE: June 07, 2021 TIME: 12:05 PM PAGER/CONTACT #: [facility] 06-06-2021 Note HNO ID: [id number] Author: JULY Wolff Service: Nuclear Medicine Author Type: Clinical Trailer Chief Type: Progress Notes Filed: 06/06/2021 3:03 PM Note Text: RADIOLOGY SERVICE PROGRESS NOTE SERVICE DATE: 06/06/2021 SERVICE TIME: 3:02 PM PATIENT IDENTITY VERIFICATION COMPLETED USING TWO (2) STANDARD IDENTIFIERS: Name and Date of confirmed by patient verbally and Name and Date of confirmed by identification band FALL SCREENING: Has the patient had 2 falls in the last year or 1 fall with injury or currently using an Ambulatory Assistive Device (Walker, Cane, Wheelchair, Crutches, etc.)? No PATIENT GENDER DATA: .female : No ALLERGIES: Reviewed and unchanged MEDICATIONS REVIEWED: Not applicable PATIENT RELEVANT IMPLANT DATA REVIEWED: Not Applicable CREATININE: Creatinine Date Value Ref Range Status 05/31/2021 0.84 0.58 - 0.96 mg/dL Final 04/13/2021 0.77 0.58 - 0.96 mg/dL Final 01/22/2021 0.66 0.58 - 0.96 mg/dL Final 07/09/2020 0.75 0.58 - 0.96 mg/dL Final 05/14/2020 0.75 0.58 - 0.96 mg/dL Final 04/03/2020 0.74 0.58 - 0.96 mg/dL Final eGFR-All Other Races Date Value Ref Range Status 05/31/2021 >60 Final Comment: eGFR (Estimated GFR) Units of measure: mL/min/1.73 meters squared eGFR is derived from the reexpressed MDRD Study equation using the following parameters: serum creatinine, age, gender and race. The creatinine assay has been calibrated to be traceable to IDMS. An eGFR <60 mL/min/1.73m2 for >3 months is consistent with chronic kidney disease. Refer to KDOQI guidelines for clinical interpretation. In patients with unstable renal function, e.g. those with acute kidney injury, the eGFR may not accurately reflect actual GFR. 02/15/2015 >60 . Final Comment: eGFR (Estimated GFR) Units of measure: mL/min/1.73 meters squared eGFR is derived from the reexpressed MDRD Study equation using the following parameters: serum creatinine, age, gender and race. The creatinine assay has been calibrated to be traceable to IDMS. An eGFR <60 mL/min/1.73m2 for >3 months is consistent with chronic kidney disease. Refer to KDOQI guidelines for clinical interpretation. In patients with unstable renal function, e.g. those with acute kidney injury, the eGFR may not accurately reflect actual GFR. eGFR- Date Value Ref Range Status 05/31/2021 >60 Final 02/15/2015 >60 Final P.O.C.T. RESULTS: N/A June 06, [address] PERFORMED: No IV SITE: AK only - not applicable, oral or physician administered agents given to patient POST EXAM PIV STATUS: Not applicable PROCEDURE TYPE: [place] INJECT: thyroid w uptake. 208.7 microcuries Nal-123 Capsules. No other medications given.. ADMINISTRATION TIME: 11:25 PATIENT DISCHARGED TO: Ambulatory patient, left [place] department area. A Diagnostic radioactive procedure has taken place, with no further precautions necessary other than routine body substance precautions. More information regarding radiation safety can be found using this link: [email or web address]%20Medi [email or web address] SIGNATURE: JULY Wolff PATIENT NAME: Prasanna Ma DATE: June 06, 2021 TIME: 3:02 PM PAGER/CONTACT #: [facility] 02-26-2013 History of Past i llness Narrative Problem Noted Date Resolved Date NO SHOW 02/26/2013 10/12/2014 documented as of this encounter (statuses as of 01/13/2022) [facility] History of Past illness Narrative* Problem Noted Date Resolved Date NO SHOW 02/26/2013 10/12/2014 documented as of this encounter (statuses as of 01/14/2022) [facility] History of Past illness Narrative* Problem Noted Date Resolved Date NO SHOW 02/26/2013 10/12/2014 documented as of this encounter (statuses as of 01/16/2022) [address] History of Past illness Narrative* Problem Noted Date Resolved Date NO SHOW 02/26/2013 10/12/2014 documented as of this encounter (statuses as of 01/31/2022) [address] History of Past illness Narrative* Problem Noted Date Resolved Date NO SHOW 02/26/2013 10/12/2014 documented as of this encounter (statuses as of 02/02/2022) [address] History of Past illness Narrative* Problem Noted Date Resolved Date NO SHOW 02/26/2013 10/12/2014 documented as of this encounter (statuses as of 02/13/2022) [address] History of Past illness Narrative* Problem Noted Date Resolved Date NO SHOW 02/26/2013 10/12/2014 documented as of this encounter (statuses as of 02/15/2022) [address] History of Past illness Narrative* Problem Noted Date Resolved Date NO SHOW 02/26/2013 10/12/2014 documented as of this encounter (statuses as of 02/22/2022) [address] History of Past illness Narrative* Problem Noted Date Resolved Date NO SHOW 02/26/2013 10/12/2014 documented as of this encounter (statuses as of 04/14/2022) [address] History of Past illness Narrative* Problem Noted Date Resolved Date NO SHOW 02/26/2013 10/12/2014 documented as of this encounter (statuses as of 04/25/2022) [address] History of Past illness Narrative* Problem Noted Date Resolved Date NO SHOW 02/26/2013 10/12/2014 documented as of this encounter (statuses as of 05/04/2022) [facility] History of Past illness Narrative* Problem Noted Date Resolved Date NO SHOW 02/26/2013 10/12/2014 documented as of this encounter (statuses as of 05/08/2022) [address] History of Past illness Narrative* Problem Noted Date Resolved Date NO SHOW 02/26/2013 10/12/2014 documented as of this encounter (statuses as of 05/25/2022) [address] History of Past illness Narrative* Problem Noted Date Resolved Date NO SHOW 02/26/2013 10/12/2014 documented as of this encounter (statuses as of 05/25/2022) [address] History of Past illness Narrative* Problem Noted Date Resolved Date NO SHOW 02/26/2013 10/12/2014 documented as of this encounter (statuses as of 05/26/2022) [address] History of Past illness Narrative* Problem Noted Date Resolved Date NO SHOW 02/26/2013 10/12/2014 documented as of this encounter (statuses as of 07/05/2022) [address] History of Past illness Narrative* Problem Noted Date Resolved Date NO SHOW 02/26/2013 10/12/2014 documented as of this encounter (statuses as of 07/06/2022) [address] History of Past illness Narrative* Problem Noted Date Resolved Date NO SHOW 02/26/2013 10/12/2014 documented as of this encounter (statuses as of 07/27/2022) [address] History of Past illness Narrative* Problem Noted Date Resolved Date NO SHOW 02/26/2013 10/12/2014 documented as of this encounter (statuses as of 08/04/2022) [address] History of Past illness Narrative* Problem Noted Date Resolved Date NO SHOW 02/26/2013 10/12/2014 documented as of this encounter (statuses as of 08/24/2022) [address] History of Past illness Narrative* Problem Noted Date Resolved Date NO SHOW 02/26/2013 10/12/2014 documented as of this encounter (statuses as of 08/25/2022) [address] History of Past illness Narrative* Problem Noted Date Resolved Date NO SHOW 02/26/2013 10/12/2014 documented as of this encounter (statuses as of 09/05/2022) [address] History of Past illness Narrative* Problem Noted Date Resolved Date NO SHOW 02/26/2013 10/12/2014 documented as of this encounter (statuses as of 09/11/2022) [address] History of Past illness Narrative* Problem Noted Date Resolved Date NO SHOW 02/26/2013 10/12/2014 documented as of this encounter (statuses as of 09/11/2022) [address] History of Past illness Narrative* Problem Noted Date Resolved Date NO SHOW 02/26/2013 10/12/2014 documented as of this encounter (statuses as of 09/12/2022) [address] History of Past illness Narrative* Problem Noted Date Resolved Date NO SHOW 02/26/2013 10/12/2014 documented as of this encounter (statuses as of 09/19/2022) [address] History of Past illness Narrative* Problem Noted Date Resolved Date NO SHOW 02/26/2013 10/12/2014 documented as of this encounter (statuses as of 09/22/2022) [address] History of Past illness Narrative* Problem Noted Date Resolved Date NO SHOW 02/26/2013 10/12/2014 documented as of this encounter (statuses as of 09/29/2022) [address] History of Past illness Narrative* Problem Noted Date Resolved Date NO SHOW 02/26/2013 10/12/2014 documented as of this encounter (statuses as of 10/03/2022) [address] History of Past illness Narrative* Problem Noted Date Resolved Date NO SHOW 02/26/2013 10/12/2014 documented as of this encounter (statuses as of 10/07/2022) [address] History of Past illness Narrative* Problem Noted Date Resolved Date NO SHOW 02/26/2013 10/12/2014 documented as of this encounter (statuses as of 10/17/2022) [address] History of Past illness Narrative* Problem Noted Date Resolved Date NO SHOW 02/26/2013 10/12/2014 documented as of this encounter (statuses as of 10/26/2022) [address] History of Past illness Narrative* Problem Noted Date Resolved Date NO SHOW 02/26/2013 10/12/2014 documented as of this encounter (statuses as of 12/09/2022) [address] History of Past illness Narrative* Problem Noted Date Resolved Date NO SHOW 02/26/2013 10/12/2014 documented as of this encounter (statuses as of 12/26/2022) [address] History of Past illness Narrative* Problem Noted Date Resolved Date NO SHOW 02/26/2013 10/12/2014 documented as of this encounter (statuses as of 01/22/2023) [address] History of Past illness Narrative* Problem Noted Date Resolved Date NO SHOW 02/26/2013 10/12/2014 documented as of this encounter (statuses as of 01/27/2023) [address] History of Past illness Narrative* Problem Noted Date Resolved Date NO SHOW 02/26/2013 10/12/2014 documented as of this encounter (statuses as of 02/05/2023) [address] History of Past illness Narrative* Problem Noted Date Resolved Date NO SHOW 02/26/2013 10/12/2014 documented as of this encounter (statuses as of 02/13/2023) [address] History of Past illness Narrative* Problem Noted Date Resolved Date NO SHOW 02/26/2013 10/12/2014 documented as of this encounter (statuses as of 02/19/2023) [address] History of Past illness Narrative* Problem Noted Date Resolved Date NO SHOW 02/26/2013 10/12/2014 documented as of this encounter (statuses as of 04/18/2023) [address] History of Past illness Narrative* Problem Noted Date Resolved Date NO SHOW 02/26/2013 10/12/2014 documented as of this encounter (statuses as of 04/20/2023) [address] History of Past illness Narrative* Problem Noted Date Diagnosed Date Resolved Date NO SHOW 02/26/2013 10/12/2014 documented as of this encounter (statuses as of 04/30/2023) [facility] History of Past illness Narrative* Problem Noted Date Diagnosed Date Resolved Date NO SHOW 02/26/2013 10/12/2014 documented as of this encounter (statuses as of 05/07/2023) [address] History of Past illness Narrative* Problem Noted Date Diagnosed Date Resolved Date NO SHOW 02/26/2013 10/12/2014 documented as of this encounter (statuses as of 05/31/2023) [address] History of Past illness Narrative* Problem Noted Date Diagnosed Date Resolved Date NO SHOW 02/26/2013 10/12/2014 documented as of this encounter (statuses as of 06/04/2023) [address] History of Past illness Narrative* Problem Noted Date Diagnosed Date Resolved Date NO SHOW 02/26/2013 10/12/2014 documented as of this encounter (statuses as of 06/25/2023) [address] History of Past illness Narrative* Problem Noted Date Diagnosed Date Resolved Date NO SHOW 02/26/2013 10/12/2014 documented as of this encounter (statuses as of 06/26/2023) [address] [address] History of Past illness Narrative* Problem Noted Date Diagnosed Date Resolved Date NO SHOW 02/26/2013 10/12/2014 documented as of this encounter (statuses as of 07/06/2023) [address] History of Past illness Narrative* Problem Noted Date Diagnosed Date Resolved Date NO SHOW 02/26/2013 10/12/2014 documented as of this encounter (statuses as of 07/09/2023) [address] History of Past illness Narrative* Problem Noted Date Diagnosed Date Resolved Date NO SHOW 02/26/2013 10/12/2014 documented as of this encounter (statuses as of 07/13/2023) [address] History of Past illness Narrative* Problem Noted Date Diagnosed Date Resolved Date NO SHOW 02/26/2013 10/12/2014 documented as of this encounter (statuses as of 07/17/2023) [address] History of Past illness Narrative* Problem Noted Date Diagnosed Date Resolved Date NO SHOW 02/26/2013 10/12/2014 documented as of this encounter (statuses as of 07/27/2023) [address] History of Past illness Narrative* Problem Noted Date Diagnosed Date Resolved Date NO SHOW 02/26/2013 10/12/2014 documented as of this encounter (statuses as of 07/31/2023) [address] History of Past illness Narrative* Problem Noted Date Diagnosed Date Resolved Date NO SHOW 02/26/2013 10/12/2014 documented as of this encounter (statuses as of 08/07/2023) [address] History of Past illness Narrative* Problem Noted Date Diagnosed Date Resolved Date NO SHOW 02/26/2013 10/12/2014 documented as of this encounter (statuses as of 08/11/2023) [address] History of Past illness Narrative* Problem Noted Date Diagnosed Date Resolved Date NO SHOW 02/26/2013 10/12/2014 documented as of this encounter (statuses as of 08/28/2023) [address] History of Past illness Narrative* Problem Noted Date Diagnosed Date Resolved Date NO SHOW 02/26/2013 10/12/2014 documented as of this encounter (statuses as of 09/26/2023) [address] History of Past illness Narrative* Problem Noted Date Diagnosed Date Resolved Date NO SHOW 02/26/2013 10/12/2014 documented as of this encounter (statuses as of 11/20/2023) [address] History of Past illness Narrative* Problem Noted Date Diagnosed Date Resolved Date NO SHOW 02/26/2013 10/12/2014 documented as of this encounter (statuses as of 11/21/2023) [address] History of Past illness Narrative* Problem Noted Date Diagnosed Date Resolved Date NO SHOW 02/26/2013 10/12/2014 documented as of this encounter (statuses as of 11/23/2023) [address] History of Past illness Narrative* Problem Noted Date Diagnosed Date Resolved Date NO SHOW 02/26/2013 10/12/2014 documented as of this encounter (statuses as of 11/23/2023) [address] History of Past illness Narrative* Problem Noted Date Diagnosed Date Resolved Date NO SHOW 02/26/2013 10/12/2014 documented as of this encounter (statuses as of 11/28/2023) [address] History of Past illness Narrative* Problem Noted Date Diagnosed Date Resolved Date NO SHOW 02/26/2013 10/12/2014 documented as of this encounter (statuses as of 12/19/2023) [address] History of Past illness Narrative* Problem Noted Date Diagnosed Date Resolved Date NO SHOW 02/26/2013 10/12/2014 documented as of this encounter (statuses as of 12/21/2023) [place] [address] History of Past illness Narrative* Problem Noted Date Diagnosed Date Resolved Date NO SHOW 02/26/2013 10/12/2014 documented as of this encounter (statuses as of 01/03/2024) [address] History of Past illness Narrative* Problem Noted Date Diagnosed Date Resolved Date NO SHOW 02/26/2013 10/12/2014 documented as of this encounter (statuses as of 01/16/2024) [facility]2013 History of Past illness Narrative* Problem Noted Date Diagnosed Date Resolved Date NO SHOW 02/26/2013 10/12/2014 documented as of this encounter (statuses as of 01/23/2024) [facility] note* Diagnosis Encounter for screening mammogram for malignant neoplasm of breast Other screening mammogram [facility]* Diagnosis Medication refill Issue of repeat prescriptions documented in this encounter [facility] note* Diagnosis Hyperthyroidism- Primary Thyrotoxicosis without mention of goiter or other cause, without mention of thyrotoxic crisis or storm Multiple thyroid nodules Nontoxic multinodular goiter documented [facility] this encounter [facility]* Diagnosis Uncontrolled type 2 diabetes mellitus with hyperglycemia (HCC) [facility] Diagnosis Type 2 diabetes mellitus with hyperglycemia, without long-term current use of insulin (HCC)- Primary Pure hypercholesterolemia documented in this encounter [facility]* Diagnosis Hyperthyroidism Thyrotoxicosis without mention of goiter or other cause, without mention of thyrotoxic crisis or storm Nontoxic single thyroid nodule Nontoxic uninodular goiter documented in this encounter [facility]* Diagnosis Hyperthyroidism Thyrotoxicosis without mention of goiter or other cause, without mention of thyrotoxic crisis or storm documented in this encounter [facility]* Diagnosis Onset Date Resolution Status Bilateral carotid bruits acu te Hyperlipidemia acute Preoperative cardiovascular examination acute Atherosclerotic heart diseas e of [place] coronary artery without angina pectoris chronic Essential hypertension chron ic Presence of stent in coronary artery October, [facility] Work Phone: Evaluation note* Diagnosis Hyperthyroidism Thyrotoxicosis without mention of goiter or other cause, without mention of thyrotoxic crisis or storm documented in this encounter [facility] note* Diagnosis Encounter for issue of repeat prescription Issue of repeat prescriptions documented [facility] this encounter [facility]* Diagnosis Pancreas cyst- Primary Cyst and pseudocyst of pancreas documented in this encounter [facility]* Diagnosis Type 2 diabetes mellitus with hyperglycemia, without long-term current use of insulin (HCC) documented in this encounter [facility] note* Diagnosis Hyperthyroidism- Primary Thyrotoxicosis without mention of goiter or other cause, without mention of thyrotoxic crisis or storm Multiple thyroid nodules Nontoxic multinodular goiter documented in this encounter [facility] noteNo assessment information [facility] Work [facility]: Evaluation note* Diagnosis Hyperthyroidism Thyrotoxicosis without mention of goiter or other cause, without mention of thyrotoxic crisis or storm documented in this encounter [facility] note* Diagnosis Medication refill Issue of repeat prescriptions Coronary artery disease involving [place] heart without angina pectoris, unspecified vessel or lesion type documented in this encounter [facility]* Diagnosis Type 2 diabetes mellitus with hyperglycemia, without long-term current use of insulin (HCC)- Primary Hyperthyroidism Thyrotoxicosis without mention of goiter or other cause, without mention of thyrotoxic crisis or storm Multiple thyroid nodules Nontoxic multinodular goiter Chronic obstructive pulmonary disease, unspecified COPD type (HCC) Pure hypercholesterolemia Primary hypertension Unspecified essential hypertension Coronary artery disease involving [place] heart without angina pectoris, unspecified vessel or lesion type RAY (obstructive sleep apnea) Obstructive sleep apnea (adult) (pediatric) Pancreatic cyst Cyst and pseudocyst of pancreas Iron deficiency anemia, unspecified iron deficiency anemia type documented in this encounter [facility]* Diagnosis Multiple thyroid nodules Nontoxic multinodular goiter documented in this encounter [facility]* Diagnosis Medication refill Issue of repeat prescriptions Essential hypertension Unspecified essential hypertension documented [facility] this [facility]* Diagnosis Encounter for issue of repeat prescription Issue of repeat prescriptions documented in this encounter [facility]* Diagnosis Coronary artery disease involving [place] heart without angina pectoris, unspecified vessel or lesion type documented in this encounter [facility] note* Diagnosis Encounter for screening mammogram for breast cancer- Primary [facility]* Diagnosis Type 2 diabetes mellitus with hyperglycemia, without long-term current use of insulin (HCC)- Primary Congestive heart failure, unspecified HF chronicity, unspecified heart failure type (HCC) Chronic obstructive pulmonary disease, unspecified COPD type (HCC) Hyperthyroidism Thyrotoxicosis without mention of goiter or other cause, without mention of thyrotoxic crisis or storm Rheumatoid arthritis involving vertebra, unspecified whether rheumatoid factor present (HCC) documented [facility] this [facility]* Diagnosis Encounter for issue of repeat prescription Issue of repeat prescriptions [facility] Diagnosis Medication refill Issue of repeat prescriptions [facility] Diagnosis Hyperthyroidism Thyrotoxicosis without mention of goiter or other cause, without mention of thyrotoxic crisis or storm [facility]* Diagnosis Fall in home, subsequent encounter- Primary Hyponatremia Hyposmolality and/or hyponatremia Rheumatoid arthritis involving vertebra, unspecified whether rheumatoid factor present (HCC) Type 2 diabetes mellitus with hyperglycemia, without long-term current use of insulin (HCC) Screening for osteoporosis Special screening for osteoporosis Post-menopausal Asymptomatic postmenopausal status (age-related) (natural) Pure hypercholesterolemia [facility]* Diagnosis Encounter for issue of repeat prescription Issue of repeat prescriptions [facility] Diagnosis Cyst of pancreas- Primary Cyst and pseudocyst of pancreas [facility]* Diagnosis Coronary artery disease involving [place] heart without angina pectoris, unspecified vessel or lesion type [facility] Diagnosis Medication refill Issue of repeat prescriptions Essential hypertension Unspecified essential hypertension [facility]* Diagnosis Medication refill Issue of repeat prescriptions [facility]* Diagnosis Coronary artery disease involving [place] coronary artery of [place] heart without angina pectoris [facility]* Diagnosis Hyperthyroidism Thyrotoxicosis without mention of goiter or other cause, without mention of thyrotoxic crisis or storm [facility]* Diagnosis Hyperthyroidism Thyrotoxicosis without mention of goiter or other cause, without mention of thyrotoxic crisis or storm [facility] Diagnosis Encounter for issue of repeat prescription Issue of repeat prescriptions [facility] Diagnosis Coronary artery disease involving [place] heart without angina pectoris, unspecified vessel or lesion type [facility]* Diagnosis Hyperthyroidism Thyrotoxicosis without mention of goiter or other cause, without mention of thyrotoxic crisis or storm Coronary artery disease involving [place] coronary artery of [place] heart without angina pectoris documented [facility] this [facility]* Diagnosis Hyperthyroidism Thyrotoxicosis without mention of goiter or other cause, without mention of thyrotoxic crisis or storm documented [facility] this [facility]* Diagnosis Hyperthyroidism Thyrotoxicosis without mention of goiter or other cause, without mention of thyrotoxic crisis or storm documented [facility] this encounter [facility]* Diagnosis Hyperthyroidism Thyrotoxicosis without mention of goiter or other cause, without mention of thyrotoxic crisis or storm documented [facility] this [facility]* Diagnosis Coronary artery disease involving [place] heart without angina pectoris, unspecified vessel or lesion type documented in this [facility]* Diagnosis Gastroesophageal reflux disease, unspecified whether esophagitis present- Primary documented [facility] this [facility]* Diagnosis Encounter for issue of repeat prescription Issue of repeat prescriptions Coronary artery disease involving [place] coronary artery of [place] heart without angina pectoris documented [facility] this [facility]* Diagnosis Medication refill Issue of repeat prescriptions documented in this [facility]* Diagnosis Hyperthyroidism Thyrotoxicosis without mention of goiter or other cause, without mention of thyrotoxic crisis or storm [facility]* Diagnosis Medication refill Issue of repeat prescriptions [facility] this [facility]* Diagnosis Medication refill Issue of repeat prescriptions Essential hypertension Unspecified essential hypertension documented [facility] this [facility]* Diagnosis Gastroesophageal reflux disease, unspecified whether esophagitis present Encounter for issue of repeat prescription Issue of repeat prescriptions documented [facility] this 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 eyes [facility] Diagnosis Age-related nuclear cataract of both eyes- Primary [facility]* Diagnosis Age-related nuclear cataract of both eyes [facility]* Diagnosis Encounter for issue of repeat prescription Issue of repeat prescriptions documented in this [facility]* Diagnosis Type 2 diabetes mellitus with hyperglycemia, without long-term current use of insulin (HCC)- Primary Primary hypertension Unspecified essential hypertension Hyperlipemia, mixed Mixed hyperlipidemia Encounter for dietary consultation Hyperthyroidism Thyrotoxicosis without mention of goiter or other cause, without mention of thyrotoxic crisis or storm [facility] Diagnosis Gastroesophageal reflux disease, unspecified whether esophagitis present documented in this encounter [facility] for referral (narrative)* Diagnostic Procedure Only (Routine) - Closed Specialty Diagnoses / Procedures Referred By Cordeliaac t Referred To Contact [facility] Diagnoses Encounter for screening mammogram for malignant neoplasm of breast Procedures AMY SCREENING SCREENING MAMMOGRAPHY BI 2-VIEW BREAST INC CAD Angélica, Nevaeh Trotter MD [address] [place] [id number] [facility] [place] [address] Referral ID Status Reason Start Date Expiration Date V isits Requested Visits Authorized [id number] Closed Auto-Generate d Referral 11/16/2021 12/16/2022 1 1 [facility] for referral (narrative)* Diagnostic Procedure Only (Routine) - Authorized Specialty Diagnoses / Procedures Referred By April weber Referred To Contact [facility] Diagnoses Hyperthyroidism Multiple thyroid nodules Procedures US THYROID/PARATHYROID US SOFT TISSUE HEAD & NECK REAL TIME IMGE DOCM Jenelle Sanford MD 0 [facility], [address] [address] [facility] Referral ID Status Reason Start Date Expiration Date Visits Requested Visits Authorized [id number] Authorized Auto-Generat ed Referral 02/02/2022 05/08/2023 1 1 [facility] for referral (narrative)* Diagnostic Procedure Only (Routine) - Closed Specialty Diagnoses / Procedures Referred By Contgema t Referred To Contact [facility] Diagnoses Hyperthyroidism Nontoxic single thyroid nodule Procedures US THYROID/PARATHYROID ULTRASOUND OF THYROID Jenelle Sanford MD [address] [facility], [address] [place] [address] [facility] Referral ID Status Reason Start Date Expiration Date V isits Requested Visits Authorized [id number] Closed Auto-Generate d Referral 06/07/2021 07/07/2022 1 1 [facility] for referral (narrative)* Diagnostic Procedure Only (Routine) - Pending Review Specialty Diagnoses / Procedures Referred By Contac t Referred To Contact [facility] Diagnoses Hyperthyroidism Procedures US THYROID/PARATHYROID US SOFT TISSUE HEAD & NECK REAL TIME IMGE Jenelle Bradshaw MD [address] [address] [facility] Referral ID Status Reason Start Date Expiration Date Visits Requested Visits Authorized [id number] Pending Review Auto-Generat ed Referral 07/03/2022 06/03/2023 1 1 [facility] for referral (narrative)* Diagnostic Procedure Only (Routine) - Authorized Specialty Diagnoses / Procedures Referred By Contac t Referred To Contact [facility] Diagnoses Multiple thyroid nodules Procedures US THYROID/PARATHYROID US SOFT TISSUE HEAD & NECK REAL TIME IMGE Jenelle Bradshaw MD [address] [place] [id number] [facility] Referral ID Status Reason Start Date Expiration Date Visits Requested Visits Authorized [id number] Authorized Auto-Generat ed Referral 09/23/2023 1 1 [facility] for referral (narrative)* Diagnostic Procedure Only (Routine) - Closed Specialty Diagnoses / Procedures Referred By Contac t Referred To Contact [facility] Diagnoses Multiple thyroid nodules Procedures US THYROID/PARATHYROID US SOFT TISSUE HEAD & NECK REAL TIME IMGE Jenelle Bradshaw MD [address] [place] [id number] [facility] Referral ID Status Reason Start Date Expiration Date V isits Requested Visits Authorized [id number] Closed Auto-Generate d Referral 08/24/2022 09/23/2023 1 1 [facility] for referral (narrative)* Diagnostic Procedure Only (Routine) - Pending Review Specialty Diagnoses / Procedures Referred By Contac t Referred To Contact [facility] Diagnoses Encounter for screening mammogram for breast cancer Procedures AMY SCREENING SCREENING MAMMOGRAPHY BI 2-VIEW BREAST INC CAD Derrick Thorpe APRN.CNP [address] [place] [address] [facility] [address] [place] [address] Referral ID Status Reason Start Date Expiration Date Visits Requested Visits Authorized [id number] Pending Review Auto-Generat ed Referral 02/12/2023 03/13/2024 1 1 [facility] for visit Narrative* Diagnostic Procedure Only (Routine) - Closed Specialty Diagnoses / Procedures Referred By Contac t Referred To Contact [facility] Diagnoses Encounter for screening mammogram for malignant neoplasm of breast Procedures AMY SCREENING SCREENING MAMMOGRAPHY BI 2-VIEW BREAST INC CAD Nevaeh Lindsay MD [address] [place] [address] [facility] [address] [place] [address] Referral ID Status Reason Start Date Expiration Date V isits Requested Visits Authorized [id number] Closed Auto-Generate d Referral 11/16/2021 12/16/2022 1 1 [facility] for visit Narrative* Diagnostic Procedure Only (Routine) - Closed Specialty Diagnoses / Procedures Referred By Contac t Referred To Contact [facility] Diagnoses Hyperthyroidism Nontoxic single thyroid nodule Procedures US THYROID/PARATHYROID ULTRASOUND OF THYROID Jenelle Sanford MD [address] [facility], [address] [place] [address] [facility] Referral ID Status Reason Start Date Expiration Date V isits Requested Visits Authorized [id number] Closed Auto-Generate d Referral 06/07/2021 07/07/[address] [facility] Diagnostic Procedure Only (Routine) - Closed Specialty Diagnoses / Procedures Referred By Contac t Referred To Contact [facility] Diagnoses Multiple thyroid nodules Procedures US THYROID/PARATHYROID US SOFT TISSUE HEAD & NECK REAL TIME IMGE Jenelle Bradshaw MD [address] [facility], [address] [place] [address] [facility] Referral ID Status Reason Start Date Expiration Date V isits Requested Visits Authorized [id number] Closed Auto-Generate d Referral 08/24/2022 09/23/[address] 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 Advance Directive(s) 01/08/2022 1:49 PM Advance Directive(s) 10/16/2021 12:41 PM Advance Directive(s) 05/02/2021 11:38 AM Advance Directive(s) 01/22/2021 1:01 PM Advance Directive(s) 09/03/2020 12:45 PM Advance Directive(s) 07/09/2020 2:19 PM Advance Directive(s) 04/03/2020 3:56 PM Advance Directive(s) 11/02/2019 10:46 PM Advance Directive(s) 08/14/2019 11:28 PM Advance Directive(s) 08/11/2019 6:32 PM Advance Directive(s) 03/17/2019 3:23 PM Advance Directive(s) 01/15/2019 12:27 PM Advance Directive(s) 06/18/2018 6:33 PM Advance Directive(s) 11/04/2017 8:27 PM Documents on File Type Date Recorded 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 Advance Directive(s) 01/08/2022 1:49 PM Advance Directive(s) 10/16/2021 12:41 PM Advance Directive(s) 05/02/2021 11:38 AM Advance Directive(s) 01/22/2021 1:01 PM Advance Directive(s) 09/03/2020 12:45 PM Advance Directive(s) 07/09/2020 2:19 PM Advance Directive(s) 04/03/2020 3:56 PM Advance Directive(s) 11/02/2019 10:46 PM Advance Directive(s) 08/14/2019 11:28 PM Advance Directive(s) 08/11/2019 6:32 PM Advance Directive(s) 03/17/2019 3:23 PM Advance Directive(s) 01/15/2019 12:27 PM Advance Directive(s) 06/18/2018 6:33 PM Advance Directive(s) 11/04/2017 8:27 PM Advance Directive Response Recorded Date/ Time Living Will No November 11 10:58am Power of Journalist No November 11, 2014 10:58am Advance Directive Response Recorded Date/ Time Living Will No November 11 9:58am Power of Journalist No November 11, 2014 9:58am Chief Complaint and Reason for Visit Chief Complaint cardiac clearance Reason for Visit Bilateral carotid br uits Hyperlipidemia Preoperative cardiovascular examination Atherosclerotic heart disease of [place] coronary artery without angina pectoris Essential hypertension Presence of stent in coronary artery Chief Complaint BRUITS BILAT Reason for Referral Specialty Diagnoses / Procedures Referred By April weber Referred To Contact MR IMAGING Diagnoses Pancreas cyst Procedures MRI PANC/MOHSEN WO/W IVCON MRI ABDOMEN W/O & W/CONTRAST MATERIAL Derrick Thorpe YEAST DISTILLER.BULLARD OPERATOR [address] [place] [address] Mr Imaging Referral ID Status Reason Start Date Expiration Date Visits Requested Visits Authorized [id number] Pending Review Auto-Generat ed Referral 07/05/2022 08/04/2023 1 1 Specialty Diagnoses / Procedures Referred By April weber Referred To Contact Rheumatology / [facility] Department Diagnoses Rheumatoid arthritis involving vertebra, unspecified whether rheumatoid factor present (HCC) Procedures CONSULT TO RHEUM/IMMUN DISEASE OFFICE/OUTPATIENT [facility] 60-74 MINUTES Derrick Thorpe YEAST DISTILLER.BULLARD OPERATOR [address] [place] [address] Xiomara Leonard PA-C [address] [address] Referral ID Status Reason Start Date Expiration Date Visits Requested Visits Authorized [id number] Pending Review PCP Requested Referral 02/13/2023 02/13/2024 1 1 Specialty Diagnoses / Procedures Referred By Contac t Referred To Contact MR IMAGING Diagnoses Cyst of pancreas Procedures MRI 3D POST PROCESSING 3D RENDERING W/INTERP&POSTPROC DIFF WORK STATION Derrick Thorpe APRN.BULLARD OPERATOR [address] [place] [address] [place] [address] Referral ID Status Reason Start Date Expiration Date Visits Requested Visits Authorized [id number] Pending Review Auto-Generat ed Referral 3 08/25/2024 1 1 Specialty Diagnoses / Procedures Referred By Contac t Referred To Contact MR IMAGING Diagnoses Cyst of pancreas Procedures MRI PANC/MOHSEN WO/W IVCON MRI ABDOMEN W/O & W/CONTRAST MATERIAL Derrick Thorpe APRN.BULLARD OPERATOR [address] [place] [address] [place] [address] Referral ID Status Reason Start Date Expiration Date Visits Requested Visits Authorized [id number] Pending Review Auto-Generat ed Referral 3 08/25/2024 1 1 Additional Source Comments INFORMATION SOURCE (unrecogn ized section and content) DATE CREATED AUTHOR 11/27/2020 [facility] DATE CREATED AUTHOR AUTHOR'S ORGANIZ ATION 07/08/2021 [facility] DATE CREATED AUTHOR AUTHOR'S ORGANIZ ATION 05/23/2022 [facility] DATE CREATED AUTHOR AUTHOR'S ORGANIZ ATION 09/02/2022 [facility] DATE CREATED AUTHOR AUTHOR'S ORGANIZ ATION 02/21/2025 [facility] DATE CREATED AUTHOR AUTHOR'S ORGANIZ ATION 05/16/2025 [facility] DATE CREATED AUTHOR AUTHOR'S ORGANIZ ATION 06/05/2025 [facility] EPIC Source Comments (unrecognize d section and content) In the event this informatio n is protected by the Federal Confidentiality of Alcohol and Drug Abuse Patient Records regulations: The Federal rules restrict any use of the information to criminally investigate or prosecute any alcohol or drug abuse patient.[facility] the event this information is protected by the Federal Confidentiality of Alcohol and Drug Abuse Patient Records regulations: The Federal rules restrict any use of the information to criminally investigate or prosecute any alcohol or drug abuse patient.[facility] HospitalIn the event this information is protected by the Federal Confidentiality of Alcohol and Drug Abuse Patient Records regulations: The Federal rules restrict any use of the information to criminally investigate or prosecute any alcohol or drug abuse patient.[facility] HospitalIn the event this information is protected by the Federal Confidentiality of Alcohol and Drug Abuse Patient Records regulations: The Federal rules restrict any use of the information to criminally investigate or prosecute any alcohol or drug abuse patient.[facility] HospitalIn the event this information is protected by the Federal Confidentiality of Alcohol and Drug Abuse Patient Records regulations: The Federal rules restrict any use of the information to criminally investigate or prosecute any alcohol or drug abuse patient.[facility] HospitalIn the event this information is protected by the Federal Confidentiality of Alcohol and Drug Abuse Patient Records regulations: The Federal rules restrict any use of the information to criminally investigate or prosecute any alcohol or drug abuse patient.[facility] HospitalIn the event this information is protected by the Federal Confidentiality of Alcohol and Drug Abuse Patient Records regulations: The Federal rules restrict any use of the information to criminally investigate or prosecute any alcohol or drug abuse patient.[facility] HospitalIn the event this information is protected by the Federal Confidentiality of Alcohol and Drug Abuse Patient Records regulations: The Federal rules restrict any use of the information to criminally investigate or prosecute any alcohol or drug abuse patient.[facility] HospitalIn the event this information is protected by the Federal Confidentiality of Alcohol and Drug Abuse Patient Records regulations: The Federal rules restrict any use of the information to criminally investigate or prosecute any alcohol or drug abuse patient.[facility] HospitalIn the event this information is protected by the Federal Confidentiality of Alcohol and Drug Abuse Patient Records regulations: The Federal rules restrict any use of the information to criminally investigate or prosecute any alcohol or drug abuse patient.[facility] HospitalIn the event this information is protected by the Federal Confidentiality of Alcohol and Drug Abuse Patient Records regulations: The Federal rules restrict any use of the information to criminally investigate or prosecute any alcohol or drug abuse patient.[facility] HospitalIn the event this information is protected by the Federal Confidentiality of Alcohol and Drug Abuse Patient Records regulations: The Federal rules restrict any use of the information to criminally investigate or prosecute any alcohol or drug abuse patient.[facility] HospitalIn the event this information is protected by the Federal Confidentiality of Alcohol and Drug Abuse Patient Records regulations: The Federal rules restrict any use of the information to criminally investigate or prosecute any alcohol or drug abuse patient.[facility] HospitalIn the event this information is protected by the Federal Confidentiality of Alcohol and Drug Abuse Patient Records regulations: The Federal rules restrict any use of the information to criminally investigate or prosecute any alcohol or drug abuse patient.[facility] HospitalIn the event this information is protected by the Federal Confidentiality of Alcohol and Drug Abuse Patient Records regulations: The Federal rules restrict any use of the information to criminally investigate or prosecute any alcohol or drug abuse patient.[facility] HospitalIn the event this information is protected by the Federal Confidentiality of Alcohol and Drug Abuse Patient Records regulations: The Federal rules restrict any use of the information to criminally investigate or prosecute any alcohol or drug abuse patient.[facility] HospitalIn the event this information is protected by the Federal Confidentiality of Alcohol and Drug Abuse Patient Records regulations: The Federal rules restrict any use of the information to criminally investigate or prosecute any alcohol or drug abuse patient.[facility] HospitalIn the event this information is protected by the Federal Confidentiality of Alcohol and Drug Abuse Patient Records regulations: The Federal rules restrict any use of the information to criminally investigate or prosecute any alcohol or drug abuse patient.[facility] HospitalIn the event this information is protected by the Federal Confidentiality of Alcohol and Drug Abuse Patient Records regulations: The Federal rules restrict any use of the information to criminally investigate or prosecute any alcohol or drug abuse patient.[facility] HospitalIn the event this information is protected by the Federal Confidentiality of Alcohol and Drug Abuse Patient Records regulations: The Federal rules restrict any use of the information to criminally investigate or prosecute any alcohol or drug abuse patient.[facility] HospitalIn the event this information is protected by the Federal Confidentiality of Alcohol and Drug Abuse Patient Records regulations: The Federal rules restrict any use of the information to criminally investigate or prosecute any alcohol or drug abuse patient.[facility] HospitalIn the event this information is protected by the Federal Confidentiality of Alcohol and Drug Abuse Patient Records regulations: The Federal rules restrict any use of the information to criminally investigate or prosecute any alcohol or drug abuse patient.[facility] HospitalIn the event this information is protected by the Federal Confidentiality of Alcohol and Drug Abuse Patient Records regulations: The Federal rules restrict any use of the information to criminally investigate or prosecute any alcohol or drug abuse patient.[facility] HospitalIn the event this information is protected by the Federal Confidentiality of Alcohol and Drug Abuse Patient Records regulations: The Federal rules restrict any use of the information to criminally investigate or prosecute any alcohol or drug abuse patient.[facility] HospitalIn the event this information is protected by the Federal Confidentiality of Alcohol and Drug Abuse Patient Records regulations: The Federal rules restrict any use of the information to criminally investigate or prosecute any alcohol or drug abuse patient.[facility] HospitalIn the event this information is protected by the Federal Confidentiality of Alcohol and Drug Abuse Patient Records regulations: The Federal rules restrict any use of the information to criminally investigate or prosecute any alcohol or drug abuse patient.[facility] HospitalIn the event this information is protected by the Federal Confidentiality of Alcohol and Drug Abuse Patient Records regulations: The Federal rules restrict any use of the information to criminally investigate or prosecute any alcohol or drug abuse patient.[facility] HospitalIn the event this information is protected by the Federal Confidentiality of Alcohol and Drug Abuse Patient Records regulations: The Federal rules restrict any use of the information to criminally investigate or prosecute any alcohol or drug abuse patient.[facility] HospitalIn the event this information is protected by the Federal Confidentiality of Alcohol and Drug Abuse Patient Records regulations: The Federal rules restrict any use of the information to criminally investigate or prosecute any alcohol or drug abuse patient.[facility] HospitalIn the event this information is protected by the Federal Confidentiality of Alcohol and Drug Abuse Patient Records regulations: The Federal rules restrict any use of the information to criminally investigate or prosecute any alcohol or drug abuse patient.[facility] HospitalIn the event this information is protected by the Federal Confidentiality of Alcohol and Drug Abuse Patient Records regulations: The Federal rules restrict any use of the information to criminally investigate or prosecute any alcohol or drug abuse patient.[facility] HospitalIn the event this information is protected by the Federal Confidentiality of Alcohol and Drug Abuse Patient Records regulations: The Federal rules restrict any use of the information to criminally investigate or prosecute any alcohol or drug abuse patient.[facility] HospitalIn the event this information is protected by the Federal Confidentiality of Alcohol and Drug Abuse Patient Records regulations: The Federal rules restrict any use of the information to criminally investigate or prosecute any alcohol or drug abuse patient.[facility] HospitalIn the event this information is protected by the Federal Confidentiality of Alcohol and Drug Abuse Patient Records regulations: The Federal rules restrict any use of the information to criminally investigate or prosecute any alcohol or drug abuse patient.[facility] HospitalIn the event this information is protected by the Federal Confidentiality of Alcohol and Drug Abuse Patient Records regulations: The Federal rules restrict any use of the information to criminally investigate or prosecute any alcohol or drug abuse patient.[facility] HospitalIn the event this information is protected by the Federal Confidentiality of Alcohol and Drug Abuse Patient Records regulations: The Federal rules restrict any use of the information to criminally investigate or prosecute any alcohol or drug abuse patient.[facility] HospitalIn the event this information is protected by the Federal Confidentiality of Alcohol and Drug Abuse Patient Records regulations: The Federal rules restrict any use of the information to criminally investigate or prosecute any alcohol or drug abuse patient.[facility] HospitalIn the event this information is protected by the Federal Confidentiality of Alcohol and Drug Abuse Patient Records regulations: The Federal rules restrict any use of the information to criminally investigate or prosecute any alcohol or drug abuse patient.[facility] HospitalIn the event this information is protected by the Federal Confidentiality of Alcohol and Drug Abuse Patient Records regulations: The Federal rules restrict any use of the information to criminally investigate or prosecute any alcohol or drug abuse patient.[facility] HospitalIn the event this information is protected by the Federal Confidentiality of Alcohol and Drug Abuse Patient Records regulations: The Federal rules restrict any use of the information to criminally investigate or prosecute any alcohol or drug abuse patient.[facility] HospitalIn the event this information is protected by the Federal Confidentiality of Alcohol and Drug Abuse Patient Records regulations: The Federal rules restrict any use of the information to criminally investigate or prosecute any alcohol or drug abuse patient.[facility] HospitalIn the event this information is protected by the Federal Confidentiality of Alcohol and Drug Abuse Patient Records regulations: The Federal rules restrict any use of the information to criminally investigate or prosecute any alcohol or drug abuse patient.[facility] HospitalIn the event this information is protected by the Federal Confidentiality of Alcohol and Drug Abuse Patient Records regulations: The Federal rules restrict any use of the information to criminally investigate or prosecute any alcohol or drug abuse patient.[facility] HospitalIn the event this information is protected by the Federal Confidentiality of Alcohol and Drug Abuse Patient Records regulations: The Federal rules restrict any use of the information to criminally investigate or prosecute any alcohol or drug abuse patient.[facility] HospitalIn the event this information is protected by the Federal Confidentiality of Alcohol and Drug Abuse Patient Records regulations: The Federal rules restrict any use of the information to criminally investigate or prosecute any alcohol or drug abuse patient.[facility] HospitalIn the event this information is protected by the Federal Confidentiality of Alcohol and Drug Abuse Patient Records regulations: The Federal rules restrict any use of the information to criminally investigate or prosecute any alcohol or drug abuse patient.[facility] HospitalIn the event this information is protected by the Federal Confidentiality of Alcohol and Drug Abuse Patient Records regulations: The Federal rules restrict any use of the information to criminally investigate or prosecute any alcohol or drug abuse patient.[facility] HospitalIn the event this information is protected by the Federal Confidentiality of Alcohol and Drug Abuse Patient Records regulations: The Federal rules restrict any use of the information to criminally investigate or prosecute any alcohol or drug abuse patient.[facility] HospitalIn the event this information is protected by the Federal Confidentiality of Alcohol and Drug Abuse Patient Records regulations: The Federal rules restrict any use of the information to criminally investigate or prosecute any alcohol or drug abuse patient.[facility] HospitalIn the event this information is protected by the Federal Confidentiality of Alcohol and Drug Abuse Patient Records regulations: The Federal rules restrict any use of the information to criminally investigate or prosecute any alcohol or drug abuse patient.[facility] HospitalIn the event this information is protected by the Federal Confidentiality of Alcohol and Drug Abuse Patient Records regulations: The Federal rules restrict any use of the information to criminally investigate or prosecute any alcohol or drug abuse patient.[facility] HospitalIn the event this information is protected by the Federal Confidentiality of Alcohol and Drug Abuse Patient Records regulations: The Federal rules restrict any use of the information to criminally investigate or prosecute any alcohol or drug abuse patient.[facility] HospitalIn the event this information is protected by the Federal Confidentiality of Alcohol and Drug Abuse Patient Records regulations: The Federal rules restrict any use of the information to criminally investigate or prosecute any alcohol or drug abuse patient.[facility] HospitalIn the event this information is protected by the Federal Confidentiality of Alcohol and Drug Abuse Patient Records regulations: The Federal rules restrict any use of the information to criminally investigate or prosecute any alcohol or drug abuse patient.[facility] HospitalIn the event this information is protected by the Federal Confidentiality of Alcohol and Drug Abuse Patient Records regulations: The Federal rules restrict any use of the information to criminally investigate or prosecute any alcohol or drug abuse patient.[facility] HospitalIn the event this information is protected by the Federal Confidentiality of Alcohol and Drug Abuse Patient Records regulations: The Federal rules restrict any use of the information to criminally investigate or prosecute any alcohol or drug abuse patient.[facility] HospitalIn the event this information is protected by the Federal Confidentiality of Alcohol and Drug Abuse Patient Records regulations: The Federal rules restrict any use of the information to criminally investigate or prosecute any alcohol or drug abuse patient.[facility] HospitalIn the event this information is protected by the Federal Confidentiality of Alcohol and Drug Abuse Patient Records regulations: The Federal rules restrict any use of the information to criminally investigate or prosecute any alcohol or drug abuse patient.[facility] HospitalIn the event this information is protected by the Federal Confidentiality of Alcohol and Drug Abuse Patient Records regulations: The Federal rules restrict any use of the information to criminally investigate or prosecute any alcohol or drug abuse patient.[facility] HospitalIn the event this information is protected by the Federal Confidentiality of Alcohol and Drug Abuse Patient Records regulations: The Federal rules restrict any use of the information to criminally investigate or prosecute any alcohol or drug abuse patient.[facility] HospitalIn the event this information is protected by the Federal Confidentiality of Alcohol and Drug Abuse Patient Records regulations: The Federal rules restrict any use of the information to criminally investigate or prosecute any alcohol or drug abuse patient.[facility] HospitalIn the event this information is protected by the Federal Confidentiality of Alcohol and Drug Abuse Patient Records regulations: The Federal rules restrict any use of the information to criminally investigate or prosecute any alcohol or drug abuse patient.[facility] HospitalIn the event this information is protected by the Federal Confidentiality of Alcohol and Drug Abuse Patient Records regulations: The Federal rules restrict any use of the information to criminally investigate or prosecute any alcohol or drug abuse patient.[facility] HospitalIn the event this information is protected by the Federal Confidentiality of Alcohol and Drug Abuse Patient Records regulations: The Federal rules restrict any use of the information to criminally investigate or prosecute any alcohol or drug abuse patient.[facility] HospitalIn the event this information is protected by the Federal Confidentiality of Alcohol and Drug Abuse Patient Records regulations: The Federal rules restrict any use of the information to criminally investigate or prosecute any alcohol or drug abuse patient.[facility] HospitalIn the event this information is protected by the Federal Confidentiality of Alcohol and Drug Abuse Patient Records regulations: The Federal rules restrict any use of the information to criminally investigate or prosecute any alcohol or drug abuse patient.[facility] HospitalIn the event this information is protected by the Federal Confidentiality of Alcohol and Drug Abuse Patient Records regulations: The Federal rules restrict any use of the information to criminally investigate or prosecute any alcohol or drug abuse patient.[facility] HospitalIn the event this information is protected by the Federal Confidentiality of Alcohol and Drug Abuse Patient Records regulations: The Federal rules restrict any use of the information to criminally investigate or prosecute any alcohol or drug abuse patient.[facility] HospitalIn the event this information is protected by the Federal Confidentiality of Alcohol and Drug Abuse Patient Records regulations: The Federal rules restrict any use of the information to criminally investigate or prosecute any alcohol or drug abuse patient.[facility] HospitalIn the event this information is protected by the Federal Confidentiality of Alcohol and Drug Abuse Patient Records regulations: The Federal rules restrict any use of the information to criminally investigate or prosecute any alcohol or drug abuse patient.[facility] HospitalIn the event this information is protected by the Federal Confidentiality of Alcohol and Drug Abuse Patient Records regulations: The Federal rules restrict any use of the information to criminally investigate or prosecute any alcohol or drug abuse patient.[facility] HospitalIn the event this information is protected by the Federal Confidentiality of Alcohol and Drug Abuse Patient Records regulations: The Federal rules restrict any use of the information to criminally investigate or prosecute any alcohol or drug abuse patient.[facility] HospitalIn the event this information is protected by the Federal Confidentiality of Alcohol and Drug Abuse Patient Records regulations: The Federal rules restrict any use of the information to criminally investigate or prosecute any alcohol or drug abuse patient.[facility] HospitalIn the event this information is protected by the Federal Confidentiality of Alcohol and Drug Abuse Patient Records regulations: The Federal rules restrict any use of the information to criminally investigate or prosecute any alcohol or drug abuse patient.[facility] HospitalIn the event this information is protected by the Federal Confidentiality of Alcohol and Drug Abuse Patient Records regulations: The Federal rules restrict any use of the information to criminally investigate or prosecute any alcohol or drug abuse patient.[facility] HospitalIn the event this information is protected by the Federal Confidentiality of Alcohol and Drug Abuse Patient Records regulations: The Federal rules restrict any use of the information to criminally investigate or prosecute any alcohol or drug abuse patient.[facility] HospitalIn the event this information is protected by the Federal Confidentiality of Alcohol and Drug Abuse Patient Records regulations: The Federal rules restrict any use of the information to criminally investigate or prosecute any alcohol or drug abuse patient.[facility] HospitalIn the event this information is protected by the Federal Confidentiality of Alcohol and Drug Abuse Patient Records regulations: The Federal rules restrict any use of the information to criminally investigate or prosecute any alcohol or drug abuse patient.[facility] HospitalIn the event this information is protected by the Federal Confidentiality of Alcohol and Drug Abuse Patient Records regulations: The Federal rules restrict any use of the information to criminally investigate or prosecute any alcohol or drug abuse patient.[facility] HospitalIn the event this information is protected by the Federal Confidentiality of Alcohol and Drug Abuse Patient Records regulations: The Federal rules restrict any use of the information to criminally investigate or prosecute any alcohol or drug abuse patient.[facility] HospitalIn the event this information is protected by the Federal Confidentiality of Alcohol and Drug Abuse Patient Records regulations: The Federal rules restrict any use of the information to criminally investigate or prosecute any alcohol or drug abuse patient.[facility] HospitalIn the event this information is protected by the Federal Confidentiality of Alcohol and Drug Abuse Patient Records regulations: The Federal rules restrict any use of the information to criminally investigate or prosecute any alcohol or drug abuse patient.[facility] HospitalIn the event this information is protected by the Federal Confidentiality of Alcohol and Drug Abuse Patient Records regulations: The Federal rules restrict any use of the information to criminally investigate or prosecute any alcohol or drug abuse patient.[facility] HospitalIn the event this information is protected by the Federal Confidentiality of Alcohol and Drug Abuse Patient Records regulations: The Federal rules restrict any use of the information to criminally investigate or prosecute any alcohol or drug abuse patient.[facility] HospitalIn the event this information is protected by the Federal Confidentiality of Alcohol and Drug Abuse Patient Records regulations: The Federal rules restrict any use of the information to criminally investigate or prosecute any alcohol or drug abuse patient.[facility] HospitalIn the event this information is protected by the Federal Confidentiality of Alcohol and Drug Abuse Patient Records regulations: The Federal rules restrict any use of the information to criminally investigate or prosecute any alcohol or drug abuse patient.[facility] HospitalIn the event this information is protected by the Federal Confidentiality of Alcohol and Drug Abuse Patient Records regulations: The Federal rules restrict any use of the information to criminally investigate or prosecute any alcohol or drug abuse patient.[facility] HospitalIn the event this information is protected by the Federal Confidentiality of Alcohol and Drug Abuse Patient Records regulations: The Federal rules restrict any use of the information to criminally investigate or prosecute any alcohol or drug abuse patient.[facility] HospitalIn the event this information is protected by the Federal Confidentiality of Alcohol and Drug Abuse Patient Records regulations: The Federal rules restrict any use of the information to criminally investigate or prosecute any alcohol or drug abuse patient.[facility] HospitalIn the event this information is protected by the Federal Confidentiality of Alcohol and Drug Abuse Patient Records regulations: The Federal rules restrict any use of the information to criminally investigate or prosecute any alcohol or drug abuse patient.[facility] HospitalIn the event this information is protected by the Federal Confidentiality of Alcohol and Drug Abuse Patient Records regulations: The Federal rules restrict any use of the information to criminally investigate or prosecute any alcohol or drug abuse patient.[facility] HospitalIn the event this information is protected by the Federal Confidentiality of Alcohol and Drug Abuse Patient Records regulations: The Federal rules restrict any use of the information to criminally investigate or prosecute any alcohol or drug abuse patient.[facility] HospitalIn the event this information is protected by the Federal Confidentiality of Alcohol and Drug Abuse Patient Records regulations: The Federal rules restrict any use of the information to criminally investigate or prosecute any alcohol or drug abuse patient.[facility] HospitalIn the event this information is protected by the Federal Confidentiality of Alcohol and Drug Abuse Patient Records regulations: The Federal rules restrict any use of the information to criminally investigate or prosecute any alcohol or drug abuse patient.[facility] HospitalIn the event this information is protected by the Federal Confidentiality of Alcohol and Drug Abuse Patient Records regulations: The Federal rules restrict any use of the information to criminally investigate or prosecute any alcohol or drug abuse patient.[facility] HospitalIn the event this information is protected by the Federal Confidentiality of Alcohol and Drug Abuse Patient Records regulations: The Federal rules restrict any use of the information to criminally investigate or prosecute any alcohol or drug abuse patient.[facility] HospitalIn the event this information is protected by the Federal Confidentiality of Alcohol and Drug Abuse Patient Records regulations: The Federal rules restrict any use of the information to criminally investigate or prosecute any alcohol or drug abuse patient.[facility] HospitalIn the event this information is protected by the Federal Confidentiality of Alcohol and Drug Abuse Patient Records regulations: The Federal rules restrict any use of the information to criminally investigate or prosecute any alcohol or drug abuse patient.[facility] HospitalIn the event this information is protected by the Federal Confidentiality of Alcohol and Drug Abuse Patient Records regulations: The Federal rules restrict any use of the information to criminally investigate or prosecute any alcohol or drug abuse patient.[facility] HospitalIn the event this information is protected by the Federal Confidentiality of Alcohol and Drug Abuse Patient Records regulations: The Federal rules restrict any use of the information to criminally investigate or prosecute any alcohol or drug abuse patient.[facility] HospitalIn the event this information is protected by the Federal Confidentiality of Alcohol and Drug Abuse Patient Records regulations: The Federal rules restrict any use of the information to criminally investigate or prosecute any alcohol or drug abuse patient.[facility] HospitalIn the event this information is protected by the Federal Confidentiality of Alcohol and Drug Abuse Patient Records regulations: The Federal rules restrict any use of the information to criminally investigate or prosecute any alcohol or drug abuse patient.[facility] HospitalIn the event this information is protected by the Federal Confidentiality of Alcohol and Drug Abuse Patient Records regulations: The Federal rules restrict any use of the information to criminally investigate or prosecute any alcohol or drug abuse patient.[facility] HospitalIn the event this information is protected by the Federal Confidentiality of Alcohol and Drug Abuse Patient Records regulations: The Federal rules restrict any use of the information to criminally investigate or prosecute any alcohol or drug abuse patient.[facility] HospitalIn the event this information is protected by the Federal Confidentiality of Alcohol and Drug Abuse Patient Records regulations: The Federal rules restrict any use of the information to criminally investigate or prosecute any alcohol or drug abuse patient.[facility] HospitalIn the event this information is protected by the Federal Confidentiality of Alcohol and Drug Abuse Patient Records regulations: The Federal rules restrict any use of the information to criminally investigate or prosecute any alcohol or drug abuse patient.[facility] HospitalIn the event this information is protected by the Federal Confidentiality of Alcohol and Drug Abuse Patient Records regulations: The Federal rules restrict any use of the information to criminally investigate or prosecute any alcohol or drug abuse patient.[facility] HospitalIn the event this information is protected by the Federal Confidentiality of Alcohol and Drug Abuse Patient Records regulations: The Federal rules restrict any use of the information to criminally investigate or prosecute any alcohol or drug abuse patient.[facility] HospitalIn the event this information is protected by the Federal Confidentiality of Alcohol and Drug Abuse Patient Records regulations: The Federal rules restrict any use of the information to criminally investigate or prosecute any alcohol or drug abuse patient.[facility] HospitalIn the event this information is protected by the Federal Confidentiality of Alcohol and Drug Abuse Patient Records regulations: The Federal rules restrict any use of the information to criminally investigate or prosecute any alcohol or drug abuse patient.[facility] HospitalIn the event this information is protected by the Federal Confidentiality of Alcohol and Drug Abuse Patient Records regulations: The Federal rules restrict any use of the information to criminally investigate or prosecute any alcohol or drug abuse patient.[facility] HospitalIn the event this information is protected by the Federal Confidentiality of Alcohol and Drug Abuse Patient Records regulations: The Federal rules restrict any use of the information to criminally investigate or prosecute any alcohol or drug abuse patient.[facility] Care Teams (unrecognized sec tion and content) Director Counseling Bureau Relationship Specialty Start Date End Date Derrick Thorpe APRN.BULLARD OPERATOR [address] [place] [address] PCP - General Family Practice 12/22/21 [address] He[address]ia [address] [facility] [place] [address] Cardiology 07/15/20 Chivo Wellington Jr. [address] [place] [address] Orthopedics Orthopedics 05/25/21 Director Counseling Bureau Relationship Specialty Start Date End Date Derrick Thorpe, YEAST DISTILLER.BULLARD OPERATOR [address] [place] [address] PCP - General Family Practice 12/22/21 Freid Heredia [address] [place] [address] Cardiology 07/15/20 Chivo Wellington Jr. [address] [address] Orthopedics Orthopedics 05/25/21 Director Counseling Bureau Relationship Specialty Start Date End Date Derrick Thorpe, YEAST DISTILLER.BULLARD OPERATOR [address] [place] [address] PCP - General Family Practice 12/22/21 Fredi Heredia [address] [facility] [place] [address] Cardiology 07/15/20 Chivo Wellington Jr. [address] [facility] [place] [address] Orthopedics Orthopedics 05/25/21 Director Counseling Bureau Relationship Specialty Start Date End Date Derrick Thorpe, YEAST DISTILLER.BULLARD OPERATOR [address] [place] [address] PCP - General Family Practice 12/22/[address] [place] [address] Cardiology 07/15/20 Chivo Wellington Eddi [address] [place] [address] Orthopedics Orthopedics 05/25/21 Director Counseling Bureau Relationship Specialty Start Date End Date Derrick Thorpe, YEAST DISTILLER.BULLARD OPERATOR [address] [place] [address] PCP - General Family Practice 12/22/[address] [place] [address] Cardiology 07/15/20 Chivo Wellington Eddi [address] [place] [address] Orthopedics Orthopedics 05/25/21 Director Counseling Bureau Relationship Specialty Start Date End Date Derrick Thorpe, YEAST DISTILLER.BULLARD OPERATOR [address] [place] [address] PCP - General Family Practice 12/22/[address] [place] [address] Cardiology 07/15/20 Chivo Wellington Eddi [address] [place] [address] Orthopedics Orthopedics 05/25/21 Director Counseling Bureau Relationship Specialty Start Date End Date Derrick Thorpe, YEAST DISTILLER.BULLARD OPERATOR [address] [place] [address] PCP - General Family Practice 12/22/[address] [facility] [place] [address] Cardiology 07/15/20 Chivo Wellington Jr. [address] [place] [address] Orthopedics Orthopedics 05/25/21 Director Counseling Bureau Relationship Specialty Start Date End Date Derrick Thorpe, YEAST DISTILLER.BULLARD OPERATOR [address] [place] [address] PCP - General Family Practice 12/22/[address] [place] [address] Cardiology 07/15/20 Chivo Wellington Jr. [address] [place] [address] Orthopedics Orthopedics 05/25/21 Director Counseling Bureau Relationship Specialty Start Date End Date Derrick Thorpe, YEAST DISTILLER.BULLARD OPERATOR [address] [place] [address] PCP - General Family Practice 12/22/[address] [facility] [place] [address] Cardiology 07/15/20 Chivo Wellington Jr., Orthopedics Orthopedics 05/25/21 Director Counseling Bureau Relationship Specialty Start Date End Date Derrick Thorpe, YEAST DISTILLER.BULLARD OPERATOR [address] [place] [address] PCP - General Family Practice 12/22/[address] [facility] [place] [address] Cardiology 07/15/20 Chivo Wellington Jr., DO Orthopedics Orthopedics 05/25/21 Director Counseling Bureau Relationship Specialty Start Date End Date Derrick Thorpe, YEAST DISTILLER.BULLARD OPERATOR [address] [place] [address] PCP - General Family Practice 12/22/[address] [facility] [place] [address] Cardiology 07/15/20 Chivo Wellington Jr., DO Orthopedics Orthopedics 05/25/21 Director Counseling Bureau Relationship Specialty Start Date End Date Derrick Thorpe, YEAST DISTILLER.BULLARD OPERATOR [address] [place] [address] PCP - General Family Practice 12/22/[address] [place] [address] Cardiology 07/15/20 Chivo Wellington Jr., DO Orthopedics Orthopedics 05/25/21 Director Counseling Bureau Relationship Specialty Start Date End Date Derrick Thorpe, YEAST DISTILLER.BULLARD OPERATOR [address] [place] [address] PCP - General Family Practice 12/22/21 Fredi Heredia [address] [place] [address] Cardiology 07/15/20 Chivo Wellington Jr., DO Orthopedics Orthopedics 05/25/21 Director Counseling Bureau Relationship Specialty Start Date End Date Derrick Thorpe, YEAST DISTILLER.BULLARD OPERATOR [address] [place] [address] PCP - General Family Practice 12/22/21 Fredi Heredia [address] [facility] [place] [address] Cardiology 07/15/20 Chivo Wellington Jr., DO Orthopedics Orthopedics 05/25/21 Director Counseling Bureau Relationship Specialty Start Date End Date Derrick Thorpe, YEAST DISTILLER.BULLARD OPERATOR [address] [place] [address] PCP - General Family Medicine 12/22/21 Fredi Heredia [address] [facility] [place] [address] Cardiology 07/15/20 Chivo Wellington Jr., DO Orthopedics Orthopedics 05/25/21 Director Counseling Bureau Relationship Specialty Start Date End Date Derrick Thorpe, YEAST DISTILLER.BULLARD OPERATOR [address] [place] [address] PCP - General Family Medicine 12/22/21 Fredi Heredia [address] [place] [address] Cardiology 07/15/20 Chivo Wellington Jr., DO Orthopedics Orthopedics 05/25/21 Director Counseling Bureau Relationship Specialty Start Date End Date Derrick Thorpe, YEAST DISTILLER.BULLARD OPERATOR [address] [place] [address] PCP - General Family Medicine 12/22/[address] [facility] [place] [address] Cardiology 07/15/20 Chivo Wellington Jr., DO Orthopedics Orthopedics 05/25/21 Director Counseling Bureau Relationship Specialty Start Date End Date Derrick Thorpe, YEAST DISTILLER.BULLARD OPERATOR [address] [place] [address] PCP - General Family Medicine 12/22/[address] [facility] [place] [address] Cardiology 07/15/20 Chivo Wellington Jr., DO Orthopedics Orthopedics 05/25/21 Director Counseling Bureau Relationship Specialty Start Date End Date Derrick Thorpe, YEAST DISTILLER.BULLARD OPERATOR [address] [place] [address] PCP - General Family Medicine 12/22/21 Fredi Heredia [address] [facility] [place] [address] Cardiology 07/15/20 Chivo Wellington Jr., DO Orthopedics Orthopedics 05/25/21 Director Counseling Bureau Relationship Specialty Start Date End Date Derrick Thorpe, YEAST DISTILLER.BULLARD OPERATOR [address] [place] [address] PCP - General Family Medicine 12/22/[address] [facility] [place] [address] Cardiology 07/15/20 Chivo Wellington Jr., DO Orthopedics Orthopedics 05/25/21 Director Counseling Bureau Relationship Specialty Start Date End Date Derrick Thorpe, YEAST DISTILLER.BULLARD OPERATOR [address] [place] [address] PCP - General Family Medicine 12/22/21 Fredi Heredia [address] [place] [address] Cardiology 07/15/20 Chivo Wellington Jr., DO [address] [place] [address] Orthopedics Orthopedics 05/25/21 Director Counseling Bureau Relationship Specialty Start Date End Date Derrick Thorpe, YEAST DISTILLER.BULLARD OPERATOR [address] [place] [address] PCP - General Family Medicine 12/22/[address] [place] [address] Cardiology 07/15/20 Chivo Wellington Jr., DO [address] [place] [address] Orthopedics Orthopedics 05/25/21 Director Counseling Bureau Relationship Specialty Start Date End Date Derrick Thorpe, YEAST DISTILLER.BULLARD OPERATOR [address] [place] [address] PCP - General Family Medicine 12/22/[address] [place] [address] Cardiology 07/15/20 Chivo Wellington Jr., DO [address] [place] [address] Orthopedics Orthopedics 05/25/21 Director Counseling Bureau Relationship Specialty Start Date End Date Derrick Thorpe, YEAST DISTILLER.BULLARD OPERATOR [address] [place] [address] PCP - General Family Medicine 12/22/21 Fredi Heredia [address] [place] [address] Cardiology 07/15/20 Chivo Wellington Jr., DO [address] [place] [address] Orthopedics Orthopedics 05/25/21 Director Counseling Bureau Relationship Specialty Start Date End Date Derrick Thorpe, YEAST DISTILLER.BULLARD OPERATOR [address] [place] [address] PCP - General Family Medicine 12/22/21 Fredi Heredia [address] [place] [address] Cardiology 07/15/20 Chivo Wellington Jr., DO [address] [place] [address] Orthopedics Orthopedics 05/25/21 Director Counseling Bureau Relationship Specialty Start Date End Date Derrick Thorpe, YEAST DISTILLER.BULLARD OPERATOR [address] [place] [address] PCP - General Family Medicine 12/22/21 Fredi Heredia [address] [place] [address] Cardiology 07/15/20 Chivo Wellington Jr., DO [address] [place] [address] Orthopedics Orthopedics 05/25/21 Director Counseling Bureau Relationship Specialty Start Date End Date Derrick Thorpe, YEAST DISTILLER.BULLARD OPERATOR [address] [place] [address] PCP - General Family Medicine 12/22/21 Fredi Heredia [address] [place] [address] Cardiology 07/15/20 Chivo Wellington Jr., DO [address] [place] [address] Orthopedics Orthopedics 05/25/21 Director Counseling Bureau Relationship Specialty Start Date End Date Derrick Thorpe, YEAST DISTILLER.BULLARD OPERATOR [address] [place] [address] PCP - General Family Medicine 12/22/21 Fredi Heredia [address] [place] [address] Cardiology 07/15/20 Chivo Wellington Jr., DO [address] [place] [address] Orthopedics Orthopedics 05/25/21 Director Counseling Bureau Relationship Specialty Start Date End Date Derrick Thorpe, YEAST DISTILLER.BULLARD OPERATOR [address] [place] [address] PCP - General Family Medicine 12/22/21 Fredi Heredia [address] [place] [address] Cardiology 07/15/20 Chivo Wellington Jr., DO [address] [place] [address] Orthopedics Orthopedics 05/25/21 Director Counseling Bureau Relationship Specialty Start Date End Date Derrick Thorpe, YEAST DISTILLER.BULLARD OPERATOR [address] [place] [address] PCP - General Family Medicine 12/22/21 Fredi Heredia [address] [place] [address] Cardiology 07/15/20 Chivo Wellington Jr., DO [address] [place] [address] Orthopedics Orthopedics 05/25/21 Director Counseling Bureau Relationship Specialty Start Date End Date Derrick Thorpe, YEAST DISTILLER.BULLARD OPERATOR [address] [place] [address] PCP - General Family Medicine 12/22/21 Fredi Heredia [address] [place] [address] Cardiology 07/15/20 Chivo Wellington Jr., DO [address] [place] [address] Orthopedics Orthopedics 05/25/21 Director Counseling Bureau Relationship Specialty Start Date End Date Derrick Thorpe, YEAST DISTILLER.BULLARD OPERATOR [address] [facility], [place] [id number] PCP - General Family Medicine 12/22/21 Fredi Heredia [address] [place] [address] Cardiology 07/15/20 Chivo Wellington Jr., DO [address] [place] [address] Orthopedics Orthopedics 05/25/21 Director Counseling Bureau Relationship Specialty Start Date End Date Derrick Thorpe, YEAST DISTILLER.BULLARD OPERATOR [address] [facility] [place] [place] [id number] PCP - General Family Medicine 12/22/21 Fredi Heredia [address] [place] [address] Cardiology 07/15/20 Chivo Wellington Jr., DO [address] [place] [address] Orthopedics Orthopedics 05/25/21 Director Counseling Bureau Relationship Specialty Start Date End Date Derrick Thorpe, YEAST DISTILLER.BULLARD OPERATOR [address] [place] [address] PCP - General Family Medicine 12/22/21 Fredi Heredia [address] [place] [address] Cardiology 07/15/20 Chivo Wellington Jr., DO [address] [place] [address] Orthopedics Orthopedics 05/25/21 Director Counseling Bureau Relationship Specialty Start Date End Date Derrick Thorpe APRN.BULLARD OPERATOR [address] [place] [address] PCP - General Family Medicine 12/22/21 Fredi Heredia [address] [place] [address] Cardiology 07/15/20 Chivo Wellington Jr., DO [address] [place] [address] Orthopedics Orthopedics 05/25/21 Director Counseling Bureau Relationship Specialty Start Date End Date Derrick Thorpe APRN.BULLARD OPERATOR [address] [facility] [place] [address] PCP - General Family Medicine 12/22/21 Fredi Heredia [address] [place] [address] Cardiology 07/15/20 Chivo Wellington Jr., DO [address] [place] [address] Orthopedics Orthopedics 05/25/21 Director Counseling Bureau Relationship Specialty Start Date End Date Derrick Thorpe YEAST DISTILLER.BULLARD OPERATOR [address] [facility] [place] [address] PCP - General Family Medicine 12/22/21 Fredi Heredia [address] [place] [address] Cardiology 07/15/20 Chivo Wellington Jr., DO [address] [place] [address] Orthopedics Orthopedics 05/25/21 Director Counseling Bureau Relationship Specialty Start Date End Date Derrick Thorpe, YEAST DISTILLER.BULLARD OPERATOR [address] [facility], [place] [id number] PCP - General Family Medicine 12/22/21 Fredi Heredia [address] [place] [address] Cardiology 07/15/20 Chivo Wellington Jr., DO [address] [place] [phone] Orthopedics Orthopedics 05/25/21 Director Counseling Bureau Relationship Specialty Start Date End Date Derrick Thorpe, YEAST DISTILLER.BULLARD OPERATOR [address] [facility], [place] [id number] PCP - General Family Medicine 12/22/21 Fredi Heredia [address] [place] [address] Cardiology 07/15/20 Chivo Wellington Jr., DO [address] [place] [phone] Orthopedics Orthopedics 05/25/21 Director Counseling Bureau Relationship Specialty Start Date End Date Derrick Thorpe APRN.BULLARD OPERATOR [address] [place] [address] PCP - General Family Medicine 12/22/21 Fredi Heredia [address] [place] [address] Cardiology 07/15/20 Chivo Wellington Jr., DO [address] [place] [address] Orthopedics Orthopedics 05/25/21 Director Counseling Bureau Relationship Specialty Start Date End Date Derrick Thorpe APRN.BULLARD OPERATOR [address] [place] [address] PCP - General Family Medicine 12/22/21 Fredi Heredia [address] [place] [address] Cardiology 07/15/20 Chivo Wellington Jr., DO [address] [place] [address] Orthopedics Orthopedics 05/25/21 Director Counseling Bureau Relationship Specialty Start Date End Date Derrick Thorpe APRN.BULLARD OPERATOR [address] [place] [address] PCP - General Family Medicine 12/22/21 Fredi Heredia MD [address] [place] [address] Cardiology 07/15/20 Chivo Wellington Jr., DO [address] [place] [address] Orthopedics Orthopedics 05/25/21 Director Counseling Bureau Relationship Specialty Start Date End Date Derrick Thorpe YEAST DISTILLER.BULLARD OPERATOR [address] [facility], [place] [id number] PCP - General Family Medicine 12/22/21 Fredi Heredia MD [address] [place] [address] Cardiology 07/15/20 Chivo Wellington Jr., DO [address] [place] [phone] Orthopedics Orthopedics 05/25/21 Director Counseling Bureau Relationship Specialty Start Date End Date Derrick Thorpe, YEAST DISTILLER.BULLARD OPERATOR [address] [place] [address] PCP - General Family Medicine 12/22/21 Fredi Heredia MD [address] [place] [phone] Cardiology 07/15/20 Chivo Wellington Jr., DO [address] [place] [address] Orthopedics Orthopedics 05/25/21 Director Counseling Bureau Relationship Specialty Start Date End Date Derrick Thorpe APRN.BULLARD OPERATOR [address] [facility] [place] [id number] PCP - General Family Medicine 12/22/21 Fredi Heredia MD [address] [place] [address] Cardiology 07/15/20 Chivo Wellington Jr., DO [address] [place] [address] Orthopedics Orthopedics 05/25/21 Director Counseling Bureau Relationship Specialty Start Date End Date Derrick Thorpe YEAST DISTILLER.BULLARD OPERATOR [address] [place] [address] PCP - General Family Medicine 12/22/21 Fredi Heredia MD [address] [place] [address] Cardiology 07/15/20 Chivo Wellington Jr., DO [address] [place] [address] Orthopedics Orthopedics 05/25/21 Director Counseling Bureau Relationship Specialty Start Date End Date Derrick Thorpe YEAST DISTILLER.BULLARD OPERATOR [address] [facility] [place] [id number] PCP - General Family Medicine 12/22/21 Fredi Heredia MD [address] [place] [address] Cardiology 07/15/20 Chivo Wellington Jr., DO [address] [place] [address] Orthopedics Orthopedics 05/25/21 Director Counseling Bureau Relationship Specialty Start Date End Date Derrick Thorpe YEAST DISTILLER.BULLARD OPERATOR [address] [place], [place] [id number] PCP - General Family Medicine 12/22/21 Fredi Heredia MD Cardiology 07/15/20 Chivo Wellington Jr., DO Orthopedics Orthopedics 05/25/21 Director Counseling Bureau Relationship Specialty Start Date End Date Derrick Thorpe YEAST DISTILLER.BULLARD OPERATOR [address] [place] [address] PCP - General Family Medicine 12/22/21 Fredi Heredia MD Cardiology 07/15/20 Chivo Wellington Jr., DO Orthopedics Orthopedics 05/25/21 Director Counseling Bureau Relationship Specialty Start Date End Date Derrick Thorpe YEAST DISTILLER.BULLARD OPERATOR [address] [place] [address] PCP - General Family Medicine 12/22/21 Fredi Heredia MD Cardiology 07/15/20 Chivo Wellington Jr., DO Orthopedics Orthopedics 05/25/21 Director Counseling Bureau Relationship Specialty Start Date End Date Derrick Thorpe YEAST DISTILLER.BULLARD OPERATOR [address] [place], [place] [id number] PCP - General Family Medicine 12/22/21 Fredi Heredia MD Cardiology 07/15/20 Chivo Wellington Jr., DO Orthopedics Orthopedics 05/25/21 Director Counseling Bureau Relationship Specialty Start Date End Date Derrick Thorpe YEAST DISTILLER.BULLARD OPERATOR [address] [place] [address] PCP - General Family Medicine 12/22/21 Fredi Heredia MD Cardiology 07/15/20 Chivo Wellington Jr., DO Orthopedics Orthopedics 05/25/21 Director Counseling Bureau Relationship Specialty Start Date End Date Drerick Thorpe, YEAST DISTILLER.BULLARD OPERATOR [address] [place] [address] PCP - General Family Medicine 12/22/21 Fredi Heredia MD Cardiology 07/15/20 Chivo Wellington Jr., DO Orthopedics Orthopedics 05/25/21 Director Counseling Bureau Relationship Specialty Start Date End Date Derrick Thorpe APRN.BULLARD OPERATOR [address] [place] [address] PCP - General Family Medicine 12/22/21 Fredi Heredia MD Cardiology 07/15/20 Chivo Wellington Jr., DO Orthopedics Orthopedics 05/25/21 Director Counseling Bureau Relationship Specialty Start Date End Date Derrick Thorpe YEAST DISTILLER.BULLARD OPERATOR [address] [place] [address] PCP - General Family Medicine 12/22/21 Fredi Heredia MD Cardiology 07/15/20 Chivo Wellington Jr., DO Orthopedics Orthopedics 05/25/21 Director Counseling Bureau Relationship Specialty Start Date End Date Derrick Thorpe, YEAST DISTILLER.BULLARD OPERATOR [address] [place] [address] PCP - General Family Medicine 12/22/21 Fredi Heredia MD Cardiology 07/15/20 Chivo Wellington Jr., DO Orthopedics Orthopedics 05/25/21 Director Counseling Bureau Relationship Specialty Start Date End Date Derrick Thorpe APRN.BULLARD OPERATOR [address] [place] [address] PCP - General Family Medicine 12/22/21 Fredi Heredia MD Cardiology 07/15/20 Chivo Wellington Jr., DO Orthopedics Orthopedics 05/25/21 Director Counseling Bureau Relationship Specialty Start Date End Date Derrick Thorpe, YEAST DISTILLER.BULLARD OPERATOR [address] [place] [address] PCP - General Family Medicine 12/22/21 Fredi Heredia MD Cardiology 07/15/20 Chivo Wellington Jr., DO Orthopedics Orthopedics 05/25/21 Director Counseling Bureau Relationship Specialty Start Date End Date Derrick Thorpe, YEAST DISTILLER.BULLARD OPERATOR [address] [place] [address] PCP - General Family Medicine 12/22/21 Fredi Heredia MD Cardiology 07/15/20 Chivo Wellington Jr., DO Orthopedics Orthopedics 05/25/21 Director Counseling Bureau Relationship Specialty Start Date End Date Derrick Thorpe, YEAST DISTILLER.BULLARD OPERATOR [address] [place] [address] PCP - General Family Medicine 12/22/21 Fredi Heredia MD Cardiology 07/15/20 Chivo Wellington Jr., DO Orthopedics Orthopedics 05/25/21 Director Counseling Bureau Relationship Specialty Start Date End Date Derrick Thorpe YEAST DISTILLER.BULLARD OPERATOR [address] [place] [address] PCP - General Family Medicine 12/22/21 Fredi Heredia MD Cardiology 07/15/20 Chivo Wellington Jr., DO Orthopedics Orthopedics 05/25/21 Director Counseling Bureau Relationship Specialty Start Date End Date Derrick Thorpe, YEAST DISTILLER.BULLARD OPERATOR [address] [place] [address] PCP - General Family Medicine 12/22/21 Fredi Heredia MD Cardiology 07/15/20 Chivo Wellington Jr., DO Orthopedics Orthopedics 05/25/21 Director Counseling Bureau Relationship Specialty Start Date End Date Derrick Thorpe, YEAST DISTILLER.BULLARD OPERATOR [address] [place], [place] [phone] PCP - General Family Medicine 12/22/21 Fredi Heredia MD Cardiology 07/15/20 Chivo Wellington Jr., DO Orthopedics Orthopedics 05/25/21 Director Counseling Bureau Relationship Specialty Start Date End Date Derrick Thorpe, YEAST DISTILLER.BULLARD OPERATOR [address] [place] [address] PCP - General Family Medicine 12/22/21 Fredi Heredia MD Cardiology 07/15/20 Chivo Wellington Jr., DO Orthopedics Orthopedics 05/25/21 Director Counseling Bureau Relationship Specialty Start Date End Date Madhavi Obrien CNP [address] [phone] PCP - General Internal Medicine 11/21/24 Fredi Heredia MD Cardiology 07/15/20 Chivo Wellington Jr., DO Orthopedics Orthopedics 05/25/21 Director Counseling Bureau Relationship Specialty Start Date End Date Madhavi Obrien CNP [address] [place] [address] PCP - General Internal Medicine 11/21/24 Fredi Heredia MD Cardiology 07/15/20 Chivo Wellington Jr., DO Orthopedics Orthopedics 05/25/21 Director Counseling Bureau Relationship Specialty Start Date End Date Madhavi Obrien CNP [address] [place] [address] PCP - General Internal Medicine 11/21/24 Fredi Heredia MD Cardiology 07/15/20 Chivo Wellington Jr., DO Orthopedics Orthopedics 05/25/21 Director Counseling Bureau Relationship Specialty Start Date End Date Madhavi Obrien CNP [address] [place] [address] PCP - General Internal Medicine 11/21/24 Fredi Heredia MD Cardiology 07/15/20 Chivo Wellington Jr., DO Orthopedics Orthopedics 05/25/21 Director Counseling Bureau Relationship Specialty Start Date End Date Madhavi Obrien CNP [address] [place] [address] PCP - General Internal Medicine 11/21/24 Fredi Heredia MD Cardiology 07/15/20 Chivo Wellington Jr., DO Orthopedics Orthopedics 05/25/21 Director Counseling Bureau Relationship Specialty Start Date End Date Madhavi Obrien CNP [address] [phone] PCP - General Internal Medicine 11/21/24 Fredi Heredia MD Cardiology 07/15/20 Chivo Wellington Jr., DO Orthopedics Orthopedics 05/25/21 Director Counseling Bureau Relationship Specialty Start Date End Date Madhavi Obrien CNP [address] [phone] PCP - General Internal Medicine 11/21/24 Fredi Heredia MD Cardiology 07/15/20 Chivo Wellington Jr., DO Orthopedics Orthopedics 05/25/21 Reason for Visit (unrecogniz ed section and content) Reason Comments Follow Up Specialty Diagnoses / Procedures Referred By April weber Referred To Contact Endocrinology / ENDOCRINOLOGY Diagnoses Follow-up exam thyroid follow up Procedures OFFICE/OUTPATIENT ESTABLISHED MOD MDM 30-39 MIN EST DELILAH PATIENT Self Jenelle Sanford MD [address] [facility], [address] [place] [address] Referral ID Status Reason Start Date Expiration Date Visits Re quested Visits Authorized [id number] Closed 10/15/2021 10/14/2022 1 1 Reason Comments Results Reason Comments Refill Request Specialty Diagnoses / Procedures Referred By Contac t Referred To Contact [facility] Department Diagnoses Low TSH level Procedures CONSULT TO ENDOCRINOLOGY NEW PATIENT VISIT LEVEL 5 Nevaeh Lindsay MD [address] [place] [address] Werner Amato MD [address] [place] [address] Referral ID Status Reason Start Date Expiration Date V isits Requested Visits Authorized [id number] Closed PCP Requested Referral 11/10/2020 11/10/2021 1 1 Reason Comments Orders Labs Reason Comments Results Reason Comments No Show 1st no show 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 Date Comments Refill Request 05/25/2022 Reason Comments No Show 2nd no show 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 Date Comments Refill Request 07/05/2022 Reason Comments Orders Reason Comments Rx Refills 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 Date Comments Refill Request 09/11/2022 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 Date Comments Refill Request 09/22/2022 Reason Comments Diabetes COPD Reason Comments No Show Pt no showed for josé antonio t on 01/22/23 Reason Comments Diabetes And back pain follow up Reason Comments Missed Appointment 3rd no show in 365 d ays (3rd letter sent) 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 Date Comments ED Outreach 06/26/2023 [facility] 06/20/23 Reason Comments ER F/U Fell of stairs . Hea d is better. Specialty Diagnoses / Procedures Referred By Contac t Referred To Contact Rheumatology / [facility] DEPARTMENT Diagnoses Rheumatoid arthritis involving vertebra, unspecified whether rheumatoid factor present (HCC) Procedures CONSULT TO RHEUM/IMMUN DISEASE OFFICE/OUTPATIENT NEW HIGH MDM 60-74 MINUTES Derrick Thorpe APRN.BULLARD OPERATOR [address] [place] [address] Xiomara Leonard PA-C [address] [address] Referral ID Status Reason Start Date Expiration Date V isits Requested Visits Authorized [id number] Closed PCP Requested Referral OON/Self Pay Override 02/13/2023 02/13/2024 1 1 Reason Comments Orders Reason Comments Med Change Request 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 Date Comments Refill Request 11/23/2023 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 Date Comments Refill Request 11/26/2023 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 Date Comments Refill Request 05/15/2024 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 Date Comments Refill Request 05/26/2024 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 Date Comments Population Health Navigation Outreach 06/04/2024 [employer] Attributed Member- Chart Review 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 Date Comments Refill Request 06/25/2024 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 Date Comments Refill Request 06/30/2024 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 Date Comments Refill Request 07/01/2024 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 Date Comments Refill Request 07/08/2024 Reason Comments Medication Request 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 Date Comments Population Health Navigation Outreach 09/12/2024 [employer] Attributed Member- Chart Review Reason Comments No Show Pt no showed for josé antonio t on 10/02/24 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 Reason Comments Cataract 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 Date Comments Med Refill 01/05/2025 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 Date Comments Med Refill 01/07/2025 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 Date Comments Population Health Navigation Outreach 01/14/2025 [employer] Attributed Member- Chart Review 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 Date Comments Allied Health Visit 01/30/2025 SUPD 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 Date Comments Population Health Navigation Outreach 02/18/2025 [employer] Attributed Member- PCP Attribution Update Sent to Payor 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 Date Comments Population Health Navigation Outreach 05/14/2025 [employer] Attributed Member- PCP Attribution Update Sent to Payor Reason Comments Diabetes Mellitus Thyroid Problem REF/LAB Specialty Diagnoses / Procedures Referred By Contac t Referred To Contact Endocrinology Diagnoses 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, 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 thyrotoxic crisis or storm Procedures HI OFFICE/OUTPATIENT NEW MODERATE MDM 45 MINUTES Madhavi Obrien MD [address] [place] [address] Phone: tel:[phone] fax: Carlos Tavarez MD [address] [facility], [address] [place] [address] Phone: tel: fax: Referral ID Status Reason Start Date Expiration Date Visits Re quested Visits Authorized [id number] Closed 04/21/2025 10/18/2025 1 1 Goals (unrecognized section and content) Goals may be documented in a n alternate sectionGoals may be documented in an alternate section FOR RECORDS PERTAINING TO PATIENTS WHO ARE OR HAVE BEEN ENROLLED IN A CHEMICAL DEPENDENCY/SUBSTANCEABUSE PROGRAM, SOME INFORMATION MAY BE OMITTED. This clinical summary was aggregated from multiple sources. Caution should be exercised in using it in the provision of clinical care. This summary normalizes information from multiple sources, and as a consequence, information in this document may materially change the coding, format and clinical context of patient data. In addition, data may be omitted in some cases. CLINICAL DECISIONS SHOULD BE BASED ON THE PRIMARY CLINICAL RECORDS. [facility] [employer] [facility] provides no warranty or guarantee of the accuracy or completeness of information in this document.
== END 2025-07-02 10:58 | disposition home or self-care (01) ==
LOC: MRI 10:57
PROVIDERS: PCP Nurse Practitioner Family; Visit Provider Nurse Practitioner Family
DX: K86.2 Cyst of pancreas (principal)
CPT/HCPCS: 74183; A9575